=== PATIENT | female | born 1950 | race Hispanic/Latino ===

== ENCOUNTER 2017-11-04 07:39 | Day surgery (SDC) | payer MEDICARE ==
--- OUTSIDE RECORDS SUMMARY | 2017-11-04 07:51 | XMS REPORT ---
:1950 Author Organization eClinicalWorks Care Team Providers Name Role Phone Damir Thomas Provider Role Unavailable Allergies, Adverse Reactions, Alerts Substance Reaction Event Type N.K.D.A. Info Not Available Non Drug Allergy Problems Problem Type Condition Code Onset Dates Condition Status Problem Vitamin B 12 deficiency E53.8 Active Problem Malaise and fatigue R53.81 Active Problem Gastro-esophageal reflux disease K21.9 Active without esophagitis Problem Varicose veins of both lower I83.93 Active extremities Problem Abdominal bloating R14.0 Active Problem Peripheral edema R60.9 Active Problem Vitamin D deficiency E55.9 Active Problem Diabetes type 2, controlled E11.9 Active Problem Hypothyroidism E03.9 Active Problem Benign essential HTN I10 Active Assessment Need for pneumococcal vaccination Z23 Active Assessment Screening for osteoporosis Z13.820 Active Assessment Encounter for screening for other Z11.59 Active viral diseases Assessment Welcome to Medicare preventive Z00.00 Active visit Assessment Screening for malignant neoplasm of Z12.31 Active breast Assessment Screening for colon cancer Z12.11 Active Problem Hyperlipidemia, mixed E78.2 Active Medications Medication Code Code Instructions Start End Status Dosage System Date Date Simvastatin ND 70104522709 40 MG Orally Active 1 tablet Once a day in the evening Lisinopril ND 55714110367 30 MG Orally Active 1 tablet Once a day Synthroid ND 18507857081 50 MCG Orally Active 1 tablet Once a day on an empty stomach in the morning Omeprazole ND 16585713993 40 MG Orally Active 1 capsule Once a day Metformin HCl ND 10353196212 500 MG Orally September 08, Active 1 tablet Twice a day 2017 with a meal Vitamin B12 [facility] 85936823404 100 MCG Orally Active not defined Results No Known Results Immunizations Vaccine Administration Date Prevnar 13 -Pneumonia Vaccine Oct 08, 2017 Summary Purpose eClinicalWorks Submission
--- OUTSIDE RECORDS SUMMARY | 2017-11-04 07:51 | XMS REPORT ---
:1950 Author Organization eClinicalWorks Care Team Providers Name Role Phone Reed Anderson Provider Role Unavailable Allergies, Adverse Reactions, Alerts Substance Reaction Event Type N.K.D.A. Info Not Available Non Drug Allergy Problems Problem Type Condition Code Onset Dates Condition Status Problem Vitamin B 12 deficiency E53.8 Active Problem Malaise and fatigue R53.81 Active Problem Gastro-esophageal reflux disease K21.9 Active without esophagitis Assessment Encounter for screening colonoscopy Z12.11 Active Problem Hyperlipidemia, mixed E78.2 Active Problem Varicose veins of both lower I83.93 Active extremities Problem Abdominal bloating R14.0 Active Problem Peripheral edema R60.9 Active Problem Vitamin D deficiency E55.9 Active Problem Diabetes type 2, controlled E11.9 Active Problem Hypothyroidism E03.9 Active Problem Benign essential HTN I10 Active Medications Medication Code Code Instructions Start End Status Dosage System Date Date Lisinopril [facility] 44984602707 30 MG Orally Active 1 tablet Once a day Metformin HCl [facility] 28163342715 500 MG Orally September 08, Active 1 tablet Twice a day 2017 with a meal Simvastatin ND 93284552917 40 MG Orally Active 1 tablet Once a day in the evening Synthroid ND 53368582182 50 MCG Orally Active 1 tablet Once a day on an empty stomach in the morning Vitamin B12 [facility] 82805926614 100 MCG Orally Active not defined Omeprazole [facility] 67898924285 40 MG Orally Active 1 capsule Once a day Results No Known Results Summary Purpose eClinicalWorks Submission
--- OUTSIDE RECORDS SUMMARY | 2017-11-04 07:51 | XMS REPORT ---
:1950 Author Organization eClinicalWorks Care Team Providers Name Role Phone William Damir Provider Role Unavailable Allergies No Known Allergies Problems Problem Type Condition Code Onset Dates [...] Problem Benign essential HTN I10 Active Assessment Varicose veins of both lower I83.93 Active extremities Assessment Peripheral edema R60.9 Active Problem Hyperlipidemia, mixed E78.2 Active Medications Medication Code Code Instructions Start End Date Status Dosage System Date Simvastatin ND 09191285010 40 MG Orally Active 1 tablet in Once a day the evening Synthroid ND 86368833897 50 MCG Orally Active 1 tablet on Once a day an empty stomach in the morning Vitamin B12 [facility] 41064654373 100 MCG Orally Active not defined Omeprazole ND 45182106565 40 MG Orally Active 1 capsule Once a day Lisinopril ND 60381428534 30 MG Orally Active 1 tablet Once a day Results No Known Results Summary Purpose eClinicalWorks Submission
--- OUTSIDE RECORDS SUMMARY | 2017-11-04 07:51 | XMS REPORT ---
:1950 Author Organization eClinicalWorks Care Team Providers Name Role Phone William [facility] Provider Role Unavailable Allergies, Adverse Reactions, Alerts [...] Problem Benign essential HTN I10 Active Assessment Vitamin D deficiency E55.9 Active Assessment Gastro-esophageal reflux disease K21.9 Active without esophagitis Assessment Vitamin B 12 deficiency E53.8 Active Assessment Benign essential HTN I10 Active Assessment Diabetes type 2, controlled E11.9 Active Assessment Hypothyroidism E03.9 Active Assessment Hyperlipidemia, mixed E78.2 Active Problem Hyperlipidemia, mixed E78.2 Active Medications Medication Code Code Instructions Start End Status Dosage System Date Date Simvastatin ND 28021727184 40 MG Orally Active 1 tablet Once a day in the evening Synthroid [facility] 44417997273 50 MCG Orally Active 1 tablet Once a day on an empty stomach in the morning Metformin HCl ND 36327903942 500 MG Orally September 08, Active 1 tablet Twice a day 2017 with a meal Vitamin B12 [facility] 64160760288 100 MCG Orally Active not defined Omeprazole ND 42438041734 40 MG Orally Active 1 capsule Once a day Lisinopril [facility] 37132003128 30 MG Orally Active 1 tablet Once a day Results No Known Results Summary Purpose eClinicalWorks Submission
[2017-11-04] MEDS ORDERED: NA CHLORIDE 0.9% 1,000 ML ONE (08:05)
[2017-11-04] MEDS ORDERED: LIDOCAINE 2% INJ, MPF 2 ML 1 ML ONE (08:18)
[2017-11-04] MEDS ORDERED: PROPOFOL 200 MG/20 ML VIAL IV ONE (09:07)
--- NOTE | 2017-11-04 09:36 | ENDO RPT ---
[address], [address] COLONOSCOPY PROCEDURE REPORT EXAM DATE: 11/04/2017 PATIENT NAME: Capri Correia MR #: [id number] BIRTHDATE: 1950 ATTENDING: Reed Anderson DR STATUS: outpatient [employer] SUPERVISOR: April Salvador RN and Quentin Robbins [facility] INDICATIONS: The patient is a 67 yr old Female here for a colonoscopy due to colon cancer screening PROCEDURE PERFORMED: Screening Colonoscopy and Colonoscopy MEDICATIONS: Per Anesthesia. ESTIMATED BLOOD LOSS: None CONSENT: The patient understands the risks and benefits of the procedure and understands that these risks include, but are not limited to: sedation, allergic reaction, infection, perforation and/or bleeding. Alternative means of evaluation and treatment include, among others: physical exam, x-rays, and/or surgical intervention. The patient elects to proceed with this endoscopic procedure. DESCRIPTION OF PROCEDURE: During intra-op preparation period all mechanical medical equipment was checked for proper function. Hand hygiene and appropriate measures for infection prevention was taken. Procedure, possible complications, alternatives including, but not limited to possibility of bleeding, perforation, tear, infection, sepsis, need for surgery, need for blood transfusion, were explained to the patient. After the risks, benefits and alternatives of the procedure were thoroughly explained, Informed consent was verified, confirmed and timeout was successfully executed by the treatment team. The patient was placed in the left lateral position. A digital rectal exam was performed and revealed internal hemorrhoids. After appropriate level of anesthesia, the scope was passed. The EC-[id number] ([id number]) endoscope was introduced through the anus and advanced to the cecum, which was identified by both the appendix and ileocecal valve. The quality of the prep was fair. The instrument was then slowly withdrawn as the colon was fully examined. Scope withdrawal time was 8 minutes. COLON FINDINGS: Mild diverticulosis was noted throughout the entire examined colon. No bleeding was noted from the diverticulosis. Small internal hemorrhoids were found. Retroflexed views revealed no abnormalities. The scope was then completely withdrawn from the patient and the procedure terminated. ADVERSE EVENTS: There were no complications. IMPRESSIONS: 1. Moderate diverticulosis was noted throughout the entire examined colon 2. Small internal hemorrhoids RECOMMENDATIONS: 1. low fiber / diverticular diet 2. yearly hemoccult starting in 4 years RECALL: Return in 10 year(s) for Colonoscopy. Reed Anderson DR eSigned: Reed Anderson DR 11/04/2017 9:35 AM cc: CPT CODES: ICD9 CODES: PATIENT NAME: Capri Correia MR#: [id number]
== END 2017-11-04 10:10 | disposition home or self-care (01) ==
LOC: OR 07:39
PROVIDERS: ATTEND Surgery
PROC: 0DJD8ZZ Inspection of Lower Intestinal Tract, Via Natural or Artificial Opening Endoscopic (ICD-10-PCS; principal; 2017-11-04 09:15)
DX: Z12.11 Encounter for screening for malignant neoplasm of colon (principal); E11.9 Type 2 diabetes mellitus without complications; K21.9 Gastro-esophageal reflux disease without esophagitis; I10 Essential (primary) hypertension; E78.2 Mixed hyperlipidemia; E03.9 Hypothyroidism, unspecified; E55.9 Vitamin D deficiency, unspecified; R53.81 Other malaise; R53.83 Other fatigue; K64.8 Other hemorrhoids; K57.30 Diverticulosis of large intestine without perforation or abscess without bleeding
CPT/HCPCS: 45378; 82962; J3490; J7030

== ENCOUNTER 2018-05-30 14:32 | Emergency (ER) | payer MEDICARE ==
--- OUTSIDE RECORDS SUMMARY | 2018-05-30 14:35 | XMS REPORT ---
:1950 Author Organization eClinicalWorks Care Team Providers Name Role Phone Chris Murray Provider Role Unavailable Allergies No Known Allergies Problems Problem Type Condition Code Onset Dates Condition Status Problem Gastro-esophageal reflux disease K21.9 Active without esophagitis Problem Diabetes type 2, controlled E11.9 Active Problem Malaise and fatigue R53.81 Active Problem Hyperlipidemia, mixed E78.2 Active Problem Vitamin B 12 deficiency E53.8 Active Problem Varicose veins of both lower I83.93 Active extremities Problem Peripheral edema R60.9 Active Problem Tear of right rotator cuff, M75.101 Active unspecified tear extent Problem Benign essential HTN I10 Active Problem Vitamin D deficiency E55.9 Active Problem Abdominal bloating R14.0 Active Problem Hypothyroidism E03.9 Active Medications No Known Medications Results No Known Results Summary Purpose eClinicalWorks Submission
--- OUTSIDE RECORDS SUMMARY | 2018-05-30 14:35 | XMS REPORT ---
:1950 Author Organization eClinicalWorks Care Team Providers Name Role Phone William [facility] Provider Role Unavailable Allergies, Adverse Reactions, Alerts [...] Status Dosage System Date Date Simvastatin ND 86436047778 40 MG Orally Active 1 tablet Once a day in the evening Synthroid [facility] 37851914170 50 MCG Orally Active 1 tablet Once a day on an empty stomach in the morning Metformin HCl ND 20380647111 500 MG Orally September 08, Active 1 tablet Twice a day 2017 with a meal Vitamin B12 [facility] 95862442702 100 MCG Orally Active not defined Omeprazole ND 63218223363 40 MG Orally Active 1 capsule Once a day Lisinopril [facility] 41838747122 30 MG Orally Active 1 tablet Once a day Results No Known Results Summary Purpose eClinicalWorks Submission
--- OUTSIDE RECORDS SUMMARY | 2018-05-30 14:35 | XMS REPORT ---
[...] Status Dosage System Date Date Simvastatin ND 29293301009 40 MG Orally Active 1 tablet Once a day in the evening Lisinopril ND 23360693134 30 MG Orally Active 1 tablet Once a day Synthroid ND 39983883768 50 MCG Orally Active 1 tablet Once a day on an empty stomach in the morning Omeprazole ND 25408715155 40 MG Orally Active 1 capsule Once a day Metformin HCl ND 53102289390 500 MG Orally September 08, Active 1 tablet Twice a day 2017 with a meal Vitamin B12 [facility] 49133297183 100 MCG Orally Active not defined Results No Known Results Immunizations Vaccine Administration Date Prevnar 13 -Pneumonia Vaccine Oct 08, 2017 Summary Purpose eClinicalWorks Submission
--- OUTSIDE RECORDS SUMMARY | 2018-05-30 14:35 | XMS REPORT ---
[...] End Status Dosage System Date Date Lisinopril [facility] 71766333343 30 MG Orally Active 1 tablet Once a day Metformin HCl [facility] 99139872297 500 MG Orally September 08, Active 1 tablet Twice a day 2017 with a meal Simvastatin ND 78862392012 40 MG Orally Active 1 tablet Once a day in the evening Synthroid ND 38767591556 50 MCG Orally Active 1 tablet Once a day on an empty stomach in the morning Vitamin B12 [facility] 76285449946 100 MCG Orally Active not defined Omeprazole [facility] 14964604947 40 MG Orally Active 1 capsule Once a day Results No Known Results Summary Purpose eClinicalWorks Submission
--- OUTSIDE RECORDS SUMMARY | 2018-05-30 14:35 | XMS REPORT ---
[...] Date Status Dosage System Date Simvastatin ND 21406775566 40 MG Orally Active 1 tablet in Once a day the evening Synthroid ND 59411642738 50 MCG Orally Active 1 tablet on Once a day an empty stomach in the morning Vitamin B12 [facility] 09717388065 100 MCG Orally Active not defined Omeprazole ND 66868981935 40 MG Orally Active 1 capsule Once a day Lisinopril ND 11529567280 30 MG Orally Active 1 tablet Once a day Results No Known Results Summary Purpose eClinicalWorks Submission
--- OUTSIDE RECORDS SUMMARY | 2018-05-30 14:35 | XMS REPORT ---
:1950 Author Organization eClinicalWorks Care Team Providers Name Role Phone Chris Murray Provider Role Unavailable Allergies, Adverse Reactions, Alerts Substance Reaction Event Type N.K.D.A. Info Not Available Non Drug Allergy Problems Problem Type Condition Code Onset Dates Condition Status Problem Gastro-esophageal reflux disease K21.9 Active without esophagitis Problem Diabetes type 2, controlled E11.9 Active Problem Malaise and fatigue R53.81 Active Problem Varicose veins of both lower I83.93 Active extremities Problem Peripheral edema R60.9 Active Problem Tear of right rotator cuff, M75.101 Active unspecified tear extent Problem Benign essential HTN I10 Active Problem Vitamin D deficiency E55.9 Active Problem Abdominal bloating R14.0 Active Problem Hypothyroidism E03.9 Active Assessment Impingement syndrome of right M75.41 Active shoulder Assessment Pain, joint, shoulder, right M25.511 Active Assessment Tear of right rotator cuff, M75.101 Active unspecified tear extent Problem Hyperlipidemia, mixed E78.2 Active Assessment Biceps tendinitis of right upper M75.21 Active extremity Problem Vitamin B 12 deficiency E53.8 Active Medications Medication Code Code Instructions Start End Status Dosage System Date Date Simvastatin ND 16691722018 40 MG Orally Active 1 tablet Once a day in the evening Omeprazole ND 72539513399 40 MG Orally Active 1 capsule Once a day Metformin HCl [facility] 97083597305 500 MG Orally Active 1 tablet Twice a day with a meal Lisinopril [facility] 47125262238 30 MG Orally Active 1 tablet Once a day Tramadol HCl ND 77778316518 50 MG Orally Dec 10, Active 1 tablet every 6 hrs 2017 as needed Synthroid [facility] 40093620275 75 MCG Orally Active 1 tablet Once a day on an empty stomach in the morning Vitamin B12 ND 81842698727 100 MCG Orally Active not defined Results Name Result Date Reference Range Unit Abnormality Flag MRI : Shoulder, right Summary Purpose eClinicalWorks Submission
--- OUTSIDE RECORDS SUMMARY | 2018-05-30 14:35 | XMS REPORT ---
[...] of both lower I83.93 Active extremities Assessment Right shoulder pain, unspecified M25.511 Active chronicity Problem Peripheral edema R60.9 Active Assessment Microalbuminuria R80.9 Active Problem Tear of right rotator cuff, M75.101 Active unspecified tear extent Problem Benign essential HTN I10 Active Problem Vitamin D deficiency E55.9 Active Problem Abdominal bloating R14.0 Active Problem Hypothyroidism E03.9 Active Assessment Gastro-esophageal reflux disease K21.9 Active without esophagitis Assessment Hypothyroidism E03.9 Active Assessment Vitamin B 12 deficiency E53.8 Active Assessment Vitamin D deficiency E55.9 Active Assessment Diabetes type 2, controlled E11.9 Active Assessment Hyperlipidemia, mixed E78.2 Active Problem Hyperlipidemia, mixed E78.2 Active Assessment Benign essential HTN I10 Active Problem Vitamin B 12 deficiency E53.8 Active Medications Medication Code Code Instructions Start End Status Dosage System Date Date Synthroid [facility] 72094368529 88 MCG Orally Active 1 tablet Once a day on an empty stomach in the morning Omeprazole [facility] 27946659329 40 MG Orally Active 1 capsule Once a day Tramadol HCl [facility] 74164973890 50 MG Orally Dec 10, Active 1 tablet every 6 hrs 2017 as needed Metformin HCl [facility] 56235229095 500 MG Orally Active 1 tablet Twice a day with a meal Omeprazole [facility] 41213448391 40 MG Orally Active 1 capsule Once a day Simvastatin [facility] 69874434125 40 MG Orally Active 1 tablet Once a day in the evening Vitamin B12 [facility] 31342936809 100 MCG Orally Active not defined Lisinopril [facility] 31026638115 30 MG Orally Active 1 tablet Once a day Results No Known Results Summary Purpose eClinicalWorks Submission
--- OUTSIDE RECORDS SUMMARY | 2018-05-30 14:36 | XMS REPORT ---
:1950 Author Organization eClinicalWorks Care Team Providers Name Role Phone Damir Thomas Provider Role Unavailable Allergies, Adverse Reactions, Alerts Substance Reaction Event Type N.K.D.A. Info Not Available Non Drug Allergy Problems Problem Type Condition Code Onset Dates Condition Status Problem Malaise and fatigue R53.81 Active Problem Vitamin D deficiency E55.9 Active Problem Diabetes type 2, controlled E11.9 Active Problem Tear of right rotator cuff, M75.101 Active unspecified tear extent Problem Varicose veins of both lower I83.93 Active extremities Problem Allergic rhinitis, unspecified J30.9 Active seasonality, unspecified trigger Problem Hypothyroidism E03.9 Active Problem Benign essential HTN I10 Active Problem Peripheral edema R60.9 Active Problem Abdominal bloating R14.0 Active Assessment Allergic rhinitis, unspecified J30.9 Active seasonality, unspecified trigger Problem Hyperlipidemia, mixed E78.2 Active Assessment Acute non-recurrent frontal J01.10 Active sinusitis Problem Vitamin B 12 deficiency E53.8 Active Assessment Upper respiratory tract infection, J06.9 Active unspecified type Problem Gastro-esophageal reflux disease K21.9 Active without esophagitis Medications Medication Code Code Instructions Start End Status Dosage System Date Date Tramadol HCl ND 63179451217 50 MG Orally Feb 15, Active 1 tablet every 6 hrs 2017 as needed Simvastatin ND 02904567486 40 MG Orally Active 1 tablet Once a day in the evening Montelukast ND 34385290352 10 MG Orally Apr 28, Active 1 tablet Sodium Once a day 2018 Metformin HCl ND 73900752650 500 MG Orally Active 1 tablet Twice a day with a meal Omeprazole [facility] 96438246496 40 MG Orally Active 1 capsule Once a day Vitamin B12 [facility] 96616589071 100 MCG Orally Active not defined Synthroid ND 08128535342 88 MCG Orally Active 1 tablet Once a day on an empty stomach in the morning Lisinopril [facility] 28227552074 30 MG Orally Active 1 tablet Once a day Results No Known Results Summary Purpose eClinicalWorks Submission
[2018-05-30] MEDS ORDERED: PHENAZOPYRIDINE 100MG TAB PO ONE (15:21)
--- NOTE | 2018-05-30 15:21 | ER ---
Nurse's Notes [facility] Name: Capri Correia Age: 68 yrs Sex: Female : 1950 Arrival Date: 05/30/2018 Time: 14:37 Bed 30 Private MD: Damir Thomas Diagnosis: Urinary tract infection, site not specified Presentation: 05/30 14:39 Presenting complaint: Child states: per daughter in law: she has abd pain; L lower abd, hj i think she had UTI, coz when she pees it marshall a lot; denies fever and chills; denies N/V;. Transition of care: patient was not received from another setting of care. Onset of symptoms was May 30, 2018. Risk Assessment: Do you want to hurt yourself or someone else? Patient reports no desire to harm self or others. Initial Sepsis Screen: Does the patient meet any 2 criteria? Yes Does the patient have a suspected source of infection? Yes: Dysuria/Frequency/Urgency/UTI. Care prior to arrival: None. 14:39 Method Of Arrival: Ambulatory 14:39 Acuity: NITA 4 hj Triage Assessment: 14:43 General: Appears in no apparent distress. uncomfortable, Behavior is calm, cooperative, hj appropriate for age. Pain: Complains of pain in abdomen. GI: Reports lower abdominal pain. : Reports burning with urination. Historical: - Allergies: 14:43 No Known Allergies; hj - Home Meds: 14:43 pirimir [Active]; simvastatin 40 mg Oral tab 1 tab once daily [Active]; metformin 500 hj mg Oral tr24 1 tab twice a day [Active]; lisinopril 30 mg Oral tab 1 tab once daily [Active]; levothyroxine 88 mcg tab 1 tab once daily [Active]; - PMHx: 14:43 Hypothyroidism; Hyperlipidemia; Hypertension; hj - PSHx: 14:43 Tonsillectomy; Thyroidectomy; hj - Immunization history:: Adult Immunizations up to date. - Social history:: Smoking status: Patient/guardian denies using tobacco, Patient/guardian denies using alcohol. - Ebola Screening: : Patient negative for fever greater than or equal to 101.5 degrees Fahrenheit, and additional compatible Ebola Virus Disease symptoms Patient denies exposure to infectious person Patient denies travel to an Ebola-affected area in the 21 days before illness onset. Screenin:43 Abuse screen: Denies threats or abuse. Denies injuries from another. Nutritional hj screening: No deficits noted. Tuberculosis screening: No symptoms or risk factors identified. Fall Risk None identified. Assessment: 14:44 GI: Bowel sounds present X 4 quads. hj 14:59 General: Appears in no apparent distress. Behavior is calm, cooperative. Neuro: Level la1 of Consciousness is awake, alert, obeys commands, Oriented to person, place, time, situation. Cardiovascular: Patient's skin is warm and dry. Respiratory: Airway is patent Respiratory effort is even, unlabored. : Reports burning with urination. Vital Signs: 14:44 BP 146 / 80; Pulse 83; Resp 18; Temp 97.8(O); Pulse Ox 100% on R/A; Weight 73.48 kg; hj Height 5 ft. 2 in. (157.48 cm); Pain 8/10; 14:44 Body Mass Index 29.63 (73.48 kg, 157.48 cm) hj ED Course: 14:37 Patient arrived in ED. mr 14:38 Damir Thomas DO is Private Physician. mr 14:41 Triage completed. hj 14:41 Tamar Pelletier [facility]-C [facility]. kb 14:41 Jb Solomon MD is Attending Physician. kb 14:44 Arm band placed on right wrist. hj 14:44 Patient has correct armband on for positive identification. Bed in low position. Call hj light in reach. Side rails up X 1. Adult w/ patient. 14:50 Cipriano Sanz, RN is Primary Nurse. la1 15:38 No provider procedures requiring assistance completed. Patient did not have IV access la1 during this emergency room visit. Administered Medications: 15:13 Drug: Augmentin 875 mg Route: PO; la1 15:38 Follow up: Response: No adverse reaction la1 15:14 Drug: Pyridium 100 mg Route: PO; la1 15:38 Follow up: Response: No adverse reaction la1 Outcome: 15:21 Discharge ordered by . kb 15:39 Discharged to home ambulatory. la1 15:39 Condition: stable 15:39 Discharge instructions given to patient, Instructed on discharge instructions, follow up and referral plans. medication usage, Demonstrated understanding of instructions, follow-up care, medications, Prescriptions given X 2. 15:39 Patient left the ED. la1 Addendum: 06/02/2018 09:44 Addendum: Culture Results: Positive urine culture. Bacteria is resistant to, has s s intermediate sensitivity, or is not tested against prescribed antibiotics. Report given to TELMA for further evaluation and then to mold capper for follow up with patient. Phone call Attempt #1 Spoke with patient and daughter who report that patient is feeling much better, and would not like to have another antibiotic called in as recommended by ALISIA Celeste. Pt and family verbalize understanding importance of follow up with PCP ria to reevaluate for UTI especially if they do not want appropriate antibiotic called in. Signatures: Tamar Pelletier, [employer] OFFICER-Carmencita Morrissey Shelby, RN [facility]AI ss Cipriano Sanz RN RN la1 Sterling Farley, CHAI RN hj Corrections: (The following items were deleted from the chart) 05/30 14:46 14:44 Pulse 83bpm; Resp 18bpm; Pulse Ox 100% RA; Temp 97.8F Oral; 73.48 kg; Height 5 hj ft. 2 in.; BMI: 29.6; Pain 8/10; hj
--- NOTE | 2018-05-30 15:21 | EDPHYS ---
Physician Documentation [facility] Name: Capri Correia Age: 68 yrs Sex: Female : 1950 Arrival Date: 05/30/2018 Time: 14:37 Bed 30 Private MD: William [facility] ED Physician Jb Solomon HPI: 05/30 15:02 This 68 yrs old Female presents to ER via Ambulatory with complaints of kb Abdominal Pain. 15:02 The patient presents with urinary symptoms, dysuria. Onset: The symptoms/episode kb began/occurred 1 week(s) ago. Modifying factors: The symptoms are alleviated by nothing, the symptoms are aggravated by urinating. Associated signs and symptoms: Pertinent positives: dysuria, suprapubic pain, Pertinent negatives: fever. Severity of symptoms: At their worst the symptoms were moderate, in the emergency department the symptoms are unchanged. The patient has not experienced similar symptoms in the past. The patient has not recently seen a physician. Historical: - Allergies: 14:43 No Known Allergies; hj - Home Meds: 14:43 pirimir [Active]; simvastatin 40 mg Oral tab 1 tab once daily [Active]; metformin 500 hj mg Oral tr24 1 tab twice a day [Active]; lisinopril 30 mg Oral tab 1 tab once daily [Active]; levothyroxine 88 mcg tab 1 tab once daily [Active]; - PMHx: 14:43 Hypothyroidism; Hyperlipidemia; Hypertension; hj - PSHx: 14:43 Tonsillectomy; Thyroidectomy; hj - Immunization history:: Adult Immunizations up to date. - Social history:: Smoking status: Patient/guardian denies using tobacco, Patient/guardian denies using alcohol. - Ebola Screening: : Patient negative for fever greater than or equal to 101.5 degrees Fahrenheit, and additional compatible Ebola Virus Disease symptoms Patient denies exposure to infectious person Patient denies travel to an Ebola-affected area in the 21 days before illness onset. ROS: 15:01 Constitutional: Negative for fever, chills, and weight loss, Cardiovascular: Negative kb for chest pain, palpitations, and edema, Respiratory: Negative for shortness of breath, cough, wheezing, and pleuritic chest pain, Back: Negative for injury and pain, MS/Extremity: Negative for injury and deformity, Skin: Negative for injury, rash, and discoloration, Neuro: Negative for headache, weakness, numbness, tingling, and seizure. 15:01 Abdomen/GI: Positive for abdominal pain, of the suprapubic area, Negative for nausea, vomiting, and diarrhea. 15:01 : Positive for urinary symptoms, burning with urination. Exam: 15:01 Constitutional: This is a well developed, well nourished patient who is awake, alert, kb and in no acute distress. Head/Face: Normocephalic, atraumatic. Chest/axilla: Normal chest wall appearance and motion. Nontender with no deformity. No lesions are appreciated. Cardiovascular: Regular rate and rhythm with a normal S1 and S2. No gallops, murmurs, or rubs. Normal PMI, no JVD. No pulse deficits. Respiratory: Lungs have equal breath sounds bilaterally, clear to auscultation and percussion. No rales, rhonchi or wheezes noted. No increased work of breathing, no retractions or nasal flaring. Skin: Warm, dry with normal turgor. Normal color with no rashes, no lesions, and no evidence of cellulitis. MS/ Extremity: Pulses equal, no cyanosis. Neurovascular intact. Full, normal range of motion. Neuro: Awake and alert, GCS 15, oriented to person, place, time, and situation. Cranial nerves II-XII grossly intact. Motor strength 5/5 in all extremities. Sensory grossly intact. Cerebellar exam normal. Normal gait. 15:01 Abdomen/GI: Inspection: abdomen appears normal, Bowel sounds: normal, in all quadrants, Palpation: soft, in all quadrants, moderate abdominal tenderness, in the suprapubic area. Vital Signs: 14:44 BP 146 / 80; Pulse 83; Resp 18; Temp 97.8(O); Pulse Ox 100% on R/A; Weight 73.48 kg; hj Height 5 ft. 2 in. (157.48 cm); Pain 8/10; 14:44 Body Mass Index 29.63 (73.48 kg, 157.48 cm) MDM: 14:47 Patient medically screened. kb 15:00 Data reviewed: vital signs, nurses notes. Data interpreted: Pulse oximetry: on room air kb is 100 %. Interpretation: normal. Counseling: I had a detailed discussion with the patient and/or guardian regarding: the historical points, exam findings, and any diagnostic results supporting the discharge/admit diagnosis, lab results, the need for outpatient follow up, a family practitioner, to return to the emergency department if symptoms worsen or persist or if there are any questions or concerns that arise at home. 05/30 14:42 Order name: Urine Microscopic Only 05/30 15:00 Order name: Urine Culture 05/30 14:42 Order name: Urine Dipstick-Ancillary (obtain specimen); Complete Time: 15:00 05/30 15:09 Order name: Urine Dipstick--Ancillary (enter results) bd Administered Medications: 15:13 Drug: Augmentin 875 mg Route: PO; la1 15:38 Follow up: Response: No adverse reaction la1 15:14 Drug: Pyridium 100 mg Route: PO; la1 15:38 Follow up: Response: No adverse reaction la1 Disposition: 05/31 07:37 Co-signature as Attending Physician, Jb Solomon MD I agree with the assessment and zeb plan of care. Disposition: 05/30/18 15:21 Discharged to Home. Impression: Urinary tract infection, site not specified. - Condition is Stable. - Discharge Instructions: Urinary Tract Infection, Adult, [id number]. - Prescriptions for Augmentin 875- 125 mg Oral Tablet - take 1 tablet by ORAL route every 12 hours for 10 days; 20 tablet. Pyridium 200 mg Oral Tablet - take 1 tablet by ORAL route every 8 hours for 3 days; 9 tablet. - Medication Reconciliation Form, Thank You Letter, Antibiotic Education, Prescription Opioid Use form. - Follow up: Emergency Department; When: As needed; Reason: Worsening of condition. Follow up: Private Physician; When: 2 - 3 days; Reason: Recheck today's complaints, Continuance of care, Re-evaluation by your physician. Signatures: Dispatcher [employer] Tamar Santiago, ASHA-C ASHA-Jb Hernandez MD MD cha Attema, Lee, RN RN la1 Sterling Farley RN RN Corrections: (The following items were deleted from the chart) 05/30 15:39 15:21 05/30/2018 15:21 Discharged to Home. Impression: Urinary tract infection, site la1 not specified. Condition is Stable. Discharge Instructions: Urinary Tract Infection, Adult, [id number]. Prescriptions for Augmentin 875-125 mg Oral Tablet - take 1 tablet by ORAL route every 12 hours for 10 days; 20 tablet, Pyridium 200 mg Oral Tablet - take 1 tablet by ORAL route every 8 hours for 3 days; 9 tablet. and Forms are Medication Reconciliation Form, Thank You Letter, Antibiotic Education, Prescription Opioid Use. Follow up: Emergency Department; When: As needed; Reason: Worsening of condition. Follow up: Private Physician; When: 2 - 3 days; Reason: Recheck today's complaints, Continuance of care, Re-evaluation by your physician. kb
[2018-05-30] MEDS ORDERED: AMOX/K CLAV 875 MG TAB ONE (15:22)
[2018-05-30 16:04] LABS: Urine Amorphous Sediment 2+ /HPF (NONE SEEN); Urine Bacteria 20-50 /HPF (<20); Urine Culture Reflex Order REFLEXED; Urine RBC 20-50 /HPF (NONE SEEN)
[2018-05-30 16:04] LABS: Urine Blood TRACE (NEG); Urine Glucose TRACE (NEG); Urine Protein 1+ (NEG)
== END 2018-05-30 15:39 | disposition home or self-care (01) ==
LOC: ER 14:32
DX: N39.0 Urinary tract infection, site not specified (principal); E78.5 Hyperlipidemia, unspecified; E03.9 Hypothyroidism, unspecified; I10 Essential (primary) hypertension
CPT/HCPCS: 81003; 81015; 87077; 87086; 87088; 87186; 99283

== ENCOUNTER 2019-08-02 17:15 | Emergency (ER) | payer OTHER ==
--- OUTSIDE RECORDS SUMMARY | 2019-08-02 17:17 | XMS REPORT ---
:1950 Author Organization [employer] Care Team Providers Name Role Phone William [facility] Provider Role Unavailable Allergies, Adverse Reactions, Alerts Substance Reaction Event Type Cipro abdominal pain Drug Allergy Problems Problem Type Condition Code Onset Dates Condition Statu s Assessment Pain in unspecified hand M79.643 Act enzo Assessment Pain in unspecified finger(s) M79.646 Active Assessment Microalbuminuria R80.9 Active Assessment Right shoulder pain, unspecified M25.511 Active chronicity Assessment Vitamin B 12 deficiency E53.8 Acti ve Problem Benign essential HTN I10 Active Assessment Vitamin D deficiency E55.9 Active Problem Hypothyroidism E03.9 Active Assessment Gastro-esophageal reflux disease K21.9 Active without esophagitis Problem Abdominal bloating R14.0 Active Problem Varicose veins of both lower I83.93 Active extremities Problem Peripheral edema R60.9 Active Problem Type 2 diabetes mellitus with other E11.29 Active diabetic kidney complication Problem Insomnia, unspecified type G47.00 A ctive Assessment Hyperlipidemia, mixed E78.2 Active Assessment Hypothyroidism E03.9 Active Problem Primary osteoarthritis involving M15.0 Active multiple joints Assessment Insomnia, unspecified type G47.00 A ctive Problem Claustrophobia F40.240 Active Problem Tear of right rotator cuff, M75.101 Active unspecified tear extent Problem GERD without esophagitis K21.9 Act enzo Problem Allergic rhinitis, unspecified J30.9 Active seasonality, unspecified trigger Problem Hyperlipidemia, mixed E78.2 Active Assessment Type 2 diabetes mellitus with other E11.29 Active diabetic kidney complication Assessment Benign essential HTN I10 Active Problem Diabetes type 2, controlled E11.9 Active Problem Vitamin D deficiency E55.9 Active Problem Vitamin B 12 deficiency E53.8 Acti ve Problem Malaise and fatigue R53.81 Active Medications Medication Code Code Instructions Start End Status Dosage System Date Date Simvastatin ND 78184701288 40 MG Orally Active 1 t ablet Once a day in the evening Vitamin B12 ND 55288623690 100 MCG Orally Active n ot defined Trazodone HCl ND 34355298672 100 MG Orally Active 1 tablet Once a day at bedtime Tramadol HCl [facility] 55663203298 50 MG Orally Feb 15, Active 1 tablet every 6 hrs 2017 as needed Omeprazole [facility] 63120873417 40 MG Orally Active 1 ca psule Once a day Lisinopril [facility] 98626890867 30 MG Orally Active 1 ta blet Once a day Metformin HCl [facility] 81131126283 500 MG Orally Active 1 tablet Twice a day with a meal Lisinopril [facility] 64346125323 30 MG Active TAKE 1 TABLET BY MOUTH ONCE DAILY FOR 90 DAYS Montelukast [facility] 20605949235 10 MG Orally Apr 28, Active 1 t ablet Sodium Once a day 2018 Lorazepam [facility] 11515058731 0.5 MG Orally Active 1 ta blet Once a day PRN as needed Prior to MRI Synthroid [facility] 67172854804 75 MCG Orally Active 1 ta blet Once a day on an empty stomach in the morning Results No Known Results Summary Purpose eClinicalWorks Submission
--- OUTSIDE RECORDS SUMMARY | 2019-08-02 17:17 | XMS REPORT ---
:[address] [facility] t Address [address] [place] [address] Care Team Providers Name Role Phone Unavailable Unavailable Unavailable Problems Condition Condition Condition Status Onset Resolution Last Treating Co mments Source Name Details Category Date Date Treatment Clinician Date Vitamin B Vitamin B Problem Active [facility] - deficiency deficiency Me moria l [facility] Clinics Malaise Malaise Problem Active [facility] - fatigue fatigue Memoria l [facility]ics GERD GERD Problem Active [facility] without without [facility] - esophagiti esophagiti Me moria s s l [facility]ics Varicose Varicose Problem [facility] veins of veins of [facility] - both lower both lower Me moria extremitie extremitie l s s [facility] Abdominal Abdominal Problem Active [facility] bloating bloating [facility] Peripheral Peripheral Problem Active [facility] edema edema [facility] Vitamin D Vitamin D Problem Active [facility] deficiency deficiency Gabriela kes - Memoria l [facility] Diabetes Diabetes Problem Active [facility] type 2, type 2, [facility] - controlled controlled Me moria l [facility] Hypothyroi Hypothyroi Diagnosis Active [facility] dism dism [facility] Benign Benign Diagnosis Active [facility] essential essential Luke s - HTN HTN Memoria l [facility] Hyperlipid Hyperlipid Problem Active [facility] emia, emia, [facility] - mixed mixed Memoria l [facility] Tear of Tear of Problem Active [facility] right right [facility] - rotator rotator Memoria cuff, cuff, l unspecifie unspecifie Ou tpati d tear d tear ent extent extent Clinics Allergic Allergic Problem Active [facility] rhinitis, rhinitis, Luke s - unspecifie unspecifie Me moria d d l seasonalit seasonalit Ou tpati y, y, ent unspecifie unspecifie Cl inics d trigger d trigger Claustroph Claustroph Problem Active [facility] obia obia [facility] - Memoria l [facility] Clinics Insomnia, Insomnia, Diagnosis Active [facility] unspecifie unspecifie Gabriela kes - d type d type Memoria l [facility] ent Clinics Type 2 Type [address] [facility] diabetes diabetes [facility] - mellitus mellitus Memori a with other with other l diabetic diabetic Outpat i kidney kidney ent complicati complicati Cl inics on on Primary Primary Problem Active [facility] osteoarthr osteoarthr Gabriela kes - itis itis Memoria involving involving l multiple multiple Outpat i joints joints ent Clinics Pain in Pain in Diagnosis Active [facility] unspecifie unspecifie Gabriela kes - d hand d hand Memoria l [facility] Clinics Pain in Pain in Diagnosis Active [facility] unspecifie unspecifie Gabriela kes - d d Memoria finger(s) finger(s) l [facility] ent Clinics Microalbum Microalbum Diagnosis Active [facility] inuria inuria [facility] Right Right Diagnosis Active [facility] shoulder shoulder [facility] - pain, pain, Memoria unspecifie unspecifie l d d [facility] chronicity chronicity en t Clinics Allergies, Adverse Reactions, Alerts Allergy Allergy Status Severity Reaction(s) Onset Inactive Treating Comm ents Source Name Type Date Date Clinician Cipro Adverse Active abdominal [facility] Reaction pain [facility] ent [facility] Medications Ordered Filled Start Stop Current Ordering Indication Dosage Frequency Signature Comments Components Source Medication Medication Date Date Medication? Clinician (SIG) Name Name Trazodone Trazodone 2018-03 Yes Damir [address] [facility] HCl HCl 1-06 Thomas at bedtime [facility] - 00:00: Memoria 00 [facility] Montelukast [place] Yes Damir [address] [facility] Sodium Sodium 2-20 Thomas [facility] - 00:00: Memoria [address] [facility] Tramadol Tramadol 2017-03 Yes Damir [address] [facility] HCl HCl 2-10 Thomas as needed [facility] - 00:00: Memoria [address] [facility] Lisinopril Lisinopril Yes Damir [address] [facility] [address] [facility] ent Clinics Simvastatin Simvastatin Yes Damir [address] [facility] in the [facility] - evening [facility] Clinics Vitamin B12 Vitamin B12 Yes Damir not [facility] defined [facility] l Out[facility] ent Clinics Synthroid Synthroid Yes Damir [address] [facility] on an [facility] - empty Memoria stomach in l the Outpati morning ent Clinics Lorazepam Lorazepam Yes Damir [address] [facility] as needed [facility] Metformin Metformin Yes Damir [address] [facility] [address] HCl HCl Thomas with a [facility] - meal Memoria l [facility] Omeprazole Omeprazole Yes Damir [address] [facility] l Outpati ent Clinics Lisinopril Lisinopril Yes Damir TAKE [address] [facility] TABLET BY [facility]ukes - MOUTH ONCE Memoria DAILY FOR l 90 DAYS [facility] Immunizations Ordered Filled Immunization Date Status Comments [facility] e Immunization Name Name FluAD FluAD 2019-01-[address] [facility] - 00:[facility] [facility] [address] [facility] Prevnar 13 Prevnar 13 2017-10-[address] [facility] - -Pneumonia Vaccine -Pneumonia Vaccine 00:00:[address] [facility] [address] [facility] Procedures This patient has no known procedures. Encounters Start End Encounter Admission Attending Care Care Encounter Source Date/Time Date/Time Type Type Clinicians Facility Department ID 2019-07-12 2019-07-12 [facility] [id number] [facility] 09:30:00 09:30:00 [facility] Medicine Outpati ent Clinics 2019-04-14 2019-04-14 [facility] [id number] 08:33:00 08:33:00 [facility] Medicine Outpati ent Clinics 2019-04-12 2019-04-12 [facility] [id number] 09:15:00 09:15:00 [facility] Medicine Medicine Outpati ent Clinics 2019-04-05 2019-04-05 [facility] [id number] 08:18:00 08:18:00 t [facility] l Medicine Outpati ent Clinics 2019-03-15 2019-03-15 [facility] [id number] 10:45:00 10:45:00 [facility] Medicine Medicine Outpati ent Clinics 2019-02-02 2019-02-02 [facility] [id number] 09:00:00 09:00:[address] [facility] - [address] [facility] l Medicine Outpati ent Clinics 2019-01-12 2019-01-12 [facility] [id number] 10:15:00 10:15:[address] Luke s - [address] [facility] Medicine Outpati ent Clinics 2019-01-05 2019-01-05 [facility] [id number] 14:58:00 14:58:00 [place] [employer] [place] [facility] - [facility] Medicine Outpati ent Clinics 2018-11-09 2018-11-09 [facility] [id number] 09:47:00 09:47:00 [place] [employer] s - Drive [facility] Medicine Outpati ent Clinics 2018-10-28 2018-10-28 [facility] [id number] 08:34:00 08:34:00 [place] [employer] [place] [facility] - Drive [facility] Medicine Medicine Outpati ent Clinics 2018-10-15 2018-10-15 [facility] [id number] 09:00:00 09:00:00 [place] [employer] [place] [facility] - [facility] Medicine Outpati ent Clinics 2018-07-05 2018-07-05 [facility] [id number] [address] 08:30:00 08:30:00 [place] [employer] [place] - Drive [facility] Medicine Medicine Outpati ent Clinics 2018-06-07 2018-06-07 [facility] [id number] 10:15:00 10:15:00 [place] [employer] [place] - [facility] Medicine Outpati ent Clinics 2018-06-03 2018-06-03 [facility] [id number] 10:30:00 10:30:00 [place] [employer] [place] - [facility] Medicine Outpati ent Clinics 2018-04-28 2018-04-28 [facility] [id number] 13:30:00 13:30:00 [place] [employer] [place] - Drive [facility] Outpati ent Clinics 2018-04-06 2018-04-06 [facility] [id number] 08:15:00 08:15:[address] [facility] s - [address] [facility] Outpati ent Clinics 2018-02-17 2018-02-17 [facility] [id number] 10:24:00 10:24:00 t [facility] 2018-02-15 2018-02-15 [facility] [id number] 08:30:00 08:30:00 t [facility] and [facility] - and [facility] ent Clinics 2017-10-22 2017-10-22 [facility] [id number] 15:00:00 15:00:00 t Specialty/U Gabriela kes - Specialty rology [facility] a /Urology Clinic l [facility] 2017-10-08 2017-10-08 [facility] [id number] 09:00:00 09:00:00 [place] [employer] [place] - [address] [facility] 2017-09-08 2017-09-08 [facility] [id number] 09:00:00 09:00:00 [place] [facility] - Drive [facility] Outpati ent Clinics 2017-07-17 2017-07-17 [facility] [id number] 09:30:00 09:30:00 [place] [employer] [place] - Drive [facility] Results This patient has no known results.
[2019-08-02 17:57] LABS: Urine Bacteria NONE SEEN /HPF (<20); Urine RBC <5 /HPF (NONE SEEN)
[2019-08-02 17:58] LABS: Urine Culture Reflex Order NOT NEEDED
[2019-08-02 18:11] LABS: Absolute Lymphocytes (CBC) 3.7 K/uL (0.7-4.9); Basophils % 0.4 % (0-1.3); Hematocrit 38.3 % (36.0-45.0); Lymphocytes % 44.2 % (15.3-44.8); MPV 8.8 fL (7.6-11.3); RBC Red Blood Cell Count 4.34 M/uL (3.86-4.86)
[2019-08-02] MEDS ORDERED: MORPHINE 4 MG/ML SYR ONE (18:12)
[2019-08-02] MEDS ORDERED: ONDANSETRON 4 MG/2 ML VIAL ONE (18:12)
--- NOTE | 2019-08-02 18:19 | RAD REPORT ---
EXAM DESCRIPTION: CTAbdomen Pelvis W Contrast - 08/02/2019 6:12 pm CLINICAL HISTORY: Abdominal pain. ABD PAIN COMPARISON: No comparisons TECHNIQUE: Biphasic CT imaging of the abdomen and pelvis was performed with 100 ml non-ionic IV cont rast. All CT scans are performed using dose optimization technique as appropriate and may include automated exposure control or mA/KV adjustment according to patient size. FINDINGS: The lung bases are clear. The liver, spleen, pancreas, adrenal glands and kidneys are within normal limits. No bowel obstruction, free air, free fluid or abscess. The appendix is normal. No evidence of signi ficant lymphadenopathy. No suspicious bony findings. IMPRESSION: No acute intra-abdominal or pelvic finding.
[2019-08-02 18:34] LABS: ALT/SGPT 28 U/L (12-78); AST/SGOT 23 U/L (15-37); Albumin 3.5 g/dL (3.4-5.0); Alkaline Phosphatase 107 U/L (45-117); BUN Blood Urea Nitrogen 23 mg/dL (7-18); Bicarbonate 27 mmol/L (21-32); Bilirubin Direct < 0.1 mg/dL (0-0.2); Bilirubin Total 0.2 mg/dL (0.2-1.0); Glucose Level 113 mg/dL (74-106); Lipase 149 U/L (73-393); Potassium 3.9 mmol/L (3.5-5.1); Sodium Level 140 mmol/L (136-145)
[2019-08-02] MEDS ORDERED: NA CHLORIDE 0.9% 1,000 ML ONE (18:56)
[2019-08-02 20:46] LABS: Urine Blood NEGATIVE (NEG); Urine Glucose NEGATIVE (NEG); Urine Protein NEGATIVE (NEG)
[2019-08-02 22:11] VITALS: TEMP 98.5
[2019-08-02 22:13] VITALS: BP 144/81; O2SAT 100
--- NOTE | 2019-08-08 13:40 | ER ---
Nurse's Notes [facility] Name: Capri Correia Age: 69 yrs Sex: Female : 1950 Arrival Date: 08/02/2019 Time: 17:18 Bed 24 Private MD: Damir Thomas Diagnosis: Unspecified abdominal pain Presentation: 08/01 17:23 Chief complaint: Patient states: low abd pain X 5 days, getting worse, can't walk bc it iw hurts, denies n/v/d, denies urinary symptoms. Coronavirus screen: Proceed with normal triage. Patient denies a cough. Patient denies shortness of breath or difficulty breathing. Patient denies measured and/or subjective temperature greater than 100.4F prior to today's visit. Patient denies travel on a cruise ship or to a country the [facility] currently lists as an affected area. Patient denies contact with known and/or suspected case of COVID-19. Ebola Screen: Patient negative for fever greater than or equal to 101.5 degrees Fahrenheit, and additional compatible Ebola Virus Disease symptoms Patient denies exposure to infectious person. Patient denies travel to an Ebola-affected area in the 21 days before illness onset. No symptoms or risks identified at this time. Initial Sepsis Screen: Does the patient meet any 2 criteria? No. Patient's initial sepsis screen is negative. Does the patient have a suspected source of infection? No. Patient's initial sepsis screen is negative. Risk Assessment: Do you want to hurt yourself or someone else? Patient reports no desire to harm self or others. Onset of symptoms was July 28, 2019. 17:23 Method Of Arrival: Wheelchair iw 17:23 Acuity: NITA 3 iw Historical: - Allergies: 17:26 No Known Allergies; iw - Home Meds: 17:26 levothyroxine 88 mcg tab 1 tab once daily [Active]; lisinopril 30 mg Oral tab 1 tab iw once daily [Active]; metformin 500 mg Oral tr24 1 tab twice a day [Active]; pirimir [Active]; simvastatin 40 mg Oral tab 1 tab once daily [Active]; - PMHx: 17:26 Hyperlipidemia; Hypertension; Hypothyroidism; iw - PSHx: 17:26 Tonsillectomy; Thyroidectomy; iw Screenin:15 Abuse screen: Denies threats or abuse. Nutritional screening: No deficits noted. Tuberculosis screening: No symptoms or risk factors identified. Fall Risk None identified. Assessment: 17:50 General: Appears uncomfortable, Behavior is calm, cooperative, appropriate for age. ah Pain: Complains of pain in abdomen Pain does not radiate. Neuro: Level of Consciousness is awake, alert, obeys commands, Oriented to person, place, time, situation. Cardiovascular: Heart tones S1 S2 present Capillary refill < 3 seconds Patient's skin is warm and dry. Respiratory: Airway is patent Respiratory effort is even, unlabored, Respiratory pattern is regular, symmetrical. GI: Abdomen is non-distended, Bowel sounds present X 4 quads. Abd is non tender Patient currently denies diarrhea, nausea, vomiting. : No signs and/or symptoms were reported regarding the genitourinary system. : Denies burning with urination. EENT: No signs and/or symptoms were reported regarding the EENT system. Derm: No signs and/or symptoms reported regarding the dermatologic system. Musculoskeletal: No signs and/or symptoms reported regarding the musculoskeletal system. 18:30 Reassessment: Medication effective. No needs voiced at this time. ah 19:00 Reassessment: Patient and/or family updated on plan of care and expected duration. Pain ah level reassessed. Patient is alert, oriented x 3, equal unlabored respirations, skin warm/dry/pink. Patient states symptoms have improved. Vital Signs: 17:23 BP 148 / 85; Pulse 66; Resp 16; Temp 98.5; Pulse Ox 99% on R/A; Weight 74.84 kg; Height iw 5 ft. 0 in. (152.40 cm); 18:20 BP 143 / 86; Pulse 77; Resp 18; Pulse Ox 98% ; ah 19:00 BP 144 / 81; Pulse 59; Resp 16; Pulse Ox 100% ; ah 17:23 Body Mass Index 32.22 (74.84 kg, 152.40 cm) iw ED Course: 17:18 Patient arrived in ED. as 17:19 Damir Thomas DO is Private Physician. as 17:25 Triage completed. iw 17:29 Booker Zee NP is PHCP. pm1 17:29 Adalid Whitten MD is Attending Physician. pm1 17:38 Jessy Medrano, RN is Primary Nurse. ah 18:00 Initial lab(s) drawn, by me. 18:12 CT Abd/Pelvis - IV Contrast Only In Process Unspecified. EDMS 18:14 Inserted saline lock: 22 gauge in left forearm, using aseptic technique. 19:33 Arm band placed on right wrist. 19:33 Patient has correct armband on for positive identification. Placed in gown. Bed in low ah position. Call light in reach. Side rails up X2. Pulse ox on. NIBP on. 19:45 No provider procedures requiring assistance completed. 19:45 IV discontinued, intact, bleeding controlled, No redness/swelling at site. Pressure ah dressing applied. Administered Medications: 17:45 Drug: morphine 4 mg Route: IVP; Site: left forearm; 19:34 Follow up: Response: No adverse reaction 22:05 Follow up: Response: No adverse reaction 18:00 Drug: Zofran (Ondansetron) 4 mg Route: IVP; Site: left forearm; 19:34 Follow up: Response: No adverse reaction 22:05 Follow up: Response: No adverse reaction 18:50 Drug: NS 0.9% 1000 ml Route: IV; Rate: 1000 ml; Site: left forearm; 22:05 Follow up: Response: No adverse reaction; IV Status: Completed infusion Outcome: 19:28 Discharge ordered by . pm1 19:45 Discharged to home ambulatory. 19:45 Condition: good 19:45 Discharge instructions given to patient, Instructed on discharge instructions, follow up and referral plans. medication usage, Demonstrated understanding of instructions, follow-up care, medications. 22:04 Patient left the ED. sg Signatures: Dispatcher [employer] EDMS Heriberto Schofield RN Nida Clark Irene, RN RN iw Marinas, Patrick, TYRONE SPRINKLER FITTER HELPER pm1 Jessy Medrano RN RN Corrections: (The following items were deleted from the chart) 21:35 21:33 No provider procedures requiring assistance completed. [facility]
--- NOTE | 2019-08-08 13:40 | EDPHYS ---
Physician Documentation [facility] Name: Capri Correia Age: 69 yrs Sex: Female : 1950 Arrival Date: 08/02/2019 Time: 17:18 Bed 24 Private MD: Damir Thomas ED Physician Adalid Whitten HPI: 08/01 17:39 This 69 yrs old Female presents to ER via Wheelchair with complaints of pm1 Abdominal Pain. 17:39 The patient presents with abdominal pain in the lower abdomen. Onset: The pm1 symptoms/episode began/occurred 5 day(s) ago. The symptoms do not radiate. Associated signs and symptoms: Pertinent negatives: nausea, vomiting, and diarrhea, chest pain, constipation, dysuria, fever, shortness of breath. The symptoms are described as sharp. Modifying factors: The symptoms are alleviated by nothing, the symptoms are aggravated by walking. Severity of pain: in the emergency department the pain is actually worse. The patient has not experienced similar symptoms in the past. Historical: - Allergies: 17:26 No Known Allergies; iw - Home Meds: 17:26 levothyroxine 88 mcg tab 1 tab once daily [Active]; lisinopril 30 mg Oral tab 1 tab iw once daily [Active]; metformin 500 mg Oral tr24 1 tab twice a day [Active]; pirimir [Active]; simvastatin 40 mg Oral tab 1 tab once daily [Active]; - PMHx: 17:26 Hyperlipidemia; Hypertension; Hypothyroidism; iw - PSHx: 17:26 Tonsillectomy; Thyroidectomy; iw ROS: 17:39 Constitutional: Negative for fever, chills, and weight loss, Cardiovascular: Negative pm1 for chest pain, palpitations, and edema, Respiratory: Negative for shortness of breath, cough, wheezing, and pleuritic chest pain. 17:39 Back: Negative for injury and pain, : Negative for injury, bleeding, discharge, and swelling, MS/Extremity: Negative for injury and deformity, Skin: Negative for injury, rash, and discoloration, Neuro: Negative for headache, weakness, numbness, tingling, and seizure. 17:39 Abdomen/GI: Positive for abdominal pain, of the right lower quadrant and left lower quadrant, Negative for nausea, vomiting, and diarrhea. Exam: 17:39 Constitutional: This is a well developed, well nourished patient who is awake, alert, pm1 and in no acute distress. Head/Face: Normocephalic, atraumatic. Chest/axilla: Normal chest wall appearance and motion. Nontender with no deformity. No lesions are appreciated. Cardiovascular: Regular rate and rhythm with a normal S1 and S2. No gallops, murmurs, or rubs. Normal PMI, no JVD. No pulse deficits. Respiratory: Lungs have equal breath sounds bilaterally, clear to auscultation and percussion. No rales, rhonchi or wheezes noted. No increased work of breathing, no retractions or nasal flaring. 17:39 Back: No spinal tenderness. No costovertebral tenderness. Full range of motion. Skin: Warm, dry with normal turgor. Normal color with no rashes, no lesions, and no evidence of cellulitis. MS/ Extremity: Pulses equal, no cyanosis. Neurovascular intact. Full, normal range of motion. 17:39 Abdomen/GI: Inspection: abdomen appears normal, Bowel sounds: normal, Palpation: soft, in all quadrants, mild abdominal tenderness, in the right lower quadrant and left lower quadrant, mass, is not appreciated, rebound tenderness, is not appreciated. 17:39 Neuro: Exam negative for acute changes, Orientation: is normal, Mentation: is normal, Motor: is normal, moves all fours. Vital Signs: 17:23 BP 148 / 85; Pulse 66; Resp 16; Temp 98.5; Pulse Ox 99% on R/A; Weight 74.84 kg; Height iw 5 ft. 0 in. (152.40 cm); 18:20 BP 143 / 86; Pulse 77; Resp 18; Pulse Ox 98% ; ah 19:00 BP 144 / 81; Pulse 59; Resp 16; Pulse Ox 100% ; ah 17:23 Body Mass Index 32.22 (74.84 kg, 152.40 cm) iw MDM: 17:35 Patient medically screened. pm1 19:27 Data reviewed: vital signs. Data interpreted: Pulse oximetry: on room air is 99 %. pm1 Interpretation: normal. 19:27 Counseling: I had a detailed discussion with the patient and/or guardian regarding: the pm1 historical points, exam findings, and any diagnostic results supporting the discharge/admit diagnosis, lab results, radiology results, the need for outpatient follow up, to return to the emergency department if symptoms worsen or persist or if there are any questions or concerns that arise at home. 08/01 17:35 Order name: Basic Metabolic Panel; Complete Time: 18:40 pm1 08/01 17:35 Order name: CBC with Diff; Complete Time: 18:16 pm1 08/01 17:35 Order name: Hepatic Function; Complete Time: 18:40 pm1 08/01 17:35 Order name: Lipase; Complete Time: 18:40 pm1 08/01 17:35 Order name: Urine Microscopic Only; Complete Time: 18:01 pm1 08/01 17:55 Order name: Urine Dipstick--Ancillary (enter results); Complete Time: 01:08 eb 08/01 17:35 Order name: IV Saline Lock; Complete Time: 18:59 pm1 08/01 17:35 Order name: Labs collected and sent; Complete Time: 18:59 pm1 08/01 17:35 Order name: Urine Dipstick-Ancillary (obtain specimen); Complete Time: 18:03 pm1 08/01 17:35 Order name: CT Abd/Pelvis - IV Contrast Only; Complete Time: 18:24 pm1 08/01 18:21 Order name: CREATININE WHOLE BLOOD; Complete Time: 18:24 EDMS Administered Medications: 17:45 Drug: morphine 4 mg Route: IVP; Site: left forearm; 19:34 Follow up: Response: No adverse reaction 22:05 Follow up: Response: No adverse reaction 18:00 Drug: Zofran (Ondansetron) 4 mg Route: IVP; Site: left forearm; 19:34 Follow up: Response: No adverse reaction 22:05 Follow up: Response: No adverse reaction 18:50 Drug: NS 0.9% 1000 ml Route: IV; Rate: 1000 ml; Site: left forearm; 22:05 Follow up: Response: No adverse reaction; IV Status: Completed infusion Disposition: 08/02/19 19:28 Discharged to Home. Impression: Unspecified abdominal pain. - Condition is Stable. - Discharge Instructions: Abdominal Pain, Adult. - Prescriptions for Bentyl 20 mg Oral Tablet - take 1 tablet by ORAL route every 6 hours As needed; 20 tablet. - Work release form, Medication Reconciliation Form, Thank You Letter, Antibiotic Education, Prescription Opioid Use form. - Follow up: Emergency Department; When: As needed; Reason: Worsening of condition. Follow up: Private Physician; When: 2 - 3 days; Reason: Recheck today's complaints, Continuance of care, Re-evaluation by your physician. - Problem is new. - Symptoms have improved. Signatures: Dispatcher [employer] EDMS Heriberto Schofield RN RN Madeline Hall RN RN Booker Zee NP GLOBAL CREATIVE CHAIRMAN pm1 Jessy Medrano RN RN Corrections: (The following items were deleted from the chart) 22:04 19:28 08/02/2019 19:28 Discharged to Home. Impression: Unspecified abdominal pain. sg Condition is Stable. Forms are Medication Reconciliation Form, Thank You Letter, Antibiotic Education, Prescription Opioid Use. Follow up: Emergency Department; When: As needed; Reason: Worsening of condition. Follow up: Private Physician; When: 2 - 3 days; Reason: Recheck today's complaints, Continuance of care, Re-evaluation by your physician. Problem is new. Symptoms have improved. pm1
== END 2019-08-02 22:04 | disposition home or self-care (01) ==
LOC: ER 17:15
DX: R10.30 Lower abdominal pain, unspecified (principal); I10 Essential (primary) hypertension; E78.5 Hyperlipidemia, unspecified; E03.9 Hypothyroidism, unspecified
CPT/HCPCS: 96361; 85025; 80048; 36415; 82565; 80076; 83690; 74177; 96375; 96374; 99284; Q9967; J7030; J2405; 81003; 81015

== ENCOUNTER 2019-08-08 18:09 | Emergency (ER) | payer OTHER ==
--- OUTSIDE RECORDS SUMMARY | 2019-08-08 19:33 | XMS REPORT | Continuity of Care Document ---
:1950 Author Organization [facility] t Address [address] [place] [address] Care Team Providers Name Role Phone Unavailable Unavailable Unavailable Problems Condition Condition Condition Status Onset Resolution Last Treating Co mments Source Name Details Category Date Date Treatment Clinician Date Vitamin B Vitamin B Problem Active [facility] - deficiency deficiency Me moria l [facility] ent Clinics Malaise Malaise Problem Active [facility] - fatigue fatigue Memoria l [facility] GERD GERD Problem Active [facility] without without [facility] - esophagiti esophagiti Me moria s s l [facility]ics Varicose Varicose Problem [facility] veins of veins of [facility] - both lower both lower Me moria extremitie extremitie l s s [facility] Abdominal Abdominal Problem Active [facility] bloating bloating [facility] Peripheral Peripheral Problem Active [facility] edema edema [facility] Vitamin D Vitamin D Problem Active [facility] deficiency deficiency Gabriela kes - Memoria l [facility] Diabetes Diabetes Problem Active [facility] type 2, type 2, [facility] - controlled controlled Me moria l [facility]ics Hypothyroi Hypothyroi Diagnosis Active [facility] dism dism [facility] Benign Benign Diagnosis Active [facility] essential essential Luke s - HTN HTN Memoria l [facility] Hyperlipid Hyperlipid Problem Active [facility] emia, emia, [facility] - mixed mixed Memoria [facility] Tear of Tear of [...] St obia obia [facility] - Memoria l [facility]ics Insomnia, Insomnia, Diagnosis Active [facility] unspecifie unspecifie Gabriela kes - d type d type Memoria l [facility] Type 2 Type [address] [facility] diabetes diabetes [facility] - mellitus mellitus Memori a with other [...] - d hand d hand Memoria l [facility] Pain in Pain in Diagnosis Active [facility] unspecifie unspecifie Gabriela kes - d d Memoria finger(s) finger(s) l [facility]ics Microalbum Microalbum Diagnosis Active [facility] inuria inuria [facility] l [facility] Right Right Diagnosis Active [facility] shoulder shoulder [facility] - pain, pain, Memoria unspecifie unspecifie l d d [facility] chronicity chronicity en t Clinics Allergies, Adverse Reactions, Alerts Allergy Allergy Status Severity Reaction(s) Onset Inactive Treating Comm ents Source Name Type Date Date Clinician Cipro Adverse Active abdominal [facility] Reaction pain [facility] ent [facility] Medications Ordered Filled Start Stop Current Ordering Indication Dosage Frequency Signature Comments Components Source Medication Medication Date Date Medication? Clinician (SIG) Name Name Trazodone Trazodone 2018-03 Yes Damir [address] [facility] HCl HCl 1-06 Thomas at bedtime [facility] - 00:00: [facility] Montelukast Montelukast Yes Damir [address] [facility] Sodium Sodium 2-20 Thomas [facility] - 00:[facility]: Memoria [facility] Tramadol Tramadol 2017-03 Yes Damir [address] [facility] HCl HCl 2-10 Thomas as needed [facility] - 00:[facility]: [facility] Lisinopril Lisinopril Yes Damir [address] [facility] ent [facility] Simvastatin Simvastatin Yes Damir [address] [facility] in the [facility] - evening [facility] l Outpat[facility] ent Clinics Vitamin B12 Vitamin B12 Yes Damir not [facility] defined [facility] Synthroid Synthroid Yes Damir [address] [facility] on an [facility] - empty Memoria stomach in l the Outpati morning ent Clinics Lorazepam Lorazepam Yes Damir [address] [facility] as needed [facility] Metformin Metformin Yes Damir [address] [facility] HCl HCl Thomas with a [facility] - meal Memoria l Outpati ent Clinics Omeprazole Omeprazole Yes Damir [address] [facility] Lisinopril Lisinopril Yes Damir TAKE [address] [facility] TABLET BY Lukes - MOUTH ONCE Memoria DAILY FOR l 90 DAYS [facility] Immunizations Ordered Filled Immunization Date Status Comments [facility] e Immunization Name Name Dru Gonsales 2019-01-[address] [facility] - 00:00:00 [facility] Prevnar 13 Prevnar 13 2017-10-[address] [facility] - -Pneumonia Vaccine -Pneumonia Vaccine 00:00:00 [facility] Outpatient [facility] Procedures This patient has no known procedures. Encounters Start End Encounter Admission Attending Care Care Encounter Source Date/Time Date/Time Type Type Clinicians Facility Department ID 2019-07-12 2019-07-12 [facility] [id number] [facility] 09:30:00 09:30:00 [employer] [facility] l Medicine Outpati ent Clinics 2019-04-14 2019-04-14 [facility] [id number] 08:33:00 08:33:00 t [employer] [facility] l Medicine Outpati ent Clinics 2019-04-12 2019-04-12 [facility] [id number] 09:15:00 09:15:00 [employer] [facility] l Medicine Outpati ent Clinics 2019-04-05 2019-04-05 [facility] [id number] [address] 08:18:00 08:18:00 t [employer] [facility] l Medicine Outpati ent Clinics 2019-03-15 2019-03-15 [facility] [id number] 10:45:[facility] 10:45:[address] [facility] - [facility] Medicine Medicine Outpati ent Clinics 2019-02-02 2019-02-02 [facility] [id number] 09:00:00 09:00:[address] [facility] - Drive [facility] Medicine l Medicine Outpati ent Clinics 2019-01-12 2019-01-12 [facility] [id number] 10:15:00 10:15:[address] [facility] - Drive [facility] Medicine Medicine Outpati ent Clinics 2019-01-05 2019-01-05 [facility] [id number] 14:58:00 14:58:[address] [facility] - Drive [facility] Medicine Medicine Outpati ent Clinics 2018-11-09 2018-11-09 [facility] [id number] 09:47:00 09:47:00 [place] [address] [facility] - Drive [facility] Medicine Outpati ent Clinics 2018-10-28 2018-10-28 [facility] [id number] [address] 08[facility]34:00 08:34:00 [place] [address] [place] [facility] - [facility] Medicine l Medicine Outpati ent Clinics 2018-10-15 2018-10-15 [facility] [id number] 09:00:00 09:00:00 [place] [address] [place] [facility] - Drive [facility] Medicine Outpati ent Clinics 2018-07-05 2018-07-05 [facility] [id number] 08:30:00 08:30:[address] [facility] - Drive [facility] Medicine Medicine Outpati ent Clinics 2018-06-07 2018-06-07 [facility] [id number] 10:15:00 10:15:[address] [facility] - Drive [facility] Medicine l Medicine Outpati ent Clinics 2018-06-03 2018-06-03 [facility] [id number] 10:30:00 10:30:[address] [facility] - Drive [facility] Medicine Medicine Outpati ent Clinics 2018-04-28 2018-04-28 [facility] [id number] 13:30:00 13:30:[address] [facility] - Drive [facility] Outpati ent Clinics 2018-04-06 2018-04-06 [facility] [id number] 08:15:00 08:15:[address] [facility] - Drive [facility] 2018-02-17 2018-02-17 [facility] [id number] 10:24:00 10:24:00 t [facility] Clinics 2018-02-15 2018-02-15 [facility] [id number] 08:30:00 08:30:00 t [facility] ent Clinics 2017-10-22 2017-10-22 [facility] [id number] 15:00:00 15:00:00 t Specialty/U Gabriela kes - Specialty rology [facility] a /Urology Clinic l [facility] 2017-10-08 2017-10-08 [facility] [id number] 09:00:00 09:00:[address] [facility] - Drive [facility] 2017-09-08 2017-09-08 [facility] [id number] 09:00:00 09:00:00 [place] [address] [facility] - Drive [facility] Outpati ent Clinics 2017-07-17 2017-07-17 [facility] [id number] 09:30:00 09:30:[address] [facility] - Drive [facility] Results This patient has no known results.
--- OUTSIDE RECORDS SUMMARY | 2019-08-08 19:33 | XMS REPORT ---
:1950 Author Organization [employer] Care Team Providers Name Role Phone [facility] Provider Role Unavailable Allergies, Adverse Reactions, [...] Status Dosage System Date Date Simvastatin ND 99837788003 40 MG Orally Active 1 t ablet Once a day in the evening Vitamin B12 ND 60569394558 100 MCG Orally Active n ot defined Trazodone HCl ND 12148518405 100 MG Orally Active 1 tablet Once a day at bedtime Tramadol HCl [facility] 17343667439 50 MG Orally Feb 15, Active 1 tablet every 6 hrs 2017 as needed Omeprazole [facility] 77820037618 40 MG Orally Active 1 ca psule Once a day Lisinopril [facility] 31943936259 30 MG Orally Active 1 ta blet Once a day Metformin HCl [facility] 67694223682 500 MG Orally Active 1 tablet Twice a day with a meal Lisinopril [facility] 32448834434 30 MG Active TAKE 1 TABLET BY MOUTH ONCE DAILY FOR 90 DAYS Montelukast [facility] 29634938907 10 MG Orally Apr 28, Active 1 t ablet Sodium Once a day 2018 Lorazepam [facility] 35141339717 0.5 MG Orally Active 1 ta blet Once a day PRN as needed Prior to MRI Synthroid [facility] 83642913043 75 MCG Orally Active 1 ta blet Once a day on an empty stomach in the morning Results No Known Results Summary Purpose [employer] Submission
[2019-08-08] MEDS ORDERED: ONDANSETRON 4 MG/2 ML VIAL ONE (21:57)
[2019-08-08] MEDS ORDERED: NA CHLORIDE 0.9% 500 ML ONE (21:57)
[2019-08-08] MEDS ORDERED: KETOROLAC 30 MG/ML INJ ONE (21:57)
[2019-08-08 22:09] LABS: Absolute Lymphocytes (CBC) 3.8 K/uL (0.7-4.9); Basophils % 0.5 % (0-1.3); Hematocrit 37.5 % (36.0-45.0); Lymphocytes % 46.3 % (15.3-44.8); MPV 9.2 fL (7.6-11.3); RBC Red Blood Cell Count 4.24 M/uL (3.86-4.86)
[2019-08-08 22:16] LABS: Urine Blood NEGATIVE (NEG); Urine Glucose NEGATIVE (NEG); Urine Protein NEGATIVE (NEG); Urine Specific Gravity 1.025 (1.005-1.030)
[2019-08-08 22:26] LABS: Urine Bacteria <20 /HPF (<20); Urine Culture Reflex Order REFLEXED; Urine RBC <5 /HPF (NONE SEEN)
[2019-08-08 22:28] LABS: ALT/SGPT 27 U/L (12-78); AST/SGOT 20 U/L (15-37); Albumin 3.8 g/dL (3.4-5.0); Alkaline Phosphatase 108 U/L (45-117); BUN Blood Urea Nitrogen 18 mg/dL (7-18); Bicarbonate 27 mmol/L (21-32); Bilirubin Direct < 0.1 mg/dL (0-0.2); Bilirubin Total 0.2 mg/dL (0.2-1.0); Glucose Level 103 mg/dL (74-106); Lipase 170 U/L (73-393); Potassium 3.9 mmol/L (3.5-5.1); Protein, Total 7.4 g/dL (6.4-8.2); Sodium Level 142 mmol/L (136-145)
[2019-08-08 23:51] LABS: Blood Morphology Comment NOT SEEN (NOT SEEN); Platelet Estimate ADEQ
--- NOTE | 2019-08-09 00:14 | ER ---
Nurse's Notes [facility] Name: Capri Correia Age: 69 yrs Sex: Female : 1950 Arrival Date: 08/08/2019 Time: 18:13 Bed 30 Private MD: Damir Thomas Diagnosis: Diverticulosis of large intestine without perforation or abscess without bleeding Presentation: 08/07 18:19 Chief complaint: Patient states: Lower abd pain for 2 weeks. No fever. Slight nausea. ll1 Coronavirus screen: Proceed with normal triage. Patient denies a cough. Patient denies shortness of breath or difficulty breathing. Patient denies measured and/or subjective temperature greater than 100.4F prior to today's visit. Patient denies travel on a cruise ship or to a country the [facility] currently lists as an affected area. Patient denies contact with known and/or suspected case of COVID-19. Ebola Screen: Patient denies travel to an Ebola-affected area in the 21 days before illness onset. Initial Sepsis Screen: Does the patient meet any 2 criteria? No. Patient's initial sepsis screen is negative. Does the patient have a suspected source of infection? Yes: Acute abdominal pain. Risk Assessment: Do you want to hurt yourself or someone else? Patient reports no desire to harm self or others. Onset of symptoms was July 22, 2019. 18:19 Method Of Arrival: Ambulatory ll1 18:19 Acuity: NITA 3 ll1 Historical: - Allergies: 18:20 No Known Allergies; ll1 - PMHx: 18:20 Hyperlipidemia; Hypertension; Hypothyroidism; ll1 - PSHx: 18:20 Tonsillectomy; Thyroidectomy; ll1 - Immunization history:: Adult Immunizations up to date. - Social history:: Smoking status: Patient denies any tobacco usage or history of. Patient/guardian denies using alcohol, street drugs, tobacco products. Screenin:44 Abuse screen: Denies threats or abuse. Nutritional screening: No deficits noted. fu Tuberculosis screening: No symptoms or risk factors identified. Fall Risk None identified. Assessment: 22:39 General: Appears uncomfortable, well groomed, Behavior is calm, cooperative, fu appropriate for age, Denies fever, feeling ill, fatigue, chills. Pain: Complains of pain in hypogastric pain, back pain Pain currently is 10 out of 10 on a pain scale. Quality of pain is described as sharp, Pain began 10 days ago Is intermittent, Aggravated by walking. Neuro: Level of Consciousness is awake, alert, obeys commands, Oriented to person, place, time, situation, [employer] Milling Machine Operator are equal bilaterally Moves all extremities. Cardiovascular: Denies chest pain, lightheadedness, shortness of breath, syncope, vomiting, Heart tones S1 S2 Capillary refill < 3 seconds Pulses are all present. Respiratory: Breath sounds are clear bilaterally. Denies cough, shortness of breath labored breathing, pain with respiration, pain with cough, pain with movement. GI: Bowel sounds present X 4 quads. Abd is soft Patient currently denies diarrhea, nausea, vomiting. : Denies burning with urination. Derm: No signs and/or symptoms reported regarding the dermatologic system. Musculoskeletal: No signs and/or symptoms reported regarding the musculoskeletal system. 22:46 Reassessment: Patient appears in no apparent distress at this time. No changes from fu previously documented assessment. Patient and/or family updated on plan of care and expected duration. Pain level reassessed. Patient states feeling better. daughter at bedside. 08/08 00:00 Reassessment: Patient appears in no apparent distress at this time. No changes from fu previously documented assessment. Patient and/or family updated on plan of care and expected duration. Pain level reassessed. Patient states feeling better. Patient states symptoms have improved. Vital Signs: 08/07 18:19 Pulse 63; Resp 17; Temp 98.6; Pulse Ox 99% ; Pain 8/10; ll1 18:21 BP 163 / 80; ll1 20:03 BP 151 / 81; Pulse 65; Resp 17; Temp 98.5; Pulse Ox 100% ; Pain 8/10; ll1 21:05 BP 182 / 75; Pulse 61; Resp 18; Temp 96.9; Pulse Ox 100% on R/A; Pain 10/10; fu 22:00 BP 156 / 72; Pulse 56; Resp 18; Pulse Ox 98% on R/A; Pain 6/10; fu 23:00 BP 129 / 113; Pulse 53; Resp 18; Pulse Ox 98% on R/A; Pain 5/10; fu 23:30 BP 156 / 65; Pulse 56; Resp 18; Pulse Ox 99% on R/A; Pain 4/10; fu ED Course: 18:13 Patient arrived in ED. mr 18:14 Damir Thomas DO is Private Physician. mr 18:20 Triage completed. ll1 18:20 Arm band placed on Patient notified of wait time. ll1 21:03 Jb Guzman PA is PHCP. cp 21:03 Riley Garcia MD is Attending Physician. cp 21:09 Jose A Jay, RN is Primary Nurse. fu 21:10 patient is Congolese speaking, [employer] link utilized for assessment purposes. Director Of Teacher Education fu is Verenice Segura # [id number]. 21:15 Initial lab(s) drawn, by me, sent to lab. Inserted saline lock: 22 gauge in left fu forearm, using aseptic technique. 22:44 No provider procedures requiring assistance completed. fu 22:47 Patient has correct armband on for positive identification. Bed in low position. Call fu light in reach. Side rails up X 1. 23:37 CT Stone Protocol In Process Unspecified. EDMS 08/08 00:12 Damir Thomas DO is Referral Physician. cp 01:00 IV discontinued, bleeding controlled, Pressure dressing applied. fu Administered Medications: 08/07 21:50 Drug: NS 0.9% 500 ml Route: IV; Rate: bolus; Site: left forearm; fu 22:53 Follow up: IV Intake: 5002ml fu 21:55 Drug: TORadol - Ketorolac 15 mg Route: IVP; Site: left forearm; fu 22:54 Follow up: Response: Pain is decreased fu 21:59 Drug: Zofran (Ondansetron) 4 mg Route: IVP; Site: left forearm; fu 22:54 Follow up: Response: No adverse reaction fu /02 00:16 Drug: Cipro 500 mg Route: PO; fu 00:16 Drug: metroNIDAZOLE 500 mg Route: PO; fu 00:17 Drug: Bentyl 20 mg Route: PO; fu Intake: 08/07 22:53 IV: 5002ml; Total: 5002ml. fu Outcome: 08/08 00:13 Discharge ordered by . cp 01:00 Discharged to home ambulatory. fu 01:00 Condition: stable 01:00 Discharge instructions given to family, Instructed on discharge instructions, follow up and referral plans. Demonstrated understanding of instructions, medications, Prescriptions given X 4. 01:06 Patient left the ED. fu Signatures: Dispatcher [employer]st Carmencita Landrum mr Jb Guzman PA PA cp Umadhay, Felix, RN RN fu Lewis, Lynsay, RN RN ll1 Corrections: (The following items were deleted from the chart) 03:15 06 02:30 BP 156 / 65; Pulse 56bpm; Resp 18bpm; Pulse Ox 99% RA; Pain 4/10; fu faizan
--- NOTE | 2019-08-09 00:14 | EDPHYS ---
Physician Documentation [facility] Name: Capri Correia Age: 69 yrs Sex: Female : 1950 Arrival Date: 08/08/2019 Time: 18:13 Bed 30 Private MD: William [facility] ED Physician Riley Garcia HPI: 08/07 21:30 This 69 yrs old Female presents to ER via Ambulatory with complaints of cp Abdominal Pain. 21:30 The patient presents with abdominal pain in the lower abdomen. Onset: The cp symptoms/episode began/occurred 1 month(s) ago. The symptoms radiate to right back. Modifying factors: the symptoms are aggravated by walking. Historical: - Allergies: 18:20 No Known Allergies; ll1 - PMHx: 18:20 Hyperlipidemia; Hypertension; Hypothyroidism; ll1 - PSHx: 18:20 Tonsillectomy; Thyroidectomy; ll1 - Immunization history:: Adult Immunizations up to date. - Social history:: Smoking status: Patient denies any tobacco usage or history of. Patient/guardian denies using alcohol, street drugs, tobacco products. ROS: 21:35 Constitutional: Negative for body aches, chills, fever, poor PO intake. cp 21:35 Eyes: Negative for injury, pain, redness, and discharge. cp Exam: 21:45 Constitutional: The patient appears in no acute distress, alert, awake, non-toxic, well cp developed, well nourished. 21:45 Head/Face: Normocephalic, atraumatic. cp 21:45 Eyes: Periorbital structures: appear normal, Conjunctiva: normal, no exudate, no injection, Sclera: no appreciated abnormality, Lids and lashes: appear normal, bilaterally. 21:45 ENT: External ear(s): are unremarkable, Nose: is normal, Mouth: is normal, Posterior pharynx: Airway: no evidence of obstruction, patent. 21:45 Chest/axilla: Inspection: normal. 21:45 Cardiovascular: Rate: normal, Rhythm: regular. 21:45 Respiratory: the patient does not display signs of respiratory distress, Respirations: normal, no use of accessory muscles, no retractions, labored breathing, is not present, Breath sounds: are clear throughout, no decreased breath sounds. 21:45 Abdomen/GI: Inspection: abdomen appears normal, Bowel sounds: active, all quadrants, Palpation: soft, in all quadrants, mild abdominal tenderness, in the right lower quadrant and left lower quadrant, rebound tenderness, is not appreciated, voluntary guarding, is not appreciated, involuntary guarding, is not appreciated. 21:45 Back: pain, that is mild, of the right low back, ROM is normal. Vital Signs: 18:19 Pulse 63; Resp 17; Temp 98.6; Pulse Ox 99% ; Pain 8/10; ll1 18:21 BP 163 / 80; ll1 20:03 BP 151 / 81; Pulse 65; Resp 17; Temp 98.5; Pulse Ox 100% ; Pain 8/10; ll1 21:05 BP 182 / 75; Pulse 61; Resp 18; Temp 96.9; Pulse Ox 100% on R/A; Pain 10/10; fu 22:00 BP 156 / 72; Pulse 56; Resp 18; Pulse Ox 98% on R/A; Pain 6/10; fu 23:00 BP 129 / 113; Pulse 53; Resp 18; Pulse Ox 98% on R/A; Pain 5/10; fu 23:30 BP 156 / 65; Pulse 56; Resp 18; Pulse Ox 99% on R/A; Pain 4/10; fu MDM: 21:04 Patient medically screened. cp 22:00 Differential diagnosis: appendicitis, bowel obstruction, cholecystitis, Cholelithiasis, cp diverticulitis, gastritis, Pyelonephritis, Ureterolithiasis, urinary tract infection. 08/08 00:12 Data reviewed: vital signs, nurses notes, lab test result(s), radiologic studies, CT cp scan. 00:12 Counseling: I had a detailed discussion with the patient and/or guardian regarding: the cp historical points, exam findings, and any diagnostic results supporting the discharge/admit diagnosis, lab results, radiology results, the need for outpatient follow up, a family practitioner, to return to the emergency department if symptoms worsen or persist or if there are any questions or concerns that arise at home. Response to treatment: the patient's symptoms have markedly improved after treatment, and as a result, I will discharge patient. ED course: VSS. Pain improved with meds. Discussed results of CT today that showed diverticulosis w/o abscess and perforation. Will treat with oral cipro and metronidazole and discharge to home for continued monitoring. 08/07 21:04 Order name: Basic Metabolic Panel; Complete Time: 22:32 cp 08/07 22:32 Interpretation: Normal except: CL 108; GFR 59. cp 08/07 21:04 Order name: CBC with Diff; Complete Time: 00:00 cp 08/08 00:00 Interpretation: Normal except: LYM% 46.3. cp 08/07 21:04 Order name: Hepatic Function; Complete Time: 22:32 cp 08/07 21:04 Order name: Lipase; Complete Time: 22:32 cp 08/07 21:37 Order name: Urine Microscopic Only; Complete Time: 22:32 cp 08/07 22:08 Order name: Urine Dipstick--Ancillary (enter results); Complete Time: 22:32 mt 08/07 22:13 Order name: Manual Differential; Complete Time: 00:00 EDMS 08/07 22:29 Order name: Urine Culture EDVT 08/07 22:33 Order name: CT Stone Protocol 08/07 21:04 Order name: IV Saline Lock; Complete Time: 21:46 cp 08/07 21:04 Order name: Labs collected and sent; Complete Time: 21:46 cp 08/07 21:37 Order name: Urine Dipstick-Ancillary (obtain specimen); Complete Time: 22:00 cp Administered Medications: 08/07 21:50 Drug: NS 0.9% 500 ml Route: IV; Rate: bolus; Site: left forearm; fu 22:53 Follow up: IV Intake: 5002ml fu 21:55 Drug: TORadol - Ketorolac 15 mg Route: IVP; Site: left forearm; fu 22:54 Follow up: Response: Pain is decreased fu 21:59 Drug: Zofran (Ondansetron) 4 mg Route: IVP; Site: left forearm; fu 22:54 Follow up: Response: No adverse reaction fu 08/08 00:16 Drug: Cipro 500 mg Route: PO; fu 00:16 Drug: metroNIDAZOLE 500 mg Route: PO; fu 00:17 Drug: Bentyl 20 mg Route: PO; fu Disposition: 05:27 Co-signature as Attending Physician, Riley Garcia MD. pkl Disposition: 08/09/19 00:13 Discharged to Home. Impression: Diverticulosis of large intestine without perforation or abscess without bleeding. - Condition is Stable. - Discharge Instructions: High-Fiber Diet, Diverticulosis. - Prescriptions for Bentyl 20 mg Oral Tablet - take 2 tablets by ORAL route every 6 hours As needed; 30 tablet. Zofran 4 mg Oral Tablet - take 1 tablet by ORAL route every 12 hours As needed; 20 tablet. Cipro 500 mg Oral Tablet - take 1 tablet by ORAL route every 12 hours for 7 days; 14 tablet. Metronidazole 500 mg Oral Tablet - take 1 tablet by ORAL route every 8 hours for 7 days; 21 tablet. - Medication Reconciliation Form, Thank You Letter, Antibiotic Education, Prescription Opioid Use form. - Follow up: Damir Thomas DO; When: 2 - 3 days; Reason: Recheck today's complaints. - Problem is an ongoing problem. - Symptoms have improved. Signatures: Dispatcher [employer] EDRiley Colby MD MD pkl Page, Corey, PA PA cp Umadhay, Felix, RN Chuck Meehan RN RN ll1 Corrections: (The following items were deleted from the chart) 01:06 00:13 08/09/2019 00:13 Discharged to Home. Impression: Diverticulosis of large fu intestine without perforation or abscess without bleeding. Condition is Stable. Forms are Medication Reconciliation Form, Thank You Letter, Antibiotic Education, Prescription Opioid Use. Follow up: Damir Thomas; When: 2 - 3 days; Reason: Recheck today's complaints. Problem is an ongoing problem. Symptoms have improved. cp
[2019-08-09] MEDS ORDERED: metroNIDAZOLE 500 MG TABLET ONE (00:19)
[2019-08-09] MEDS ORDERED: DICYCLOMINE HCL 10 MG CAP ONE (00:19)
[2019-08-09] MEDS ORDERED: CIPROFLOXACIN HCL 500 MG TAB ONE (00:19)
[2019-08-09 01:18] VITALS: O2SAT 100
[2019-08-09 01:55] VITALS: BP 182/75; TEMP 96.9
--- NOTE | 2019-08-09 18:02 | RAD REPORT ---
EXAM DESCRIPTION: CT Abdomen and Pelvis Without Intravenous Contrast CLINICAL HISTORY: The patient is 69 years old and is Female; lower abdomen pain, right lower back pa in TECHNIQUE: Axial computed tomography images of the abdomen and pelvis without intravenous contrast. Sagittal and coronal reformatted images were created and reviewed. This CT exam was performed usi ng one or more of the following dose reduction techniques: automated exposure control, adjustment o f the mA and/or kV according to patient size, and/or use of iterative reconstruction technique. COMPARISON: CT of the abdomen and pelvis August 02, 2019 FINDINGS: LUNG BASES: Unremarkable. No mass. No consolidation. ABDOMEN: LIVER: Homogeneous without focal mass. GALLBLADDER AND BILE DUCTS: Gallbladder is contracted. PANCREAS: Unremarkable. No ductal dilation. SPLEEN: Unremarkable. ADRENALS: Unremarkable. No mass. KIDNEYS AND URETERS: No obstructing stones. No hydronephrosis. No perinephric fluid. STOMACH AND BOWEL: The stomach is minimally distended with food contents. The small bowel is norm al in caliber. A moderate amount stool is present throughout colon. No evidence of bowel obstruction. No significant bowel wall thickening. Colonic diverticulosis is noted, without associated inflammato ry changes to suggest diverticulitis. PELVIS: APPENDIX: The appendix is normal in caliber without surrounding inflammation. BLADDER: Unremarkable. No stones. REPRODUCTIVE: Unremarkable as visualized. ABDOMEN and PELVIS: INTRAPERITONEAL SPACE: Unremarkable. No free air. No significant fluid collection. BONES/JOINTS: Minimal multilevel degenerative change of the spine is present. SOFT TISSUES: The soft tissues are normal. VASCULATURE: Unremarkable. No abdominal aortic aneurysm. LYMPH NODES: Unremarkable. No enlarged lymph nodes. IMPRESSION: Colonic diverticulosis without evidence of diverticulitis. Electronically signed by: Cami Diaz MD 08/08/2019 11:41 PM CDT Due to temporary technical issues with the PACS/Fluency reporting system, reports are being signed by the in house radiologist without review as a courtesy to ensure prompt reporting. The interpreting r adiologist is fully responsible for the content of the report.
== END 2019-08-09 01:06 | disposition home or self-care (01) ==
LOC: ER 18:09
DX: K57.30 Diverticulosis of large intestine without perforation or abscess without bleeding (principal); I10 Essential (primary) hypertension
CPT/HCPCS: 87088; 85025; 87086; 80048; 36415; 80076; 83690; 76377; 74176; J7040; J2405; 81003; 81015

== ENCOUNTER 2020-04-08 11:30 | Emergency (ER) | payer OTHER ==
--- OUTSIDE RECORDS SUMMARY | 2020-04-08 11:31 | XMS REPORT | Continuity of Care Document ---
:1950 Author Organization [facility] t Address [address] [place] [address] Care Team Providers Name Role Phone Unavailable Unavailable Unavailable Problems This patient has no known problems. Allergies, Adverse Reactions, Alerts Allergy Allergy Status Severity Reaction(s) Onset Inactive Treating Comm ents Source Name Type Date Date Clinician Cipro Adverse Active abdominal [facility] Medications Ordered Filled Start Stop Current Ordering Indication Dosage Frequency Signature Comments Components Source Medication Medication Date Date Medication? Clinician (SIG) Name Name Trazodone Trazodone 2018-03 Yes Damir [address] [facility] HCl HCl 1-06 Thomas at bedtime [facility] 00 [facility] Montelukast [place] 0 Yes Damir [address] [facility] Sodium Sodium 2-20 Thomas [facility] 00 [facility] Tramadol Tramadol 2017-03 Yes Damir [address] [facility] HCl HCl 2-10 Thomas as needed [facility] Lisinopril Lisinopril Yes Damir [address] [facility] Simvastatin Simvastatin Yes Damir [address] [facility] in the [facility] evening [facility] ent Clinics Vitamin B12 Vitamin B12 Yes Damir not [facility] defined [facility] Lorazepam Lorazepam Yes Damir [address] [facility] as needed [facility] ent Clinics Metformin Metformin Yes Damir [address] [facility] HCl HCl Thomas with a [facility] meal [facility] Omeprazole Omeprazole Yes Damir [address] [facility] Synthroid Synthroid Yes Damir [address] [facility] on an [facility] empty [facility] stomach in l the Outpati morning ent Clinics Immunizations Ordered Filled Immunization Date Status Comments Sour e Immunization Name Name Dru Gonsales 2019-01-[address] [facility] Prevnar 13 Prevnar 13 2017-10-[address] [facility] - -Pneumonia Vaccine -Pneumonia Vaccine 00:00:00 [facility] Outpatient [facility] Procedures This patient has no known procedures. Encounters Start End Encounter Admission Attending Care Care Encounter Source Date/Time Date/Time Type Type Clinicians Facility Department ID 2020-02-13 2020-02-13 [id number] 2020-01-11 2020-01-11 [facility] [id number] [facility] 2020-01-11 2020-01-11 [facility] [id number] [facility] 2020-01-05 2020-01-05 [facility] [id number] [facility] 2019-12-27 2019-12-27 [facility] [id number] [facility] 2019-12-22 2019-12-22 Out[facility] [id number] [facility] 2019-10-14 2019-10-14 Outpatient Harpal Rowant [id number] [facility] 14:50:00 14:50:00 t Zhao Zhao Recurve Mamou [facility] Medicine l Medicine Outpati ent Clinics 2019-10-13 2019-10-13 Outpatient B[facility] Rowant [id number] [facility] 10:45:00 10:45:00 t [employer] [facility] Out[facility] ent Clinics 2019-09-22 2019-09-22 [facility] [id number] [facility] 10:13:00 10:13:00 [place] [employer] - [facility] l Medicine Outpati ent Clinics 2019-08-12 2019-08-12 [facility] [id number] [facility] 09:30:00 09:30:00 [place] [employer] - [facility] Medicine Outpati ent Clinics 2019-08-08 2019-08-08 [facility] [id number] 10:00:00 10:00:00 [place] [employer] - [facility] l Medicine Outpati ent Clinics 2019-07-12 2019-07-12 [facility] [id number] [facility] 09:30:00 09:30:00 t Family Pet s - Drive [facility] Medicine Outpati ent Clinics 2019-04-14 2019-04-14 [facility] [id number] [address] 08:33:00 08:33:00 [place] [employer] - [employer] [facility] Medicine l Medicine Outpati ent Clinics 2019-04-12 2019-04-12 [facility] [id number] [facility] 09:15:00 09:15:00 t Family Pet s - Drive [facility] l Medicine Outpati ent Clinics 2019-04-05 2019-04-05 [facility] [id number] [address] 08:18:00 08:18:00 [place] [employer] [place] [address] [facility] Medicine Outpati ent Clinics 2019-03-15 2019-03-15 [facility] [id number] [address] 10:45:00 10:45:00 [place] [employer] [place] [address] [facility] Medicine Outpati ent Clinics 2019-02-02 2019-02-02 [facility] [id number] 09:00:00 09:00:00 [place] [employer] [place] [address] [facility] Medicine Outpati ent Clinics 2019-01-12 2019-01-12 [facility] [id number] 10[facility]15:00 10:15:00 [place] [address] Luke s - Drive [facility] Medicine l Medicine Outpati ent Clinics 2019-01-05 2019-01-05 [facility] [id number] 14:58:00 14:58:00 [place] [address] Luke s - Drive [facility] Medicine l Medicine Outpati ent Clinics 2018-11-09 2018-11-09 [facility] [id number] [address] 09:47:00 09:47:00 [place] [address] Luke s - Drive [facility] Medicine l Medicine Outpati ent Clinics 2018-10-28 2018-10-28 [facility] [id number] 08:34:00 08:34:00 [place] [employer] - Drive [facility] l Medicine Outpati ent Clinics 2018-10-15 2018-10-15 [facility] [id number] 09:00:00 09:00:00 [place] [employer] [place] - Drive [facility] Medicine Medicine Outpati ent Clinics 2018-07-05 2018-07-05 [facility] [id number] [facility] 08:30:00 08:30:00 [place] [employer] - Drive [facility] Medicine Medicine Outpati ent Clinics 2018-06-07 2018-06-07 [facility] [id number] 10:15:00 10:15:00 [place] [employer] [place] - Drive [facility] Medicine l Medicine Outpati ent Clinics 2018-06-03 2018-06-03 [facility] [id number] 10:30:00 10:30:00 [place] [employer] Luke s - Drive [facility] Medicine l Medicine Outpati ent Clinics 2018-04-28 2018-04-28 [facility] [id number] 13:30:00 13:30:00 [place] [employer] - Drive [facility] l Medicine Outpati ent Clinics 2018-04-06 2018-04-06 [facility] [id number] 08:15:00 08:15:00 [place] [employer] - Drive [facility] Medicine Medicine Outpati ent Clinics 2018-02-17 2018-02-17 [facility] [id number] 10:24:00 10:24:00 t [facility] ent Clinics 2018-02-15 2018-02-15 [facility] [id number] 08:30:00 08:30:00 t [facility] 2017-10-22 2017-10-22 [facility] [id number] 15:00:00 15:00:00 t Specialty/U Gabriela kes - Specialty rology [facility] a /Urology Clinic l [facility] ent Clinics 2017-10-08 2017-10-08 Out[facility] [id number] [address] 09:00:00 09:00:00 t [facility] ent Clinics 2017-09-08 2017-09-08 Outpatient [facility] [id number] 09:00:00 09:00:00 t [facility] ent Clinics 2017-07-17 2017-07-17 [facility] [id number] 09:30:00 09:30:00 t [facility] ent Clinics Results This patient has no known results.
--- OUTSIDE RECORDS SUMMARY | 2020-04-08 11:32 | XMS REPORT ---
:1950 Author Organization [facility] Address [address] [place], [address] [place] [address] Care Team Providers Name Role Phone Thomas Unavailable [phone] PROBLEMS Type Condition ICD9-CM [id number] Onset Condition SNOMED Code Notes Code Code Dates Status Problem Hyperlipidemia, E78.2 Active 947591690 mixed Problem Malaise and R53.81 Active 379127899 fatigue Problem Vitamin B 12 E53.8 Active 40933262 deficiency Problem Vitamin D E55.9 Active 71202026 deficiency Problem Diabetes type 2, E11.9 Active 473943195 controlled Problem Hypothyroidism E03.9 Active 52209422 Problem Benign essential I10 Active 94568762 HTN Problem Peripheral edema R60.9 Active 520002840 Problem Tear of right M75.101 Active 852615198 rotator cuff, unspecified tear extent Problem Claustrophobia F40.240 Active 46734930 Problem Primary M15.0 Active 044563391 osteoarthritis involving multiple joints Problem Varicose veins I83.93 Active [id number] of both lower extremities Problem Colon, K57.30 Active 317505700 diverticulosis Problem Abdominal R14.0 Active 984874709 bloating Problem Allergic J30.9 Active 84634971 rhinitis, unspecified seasonality, unspecified trigger Problem GERD without K21.9 Active 796544670 esophagitis Problem Insomnia, G47.00 Active 939741689 unspecified type Problem Type 2 diabetes E11.29 Active 66428331 mellitus with other diabetic kidney complication ALLERGIES Allergen (clinical Drug/Non Drug Reaction Allergy Type Onset Date S tatus drug ingredient) Allergy documented on EMR ciprofloxacin Cipro([facility] abdominal pain Drug Allergy Activ e Code:[address]-70 ) ENCOUNTERS from 1950 to 2020-02-13 Encounter Location Date Provider Diagnosis María Browne [address] [place] Feb, Damir William Type [address] Family [address] [place], [place] [address] diabetic kidne y complication E1 1.29 ; Colon, divertic ulosis K57.30 ; Benign essential HTN I 10 ; Hyperlipidemia, mixed E78.2 ; Hypothy roidism E03.9 ; Insomni a, unspecified typ e G47.00 ; Gastro-esopha geal reflux disease without esophagitis K21 .9 ; Vitamin D defic iency E55.9 ; Vitamin B 12 deficiency E53. 8 ; Right shoulder pain, unspecified chr onicity M25.511 ; Microalbuminuri a R80.9 ; Pain in unspe cified finger(s) M79.6 46 and Pain in unspeci fied hand M79.643 IMMUNIZATIONS Vaccine Route Administration Date Status FluAD IM Intramuscular Dec 27, 2019 Administered FluAD IM Intramuscular Jan 12, 2019 Administered FluAD IM Intramuscular Jan 04, 2018 Administered xRocephin 1 gm IM Intramuscular June 03, 2018 Administered Prevnar 13 -Pneumonia Vaccine IM Intramuscular Oct 08, 2017 A dministered Vitamin B12 (Cyanocobalamin) IM Intramuscular Jan 11, 2020 Ad ministered Kenalog (Triamcinolone) IM Intramuscular Apr 28, 2018 Adminis tered SOCIAL HISTORY Tobacco Use: Social History Observation Description Date Details (start date - stop date) Never Smoker Sex Assigned At : Social History Observation Description Sex Assigned At Unknown Alcohol Screen Question Answer Notes Did you have a drink containing alcohol in the past year? No Points 0 Interpretation Negative Tobacco Use/Smoking Question Answer Notes Are you a never smoker REASON FOR REFERRAL No Information VITAL SIGNS Height 60 in Feb, Weight 168.6 lbs Feb, Temperature 97.1 degrees Fahrenheit Feb, BMI 32.92 kg/m2 Feb, Oximetry 100 % Feb, Respiratory Rate 18 /min Feb, Blood pressure systolic 136 mm Hg Feb, Blood pressure diastolic 70 mm Hg Feb, MEDICATIONS Medication SIG (Take, Route, Notes Start Date End Date Status Frequency, Duration) Metformin HCl 500 MG 1 tablet with a meal Active Orally Twice a day for 90 days Omeprazole 40 MG 1 capsule Orally Once a Active day Tramadol HCl 50 MG 1 tablet as needed Orally Feb, Active every 6 hrs for 30 Days Synthroid 50 MCG 1 tablet on an empty Active stomach in the morning Orally Once a day for 90 days Lisinopril 30 MG 1 tablet Orally Once a Active day for 90 days Vitamin B12 100 MCG Orally Activ e Trazodone HCl 100 MG 1 tablet at bedtime Active Orally Once a day for 30 day(s) Montelukast Sodium 10 MG 1 tablet Orally Once a 20 Apr, Active day for 30 day(s) Lorazepam 0.5 MG 1 tablet as needed Orally Active Once a day PRN Prior to MRI Simvastatin 40 MG 1 tablet in the evening Active Orally Once a day for 90 days PROCEDURES No Information RESULTS No Results REASON FOR VISIT Follow up MEDICAL (GENERAL) HISTORY Type Description Date Medical History Diabetes type 2, controlled Medical History Gastro-esophageal reflux disease without esophagitis Medical History Abdominal bloating Medical History Benign essential HTN Medical History Hyperlipidemia, mixed Medical History Hypothyroidism Medical History Malaise and fatigue Medical History Vitamin D deficiency Medical History Vitamin B 12 deficiency Surgical History Thyroid Goals Section No Information Health Concerns No Information MEDICAL EQUIPMENT No Information MENTAL STATUS No Information FUNCTIONAL STATUS No Information ASSESSMENTS Encounter Date Diagnosis Assessment Notes Treatment Notes Treatm ent Clinical Notes Feb, Type 2 diabetes Continue Metformin mellitus with other BID. Side effect diabetic kidney panel dsicussed. complication (ICD-10 - Diabetes Education E11.29) Diabetes is a disorder that disrupts the way your body uses glucose (sugar). It is a chronic medication condition that requires regular monitoring and treatment throughout your life. Treatment includes: lifestyle modification, self-care measures, and medication. Fortunately, these treatments can keep the blood sugar levels close to normal and minimize the risk of developing complications. The primary blood test to measure the progress of diabetes is the Hemoglobin A1c. Normal levels is less than 7.0 but less than 6.5 is considered excellent control. Fasting blood sugars should be in the range of 80-120 while random blood sugars should range below 200 especially after meals. Carbohydrate (sugar) intake for diabetics should be below 45 grams per meal and 15 grams per snack. Diabetic preventive care is vital to prevent complications, so it is important to have yearly diabetic eye and foot exams with specialists. If your diabetes is not controlled, then contact your doctor to further address.Medication may need to be adjusted and/or added. Feb, Colon, diverticulosis Discussed (ICD-10 - K57.30) differential diagnosis with patient. Education given. Discussed supportive measures. Anticipatory guidance given. Evaluated by [facility]. Feb, Benign essential HTN COntrolled at (ICD-10 - I10) home. HTN Education This is a condition that puts at risk for heart attack, stroke, and kidney disease. Lifestyle modification, low fat/low salt diet, exercise, low alcohol intake and medication is utilized to help control your BP. Untreated HTN increases the strain on the heart and arteries, eventually causing organ damage.Normal BP is less than 140/90. High BP is greater than 140/90. If your BP is not controlled, call your doctor. Medication may need to be adjusted and/or added. Compliance with medication is vital. If you have chest pain, shortness of breath, severe nausea/vomiting, fatigue, and other symptoms, you will need to contact your doctor or go to the ER immediately to address. Feb, Hyperlipidemia, mixed Increased to 40 (ICD-10 - E78.2) mg. Education given. Side effect panel discussed. Feb, Hypothyroidism (ICD-10 Decreased 50 mcg. - E03.9) Side effect discussed. Education given. COmpliant with medications. Feb, Insomnia, unspecified Discussed good type (ICD-10 - G47.00) sleep hygiene. Education given. Will trial Trazodone and titrate as tolerated. Side effect discussed. Feb, Gastro-esophageal Education given. reflux disease without Aware of shelter esophagitis (ICD-10 - impact. K21.9) Feb, Vitamin D deficiency On supplements. (ICD-10 - E55.9) Feb, Vitamin B 12 IM given in deficiency (ICD-10 - office. Cont PO. E53.8) Will see if changes with IM. Side effect discussed. Feb, Right shoulder pain, Discussed DDX. unspecified chronicity Managed by (ICD-10 - M25.511) . Feb, Microalbuminuria (ICD-10 - R80.9) Feb, Pain in unspecified Discussed DDX. finger(s) (ICD-10 - Education given. M79.646) Reviewed x-ray and labs. Referral to rheumatology for further evaluation and management. Feb, Pain in unspecified . Referral to hand (ICD-10 - rheumatology M79.643) Feb, Other -- Medication reviewed and updated. -- Dietary and Lifestyle modifications addressed regarding diet, exercise and weight management. -- Treatment options, risks and benefits, side effects reviewed in detail. -- Advised on signs/symptoms to monitor and when to call clinic and/or visit the nearest ER. Patient verbalized understanding and agreeable with plan. PLAN OF TREATMENT Medication Medication Name Sig Start Date Stop Date Trazodone HCl 100 MG 1 tablet at bedtime Orally Once a day for 30 day(s) Metformin HCl 500 MG 1 tablet with a meal Orally Twice a day for 90 days Synthroid 50 MCG 1 tablet on an empty stomach in the morning Orally Once a day for 90 days Lisinopril 30 MG 1 tablet Orally Once a day for 90 days Vitamin B12 100 MCG Orally Simvastatin 40 MG 1 tablet in the evening Orally Once a day for 90 days Omeprazole 40 MG 1 capsule Orally Once a day Treatment Notes Assessment Notes Clinical Notes Type 2 diabetes mellitus with other Continue Metformin BID. Side diabetic kidney complication effect panel dsicussed. Diabete s Education Diabetes is a disorder that disrupts the way your body uses glucose (sugar). It is a chronic medication condition that requires regular monitoring and treatment throughout your life. Treatment includes: lifestyle modification, self-care measures, and medication. Fortunately, these treatments can keep the blood sugar levels close to normal and minimize the risk of developing complications. The primary blood test to measure the progress of diabetes is the Hemoglobin A1c. Normal levels is less than 7.0 but less than 6.5 is considered excellent control. Fasting blood sugars should be in the range of 80-120 while random blood sugars should range below 200 especially after meals. Carbohydrate (sugar) intake for diabetics should be below 45 grams per meal and 15 grams per snack. Diabetic preventive care is vital to prevent complications, so it is important to have yearly diabetic eye and foot exams with specialists. If your diabetes is not controlled, then contact your doctor to further address.Medication may need to be adjusted and/or added. Colon, diverticulosis Discussed differential diagnosis with patient. Education given. Discussed supportive measures. Anticipatory guidance given. Evaluated by [facility]. Benign essential HTN COntrolled at home. HTN Education This is a condition that puts at risk for heart attack, stroke, and kidney disease. Lifestyle modification, low fat/low salt diet, exercise, low alcohol intake and medication is utilized to help control your BP. Untreated HTN increases the strain on the heart and arteries, eventually causing organ damage.Normal BP is less than 140/90. High BP is greater than 140/90. If your BP is not controlled, call your doctor. Medication may need to be adjusted and/or added. Compliance with medication is vital. If you have chest pain, shortness of breath, severe nausea/vomiting, fatigue, and other symptoms, you will need to contact your doctor or go to the ER immediately to address. Hyperlipidemia, mixed Increased to 40 mg. Education given. Side effect panel discussed. Hypothyroidism Decreased 50 mcg. Side effect discussed. Education given. COmpliant with medications. Insomnia, unspecified type Discussed good sleep hygiene. Education given. Will trial Trazodone and titrate as tolerated. Side effect discussed. Gastro-esophageal reflux disease Education given. Aware of l ongterm without esophagitis impact. Vitamin D deficiency On supplements. Vitamin B 12 deficiency IM given in office. Cont PO. Will see if changes with IM. Side effect discussed. Right shoulder pain, unspecified Discussed DDX. Managed by Jose Romero. chronicity Pain in unspecified hand . Referral to rheumatology Pain in unspecified finger(s) Discussed DDX. Education given . Reviewed x-ray and labs. Referral to rheumatology for further evaluation and management. Treatment Notes Test Name Order Date Lipid Panel With LDL/HDL Ratio 2020-02-13 UA/M w/rflx Culture, Comp 2020-02-13 Thyroid Panel With TSH 2020-02-13 Microalbumin/Creat Ratio, Random Ur 2020-02-13 Hemoglobin A1c 2020-02-13 Vitamin B12 2020-02-13 Comp. Metabolic Panel (14) (CMP) 2020-02-13 CBC With Differential/Platelet 2020-02-13 Vitamin D, 25-Hydroxy 2020-02-13 Next Appt Details 3 month + Labs 1 week before Reason: Provider Name:Damir William, 2020-05-07 0 9:15:00 AM, [address], [address], [place], [address], Provider Name:Damir Thomas, 2020-05-14 0 9:40:00 AM, [address], [place], [address], Insurance Providers Payer Name Payer Payer Insured Patient Coverage Coverage End Address Phone Name Relationship to Start Date Yeison e Insured [employer] [phone] CorreiaFarrah eusebio 2019 MEDICARE [id number] [address] [place] [address]
[2020-04-08] MEDS ORDERED: NA CHLORIDE 0.9% 1,000 ML ONE (12:33)
--- NOTE | 2020-04-08 12:38 | RAD REPORT ---
EXAM DESCRIPTION: Franchesca Single View04/08/2020 12:27 pm CLINICAL HISTORY: Congestion COMPARISON: none FINDINGS: The lungs appear clear of acute infiltrate. The heart is normal size IMPRESSION: No acute abnormalities displayed. If patient's symptoms persist PA and lateral chest se jori would be recommended
[2020-04-08 13:01] LABS: Absolute Lymphocytes (CBC) 1.5 K/uL (0.7-4.9); Basophils % 0.2 % (0-1.3); Hematocrit 38.7 % (36.0-45.0); Lymphocytes % 28.6 % (15.3-44.8); RBC Red Blood Cell Count 4.32 M/uL (3.86-4.86)
[2020-04-08 13:05] LABS: Urine Blood NEGATIVE (NEG); Urine Glucose NEGATIVE (NEG); Urine Protein NEGATIVE (NEG); Urine Specific Gravity 1.015 (1.005-1.030); Urine pH 6.5 (5.0-7.0)
[2020-04-08 13:07] LABS: Urine Bacteria NONE SEEN /HPF (<20); Urine RBC NONE SEEN /HPF (NONE SEEN)
[2020-04-08 13:23] LABS: Protime INR 0.98
[2020-04-08] MEDS ORDERED: AZITHROMYCIN 250 MG TAB ONE (13:51)
[2020-04-08] MEDS ORDERED: METHYLPREDNISOLONE 125 MG INJ ONE (13:51)
[2020-04-08] MEDS ORDERED: ALBUTEROL INHALER 60 PUFF/8 GM IH ONE (14:00)
--- NOTE | 2020-04-08 14:01 | EDPHYS ---
Physician Documentation [facility] Name: Capri Correia Age: 69 yrs Sex: Female : 1950 Arrival Date: 04/08/2020 Time: 11:39 Bed 6 Private MD: ED Physician Bryan Bolanos HPI: 04/08 12:46 This 69 yrs old Female presents to ER via Ambulatory with complaints of ma2 Fainting, Sore Throat, Cough. 12:46 The patient has experienced near-syncope. Onset: The symptoms/episode began/occurred ma2 gradually, 3 day(s) ago. Associated signs and symptoms: Pertinent negatives: blurred vision, combativeness, confusion, diaphoresis. Current symptoms: Currently, the patient is not experiencing any symptoms, the patient feels back to baseline. The patient has not experienced similar symptoms in the past. has covid x 3 days . Historical: - Allergies: 11:58 No Known Allergies; ss - PMHx: 11:58 Hyperlipidemia; Hypertension; Hypothyroidism; ss - PSHx: 11:58 Tonsillectomy; Thyroidectomy; ss - Immunization history:: Adult Immunizations up to date. - Social history:: Smoking status: Patient denies any tobacco usage or history of. Patient/guardian denies using alcohol, street drugs, The patient lives with family. - Family history:: not pertinent. ROS: 12:46 Constitutional: Negative for fever, chills, and weight loss. ma2 12:46 All other systems are negative. Exam: 12:46 Abdomen/GI: Exam negative for ma2 12:46 Constitutional: This is a well developed, well nourished patient who is awake, alert, and in no acute distress. Head/Face: Normocephalic, atraumatic. Eyes: Pupils equal round and reactive to light, extra-ocular motions intact. Lids and lashes normal. Conjunctiva and sclera are non-icteric and not injected. Cornea within normal limits. Periorbital areas with no swelling, redness, or edema. ENT: Nares patent. No nasal discharge, no septal abnormalities noted. Tympanic membranes are normal and external auditory canals are clear. Oropharynx with no redness, swelling, or masses, exudates, or evidence of obstruction, uvula midline. Mucous membranes moist. Chest/axilla: Normal chest wall appearance and motion. Nontender with no deformity. No lesions are appreciated. Cardiovascular: Regular rate and rhythm with a normal S1 and S2. No gallops, murmurs, or rubs. Normal PMI, no JVD. No pulse deficits. Respiratory: Lungs have equal breath sounds bilaterally, clear to auscultation and percussion. No rales, rhonchi or wheezes noted. No increased work of breathing, no retractions or nasal flaring. Abdomen/GI: Soft, non-tender, with normal bowel sounds. No distension or tympany. No guarding or rebound. No evidence of tenderness throughout. Skin: Warm, dry with normal turgor. Normal color with no rashes, no lesions, and no evidence of cellulitis. MS/ Extremity: Pulses equal, no cyanosis. Neurovascular intact. Full, normal range of motion. Neuro: Awake and alert, GCS 15, oriented to person, place, time, and situation. Cranial nerves II-XII grossly intact. Motor strength 5/5 in all extremities. Sensory grossly intact. Cerebellar exam normal. Normal gait. Vital Signs: 12:01 BP 123 / 71; Pulse 84; Resp 16; Temp 97.8(TE); Pulse Ox 98% on R/A; Weight 74.84 kg; ss Height 5 ft. 0 in. (152.40 cm); Pain 8/10; 13:00 BP 120 / 92; Pulse 80; Resp 17; Pulse Ox 99% on R/A; hb 14:15 BP 124 / 84; Pulse 78; Resp 17; Pulse Ox 97% on R/A; hb 12:01 Body Mass Index 32.22 (74.84 kg, 152.40 cm) ss MDM: 12:06 Patient medically screened. ma2 13:59 Differential Diagnosis: drug effect, emotional response, idiopathic syncope, vasovagal ma2 episode. Data reviewed: vital signs, nurses notes. Counseling: I had a detailed discussion with the patient and/or guardian regarding: the historical points, exam findings, and any diagnostic results supporting the discharge/admit diagnosis, the presence of at least one elevated blood pressure reading (>120/80) during this emergency department visit, the need for outpatient follow up. Response to treatment: the patient's symptoms have markedly improved after treatment. 04/08 12:10 Order name: Blood Culture Adult (2) ma2 04/08 12:10 Order name: BMP [facility] 04/08 12:10 Order name: C-Reactive Protein [facility] 04/08 12:10 Order name: CBC with Diff [facility] 04/08 12:10 Order name: Lactate; Complete Time: 13:23 [facility] 04/08 12:10 Order name: LFT's [facility] 04/08 12:10 Order name: Lipase [facility] 04/08 12:10 Order name: Procalcitonin; Complete Time: 13:59 [facility] 04/08 12:10 Order name: PT-INR; Complete Time: 13:59 [facility] 04/08 12:10 Order name: Ptt, Activated; Complete Time: 13:59 [facility] 04/08 12:10 Order name: Strep; Complete Time: 13:59 [facility] 04/08 12:10 Order name: Troponin (emerg Dept Use Only) [facility] 04/08 12:10 Order name: Urine Microscopic Only; Complete Time: 13:23 [facility] 04/08 12:10 Order name: CXR XRAY; Complete Time: 13:23 [facility] 04/08 12:10 Order name: EKG; Complete Time: 12:11 [facility] 04/08 12:10 Order name: CORONAVIRUS [facility] 04/08 12:10 Order name: Blood Culture [facility] 04/08 12:10 Order name: Basic Metabolic Panel [facility] 04/08 12:11 Order name: C-Reactive Protein [facility] 04/08 12:11 Order name: CBC with Automated Diff; Complete Time: 13:23 [facility] 04/08 12:58 Order name: Urine Dipstick--Ancillary (enter results) 04/08 12:59 Order name: Urine Dipstick-Ancillary; Complete Time: 13:23 [facility] 04/08 13:57 Order name: Throat Culture [facility] 04/08 14:43 Order name: COVID-19/FLU A+B [facility] 04/08 12:10 Order name: Cardiac monitoring; Complete Time: 12:54 [facility] 04/08 12:10 Order name: Droplet/Contact Precautions; Complete Time: 12:54 [facility] 04/08 12:10 Order name: EKG - Nurse/Tech; Complete Time: 12:54 [facility] 04/08 12:10 Order name: IV Start; Complete Time: 12:53 [facility] 04/08 12:10 Order name: Labs collected and sent; Complete Time: 12:53 [facility] 04/08 12:10 Order name: O2 Per Protocol; Complete Time: 12:54 [facility] 04/08 12:10 Order name: O2 Sat Monitoring; Complete Time: 12:54 [facility] 04/08 12:10 Order name: Urine Dipstick-Ancillary (obtain specimen); Complete Time: 12:54 ma2 Administered Medications: 12:48 Drug: NS 0.9% 1000 ml Route: IV; Rate: 1 bolus; Site: left antecubital; hb 13:41 Follow up: Response: No adverse reaction; IV Status: Completed infusion; IV Intake: hb 1000ml 13:40 Drug: MethylPrednisoLONE 125 mg Route: IVP; Site: left antecubital; hb 14:15 Follow up: Response: No adverse reaction hb 13:40 Drug: AZITHromycin 500 mg Route: PO; hb 14:30 Follow up: Response: No adverse reaction hb 14:11 Drug: Albuterol HFA Inhaler 2 puffs Route: Inhalation; hb 14:52 Follow up: Response: No adverse reaction hb Disposition: 04/08/20 14:00 Discharged to Home. Impression: Coronavirus infection, unspecified, Dehydration. - Condition is Stable. - Discharge Instructions: Dehydration, Adult, COVID-19. - Prescriptions for Diclofenac Sodium 75 mg Oral Tablet Sustained Release - take 1 tablet by ORAL route 2 times per day; 30 tablet. Zithromax Z- Syed 250 mg Oral Tablet - take 1 tablet by ORAL route as directed for 5 days Day 1 - take two (2) tablets one time. Day 2, 3, 4 , 5 take one (1) tablet once daily.; 6 tablet. Medrol (Syed) 4 mg Oral Tablets, Dose Pack - take 1 tablet by ORAL route as directed - follow package instructions; 1 packet. Albuterol Sulfate 90 mcg/actuation - inhale 1-2 puff by INHALATION route every 4-6 hours; 1 Inhaler. - Medication Reconciliation Form, Thank You Letter, Antibiotic Education, Prescription Opioid Use form. - Follow up: Private Physician; When: Tomorrow; Reason: If symptoms return. Signatures: Dispatcher [facility] Lyudmila Ferguson RN RN Sylvia Hicks RN RN Bryan Bolanos MD MD ma2 Corrections: (The following items were deleted from the chart) 13:45 12:11 Influenza Screen (A \T\ B)+[id number].LAB.BRZ ordered. EDMA EDMS 14:54 14:00 04/08/2020 14:00 Discharged to Home. Impression: Coronavirus infection, hb unspecified; Dehydration. Condition is Stable. Prescriptions for Diclofenac Sodium 75 mg Oral Tablet Sustained Release - take 1 tablet by ORAL route 2 times per day; 30 tablet, Zithromax Z-Syed 250 mg Oral Tablet - take 1 tablet by ORAL route as directed for 5 days Day 1 - take two (2) tablets one time. Day 2, 3, 4 , 5 take one (1) tablet once daily.; 6 tablet, Medrol (Syed) 4 mg Oral Tablets, Dose Pack - take 1 tablet by ORAL route as directed - follow package instructions; 1 packet, Albuterol Sulfate 90 mcg/actuation - inhale 1-2 puff by INHALATION route every 4-6 hours; 1 Inhaler. and Forms are Medication Reconciliation Form, Thank You Letter, Antibiotic Education, Prescription Opioid Use. Follow up: Private Physician; When: Tomorrow; Reason: If symptoms return. ma2
--- NOTE | 2020-04-08 14:01 | ER ---
Nurse's Notes [facility] Name: Capri Correia Age: 69 yrs Sex: Female : 1950 Arrival Date: 04/08/2020 Time: 11:39 Bed 6 Private MD: Diagnosis: Coronavirus infection, unspecified;Dehydration Presentation: 04/08 11:58 Chief complaint: Patient states: cough and sore throat x 3-4 days. Fever for the past ss two nights. Syncopal episode today. Coronavirus screen: Client denies travel out of the [place] in the last 14 days. Client presents with at least one sign or symptom that may indicate coronavirus-19. Standard/surgical mask placed on the client. Ebola Screen: Patient denies exposure to infectious person. Patient denies travel to an Ebola-affected area in the 21 days before illness onset. Initial Sepsis Screen: Does the patient meet any 2 criteria? No. Patient's initial sepsis screen is negative. Does the patient have a suspected source of infection? No. Patient's initial sepsis screen is negative. Risk Assessment: Do you want to hurt yourself or someone else? Patient reports no desire to harm self or others. Onset of symptoms was April 05, 2020. 11:58 Method Of Arrival: Ambulatory ss 11:58 Acuity: NITA 3 ss Historical: - Allergies: 11:58 No Known Allergies; ss - PMHx: 11:58 Hyperlipidemia; Hypertension; Hypothyroidism; ss - PSHx: 11:58 Tonsillectomy; Thyroidectomy; ss - Immunization history:: Adult Immunizations up to date. - Social history:: Smoking status: Patient denies any tobacco usage or history of. Patient/guardian denies using alcohol, street drugs, The patient lives with family. - Family history:: not pertinent. Screenin:00 Abuse screen: Denies threats or abuse. Denies injuries from another. Nutritional hb screening: No deficits noted. Tuberculosis screening: No symptoms or risk factors identified. Fall Risk None identified. Assessment: 12:15 General: Appears in no apparent distress. Behavior is calm, cooperative. Pain: Pain hb currently is 8 out of 10 on a pain scale. Neuro: Level of Consciousness is awake, alert, obeys commands, Oriented to person, place, time, situation. Cardiovascular: Capillary refill < 3 seconds Patient's skin is warm and dry. Rhythm is regular. Respiratory: Reports shortness of breath on exertion cough that is non-productive, Respiratory effort is even, unlabored, Respiratory pattern is regular, symmetrical. GI: No signs and/or symptoms were reported involving the gastrointestinal system. : No signs and/or symptoms were reported regarding the genitourinary system. EENT: Reports sore throat. Derm: Skin is pink, warm \T\ dry. Musculoskeletal: Reports body aches. 13:00 Reassessment: Patient appears in no apparent distress at this time. Patient and/or hb family updated on plan of care and expected duration. Pain level reassessed. Patient is alert, oriented x 3, equal unlabored respirations, skin warm/dry/pink. 14:00 Reassessment: Patient appears in no apparent distress at this time. Patient and/or hb family updated on plan of care and expected duration. Pain level reassessed. Patient is alert, oriented x 3, equal unlabored respirations, skin warm/dry/pink. Vital Signs: 12:01 BP 123 / 71; Pulse 84; Resp 16; Temp 97.8(TE); Pulse Ox 98% on R/A; Weight 74.84 kg; ss Height 5 ft. 0 in. (152.40 cm); Pain 8/10; 13:00 BP 120 / 92; Pulse 80; Resp 17; Pulse Ox 99% on R/A; hb 14:15 BP 124 / 84; Pulse 78; Resp 17; Pulse Ox 97% on R/A; hb 12:01 Body Mass Index 32.22 (74.84 kg, 152.40 cm) ED Course: 11:39 Patient arrived in ED. mr 11:58 Arm band placed on right wrist. ss 12:01 Triage completed. ss 12:06 Bryan Bolanos MD is Attending Physician. ma2 12:11 Sylvia Hicks, RN is Primary Nurse. hb 12:27 CXR XRAY In Process Unspecified. EDMS 12:40 EKG done, by ED staff, reviewed by Bryan Bolanos MD. 3 12:45 Initial lab(s) drawn, by tn, sent to lab. First set of blood cultures drawn by me. 3 Inserted saline lock: 20 gauge in left antecubital area, using aseptic technique. Blood collected. 12:48 Second set of blood cultures drawn by tnWood 3 13:00 Patient has correct armband on for positive identification. Placed in gown. Bed in low hb position. 13:40 COVID swab sent to lab. jp3 14:54 No provider procedures requiring assistance completed. IV discontinued, intact, hb bleeding controlled, No redness/swelling at site. Administered Medications: 12:48 Drug: NS 0.9% 1000 ml Route: IV; Rate: 1 bolus; Site: left antecubital; hb 13:41 Follow up: Response: No adverse reaction; IV Status: Completed infusion; IV Intake: hb 1000ml 13:40 Drug: MethylPrednisoLONE 125 mg Route: IVP; Site: left antecubital; hb 14:15 Follow up: Response: No adverse reaction hb 13:40 Drug: AZITHromycin 500 mg Route: PO; hb 14:30 Follow up: Response: No adverse reaction hb 14:11 Drug: Albuterol HFA Inhaler 2 puffs Route: Inhalation; hb 14:52 Follow up: Response: No adverse reaction hb Intake: 13:41 IV: 1000ml; Total: 1000ml. hb Outcome: 14:00 Discharge ordered by MD. [email or web address] 14:54 Discharged to home ambulatory. hb 14:54 Condition: stable 14:54 Discharge instructions given to patient, Instructed on discharge instructions, follow up and referral plans. medication usage, COVID PRECAUTIONS Demonstrated understanding of instructions, follow-up care, medications, COVID PRECAUTIONS Prescriptions given X 4. 14:54 Patient left the ED. hb Signatures: Dispatcher [employer] [facility] Carmencita Branham Lyudmila Cordero RN RN ss Baxter, Heather, RN RN Isamar Prado [facility] Bryan Bolanos MD MD hi2 Karel Villafana 3
[2020-04-08 14:09] LABS: ALT/SGPT 35 U/L (12-78); AST/SGOT 29 U/L (15-37); Albumin 3.6 g/dL (3.4-5.0); Alkaline Phosphatase 99 U/L (45-117); BUN Blood Urea Nitrogen 14 mg/dL (7-18); Bicarbonate 24 mmol/L (21-32); Bilirubin Direct < 0.1 mg/dL (0-0.2); Bilirubin Total 0.2 mg/dL (0.2-1.0); C-Reactive Protein 3.33 mg/L (<3.00); Glucose Level 104 mg/dL (74-106); Lipase 162 U/L (73-393); Potassium 4.6 mmol/L (3.5-5.1); Protein, Total 7.2 g/dL (6.4-8.2); Sodium Level 134 mmol/L (136-145); Troponin (Emerg Dept Use Only) < 0.02 ng/mL (0.0-0.045)
[2020-04-08 14:43] LABS: SARS-COV-2 RT PCR POSITIVE (NEGATIVE)
[2020-04-08 15:01] VITALS: TEMP 97.8
[2020-04-08 15:03] VITALS: BP 124/84; O2SAT 97
--- NOTE | 2020-04-09 08:19 | EKG ---
Test Date: 2020-04-08 Test Time: 12:40:35 Mechanism Assembler: SHILPA MEASUREMENT RESULTS: Intervals: Rate: 78 AR: 124 QRSD: 78 QT: 356 QTc: 405 [place]: P: 11 AR: 124 QRS: 65 T: -3 INTERPRETIVE STATEMENTS: Normal sinus rhythm Nonspecific T wave abnormality Abnormal ECG Compared to ECG 10/22/2017 15:54:39 T-wave abnormality now present Sinus bradycardia no longer present Myocardial infarct finding no longer present Electronically Signed On 04-09-20 08:17:42 LABORATORY HELPER by Johnny Villasenor
== END 2020-04-08 14:54 | disposition home or self-care (01) ==
LOC: ER 11:30
DX: U07.1 COVID-19 (principal); E86.0 Dehydration
CPT/HCPCS: 96361; 93005; 87040 ×2; 87070; 85025; 80048; 36415; 85610; 80076; 87081; 83605; 85730; 84484; 83690; 84145; 0240U; 86140; 71045; 96374; 99284; J7030; J2930; 81003; 81015

== ENCOUNTER 2020-04-16 11:39 | Emergency (ER) | payer OTHER ==
--- NOTE | 2020-04-16 15:44 | RAD REPORT ---
EXAM DESCRIPTION: RAD - Chest Pa And Lat (2 Views) - 04/16/2020 3:18 pm CLINICAL HISTORY: DYSPNEA COMPARISON: Single-view chest April 08 TECHNIQUE: Frontal and lateral views of the chest were obtained. FINDINGS: The lungs are fibrotic. Interstitial pattern is not clearly different from comparison. H eart size is normal and central vasculature is within normal limits. No pleural effusion or pneumoth orax seen. No acute bony finding noted. No aortic abnormality. IMPRESSION: No acute cardiopulmonary process. Chronic interstitial pattern matches comparison.
--- NOTE | 2020-04-16 16:15 | ER ---
Nurse's Notes [facility] Name: Capri Correia Age: 69 yrs Sex: Female : 1950 Arrival Date: 04/16/2020 Time: 11:42 Bed 23 Private MD: Damir Thomas Diagnosis: Coronavirus infection, unspecified Presentation: 04/16 11:58 Chief complaint: Patient states: COVID + 8 days ago, seen here and sent home with sv prescriptions. c/o upper back pain, dyspnea x 8 days. Coronavirus screen: Client denies travel out of the [place] in the last 14 days. Client presents with at least one sign or symptom that may indicate coronavirus-19. Standard/surgical mask placed on the client. Provider contacted for isolation considerations. Client reports previous positive COVID test result. Ebola Screen: No symptoms or risks identified at this time. Initial Sepsis Screen: Does the patient meet any 2 criteria? HR > 90 bpm. No. Patient's initial sepsis screen is negative. Does the patient have a suspected source of infection? Yes: Other: COVID. Risk Assessment: Do you want to hurt yourself or someone else? Patient reports no desire to harm self or others. Onset of symptoms was April 09, 2020. 11:58 Method Of Arrival: Ambulatory sv 11:58 Acuity: NITA 3 sv Triage Assessment: 12:00 General: Appears in no apparent distress. comfortable, Behavior is calm, cooperative, sv appropriate for age. Pain: Complains of pain in back. Neuro: Level of Consciousness is awake, alert, obeys commands, Oriented to person, place, time, situation, Gait is steady. Respiratory: Respiratory effort is even, unlabored. Historical: - Allergies: 11:59 No Known Allergies; sv - PMHx: 11:59 Hyperlipidemia; Hypertension; Hypothyroidism; sv - PSHx: 11:59 Tonsillectomy; Thyroidectomy; sv - Immunization history:: Adult Immunizations up to date. - Social history:: Smoking status: Patient denies any tobacco usage or history of. Screenin:20 Abuse screen: Denies threats or abuse. Denies injuries from another. Nutritional ss screening: No deficits noted. Tuberculosis screening: Never had TB. Fall Risk None identified. Assessment: 14:57 Reassessment: Received VO from Dr Whitten for CXR. sv 15:15 Reassessment: in XRAY at this time. ss 15:20 General: Appears in no apparent distress. comfortable, Behavior is calm, cooperative. ss Pain: Complains of pain in back Pain currently is 0 out of 10 on a pain scale. Neuro: Level of Consciousness is awake, alert, obeys commands, Oriented to person, place, time, Appropriate for age. Cardiovascular: Capillary refill < 3 seconds is brisk in bilateral fingers. Respiratory: Reports shortness of breath on exertion cough that is Airway is patent Respiratory effort is even, unlabored, Respiratory pattern is regular, symmetrical. GI: No signs and/or symptoms were reported involving the gastrointestinal system. Patient currently denies diarrhea, nausea, vomiting. : No signs and/or symptoms were reported regarding the genitourinary system. EENT: Oral mucosa is moist. Throat is clear. Derm: Skin is intact, is healthy with good turgor, Skin is Skin is pink, warm \T\ dry. normal. Musculoskeletal: Circulation, motion, and sensation intact. Range of motion: intact in all extremities, Swelling absent. Vital Signs: 11:58 BP 145 / 88; Pulse 91; Resp 18; Temp 98.2(O); Pulse Ox 100% on R/A; Weight 74.39 kg; sv Height 5 ft. 0 in. (152.40 cm); Pain 0/10; 11:58 Body Mass Index 32.03 (74.39 kg, 152.40 cm) sv ED Course: 11:42 Patient arrived in ED. mr 11:43 Damir Thomas DO is Private Physician. mr 11:59 Triage completed. sv 11:59 Arm band placed on. sv 15:11 Johnathon Soto PA is PHCP. jmm 15:11 Adalid Whitten MD is Attending Physician. jmm 15:14 Lyudmila Ha, CHAI is Primary Nurse. ss 15:15 X-ray completed. Patient tolerated procedure well. Patient moved to radiology sw ambulatory. 15:18 Chest Pa And Lat (2 Views) XRAY In Process Unspecified. EDMS 15:20 Patient has correct armband on for positive identification. Bed in low position. Call ss light in reach. 15:20 No provider procedures requiring assistance completed. ss 17:03 Patient did not have IV access during this emergency room visit. ss Administered Medications: No medications were administered Outcome: 16:14 Discharge ordered by MD. cornejo 17:03 Discharged to home 17:03 Condition: good 17:03 Discharge instructions given to patient, family, Instructed on discharge instructions, follow up and referral plans. Demonstrated understanding of instructions, follow-up care, Prescriptions given X 2. 17:04 Patient left the ED. Signatures: Dispatcher [employer] Nhi Munroe RN RN Johnathon Soto PA PA jmm Rivera, Mary mr Smirch, Shelby, RN RN Hanh Alatorre
--- NOTE | 2020-04-16 16:15 | EDPHYS ---
Physician Documentation [facility] Name: Capri Correia Age: 69 yrs Sex: Female : 1950 Arrival Date: 04/16/2020 Time: 11:42 Bed 23 Private MD: Damir Thomas ED Physician Adalid Whitten HPI: 04/16 14:58 This 69 yrs old Female presents to ER via Ambulatory with complaints of jmm COVID+, Back Pain, Breathing Difficulty. 14:58 The patient or guardian reports cough, described as moderate. Onset: The jmm symptoms/episode began/occurred gradually, 8 day(s) ago. Modifying factors: The symptoms are alleviated by nothing. the symptoms are aggravated by activity. Associated signs and symptoms: Pertinent negatives: fever. This is a 69 year old female with a history of HLP, HTN, Hypothyroidism that presents to the ED with complaints of ongoing sob. Diagnosed with COVID 8 days ago. Denies diarrhea. . Historical: - Allergies: 11:59 No Known Allergies; sv - PMHx: 11:59 Hyperlipidemia; Hypertension; Hypothyroidism; sv - PSHx: 11:59 Tonsillectomy; Thyroidectomy; sv - Immunization history:: Adult Immunizations up to date. - Social history:: Smoking status: Patient denies any tobacco usage or history of. ROS: 14:58 Constitutional: Positive for body aches, chills, fatigue. jmm 14:58 Respiratory: Positive for cough, shortness of breath. 14:58 All other systems are negative. Exam: 14:58 Constitutional: This is a well developed, well nourished patient who is awake, alert, jmm and in no acute distress. Head/Face: atraumatic. Eyes: EOMI, no conjunctival erythema appreciated ENT: Moist Mucus Membranes Neck: Trachea midline, Supple Chest/axilla: Normal chest wall appearance and motion. Cardiovascular: Regular rate and rhythm. No edema appreciated Respiratory: Normal respirations, no respiratory distress appreciated Abdomen/GI: Non distended, soft Back: Normal ROM Skin: General appearance color normal 14:58 Musculoskeletal/extremity: ROM: intact in all extremities. 14:58 Skin: Appearance: Color: normal in color. 14:58 Neuro: Orientation: is normal, Mentation: is normal, Memory: is normal. 14:58 Psych: Behavior/mood is pleasant, cooperative. Vital Signs: 11:58 BP 145 / 88; Pulse 91; Resp 18; Temp 98.2(O); Pulse Ox 100% on R/A; Weight 74.39 kg; sv Height 5 ft. 0 in. (152.40 cm); Pain 0/10; 11:58 Body Mass Index 32.03 (74.39 kg, 152.40 cm) sv MDM: 15:22 Patient medically screened. [facility] 16:13 Data reviewed: vital signs, nurses notes. [facility] 16:13 Counseling: I had a detailed discussion with the patient and/or guardian regarding: the [facility] historical points, exam findings, and any diagnostic results supporting the discharge/admit diagnosis, radiology results, the need for outpatient follow up, to return to the emergency department if symptoms worsen or persist or if there are any questions or concerns that arise at home. ED course: Patient is alert and non toxic in appearance in the ED. No signs of resp distress. NML VS. Advised to follow up with pcp for reevalution. Patient is otherwise given strict return precautions. patient understood and agrees with the plan of care. . 04/16 14:57 Order name: Chest Pa And Lat (2 Views) XRAY; Complete Time: 15:44 sv Administered Medications: No medications were administered Disposition: 17:19 Co-signature as Attending Physician, Adalid Whitten MD. Chart complete. rn Disposition: 04/16/20 16:14 Discharged to Home. Impression: Coronavirus infection, unspecified. - Condition is Stable. - Discharge Instructions: COVID-19. - Prescriptions for ivermectin 3 mg Oral tablet - take 6 tablet by ORAL route as directed One dose on day one and one dose on day 3; 12 tablet. Albuterol Sulfate 90 mcg/actuation - inhale 1-2 puff by INHALATION route every 4-6 hours; 1 Inhaler. - Medication Reconciliation Form, Thank You Letter, Antibiotic Education, Prescription Opioid Use form. - Follow up: Private Physician; When: 2 - 3 days; Reason: Recheck today's complaints, Continuance of care, Re-evaluation by your physician. Signatures: [facility] N[facility] Munroe RN RN sv Mickail, Joel, PA PA jmm Nieto, Roman, MD MD rn Smirch, Shelby, RN RN ss Corrections: (The following items were deleted from the chart) 17:04 16:14 04/16/2020 16:14 Discharged to Home. Impression: Coronavirus infection, ss unspecified. Condition is Stable. Forms are Medication Reconciliation Form, Thank You Letter, Antibiotic Education, Prescription Opioid Use. Follow up: Private Physician; When: 2 - 3 days; Reason: Recheck today's complaints, Continuance of care, Re-evaluation by your physician. chantal
[2020-04-16 17:25] VITALS: BP 145/88; TEMP 98.2; O2SAT 100
--- OUTSIDE RECORDS SUMMARY | 2020-04-17 21:58 | XMS REPORT | Continuity of Care Document ---
:1950 Author Organization [facility] t Address [address] [place] [address] Care Team Providers Name Role Phone Unavailable Unavailable Unavailable Problems This patient has no known problems. Allergies, Adverse Reactions, Alerts Allergy Allergy Status Severity Reaction(s) Onset Inactive Treating Comm ents Source Name Type Date Date Clinician Cipro Adverse Active abdominal [facility] Medications Ordered Filled Start Stop Current Ordering Indication Dosage Frequency Signature Comments Components Source Medication Medication Date Date Medication? Clinician (SIG) Name Name Trazodone Trazodone 2018-03 Yes Damir [address] [facility] HCl HCl 1-06 Thomas at bedtime [facility] 00 [facility] Montelukast Montelukast Yes Damir [address] [facility] Sodium Sodium 2-20 [facility] 00 [facility] Tramadol Tramadol 2017-03 Yes Damir [address] [facility] HCl HCl 2-10 Thomas as needed [facility] Lisinopril Lisinopril Yes Damir [address] [facility] Simvastatin Simvastatin Yes Damir [address] [facility] in the [facility] - evening [facility]ics Vitamin B12 Vitamin B12 Yes Damir not [facility] defined [facility] Lorazepam Lorazepam Yes Damir [address] [facility] as needed [facility] ent Clinics Metformin Metformin Yes Damir 1 [...] 2019-01-[address] [facility] [facility] Outpatient [facility] Prevnar 13 Prevnar 13 2017-10-[address] [facility] - -Pneumonia Vaccine -Pneumonia Vaccine 00:00:[address] [facility] Outpatient [facility] Procedures This patient has no known procedures. Encounters Start End Encounter Admission Attending Care Care Encounter Source Date/Time Date/Time Type Type Clinicians Facility Department ID 2020-02-13 2020-02-13 [facility] [id number] 2020-01-11 2020-01-11 [facility] [id number] [facility] 2020-01-11 2020-01-11 [facility] [id number] [facility] 2020-01-05 2020-01-05 [facility] [id number] [facility] 2019-12-27 2019-12-27 [facility] [id number] [facility] 2019-12-22 2019-12-22 [facility] [id number] [facility] 2019-10-14 2019-10-14 Outpatient Harpal Rowant [id number] [facility] 14:50:00 14:50:00 t Zhao Zhao [employer] [facility] Medicine l Medicine Outpati ent Clinics 2019-10-13 2019-10-13 Outpatient [facility] Rowant [id number] [facility] 10:45:00 10:45:00 t [employer] [facility] l Medicine Outpati ent Clinics 2019-09-22 2019-09-22 [facility] [id number] 10[facility]13:00 10:13:00 t Eustace Veniti s - Drive [facility] l Medicine Outpati ent Clinics 2019-08-12 2019-08-12 [facility] [id number] [facility] 09:30:00 09:30:00 t Eustace Veniti s - Drive [facility] Medicine Outpati ent Clinics 2019-08-08 2019-08-08 [facility] [id number] [facility] 10:00:00 10:00:00 t Eustace Veniti s - Drive [facility] l Medicine Outpati ent Clinics 2019-07-12 2019-07-12 [facility] [id number] [facility] 09[facility]30:00 09:30:00 t Site9 s - Drive [facility] Medicine Outpati ent Clinics 2019-04-14 2019-04-14 [facility] [id number] 08:33:00 08:33:00 t Eustace Veniti s - [employer] [facility] Medicine l Medicine Outpati ent Clinics 2019-04-12 2019-04-12 [facility] [id number] [address] 09:15:00 09:15:00 t Site9 s - Drive [facility] l Medicine Outpati ent Clinics 2019-04-05 2019-04-05 [facility] [id number] [facility] 08:18:00 08:18:00 t Eustace Veniti s - Drive [facility] Medicine Outpati ent Clinics 2019-03-15 2019-03-15 [facility] [id number] [facility] 10[facility]45:00 10:45:00 t Eustace Veniti s - Drive [facility] Medicine Outpati ent Clinics 2019-02-02 2019-02-02 [facility] [id number] 09:00:00 09:00:00 t Eustace Veniti s - Drive [facility] Medicine Outpati ent Clinics 2019-01-12 2019-01-12 [facility] [id number] 10:15:00 10:15:[address] Luke s - Drive [facility] Medicine l Medicine Outpati ent Clinics 2019-01-05 2019-01-05 [facility] [id number] [facility] 14:58:00 14:58:[address] Luke s - Drive [facility] Medicine l Medicine Outpati ent Clinics 2018-11-09 2018-11-09 [facility] [id number] 09:47:00 09:47:[address] Luke s - Drive [facility] Medicine l Medicine Outpati ent Clinics 2018-10-28 2018-10-28 [facility] [id number] 08:34:00 08:34:00 t Eustace Eustace [employer] s - Drive [facility] l Medicine Outpati ent Clinics 2018-10-15 2018-10-15 [facility] [id number] [address] 09:00:00 09:00:00 t Eustace Eustace [employer] s - Drive [facility] Medicine Medicine Outpati ent Clinics 2018-07-05 2018-07-05 [facility] [id number] [facility] 08:30:00 08:30:00 t Eustace Eustace [employer] s - Drive [facility] Medicine Medicine Outpati ent Clinics 2018-06-07 2018-06-07 [facility] [id number] [facility] 10:15:00 10:15:00 t Eustace Eustace [employer] s - Drive [facility] Medicine l Medicine Outpati ent Clinics 2018-06-03 2018-06-03 [facility] [id number] 10:30:00 10:30:00 t Eustace Eustace [employer] Luke s - Drive [facility] Medicine l Medicine Outpati ent Clinics 2018-04-28 2018-04-28 [facility] [id number] 13:30:00 13:30:00 t Eustace Eustace [employer] s - Drive [facility] l Medicine Outpati ent Clinics 2018-04-06 2018-04-06 [facility] [id number] 08:15:00 08:15:00 t Eustace Eustace [employer] s - Drive [facility] Medicine Medicine Outpati ent Clinics 2018-02-17 2018-02-17 [facility] [id number] [facility] 10:24:00 10:24:00 t [facility] ent Clinics 2018-02-15 2018-02-15 [facility] [id number] 08:30:00 08:30:00 t [facility] 2017-10-22 2017-10-22 [facility] [id number] 15:00:00 15:00:00 t Specialty/U Gabriela kes - Specialty rology [facility] a /Urology Clinic l [facility] ent Clinics 2017-10-08 2017-10-08 [facility] [id number] 09:00:00 09:00:00 t Tomveyi Bidamon [facility] ent Clinics 2017-09-08 2017-09-08 [facility] [id number] 09:00:00 09:00:00 t Tomveyi Bidamon [facility] ent Clinics 2017-07-17 2017-07-17 [facility] [id number] 09:30:00 09:30:00 t Tomveyi Bidamon [facility] ent Clinics Results This patient has no known results.
== END 2020-04-16 17:04 | disposition home or self-care (01) ==
LOC: ER 11:39
DX: U07.1 COVID-19 (principal); E78.5 Hyperlipidemia, unspecified; I10 Essential (primary) hypertension; E03.9 Hypothyroidism, unspecified
CPT/HCPCS: 71046; 99283

== ENCOUNTER 2021-08-23 09:27 | Day surgery (SDC) | payer MEDICARE, OTHER ==
[~2021-08-23 09:27] MED LIST: CEFOXITIN 2 GM in NA CHLORIDE 0.9% 100 ML IVPB SCH
[2021-08-23] MEDS ORDERED: CEFOXITIN SODIUM 1 GM/VIAL ONE (09:44)
[2021-08-23] MEDS ORDERED: NA CHLORIDE 0.9% 1,000 ML ONE (09:44)
[2021-08-23] MEDS ORDERED: BUPIVACAINE 0.25% PF 10 ML VIAL ONE (11:23)
--- NOTE | 2021-08-23 13:00 | P.OP ---
Preoperative diagnosis: Cholecystitis with Cholelithiasis Postoperative diagnosis: Cholecystitis with Cholelithiasis Primary procedure: Laparoscopic Cholecystectomy with ICG Cholangiography Anesthesia: GETA + Local Estimated blood loss: <10cc Specimen: Gallbladder Findings: Distended Gallbladder, anterior / posterior br of cystic artery Complications: None Transferred to: Recovery Room Condition: Good
[2021-08-23] MEDS: HYDROMORPHONE HCL 1 MG/ML INJ ONE ×5 (13:29→13:48)
[2021-08-23] MEDS ORDERED: HYDROCODONE/APAP 5/325 MG TAB PO ONE (13:49)
[2021-08-23] MEDS ORDERED: HYDROCODONE/APAP 5/325 MG TAB ONE (14:16)
[2021-08-23 15:05] VITALS: BP 110/58; TEMP 97.2; O2SAT 96
--- NOTE | 2021-08-23 23:00 | OP ---
Date of Procedure: 08/23/2021 Surgeon: Reed Anderson MD, Preoperative Diagnosis: Cholecystitis with cholelithiasis. Postoperative Diagnosis: Cholecystitis with cholelithiasis. Procedure Performed: Laparoscopic cholecystectomy with ICG (indocyanine green) cholangiography. Anesthesia: General endotracheal plus local with 0.25% Marcaine. Estimated Blood Loss: 10 cc. Specimen: Gallbladder. Findings: Distended gallbladder, anterior and posterior branch of the cystic artery noted. Complications: None. Disposition: Transferred to recovery room in good condition. Procedure In Detail: After informed consent was obtained, the patient was brought to the operating r oom, prepped and draped in usual sterile fashion. After adequate anesthesia was achieved, a supraumb ilical area was anesthetized with 0.25% Marcaine and sharply incised. A 5 mm trocar was placed under direct visualization without evidence of complication. Insufflation was obtained to 15 mmHg. At th is time, I noted no vital structure injury to the abdomen. Two additional trocars were placed, one i n the epigastrium and one in the right upper quadrant. Both similarly anesthetized and sharply incis ed. A 5 mm trocar was placed under direct visualization without evidence of complication. The umbil ical trocar was then upsized to a 12 mm under direct visualization without evidence of complication. The patient was positioned head up, right-side up position. Ratcheted grasper was used to grasp the patient's gallbladder and placed towards the patient's right shoulder. Dissection continued down to show the distended gallbladder with somewhat tortuosity to the spiral valves of the gallbladder near the Nikko's pouch of the gallbladder. Dissection continued down circumferentially to expose mult iple structures, entering the gallbladder. These were identified with both cystic duct as well as th e anterior and posterior branches of the cystic artery. After appropriately encircling these structu res, double titanium clips were placed both proximally and singly on the distal side of both cystic d uct and cystic artery. The anterior and posterior branches of the cystic artery and the cystic duct had double titanium clips both proximal side and singly on the distal side. These structures were th en ligated with Endo Lisette without evidence of complication. The gallbladder was removed from the h epatic fossa without evidence of complication using electrocautery and placed into Endo Catch bag, an d removed through the umbilical trocar, and sent off for pathologic examination. The abdomen was the n copiously irrigated with minimal bile spillage throughout and the area was copiously irrigated unti l complete clear. The clips were found to be in good anatomic position without any leakage. The pat ient was placed back in a neutral position. The remaining effluent was suctioned out. The umbilical trocar site was then closed using a Christiano-Jer suture passer with 0 Vicryl in a running fashion with good approximation of the tissue. The abdomen was completely desufflated under direct visualiz ation without evidence of complication. Remaining trocars were removed. All skin incisions were scleroscope tester iously irrigated and closed with 4-0 Monocryl in a running fashion. Dermabond was placed over top. The patient tolerated the procedure without evidence of complication and transferred to PACU in good condition. All counts were correct at the end of the case. BATSHEVA/ABEL Voice ID: [id number] Report ID: [id number]
== END 2021-08-23 15:00 | disposition home or self-care (01) ==
LOC: OR 09:27
PROVIDERS: ATTEND Surgery
PROC: BF13YZZ Fluoroscopy of Gallbladder and Bile Ducts using Other Contrast (ICD-10-PCS; 2021-08-23)
PROC: 0FT44ZZ Resection of Gallbladder, Percutaneous Endoscopic Approach (ICD-10-PCS; principal; 2021-08-23 12:00)
DX: K80.12 Calculus of gallbladder with acute and chronic cholecystitis without obstruction (principal); Z20.822 Contact with and (suspected) exposure to COVID-19
CPT/HCPCS: 82947 ×2; 88304; 47563; U0003; J1170 ×2; J7030; J0694

== ENCOUNTER 2021-08-24 22:48 | Emergency (ER) | payer MEDICARE ==
--- OUTSIDE RECORDS SUMMARY | 2021-08-24 22:52 | XMS REPORT | Continuity of Care Document ---
:1950 Author Organization [facility] t Address [address] [place] [address] Care Team Providers Name Role Phone NOHEMI Primary Care Physician Unavailable Shant Thomas Attending Clinician Unavailable JAYNE, S Attending Clinician Unavailable Jayne PAC, S Attending Clinician RIDDLE Attending Clinician Unavailable [place] ACNP Attending Clinician Christos HERNANDEZ Attending Clinician Unavailable Shant Thomas Admitting Clinician Unavailable JAYNE S Admitting Clinician Unavailable Payers Payer Name Policy Type Policy Number Effective Date Expiration Date S leopoldo [facility] [id number] MEDICARE ADVANTAGE 00:00:00 PLAN [facility] [id number] 2021 (MEDICARE 00:00:00 REPLACEMENT HMO) Problems Condition Condition Condition Status Onset Resolution Last Treating Co mments Source Name Details Category Date Date Treatment Clinician Date No known No known Disease Unive rs active active ity of problems problems [facility] Allergies, Adverse Reactions, Alerts Allergy Allergy Status Severity Reaction(s) Onset Inactive Treating Comm ents Source Name Type Date Date Clinician Cipro Adverse Active abdominal Common Reaction pain [facility] NO KNOWN Drug Active Univers ALLERGIE Class ity of S [facility] Social History Social Habit Start Date Stop Date Quantity Comments Source Exposure to 2021-08-02 2021-08-12 Not sure [facility] SARS-CoV-2 (event) 00:00:00 13:38:00 Medica l Branch Sex Assigned At [birth year] [facility] 00:00:00 00:00:00 Medical Branch Smoking Status Start Date Stop Date Source Unknown if ever smoked [facility] Medications Ordered Filled Start Stop Current Ordering Indication Dosage Frequency Signature Comments Components Source Medication Medication Date Date Medication? Clinician (SIG) Name Name ondansetron No 4mg 4 mg, Univ ers (ZOFRAN-ODT 08-12 Oral, ity of ) 21:15: 20:44 ONCE, 1 [place] disintegrat 00 :00 dose, On Medi tracey ing tablet 08/12/21 Bra nch 4 mg at 1615, Routine dicyclomine No 20mg 20 mg, Uni vers (BENTYL) 08-12 Oral, ity of tablet 20 21:15: 20:44 [place]CE[place] mg [place] :00 dose, On [facility] 08/12/21 Branch at 1615, Routine ondansetron Yes [id number] 4mg Take 1 Univers 4 mg 08-12 tablet by ity of disintegrat 00:00: mouth [place] ing tablet 00 every 8 Medica l (eight) Branch hours as needed for Nausea and Vomiting (N/V). dicyclomine Yes [id number] 20mg Take 1 Univers 20 mg - tablet by ity of tablet 00:00: mouth 4 [place] 00 (four) Medical times Branch daily as needed for Abdominal pain. ketorolac No 15mg 15 mg, Unive rs (TORADOL) 07-29 Intramuscu ity of injection 21:30: 20:32 lar, ONCE, [place] 15 mg 00 :00 1 dose, On [facility] Branch 07/29/21 at 1630, Routine naproxen 2021- Yes [id number] 375mg Take 1 Univers (EC-NAPROXE 07-29 [id number] tablet by ity of N) 375 mg 00:00: 04:59 [place] 2 [place] EC tablet 00 :00 (two) Medical times Branch daily as needed for Pain (scale 4-6) for up to 8 days. Trazodone Trazodone 2018- Yes Damir 1 tablet Common HCl HCl 1-06 Thomas at bedtime Spirit 00:00: - [facility] 00 [facility] Montelukast Montelukast 2019-0 Yes Damir 1 tablet Common Sodium Sodium 2-20 Thomas [facility] 00:00: - [facility] 00 [facility] Tramadol Tramadol 2017- Yes Damir 1 tablet Common HCl HCl 2-10 Thomas as needed Spirit 00:00: - [facility]I 00 [facility] Lisinopril Lisinopril Yes Damir 1 tablet Common Thomas [facility] Simvastatin Simvastatin Yes Damir 1 tablet Common Thomas in the [facility] evening [facility] Vitamin B12 Vitamin B12 Yes Damir not Common Thomas defined [facility] Lorazepam Lorazepam Yes Damir 1 tablet Common Thomas as needed [facility] Metformin Metformin Yes Damir 1 tablet Common HCl HCl Thomas with a [facility] meal [facility] Omeprazole Omeprazole Yes Damir 1 capsule Common Thomas [facility] Synthroid Synthroid Yes Damir 1 tablet Common Thomas on an [facility] empty - [facility] stomach in [facility] Immunizations Ordered Immunization Filled Immunization Date Status Commen ts Source Name Name FluAD FluAD 2019-01-12 Completed Common [facility] 00:00:00 [facility] Prevnar 13 Prevnar 13 2017-10-08 Completed [facility] -Pneumonia Vaccine -Pneumonia Vaccine 00:00:00 [facility] Vital Signs Vital Name Observation Time Observation Value Comments Source Systolic blood 2021-08-12 22:18:04 158 mm[Hg] Univer [facility]ity [facility] Diastolic blood 2021-08-12 22:18:04 82 mm[Hg] Unive [facility] Heart rate 2021-08-12 22:18:04 68 /min [facility] Respiratory rate 2021-08-12 22:18:04 18 /min [facility] Oxygen saturation in 2021-08-12 22:18:04 99 /min [facility] Arterial blood by [facility] Pulse oximetry Branch Body temperature 2021-08-12 18:38:00 37.06 [facility] Body height 2021-08-12 18:38:00 152.4 cm Universi ty of [facility] Body weight 2021-08-12 18:38:00 73.483 kg Universi ty [facility] BMI 2021-08-12 18:38:00 31.64 kg/m2 Universi [facility] Systolic blood 2021-07-29 19:51:00 138 mm[Hg] Univer sity [facility] Diastolic blood 2021-07-29 19:51:00 61 mm[Hg] [facility] Heart rate 2021-07-29 19:51:00 64 /min [facility] Body temperature 2021-07-29 19:51:00 37.39 Jacklyn [facility] Respiratory rate 2021-07-29 19:51:00 18 /min [facility] [place] [facility] Body height 2021-07-29 19:51:00 152.4 cm Universi [facility] Body weight 2021-07-29 19:51:00 73.483 kg Universi [facility] BMI 2021-07-29 19:51:00 31.64 kg/m2 [facility] Oxygen saturation in 2021-07-29 19:51:00 100 /min [facility] Arterial blood by [facility] Pulse oximetry Branch Procedures Procedure Date / Time Performed Performing Clinician Sourc e US GALL BLADDER 2021-08-12 20:37:13 Jade Thomas [facility] LIPASE 2021-08-12 19:34:00 Jade Thomas [facility] COMP. METABOLIC PANEL 2021-08-12 19:34:00 Jade Thomas [facility] ([id number]) [facility] CBC WITH DIFF 2021-08-12 19:34:00 Jade Thomas [facility] URINALYSIS 2021-08-12 19:31:00 Jade Thomas [facility] CONSENT/REFUSAL FOR 2021-08-12 18:12:47 Doctor Unassigned, No Un [facility] DIAGNOSIS AND Name Medical Branch TREATMENT CONSENT/REFUSAL FOR 2021-07-29 19:56:45 [facility] Name Medical Branch TREATMENT NOTICE OF PRIVACY 2021-07-29 19:46:13 Doctor Unassigned, No Univ ersity [facility] PRACTICES Name Medical Branch Encounters Start End Encounter Admission Attending Care Care Encounter Source Date/Time Date/Time Type Type Clinicians Facility Department ID 2021-07-16 Outpatient Thomas, STLMLC ST[facility] Common 08:41:00 Damir [facility] 2021-06-28 Outpatient Thomas, STLMLC [facility] Common 16:16:00 Damir [facility] 2021-04-24 Outpatient Thomas, STLMLC ST[facility] Common 14:25:00 Damir [facility] 2021-04-03 Outpatient Thomas, STLMLC ST[facility] Common 14:34:11 [facility] 2021-04-03 Outpatient Thomas, STLMLC STLMLC Common 14:33:49 [facility] 2021-04-03 Outpatient Thomas, STLMLC STLMLC Common 14:15:48 Damir [facility] 2021-04-03 Outpatient Thomas, STLMLC STLMLC Common 14:15:27 Damir [facility] 2021-04-03 Outpatient Thomas, STLMLC STLMLC Common 13:46:26 Damir [id number] [facility] 2021-04-03 Outpatient Thomas, STLMLC STLMLC Common 13:11:50 Damir [id number] [facility] 2021-04-03 Outpatient Thomas, STLMLC STLC Common 13:11:25 Damir [id number] [facility] 2021-04-03 Outpatient Thomas, STLMLC STLMLC Common 12:41:52 Damir 64691 [facility] 2021-04-03 Outpatient Thomas, STLMLC STLMLC [id number] Common 12:41:06 Damir [id number] [facility] 2021-04-03 Outpatient Thomas, STLMLC STLMLC [id number] Common 12:36:13 Damir 23536 [facility] 2021-04-03 Outpatient Thomas, STLMLC STLMLC [id number] Common 12:33:53 Damir [id number] [facility] 2021-04-03 Outpatient Thomas, STLMLC STLMLC Common 12:07:26 Damir [id number] [facility] 2021-04-03 Outpatient Thomas, STLMLC STLMLC [id number] Common 11:36:44 Damir [id number] [facility] 2021-04-03 Outpatient Thomas, STLMLC STLMLC Common 11:24:37 Damir 77335 [facility] 2021-08-13 2021-08-13 ambulatory STLMLC STLMLC [id number] Common 00:00:00 00:00:00 [facility] 2021-08-13 2021-08-13 ambulatory STLMLC STLMLC [id number] Common 00:00:00 00:00:00 [facility] 2021-08-12 2021-08-12 Emergency X JAYNE [facility] ERT [id number] Univers 13:40:00 17:23:00 JADE garcia [facility] 2021-08-12 2021-08-12 Emergency [facility] [id number] Univers 13:40:00 17:23:00 Jade Glynn [place] [id number] i bennie [facility] [id number] [facility] [phone] [address] 2021-08-01 2021-08-01 ambulatory STLMLC STLMLC [id number] Common 00:00:00 00:00:00 [facility] 2021-07-29 2021-07-29 Emergency X ERIK [facility] ERT [id number] Univers 14:53:00 15:46:00 ISABELLAJAK it y of [facility] 2021-07-29 2021-07-29 Emergency [facility] [id number] Univers 14:53:00 15:46:00 Yordy RO [id number] ity amira [facility] [id number] [facility] [id number] [place] [address] Branch 2021-07-16 2021-07-16 ambulatory STLMLC STLMLC [id number] Common 00:00:00 00:00:00 [facility] 2021-06-28 2021-06-28 ambulatory STLMLC STLMLC [id number] Common 00:00:00 00:00:00 [facility] 2021-05-21 2021-05-21 ambulatory STLMLC STLMLC [id number] Common 00:00:00 00:00:00 [facility] 2021-05-21 2021-05-21 ambulatory STLMLC STLMLC [id number] Common 00:00:00 00:00:00 [facility] 2021-05-20 2021-05-20 ambulatory STLMLC STLMLC [id number] Common 00:00:00 00:00:00 [facility] 2021-05-17 2021-05-17 Outpatient DMG DMG [id number] [facility] 09:00:00 09:00:00 [id number] [facility] 2021-03-28 2021-03-28 ambulatory STLMLC STLMLC [id number] Common 00:00:00 00:00:00 [facility] 2021-03-25 2021-03-25 ambulatory STLMLC STLMLC [id number] Common 00:00:00 00:00:00 [facility] 2021-03-24 2021-03-24 ambulatory STLMLC STLMLC [id number] Common 00:00:00 00:00:00 [facility] 2021-01-25 2021-01-25 ambulatory STLMLC STLMLC [id number] Common 00:00:00 00:00:00 [facility] 2021-01-21 2021-01-21 ambulatory STLMLC STLMLC [id number] Common 00:00:00 00:00:00 [facility] 2020-12-18 2020-12-18 Outpatient STLMLC STLMLC [id number] Common 00:00:00 00:00:00 [facility] 2020-12-18 2020-12-18 Outpatient STLMLC STLMLC [id number] Common 00:00:00 00:00:00 [facility] 2020-12-12 2020-12-12 Outpatient STLMLC STLMLC [id number] Common 00:00:00 00:00:00 [facility] 2020-11-21 2020-11-21 Outpatient STLMLC STLMLC [id number] Common 00:00:00 00:00:00 [facility] 2020-11-21 2020-11-21 Outpatient STLMLC STLMLC [id number] Common 00:00:00 00:00:00 [facility] 2020-08-14 2020-08-14 Outpatient STLMLC STLMLC [id number] Common 00:00:00 00:00:00 [facility] 2020-05-23 2020-05-23 Outpatient STLMLC STLMLC [id number] Common 00:00:00 00:00:00 [facility] 2020-05-22 2020-05-22 Outpatient STLMLC STLMLC [id number] Common 00:00:00 00:00:00 [facility] 2020-05-17 2020-05-17 Outpatient R MARY, [facility] [id number] Univers 13:40:00 13:40:00 MARY [facility] 2020-05-17 2020-05-17 Outpatient R [facility] [id number] Univers 13:15:00 13:15:00 [id number] [facility] 2020-05-14 2020-05-14 Outpatient STLMLC STLMLC [id number] Common 00:00:00 00:00:00 [facility] 2020-05-09 2020-05-09 Outpatient STLMLC STLMLC [id number] Common 00:00:00 00:00:00 [facility] 2020-05-07 2020-05-07 Outpatient STLMLC STLMLC [id number] Common 00:00:00 00:00:00 [facility] 2020-05-04 2020-05-04 Outpatient STLMLC STLMLC [id number] Common 00:00:00 00:00:00 [facility] 2020-02-13 2020-02-13 Outpatient STLMLC STLMLC [id number] Common 00:00:00 00:00:00 [facility] 2020-01-11 2020-01-11 Outpatient STLMLC STLMLC [id number] Common 00:00:00 00:00:00 [facility] 2020-01-11 2020-01-11 Outpatient STLMLC STLMLC [id number] Common 00:00:00 00:00:00 [facility] 2020-01-05 2020-01-05 Outpatient STLMLC STLMLC [id number] Common 00:00:00 00:00:00 [facility] 2019-12-27 2019-12-27 Outpatient STLMLC STLMLC [id number] Common 00:00:00 00:00:00 [facility] 2019-12-22 2019-12-22 Outpatient STLMLC STLMLC [id number] Common 00:00:00 00:00:00 [facility] 2019-10-14 2019-10-14 [facility] [id number] Common 14:50:00 14:50:00 t [facility] it [address] [facility] 2019-10-13 2019-10-13 [facility] [id number] Common 10:45:00 10:45:00 [place] [address] Sp[address] [facility] 2019-09-22 2019-09-22 [facility] [id number] Common 10:13:00 10:13:00 [place] [address] [facility] 2019-08-12 2019-08-12 [facility] [id number] Common 09:30:00 09:30:00 [place] [address] [facility] 2019-08-08 2019-08-08 [facility] [id number] Common 10:00:00 10:00:00 [place] [address] [facility] 2019-07-12 2019-07-12 [facility] [id number] Common 09:30:00 09:30:00 [place] [address] [facility] 2019-04-14 2019-04-14 [facility] [id number] Common 08:33:00 08:33:00 [place] [address] [facility] 2019-04-12 2019-04-12 [facility] [id number] Common 09:15:00 09:15:00 [place] [address] [facility] 2019-04-05 2019-04-05 [facility] [id number] Common 08:18:00 08:18:00 [place] [address] [facility] 2019-03-15 2019-03-15 [facility] [id number] Common 10:45:00 10:45:00 [place] [address] [facility] 2019-02-02 2019-02-02 [facility] [id number] Common 09:00:00 09:00:00 [place] [address] [facility] 2019-01-12 2019-01-12 [facility] [id number] Common 10:15:00 10:15:00 [place] [address] [facility] 2019-01-05 2019-01-05 [facility] [id number] Common 14:58:00 14:58:00 [place] [address] [facility] 2018-11-09 2018-11-09 [facility] [id number] Common 09:47:00 09:47:00 [place] [address] [facility] 2018-10-28 2018-10-28 [facility] [id number] Common 08:34:00 08:34:00 [place] [address] [facility] 2018-10-15 2018-10-15 [facility] [id number] Common 09:00:00 09:00:00 [place] [address] [facility] 2018-07-05 2018-07-05 [facility] [id number] Common 08:30:00 08:30:00 [place] [address] [facility] 2018-06-07 2018-06-07 [facility] [id number] Common 10:15:00 10:15:00 [place] [address] [facility] 2018-06-03 2018-06-03 [facility] [id number] Common 10:30:00 10:30:00 [place] [address] [facility] 2018-04-28 2018-04-28 [facility] [id number] Common 13:30:00 13:30:00 [place] [address] [facility] 2018-04-06 2018-04-06 [facility] [id number] Common 08:15:00 08:15:00 [place] [address] [place] [facility] 2018-02-17 2018-02-17 [facility] [id number] Common 10:24:00 10:24:00 [facility] 2018-02-15 2018-02-15 [facility] [id number] Common 08:30:00 08:30:00 [facility] 2017-10-22 2017-10-22 Outpatient Harpal Daniel [id number] Common 15:00:00 15:00:00 t Specialty/U Sp vidya Specialty rology - [facility] /U[facility] Clinic [facility] 2017-10-08 2017-10-08 Outpatient Harpal Daniel [id number] Common 09:00:00 09:00:00 [place] [address] [facility] 2017-09-08 2017-09-08 Outpatient Harpal Daniel [id number] Common 09:00:00 09:00:00 [place] [address] [facility] 2017-07-17 2017-07-17 Outpatient Harpal Daniel [id number] Common 09:30:00 09:30:00 [place] [address] [facility] Results Test Description Test Time Test Comments Results Result Comments Source COMP. METABOLIC PANEL (35990) 2021-08-12 20:09:39 Test Item Value Reference Range Interpretation Comme nts NA (test code = 2366553571) 136 mmol/L 135-145 K (test code = 5728110044) 4.4 mmol/L 3.5-5.0 CL (test code = 4374535235) 101 mmol/L 98-108 CO2 TOTAL (test code = 25 mmol/L 23-31 0345125643) AGAP (test code = 6598321052) 2-16 BUN (test code = 0234841843) 19 mg/dL 7-23 GLUCOSE (test code = 8837493745) 98 mg/dL 70-110 CREATININE (test code = 0.76 mg/dL 0.50-1.04 9881767338) TOTAL BILI (test code = 0.3 mg/dL 0.1-1.5 3757001269) CALCIUM (test code = 3265006758) 9.2 mg/dL 8.6-10.6 T PROTEIN (test code = 6.5 g/dL 6.3-8.2 6707414002) ALBUMIN (test code = 5072353199) 4.1 g/dL 3.5-5.0 ALK PHOS (test code = 2652112290) 87 U/L 34-122 ALTv (test code = 1742-6) 16 U/L 5-35 AST(SGOT) (test code = 27 U/L 13-40 9336843064) eGFR (test code = 7545620216) mL/min/1.73m2 KARLEE (test code = KARLEE) Association of Glomerular Filtration Rate (GFR) and Staging of Kidney Disease* + +--------- + ----+| GFR (mL/min/1.73 m2) ?| With Kidney Damage ?| ?Without Kidney Damage+ +--- + +| ?>90 ?| ?Stage one ?| ? Normal ?+ +-------- + -----+| ?60-89 ?| ?Stage two ?| ? Decreased GFR ? + +--------- + ----+| ?30-59 ?| ?Stage three ?| ? Stage three ? + +--------- + ----+| ?15-29 ?| ?Stage four ? | ? Stage four ?+ +-------- + -----+| ?<15 (or dialysis) ? ?| ?Stage five ? | ? Stage five ?+ +-------- + -----+ *Each stage assumes the associated GFR level has been in effect for at least three months. ?Stages 1 to 5, with or without kidney disease, indicate chronic kidney disease. Notes: Determination of stages one and two (with eGFR >59mL/min/1.73 m2) requires estimation of kidney damage for at least three months as defined by structural or functional abnormalities of the kidney, manifested by either:Pathological abnormalities or Markers of kidney damage (including abnormalities in the composition of the blood or urine or abnormalities in imaging tests). [facility]09[facility]39 Test Item Value Reference Range Interpretation Comments LIPASE (test code = 4450985028) 152 U/L 0-220 Lab Interpretation (test code = Normal 98730-3) [facility] [id number] 19:46:11 Test Item Value Reference Range Interpretation Comments WBC (test code = See_Comment [Automated message] 6690-2) The system [employer] generated this result transmitted ref erence range: 4.30 - 1 1.10 10*3/?L. The re ference range was not u sed to interpret this result as normal/abnor mal. RBC (test code = See_Comment [Automated message] 789-8) The system [employer] generated this result transmitted ref erence range: 3.93 - 5 .25 10*6/?L. The re ference range was not u sed to interpret this result as normal/abnor mal. HGB (test code = 12.0 g/dL 11.6-15.0 718-7) HCT (test code = 37.1 % 35.7-45.2 4544-3) MCV (test code = 91.2 fL 80.6-95.5 787-2) MCH (test code = 29.5 pg 25.9-32.8 785-6) MCHC (test code = 32.3 g/dL 31.6-35.1 786-4) RDW-SD (test code 43.2 fL 39.0-49.9 = 86205-9) RDW-CV (test code 13.1 % 12.0-15.5 = 788-0) PLT (test code = See_Comment [Automated message] 777-3) The system [employer] generated this result transmitted ref erence range: 166 - 35 8 10*3/?L. The re ference range was not u sed to interpret this result as normal/abnor mal. MPV (test code = 10.2 fL 9.5-12.9 05418-9) NRBC/100 WBC (test See_Comment [Automat ed message] code = 3229667991) The syste [employer] which generated this result transmitted ref erence range: 0.0 - 10 .0 /100 WBCs. The refer ence range was not u sed to interpret this result as normal/abnor mal. NRBC x10^3 (test <0.01 See_Comment [Automated message] code = 0902308615) The syste m which generated this result transmitted ref erence range: 10*3/?L. The reference range was not used to interpr et this result as normal/abnormal . GRAN MAT (NEUT) % 48.6 % (test code = 770-8) IMM GRAN % (test 0.30 % code = 4762053370) LYMPH % (test code 39.7 % = 736-9) MONO % (test code 9.2 % = 5905-5) EOS % (test code = 1.9 % 713-8) BASO % (test code 0.3 % = 706-2) GRAN MAT 3.62 10*3/uL 1.88-7.09 x10^3(ANC) (test code = 5582201625) IMM GRAN x10^3 <0.03 0.00-0.06 (test code = 0524888169) LYMPH x10^3 (test 2.95 10*3/uL 1.32-3.29 code = 731-0) MONO x10^3 (test 0.68 10*3/uL 0.33-0.92 code = 742-7) EOS x10^3 (test 0.14 10*3/uL 0.03-0.39 code = 711-2) BASO x10^3 (test <0.03 0.01-0.07 code = 704-7) [facility]"
[2021-08-24] MEDS ORDERED: ONDANSETRON 4 MG/2 ML VIAL ONE (23:53)
[2021-08-24] MEDS ORDERED: NA CHLORIDE 0.9% 1,000 ML ONE (23:54)
[2021-08-25 00:56] LABS: Albumin 3.6 g/dL (3.4-5.0); Bilirubin Total 0.7 mg/dL (0.2-1.0); Potassium 4.1 mmol/L (3.5-5.1); Protein, Total 7.4 g/dL (6.4-8.2)
[2021-08-25 01:51] LABS: Urine Blood Trace-intact (Negative); Urine Glucose Negative (Negative); Urine Protein Negative (Negative); Urine Specific Gravity 1.015 (1.005-1.030)
[2021-08-25 02:01] LABS: Absolute Lymphocytes (CBC) 2.9 K/uL (0.7-4.9); Hematocrit 35.4 % (36.0-45.0); Lymphocytes % 22.2 % (15.3-44.8); MPV 9.2 fL (7.6-11.3); RBC Red Blood Cell Count 3.98 M/uL (3.86-4.86)
--- NOTE | 2021-08-25 05:27 | ER ---
Nurse's Notes [facility] Name: Capri Correia Age: 71 yrs Sex: Female : 1950 Arrival Date: 08/24/2021 Time: 22:51 Bed 16 Private MD: Diagnosis: Pleurisy;Atelectasis Presentation: 08/25 00:35 Chief complaint: Patient states: SOB since 9 pm. Coronavirus screen: Vaccine status: ke1 Patient reports receiving the 2nd dose of the covid vaccine. Ebola Screen: No symptoms or risks identified at this time. Initial Sepsis Screen: Does the patient meet any 2 criteria? No. Patient's initial sepsis screen is negative. Does the patient have a suspected source of infection? No. Patient's initial sepsis screen is negative. Risk Assessment: Do you want to hurt yourself or someone else? Patient reports no desire to harm self or others. Onset of symptoms was August 24, 2021 at 21:00. 00:35 Method Of Arrival: Ambulatory ke1 00:35 Acuity: NITA 3 ke1 Triage Assessment: 00:37 General: Appears in no apparent distress. Behavior is appropriate for age. Pain: ke1 Complains of pain in right shoulder and back. Respiratory: Reports shortness of breath on exertion Onset: The symptoms/episode began/occurred yesterday, the patient has moderate shortness of breath. Historical: - Allergies: 00:36 No Known Allergies; ke1 - PMHx: 00:36 Hyperlipidemia; Hypertension; Hypothyroidism; ke1 - Immunization history:: Adult Immunizations Client reports receiving the 2nd dose of the Covid vaccine. - Social history:: Smoking status: Patient denies any tobacco usage or history of. Screenin:38 Abuse screen: Denies threats or abuse. Nutritional screening: No deficits noted. ke1 Tuberculosis screening: No symptoms or risk factors identified. Fall Risk No fall in past 12 months (0 pts). No secondary diagnosis (0 pts). IV access (20 points). Ambulatory Aid- None/Bed Rest/Nurse Assist (0 pts). Gait- Weak (10 pts.). Mental Status- Oriented to own ability (0 pts). Total Dean Fall Scale indicates Low Risk Score (25-44 pts). 03:50 VAN Screening:. ke1 Assessment: 00:38 Pain: Complains of pain in right shoulder and back. Respiratory: Airway is patent ke1 Trachea midline Respiratory effort is even, unlabored, Breath sounds are clear bilaterally. 01:15 Reassessment: labs called to re draw labs. ke1 02:55 Cardiovascular: Rhythm is. ke1 03:42 Reassessment: Patient states feeling better. Patient states symptoms have improved. ke1 Vital Signs: 00:35 BP 165 / 82; Pulse 89; Resp 19; Temp 100.1(O); Pulse Ox 95% on R/A; Weight 73.48 kg; ke1 Height 5 ft. (152.40 cm); Pain 7/10; 02:54 BP 154 / 77; Pulse 81; Resp 16; Pulse Ox 91% on R/A; ke1 03:42 BP 143 / 76; Pulse 73; Resp 18; Pulse Ox 91% on R/A; ke1 00:35 Body Mass Index 31.64 (73.48 kg, 152.40 cm) ke1 ED Course: 08/24 22:51 Patient arrived in ED. [facility] 23:00 Johnathon Soto PA is PHCP. [facility] 23:00 Adalid Whitten MD is Attending Physician. [facility] 23:21 Karen Lew, CHAI is Primary Nurse. ke1 08/25 00:36 Triage completed. ke1 00:39 Patient has correct armband on for positive identification. Call light in reach. Side ke1 rails up X 1. Side rails up X2. 00:39 Inserted saline lock: 22 gauge in left forearm, using aseptic technique. ke1 02:12 Chest For Pe Angio In Process Unspecified. EDMS 02:12 CT Abd/Pelvis - IV Contrast Only In Process Unspecified. EDMS 05:26 Reed Anderson MD is Referral Physician. rn 05:28 No provider procedures requiring assistance completed. ke1 05:42 IV discontinued. ke1 Administered Medications: 00:39 Drug: Zofran (Ondansetron) 4 mg Route: IVP; Site: left forearm; ke1 01:00 Follow up: Response: Marked relief of symptoms ke1 00:40 Drug: NS 0.9% 1000 ml Route: IV; Rate: 1 bolus; Site: left forearm; ke1 05:43 Follow up: IV Status: Completed infusion ke1 Outcome: 05:26 Discharge ordered by . rn 05:41 Discharged to home via wheelchair. ke1 05:41 Condition: good 05:41 Discharge instructions given to patient. 05:43 Patient left the ED. ke1 Signatures: Dispatcher [employer] EDJohnathon Rose PA PA jmm Nieto, Roman, MD MD rn Alexander, Jessica ja2 Ebrottie, Kouassi, RN RN ke1 Corrections: (The following items were deleted from the chart) 01:16 00:35 BP 165 / 82; Resp 19bpm; Pulse Ox 95% RA; Temp 100.1F Oral; 73.48 kg; Height 5 ke1 ft.; BMI: 31.6; Pain 7/10; ke1
--- NOTE | 2021-08-25 05:27 | EDPHYS ---
Physician Documentation [facility] Name: Capri Correia Age: 71 yrs Sex: Female : 1950 Arrival Date: 08/24/2021 Time: 22:51 Bed 16 Private MD: ED Physician Adalid Whitten HPI: 08/24 23:09 This 71 yrs old Female presents to ER via Ambulatory with complaints of jmm Breathing Difficulty, Arm Pain. 23:09 The patient has shortness of breath at rest. Onset: The symptoms/episode began/occurred jmm gradually, today. This is a 71-year-old female with a history of hyperlipidemia, hypertension, hypothyroidism that presents to the emergency department with complaints of shortness of breath right thoracic back pain and some abdominal pain as well. Patient is 1 day status post laparoscopic cholecystectomy performed by Dr. Reed Anderson. Denies fever. . Historical: - Allergies: 08/25 00:36 No Known Allergies; ke1 - PMHx: 00:36 Hyperlipidemia; Hypertension; Hypothyroidism; ke1 - Immunization history:: Adult Immunizations Client reports receiving the 2nd dose of the Covid vaccine. - Social history:: Smoking status: Patient denies any tobacco usage or history of. ROS: 08/24 23:09 Constitutional: Positive for body aches. jmm Respiratory: Positive for shortness of breath. Abdomen/GI: Positive for abdominal pain. All other systems are negative. Exam: 23:09 Constitutional: This is a well developed, well nourished patient who is awake, alert, jmm and in no acute distress. Head/Face: atraumatic. Eyes: EOMI, no conjunctival erythema appreciated ENT: Moist Mucus Membranes Neck: Trachea midline, Supple Chest/axilla: Normal chest wall appearance and motion. 23:09 Respiratory: Normal respirations, no respiratory distress appreciated Back: Normal ROM Skin: General appearance color normal MS/ Extremity: Moves all extremities, no obvious deformities appreciated, no edema noted to the lower extremities Neuro: Awake and alert Psych: Behavior is normal, Mood is normal, Patient is cooperative and pleasant 23:09 Cardiovascular: Rate: normal, Rhythm: regular. 23:09 Respiratory: the patient does not display signs of respiratory distress, Respirations: normal, Breath sounds: are clear throughout. 23:09 Abdomen/GI: Inspection: abdomen appears normal, Bowel sounds: normal, Palpation: soft, mild abdominal tenderness, in all quadrants. Vital Signs: 08/25 00:35 BP 165 / 82; Pulse 89; Resp 19; Temp 100.1(O); Pulse Ox 95% on R/A; Weight 73.48 kg; ke1 Height 5 ft. (152.40 cm); Pain 7/10; 02:54 BP 154 / 77; Pulse 81; Resp 16; Pulse Ox 91% on R/A; ke1 03:42 BP 143 / 76; Pulse 73; Resp 18; Pulse Ox 91% on R/A; ke1 00:35 Body Mass Index 31.64 (73.48 kg, 152.40 cm) ke1 MDM: 08/24 23:09 Patient medically screened. [facility] 08/25 04:51 Differential diagnosis: pneumonia, Pneumothorax pulmonary edema, Pulmonary Embolism rn pleurisy, atelectasis. Data reviewed: vital signs, nurses notes, lab test result(s), radiologic studies, CT scan. Counseling: I had a detailed discussion with the patient and/or guardian regarding: the historical points, exam findings, and any diagnostic results supporting the discharge/admit diagnosis, lab results, the need for outpatient follow up, to return to the emergency department if symptoms worsen or persist or if there are any questions or concerns that arise at home. ED course: Pt signed out to me by ALISIA Huerta at shift change pending ct chest and abdomen for recent surgery and pain. CT PE neg, still pending ct abdomen. Plan was to dc home if no acute findings. . 08/24 23:16 Order name: CBC with Diff; Complete Time: 02:30 [facility] 08/24 23:16 Order name: CMP; Complete Time: 00:58 [facility] 08/24 23:16 Order name: Lipase; Complete Time: 00:58 [facility] 08/24 23:18 Order name: CT Chest For PE Angio [facility] 08/25 00:48 Order name: SARS-COV-2 RT PCR (Document "Date of Onset" if Symptomatic); Complete Time: [facility] 08/25 01:51 Order name: Urine Dipstick-Ancillary; Complete Time: 02:30 [facility] 08/24 23:16 Order name: IV Saline Lock; Complete Time: 00:40 [facility] 08/24 23:16 Order name: Labs collected and sent; Complete Time: 00:40 [facility] 08/24 23:19 Order name: CT Abd/Pelvis - IV Contrast Only [facility] 08/24 23:22 Order name: Chest For Pe Angio [facility] 08/25 00:41 Order name: Labs - recollect needed: CBC; Complete Time: 02:36 lp1 08/25 05:27 Order name: INCENTIVE SPIROMETRY rn 08/25 00:48 Order name: Urine Dipstick-Ancillary (obtain specimen); Complete Time: 02:36 [facility] Administered Medications: 00:39 Drug: Zofran (Ondansetron) 4 mg Route: IVP; Site: left forearm; ke1 01:00 Follow up: Response: Marked relief of symptoms ke1 00:40 Drug: NS 0.9% 1000 ml Route: IV; Rate: 1 bolus; Site: left forearm; ke1 05:43 Follow up: IV Status: Completed infusion ke1 Disposition: 06:06 Co-signature as Attending Physician, Adalid Whitten MD. rn Disposition Summary: 08/25/21 05:26 Discharge Ordered Location: Home rn Problem: new rn Symptoms: have improved rn Condition: Stable rn Diagnosis - Pleurisy rn - Atelectasis rn Followup: rn - With: Reed Anderson MD - When: 2 - 3 days - Reason: Recheck today's complaints, Re-evaluation by your physician Discharge Instructions: - Discharge Summary Sheet rn - Atelectasis, Adult rn - Pleurisy rn Forms: - Medication Reconciliation Form rn - Thank You Letter rn - Antibiotic stitch burnisher - Prescription Opioid Use rn Signatures: Dispatcher [employer] [facility] Johnathon Soto PA PA jmm Nieto, Roman, MD MD rn Pena, Laura RN RN lp1 Karen Lew RN RN ke1
[2021-08-25 05:51] VITALS: TEMP 100.1
[2021-08-25 05:53] VITALS: O2SAT 91
[2021-08-25 05:55] VITALS: BP 143/76
--- NOTE | 2021-08-26 12:57 | RAD REPORT ---
EXAM DESCRIPTION: CT - Abdomen Pelvis W Contrast - 08/25/2021 6:50 am CLINICAL HISTORY: 71 years Female abdominal pain, post surgical, 1 day status post laparoscopic cholecystectomy. TECHNIQUE: CT of the abdomen and pelvis using intravenous contrast. All CT scans at this facility us e dose modulation, iterative reconstruction, and/or weight based dosing when appropriate to reduce ra diation dose to as low as reasonably achievable. COMPARISON: 08/08/2019 FINDINGS: Lower chest: Incompletely imaged consolidation in the bilateral lung bases with small righ t pleural effusion. Abdomen/Pelvis: Liver: No focal lesion. Gallbladder: Status post cholecystectomy. Pancreas: Unremarkable. Spleen: Within normal limits. Kidney: No stone or hydronephrosis. No focal lesion. Adrenal glands: Within normal limits. Vascular structures: Unremarkable. Bowel: Minimal diverticulosis without inflammatory changes. No bowel distention. Appendix: Normal. Peritoneum: Small foci of pneumoperitoneum. Lymph Nodes: No lymphadenopathy. Reproductive: Unremarkable. Urinary bladder: Distended.. Osseous structures: Multilevel degenerative changes. Soft tissues: Mild subcutaneous stranding in the upper abdomen on the right and in the periumbilical region related to recent laparoscopic cholecystectomy. IMPRESSION: 1. Small amount of pneumoperitoneum likely related to recent laparoscopic cholecystectom y. 2. Incompletely imaged bibasilar atelectasis with small right pleural effusion. Electronically signed by: Jordy Pierce MD 08/25/2021 5:12 AM CDT Due to temporary technical issues with the PACS/Fluency reporting system, reports are being signed by the in house radiologist without review as a courtesy to ensure prompt reporting. The interpreting r adiologist is fully responsible for the content of the report.
--- NOTE | 2021-08-26 13:13 | RAD REPORT ---
EXAM DESCRIPTION: CT - Chest For Pe Angio - 08/25/2021 6:52 am CLINICAL HISTORY: The patient is 71 years old and is Female; Post surgical back pain, sob TECHNIQUE: Axial computed tomographic angiography images of the chest with intravenous contrast. S agittal and coronal reformatted images were created and reviewed. This CT exam was performed using one or more of the following dose reduction techniques: automated exposure control, adjustment of t he mA and/or kV according to patient size, and/or use of iterative reconstruction technique. MIP reconstructed images were created and reviewed. COMPARISON: No relevant prior studies available. FINDINGS: PULMONARY ARTERIES: There are no obvious filling defects identified within the pulmonary arteries to suggest pulmonary embolism. AORTA: No acute findings. No thoracic aortic aneurysm. LUNGS: Areas of scattered atelectasis throughout the lungs are present, most prominent within th e lung bases. No mass. PLEURAL SPACE: Unremarkable. No significant effusion. No pneumothorax. HEART: Unremarkable. No cardiomegaly. No significant pericardial effusion. No evidence of RV dysfunction. BONES/JOINTS: Multilevel degenerative change of the spine is present. No acute fracture. No dislocation. SOFT TISSUES: Unremarkable. LYMPH NODES: Unremarkable. No enlarged lymph nodes. INTRAPERITONEAL SPACE: The trace amount of intraperitoneal free air is seen, not unexpected give n the patient's history of recent abdominal surgery. IMPRESSION: 1. No evidence of pulmonary embolism. 2. Areas of scattered atelectasis throughout the lungs, most prominent in the lung bases. Electronically signed by: Cami Diaz MD 08/25/2021 3:31 AM CDT Due to temporary technical issues with the PACS/Fluency reporting system, reports are being signed by the in house radiologist without review as a courtesy to ensure prompt reporting. The interpreting r adiologist is fully responsible for the content of the report.
== END 2021-08-25 05:43 | disposition home or self-care (01) ==
LOC: ER 22:48
DX: R09.1 Pleurisy (principal); J98.11 Atelectasis; Z90.49 Acquired absence of other specified parts of digestive tract; I10 Essential (primary) hypertension; Z20.822 Contact with and (suspected) exposure to COVID-19
CPT/HCPCS: 85025; 36415; 81003; 83690; 80053; 71275; 74177; U0003; Q9967; J7030; J2405; 96361; 96374; 99283

== ENCOUNTER 2021-09-10 11:13 | Emergency (ER) | payer MEDICARE ==
[2021-09-10] MEDS ORDERED: KETOROLAC 30 MG/ML INJ ONE (12:21)
--- NOTE | 2021-09-10 12:43 | RAD REPORT ---
EXAM DESCRIPTION: RAD - Hip Right 2 View - 09/10/2021 11:47 am CLINICAL HISTORY: PAIN COMPARISON: Hip Right 2 View dated 07/22/2012 FINDINGS: Mild arthritic changes involve the right hip. No acute fracture, dislocation or AVN.
--- NOTE | 2021-09-10 13:08 | RAD REPORT ---
EXAM DESCRIPTION: RAD - Knee Right 3 View - 09/10/2021 11:47 am CLINICAL HISTORY: PAIN COMPARISON: Knee Right 3 View dated 11/07/2019; Knee Right 2 View dated 01/14/2016; Abdomen Pelvis W Contrast dated 08/25/2021 FINDINGS: Tricompartmental osteoarthritis is present, mild to moderate. No fracture or joint effusio n.
--- NOTE | 2021-09-10 13:19 | ER ---
Nurse's Notes [facility] Name: Capri Correia Age: 71 yrs Sex: Female : 1950 Arrival Date: 09/10/2021 Time: 11:17 Bed 16 Private MD: Damir Thomas Diagnosis: Pain in right leg Presentation: 09/10 11:18 Chief complaint: Patient states: "I slipped and fell 1 month ago - possibly pulled ld1 muscles in my right leg/knee.". Coronavirus screen: At this time, the client does not indicate any symptoms associated with coronavirus-19. Ebola Screen: No symptoms or risks identified at this time. Initial Sepsis Screen: Does the patient meet any 2 criteria? No. Patient's initial sepsis screen is negative. Does the patient have a suspected source of infection? No. Patient's initial sepsis screen is negative. Risk Assessment: Do you want to hurt yourself or someone else? Patient reports no desire to harm self or others. Onset of symptoms was September 10, 2021. 11:18 Method Of Arrival: Ambulatory ld1 11:18 Acuity: NITA 4 ld1 Triage Assessment: 11:21 General: Appears in no apparent distress. comfortable, Behavior is calm, cooperative, ld1 appropriate for age. Pain: Complains of pain in right leg Pain does not radiate. Pain currently is 8 out of 10 on a pain scale. EENT: No signs and/or symptoms were reported regarding the EENT system. Neuro: Level of Consciousness is awake, alert, obeys commands, Oriented to person, place, time, situation, Appropriate for age. Cardiovascular: Capillary refill < 3 seconds Patient's skin is warm and dry. Respiratory: Airway is patent Respiratory effort is even, unlabored. Musculoskeletal: Reports pain in right leg. Historical: - Allergies: 11:21 No Known Allergies; ld1 - PMHx: 11:21 Hyperlipidemia; Hypertension; Hypothyroidism; Diabetes mellitus; ld1 - PSHx: 11:21 Cholecystectomy; ld1 - Immunization history:: Adult Immunizations up to date, Client reports receiving the 2nd dose of the Covid vaccine. - Social history:: Smoking status: Patient denies any tobacco usage or history of. Patient/guardian denies using alcohol. Screenin:30 Abuse screen: Denies threats or abuse. Denies injuries from another. Nutritional jh6 screening: No deficits noted. Tuberculosis screening: No symptoms or risk factors identified. 11:30 Fall Risk None identified. jh6 Assessment: 11:30 General: Appears in no apparent distress. Behavior is calm, cooperative. jh6 11:30 Pain: Complains of pain in right leg Pain currently is 6 out of 10 on a pain scale. jh6 Quality of pain is described as sharp, shooting, Pain began week and half ago. 13:36 Reassessment: Patient and/or family updated on plan of care and expected duration. Pain jh6 level reassessed. Patient is alert, oriented x 3, equal unlabored respirations, skin warm/dry/pink. sara wrap used to help support rt knee, stated that it felt better. Patient states feeling better. Vital Signs: 11:18 BP 136 / 82; Pulse 68; Resp 18; Temp 97.0(TE); Pulse Ox 100% on R/A; Weight 74.84 kg; ld1 Height 5 ft. 3 in. (160.02 cm); Pain 8/10; 13:35 BP 126 / 76; Pulse 65; Resp 17; Pulse Ox 100% ; Pain 0/10; jh6 11:18 Body Mass Index 29.23 (74.84 kg, 160.02 cm) ld1 ED Course: 11:17 Patient arrived in ED. mr 11:17 Damir Thomsa DO is Private Physician. mr 11:17 Tmaar Pelletier FNP-C [facility]. kb 11:17 Naga Paris DO is Attending Physician. kb 11:21 Triage completed. ld1 11:21 Arm band placed on right wrist. ld1 11:35 Bed in low position. Call light in reach. Side rails up X 1. jh6 11:35 No provider procedures requiring assistance completed. jh6 11:35 X-ray(s) taken. jh6 11:48 Hip Right 2 View XRAY In Process Unspecified. EDMS 11:49 Knee Right 3 View XRAY In Process Unspecified. EDMS 12:01 Ksenia Bender, CHAI is Primary Nurse. jh6 13:36 Patient did not have IV access during this emergency room visit. jh6 Administered Medications: 12:17 Drug: Ketorolac 30 mg Route: IM; Site: right deltoid; jh6 13:34 Follow up: Response: Pain is decreased 6 Outcome: 13:18 Discharge ordered by MD. zapata 13:36 Discharged to home ambulatory. 6 13:36 Condition: improved 13:36 Discharge instructions given to patient, family, friend, Instructed on discharge instructions, follow up and referral plans. Demonstrated understanding of instructions, follow-up care, medications, Prescriptions given X 2. 13:38 Patient left the ED. 6 Signatures: Dispatcher [employer] EDMS Tamar Pelletier, WALESKA BARRY-Carmencita Morrissey Lauren, RN RN ld1 Ksenia Bender RN RN jh6
--- NOTE | 2021-09-10 13:19 | EDPHYS ---
Physician Documentation [facility] Name: Capri Correia Age: 71 yrs Sex: Female : 1950 Arrival Date: 09/10/2021 Time: 11:17 Bed 16 Private MD: William [facility] ED Physician Ngaa Paris Historical: - Allergies: 09/10 11:21 No Known Allergies; ld1 - PMHx: 11:21 Hyperlipidemia; Hypertension; Hypothyroidism; Diabetes mellitus; ld1 - PSHx: 11:21 Cholecystectomy; ld1 - Immunization history:: Adult Immunizations up to date, Client reports receiving the 2nd dose of the Covid vaccine. - Social history:: Smoking status: Patient denies any tobacco usage or history of. Patient/guardian denies using alcohol. Vital Signs: 11:18 BP 136 / 82; Pulse 68; Resp 18; Temp 97.0(TE); Pulse Ox 100% on R/A; Weight 74.84 kg; ld1 Height 5 ft. 3 in. (160.02 cm); Pain 8/10; 13:35 BP 126 / 76; Pulse 65; Resp 17; Pulse Ox 100% ; Pain 0/10; jh6 11:18 Body Mass Index 29.23 (74.84 kg, 160.02 cm) ld1 MDM: 11:17 Patient medically screened. kb 13:14 Data reviewed: vital signs, nurses notes. Data interpreted: Pulse oximetry: on room air kb is 100 %. Interpretation: normal. Counseling: I had a detailed discussion with the patient and/or guardian regarding: the historical points, exam findings, and any diagnostic results supporting the discharge/admit diagnosis, radiology results, the need for outpatient follow up, a family practitioner, a orthopedic surgeon, to return to the emergency department if symptoms worsen or persist or if there are any questions or concerns that arise at home. 09/10 11:21 Order name: Hip Right 2 View XRAY; Complete Time: 12:45 kb 09/10 11:21 Order name: Knee Right 3 View XRAY; Complete Time: 13:14 kb Administered Medications: 12:17 Drug: Ketorolac 30 mg Route: IM; Site: right deltoid; jh6 13:34 Follow up: Response: Pain is decreased jh6 Disposition Summary: 09/10/21 13:18 Discharge Ordered Location: Home kb Condition: Stable kb Diagnosis - Pain in right leg kb Followup: kb - With: Emergency Department - When: As needed - Reason: Worsening of condition Followup: kb - With: Private Physician - When: 2 - 3 days - Reason: Recheck today's complaints, Continuance of care, Re-evaluation by your physician Discharge Instructions: - Discharge Summary Sheet kb - Musculoskeletal Pain kb Forms: - Medication Reconciliation Form kb - Thank You Letter kb - Antibiotic Education kb - Prescription Opioid Use kb Prescriptions: - Ibuprofen 600 mg Oral Tablet - take 1 tablet by ORAL route every 6 hours As needed take with food; 30 tablet; kb Refills: 0, Product Selection Permitted - orphenadrine citrate 100 mg Oral Tablet Sustained Release - take 1 tablet by ORAL route 2 times per day As needed; 20 tablet; Refills: 0, kb Product Selection Permitted Signatures: Dispatcher [employer] EDTamar Holloway, Preeti Stauffer RN RN ld1 Ksenia Bender RN RN jh6
[2021-09-10 13:46] VITALS: TEMP 97; O2SAT 100
[2021-09-10 13:48] VITALS: BP 126/76
== END 2021-09-10 13:38 | disposition home or self-care (01) ==
LOC: ER 11:13
DX: M79.604 Pain in right leg (principal); I10 Essential (primary) hypertension

== ENCOUNTER 2021-11-09 12:55 | Emergency (ER) | payer MEDICARE ==
--- OUTSIDE RECORDS SUMMARY | 2021-11-09 12:59 | XMS REPORT | Continuity of Care Document ---
:[address] [facility] t Address [address] [place] [address] Care Team Providers Name Role Phone HERNESTO THOMAS Primary Care Physician Unavailable Damir Thomas Attending Clinician Unavailable JADE GODOY Attending Clinician Unavailable Jade Santos Attending Clinician JIM VALENCIA Attending Clinician Unavailable Jim Nuñez Attending Clinician MARY HERNANDEZ Attending Clinician Unavailable Damir Thomas Admitting Clinician Unavailable JADE GODOY Admitting Clinician Unavailable Payers Payer Name Policy Type Policy Number Effective Date Expiration Date S leopoldo [employer] [facility] [id number] 2021 (MEDICARE 00:00:00 REPLACEMENT HMO) [employer]ED [facility] [id number] MEDICARE ADVANTAGE 00:00:00 PLAN Problems Condition Condition Condition Status Onset Resolution Last Treating Co mments Source Name Details Category Date Date Treatment Clinician Date No known No known Disease Unive rs active active ity of problems problems [facility] Allergies, Adverse Reactions, Alerts Allergy Allergy Status Severity Reaction(s) Onset Inactive Treating Comm ents Source Name Type Date Date Clinician Cipro Adverse Active abdominal Common Reaction pain [facility] NO KNOWN Drug Active Univers ALLERGIE Class ity of S [facility] Social History Social Habit Start Date Stop Date Quantity Comments Source Exposure to 2021-08-02 2021-08-12 Not sure [facility] SARS-CoV-2 (event) 00:00:00 13:38:00 Medica l Branch Sex Assigned At [birth year] [facility] 00:00:00 00:00:00 Medical Branch Smoking Status Start Date Stop Date Source Unknown if ever smoked [facility] Medications Ordered Filled Start Stop Current Ordering Indication Dosage Frequency Signature Comments Components Source Medication Medication Date Date Medication? Clinician (SIG) Name Name ondansetron No 4mg 4 mg, Univ ers (ZOFRAN-ODT 08-12 Oral, ity of ) 21:15: 20:44 ONCE, 1 [place] disintegrat 00 :00 dose, On Medi tracey ing tablet 08/12/21 Bra nch 4 mg at 1615, Routine dicyclomine 2021- No 20mg 20 mg, Uni vers (BENTYL) 08-12 Oral, ity of tablet 20 21:15: 20:44 [place]CE[place] mg 00 :00 dose, On Medical 08/12/21 Branch at 1615, Routine ondansetron Yes [id number] 4mg Take 1 Univers 4 mg -06 tablet by ity of disintegrat 00:00: mouth [place] ing tablet 00 every 8 Medica l (eight) Branch hours as needed for Nausea and Vomiting (N/V). dicyclomine Yes [id number] 20mg Take 1 Univers 20 mg -06 tablet by ity of tablet 00:00: mouth 4 [place] 00 (four) Medical times Branch daily as needed for Abdominal pain. ketorolac 2021- No 15mg 15 mg, Unive rs (TORADOL) 07-29 Intramuscu ity of injection 21:30: 20:32 lar, ONCE[place] 15 mg 00 :00 1 dose, On Medical Mon Branch 07/29/21 at 1630, Routine naproxen 2021- No [id number] 375mg Take 1 Univers (EC-NAPROXE 07-29 103811 tablet by ity of N) 375 mg 00:00: 04:59 [place] EC tablet 00 :00 (two) Medical times Branch daily as needed for Pain (scale 4-6) for up to 8 days. Trazodone Trazodone 2018-03 Yes Damir 1 tablet Common HCl HCl 1-06 Thomas at bedtime Spirit 00:00: - [facility] 00 [facility] Montelukast Montelukast 0 Yes Damir 1 tablet Common Sodium Sodium 2-20 Thomas [facility] 00:00: - [facility] Tramadol Tramadol 2017-03 Yes Damir 1 tablet Common HCl HCl 2-10 Thomas as needed Spirit 00:00: [facility] 00 [facility] Lisinopril Lisinopril Yes Damir 1 tablet Common Thomas [facility] Simvastatin Simvastatin Yes Damir 1 tablet Common Thomas in the [facility] evening [facility] Vitamin B12 Vitamin B12 Yes Damir not Common Thomas defined [facility] Lorazepam Lorazepam Yes Damir 1 tablet Common Thomas as needed [facility] Metformin Metformin Yes Damir 1 tablet Common HCl HCl Thomas with a [facility] meal [facility] Omeprazole Omeprazole Yes Damir 1 capsule Common Thomas [facility] Synthroid Synthroid Yes Damir 1 tablet Common Thomas on an [facility] empty [facility] stomach in [facility] Immunizations Ordered Immunization Filled Immunization Date Status Commen ts Source Name Name FluAD FluAD 2019-01-12 Completed Common [facility] 00:[facility]00 [facility] Prevnar 13 Prevnar 13 2017-10-[address] [facility] -Pneumonia Vaccine -Pneumonia Vaccine 00:00:00 [facility] Vital Signs Vital Name Observation Time Observation Value Comments Source Systolic blood 2021-08-12 22:18:04 158 mm[Hg] Univer sity of pressure [facility] Diastolic blood 2021-08-12 22:18:04 82 mm[Hg[facility] Heart rate 2021-08-12 22:18:04 68 /min [facility] Respiratory rate 2021-08-12 22:18:04 18 /min [facility] Oxygen saturation in 2021-08-12 22:18:04 99 /min University of Arterial blood by [facility] Pulse oximetry Branch Body temperature 2021-08-12 18:38:00 37.06 [facility] Body height 2021-08-12 18:38:00 152.4 cm [facility] [place] [facility] [place] Body weight 2021-08-12 18:38:00 73.483 kg Universi ty of [facility] BMI 2021-08-12 18:38:00 31.64 kg/m2 Universi ty [facility] Systolic blood 2021-07-29 19:51:00 138 mm[Hg[facility] Diastolic blood 2021-07-29 19:51:00 61 mm[Hg] [facility] Heart rate 2021-07-29 19:51:00 64 /min Universi ty of [facility] Body temperature 2021-07-29 19:51:00 37.39 [facility] Respiratory rate 2021-07-29 19:51:00 18 /min [facility] [place] Body height 2021-07-29 19:51:00 152.4 cm [facility] [place] [facility] [place] Body weight 2021-07-29 19:51:00 73.483 kg [facility] [place] [facility] [place] BMI 2021-07-29 19:51:00 31.64 kg/m2 Universi ty [facility] Oxygen saturation in 2021-07-29 19:51:00 100 /min University of Arterial blood by [facility] Pulse oximetry Branch Procedures Procedure Date / Time Performed Performing Clinician Sourc e US GALL BLADDER 2021-08-12 20:37:13 Jade Godoy [facility] LIPASE 2021-08-12 19:34:00 Jade Godoy [facility] COMP. METABOLIC PANEL 2021-08-12 19:34:00 Jade Godoy [facility] ([id number]) [facility] CBC WITH DIFF 2021-08-12 19:34:00 Jade Godoy [facility] URINALYSIS 2021-08-12 19:31:00 Jade Godoy [facility] CONSENT/REFUSAL FOR 2021-08-12 18:12:47 Doctor Unassigned, No [facility] [place] DIAGNOSIS AND Name Medical Branch TREATMENT CONSENT/REFUSAL FOR 2021-07-29 19:56:45 Doctor Unassigned, No [facility] [place] DIAGNOSIS AND Name Medical Branch TREATMENT NOTICE OF PRIVACY 2021-07-29 19:46:13 Doctor Unassigned, No [facility] [place] PRACTICES Name Medical Branch Encounters Start End Encounter Admission Attending Care Care Encounter Source Date/Time Date/Time Type Type Clinicians Facility Department ID 2021-11-05 Outpatient Thomas, STLMLC ST[facility] Common 11:30:00 Damir [facility] 2021-11-04 Outpatient Thomas, STLMLC STLC [id number] Common 13:45:00 Damir [facility] 2021-08-30 Outpatient Thomas, STLMLC STLC Common 10:11:01 Damir [facility] 2021-07-16 Outpatient Thomas, STLMLC ST[facility] Common 08:41:00 Damir [facility] 2021-06-28 Outpatient Thomas, STLMLC STLC [id number] Common 16:16:00 Damir [facility] 2021-04-24 Outpatient Thomas, STLMLC STLC Common 14:25:00 Damir [facility] 2021-04-03 Outpatient Thomas, STLMLC STLC Common 14:34:11 Damir [facility] 2021-04-03 Outpatient Thomas, STLMLC STLC Common 14:33:49 Damir [facility] 2021-04-03 Outpatient Thomas, STLMLC STLC Common 14:15:48 Damir [facility] 2021-04-03 Outpatient Thomas, STLMLC STLC [id number] Common 14:15:27 Damir [facility] 2021-04-03 Outpatient Thomas, STLMLC STLMLC [id number] Common 13:46:26 Damir [id number] [facility] 2021-04-03 Outpatient Thomas, STLMLC STLMLC [id number] Common 13:11:50 Damir [id number] [facility] 2021-04-03 Outpatient Thomas, STLMLC STLMLC [id number] Common 13:11:25 Damir [id number] [facility] 2021-04-03 Outpatient Thomas, STLMLC STLMLC [id number] Common 12:41:52 Damir [id number] [facility] 2021-04-03 Outpatient Thomas, STLMLC STLMLC [id number] Common 12:41:06 Damir [id number] [facility] 2021-04-03 Outpatient Thomas, STLMLC STLMLC [id number] Common 12:36:13 Damir [id number] [facility] 2021-04-03 Outpatient Thomas, STLMLC STLMLC Common 12:33:53 Damir [id number] [facility] 2021-04-03 Outpatient Thomas, STLMLC STLMLC [id number] Common 12:07:26 Damir [id number] [facility] 2021-04-03 Outpatient Thomas, STLMLC STLMLC [id number] Common 11:36:44 Damir [id number] [facility] 2021-04-03 Outpatient Thomas, STLMLC STLMLC [id number] Common 11:24:37 Damir [id number] [facility] 2021-10-15 2021-10-15 ambulatory STLMLC STLMLC [id number] Common 00:00:00 00:00:00 [facility] 2021-09-30 2021-09-30 ambulatory STLMLC STLMLC [id number] Common 00:00:00 00:00:00 [facility] 2021-09-23 2021-09-23 ambulatory STLMLC STLMLC [id number] Common 00:00:00 00:00:00 [facility] 2021-09-20 2021-09-20 Outpatient DMG DMG [id number] [facility] 03:13:00 03:13:00 [id number] [facility] 2021-09-10 2021-09-10 ambulatory STLMLC STLMLC [id number] Common 00:00:00 00:00:00 [facility] 2021-08-30 2021-08-30 ambulatory STLMLC STLMLC [id number] Common 00:00:00 00:00:00 [facility] 2021-08-28 2021-08-28 ambulatory STLMLC STLMLC [id number] Common 00:00:00 00:00:00 [facility] 2021-08-13 2021-08-13 ambulatory STLMLC STLMLC [id number] Common 00:00:00 00:00:00 [facility] 2021-08-13 2021-08-13 ambulatory STLMLC STLMLC [id number] Common 00:00:00 00:00:00 [facility] 2021-08-12 2021-08-12 Emergency X JAYNE, [facility] ERT [id number] Univers 13:40:00 17:23:00 JADE garcia [facility] 2021-08-12 2021-08-12 Emergency Godoy, [facility] [id number] Univers 13:40:00 17:23:00 Jade Glynn [place] [id number] [facility] [id number] [facility] [id number] [place] [id number] Branch 2021-08-01 2021-08-01 ambulatory STLMLC STLMLC [id number] Common 00:00:00 00:00:00 [facility] 2021-07-29 2021-07-29 Emergency X RIDJOSE, [facility] ERT [id number] Univers 14:53:00 15:46:00 JIM villeda [facility] 2021-07-29 2021-07-29 Emergency [place], [facility] [id number] Univers 14:53:00 15:46:00 Jim RO [id number] [facility] amira DURIBN [id number] [facility] [id number] [facility] 084 Branch 2021-07-16 2021-07-16 ambulatory STLMLC STLMLC [id number] Common 00:00:00 00:00:00 [facility] 2021-06-28 2021-06-28 ambulatory STLMLC STLMLC [id number] Common 00:00:00 00:00:00 [facility] 2021-05-21 2021-05-21 ambulatory STLMLC STLMLC [id number] Common 00:00:00 00:00:00 [facility] 2021-05-21 2021-05-21 ambulatory STLMLC STLMLC [id number] Common 00:00:00 00:00:00 [facility] 2021-05-20 2021-05-20 ambulatory STLMLC STLMLC [id number] Common 00:00:00 00:00:00 [facility] 2021-05-17 2021-05-17 Outpatient DMG DMG [id number] [facility] 09:00:00 09:00:00 [id number] [facility] 2021-03-28 2021-03-28 ambulatory STLMLC STLMLC [id number] Common 00:00:00 00:00:00 [facility] 2021-03-25 2021-03-25 ambulatory STLMLC STLMLC [id number] Common 00:00:00 00:00:00 [facility] 2021-03-24 2021-03-24 ambulatory STLMLC STLMLC [id number] Common 00:00:00 00:00:00 [facility] 2021-01-25 2021-01-25 ambulatory STLMLC STLMLC [id number] Common 00:00:00 00:00:00 [facility] 2021-01-21 2021-01-21 ambulatory STLMLC STLMLC [id number] Common 00:00:00 00:00:00 [facility] 2020-12-18 2020-12-18 Outpatient STLMLC STLMLC [id number] Common 00:00:00 00:00:00 [facility] 2020-12-18 2020-12-18 Outpatient STLMLC STLMLC [id number] Common 00:00:00 00:00:00 [facility] 2020-12-12 2020-12-12 Outpatient STLMLC STLMLC [id number] Common 00:00:00 00:00:00 [facility] 2020-11-21 2020-11-21 Outpatient STLMLC STLMLC [id number] Common 00:00:00 00:00:00 [facility] 2020-11-21 2020-11-21 Outpatient STLMLC STLMLC [id number] Common 00:00:00 00:00:00 [facility] 2020-08-14 2020-08-14 Outpatient STLMLC STLMLC [id number] Common 00:00:00 00:00:00 [facility] 2020-05-23 2020-05-23 Outpatient STLMLC STLMLC [id number] Common 00:00:00 00:00:00 [facility] 2020-05-22 2020-05-22 Outpatient STLMLC STLMLC [id number] Common 00:00:00 00:00:00 [facility] 2020-05-17 2020-05-17 Outpatient R [facility] [id number] Univers 13:40:00 13:40:00 AMRY [facility] 2020-05-17 2020-05-17 Outpatient R [facility] [id number] Univers 13:15:00 13:15:00 [id number] [facility] 2020-05-14 2020-05-14 Outpatient STLMLC STLMLC [id number] Common 00:00:00 00:00:00 [facility] 2020-05-09 2020-05-09 Outpatient STLMLC STLMLC [id number] Common 00:00:00 00:00:00 [facility] 2020-05-072020-05-07 Outpatient STLMLC STLMLC [id number] Common 00:00:00 00:00:00 [facility] 2020-05-04 2020-05-04 Outpatient STLMLC STLMLC [id number] Common 00:00:00 00:00:00 [facility] 2020-02-13 2020-02-13 Outpatient STLMLC STLMLC [id number] Common 00:00:00 00:00:00 [facility] 2020-01-11 2020-01-11 Outpatient STLMLC STLMLC [id number] Common 00:00:00 00:00:00 [facility] 2020-01-11 2020-01-11 Outpatient STLMLC STLMLC [id number] Common 00:00:00 00:00:00 [facility] 2020-01-05 2020-01-05 Outpatient STLMLC STLMLC [id number] Common 00:00:00 00:00:00 [facility] 2019-12-27 2019-12-27 Outpatient STLMLC STLMLC [id number] Common 00:00:00 00:00:00 [facility] 2019-12-22 2019-12-22 Outpatient STLMLC STLMLC [id number] Common 00:00:00 00:00:00 [facility] 2019-10-14 2019-10-14 [id number] Common 14:50:00 14:50:[address] [facility] [address] [facility] 2019-10-13 2019-10-13 [facility] [id number] Common 10:45:00 10:45:[address] [facility] 2019-09-22 2019-09-22 [facility] [id number] Common 10:13:00 10:13:[address] [facility] 2019-08-12 2019-08-12 [facility] [id number] Common 09:30:00 09:30:[address] [facility] 2019-08-08 2019-08-08 [facility] [id number] Common 10:00:00 10:00:[address] [facility] 2019-07-12 2019-07-12 [facility] [id number] Common 09:30:00 09:30:[address] [facility] 2019-04-14 2019-04-14 [facility] [id number] Common 08:33:00 08:33:[address] [facility] 2019-04-12 2019-04-12 [facility] [id number] Common 09:15:00 09:15:[address] [facility] 2019-04-05 2019-04-05 [facility] [id number] Common 08:18:00 08:18:[address] [facility] 2019-03-15 2019-03-15 [facility] [id number] Common 10:45:00 10:45:[address] [facility] 2019-02-02 2019-02-02 [facility] [id number] Common 09:00:00 09:00:[address] [facility] 2019-01-12 2019-01-12 [facility] [id number] Common 10:15:00 10:15:[address] [facility] 2019-01-05 2019-01-05 [facility] [id number] Common 14:58:00 14:58:[address] [facility] 2018-11-09 2018-11-09 [facility] [id number] Common 09:47:00 09:47:[address] [facility] 2018-10-28 2018-10-28 [facility] [id number] Common 08:34:00 08:34:[address] [facility] 2018-10-15 2018-10-15 [facility] [id number] Common 09:00:00 09:00:[address] [facility] 2018-07-05 2018-07-05 [facility] [id number] Common 08:30:00 08:30:[address] [facility] 2018-06-07 2018-06-07 [facility] [id number] Common 10:15:00 10:15:[address] [facility] 2018-06-03 2018-06-03 [facility] [id number] Common 10:30:00 10:30:[address] [facility] 2018-04-28 2018-04-28 [facility] [id number] Common 13:30:00 13:30:[address] [facility] 2018-04-06 2018-04-06 [facility] [id number] Common 08:15:00 08:15:[address] [facility] 2018-02-17 2018-02-17 [facility] [id number] Common 10:24:00 10:24:00 t [facility] 2018-02-15 2018-02-15 [facility] [id number] Common 08:30:00 08:30:00 t [facility] 2017-10-22 2017-10-22 [facility] [id number] Common 15:00:00 15:00:00 t Specialty/U Sp vidya Specialty rology - [facility] 2017-10-08 2017-10-08 [facility] [id number] Common 09:00:00 09:00:[address] [facility] 2017-09-08 2017-09-08 Outpatient Harpal Daniel [id number] Common 09:00:00 09:00:[address] [facility] 2017-07-17 2017-07-17 Outpatient Harpal Daniel 13 [id number] Common 09:30:00 09:30:[address] [facility] Results Test Description Test Time Test Comments Results Result Comments Source COMP. METABOLIC PANEL (41286) 2021-08-12 20:09:39 Test Item Value Reference Range Interpretation Comme nts NA (test code = 6035068948) 136 mmol/L 135-145 K (test code = 3378186076) 4.4 mmol/L 3.5-5.0 CL (test code = 2360118994) 101 mmol/L 98-108 CO2 TOTAL (test code = 25 mmol/L 23-31 5176894723) AGAP (test code = 5982409623) 2-16 BUN (test code = 4480831955) 19 mg/dL 7-23 GLUCOSE (test code = 6781491128) 98 mg/dL 70-110 CREATININE (test code = 0.76 mg/dL 0.50-1.04 1374665043) TOTAL BILI (test code = 0.3 mg/dL 0.1-1.2 6555517754) CALCIUM (test code = 6255043815) 9.2 mg/dL 8.6-10.6 T PROTEIN (test code = 6.5 g/dL 6.3-8.2 6496742814) ALBUMIN (test code = 0787080946) 4.1 g/dL 3.5-5.0 ALK PHOS (test code = 6086693725) 87 U/L 34-122 ALTv (test code = 1742-6) 16 U/L 5-35 AST(SGOT) (test code = 27 U/L 13-40 2106788649) eGFR (test code = 0356084083) mL/min/1.73m2 KARLEE (test code = KARLEE) Association [...] or urine or abnormalities in imaging tests). [facility] Test Item Value Reference Range Interpretation Comments LIPASE (test code = 2247532099) 152 U/L 0-220 Lab Interpretation (test code = Normal 28807-5) [facility] [id number] 19:46:11 Test Item Value Reference Range Interpretation Comments WBC (test code = See_Comment [Automated message] 6690-2) The system [employer] generated this result transmitted ref erence range: 4.30 - 1 1.10 10*3/?L. The re ference range was not u sed to interpret this result as normal/abnor mal. RBC (test code = See_Comment [Automated message] 789-8) The system [employer] generated this result transmitted ref erence range: [...] RDW-SD (test code 43.2 fL 39.0-49.9 = 14028-3) RDW-CV (test code 13.1 % 12.0-15.5 = 788-0) PLT (test code = See_Comment [Automated message] 777-3) The system [employer] generated this result transmitted ref erence range: 166 - 35 8 10*3/?L. The re ference range was not u sed to interpret this result as normal/abnor mal. MPV (test code = 10.2 fL 9.5-12.9 48890-6) NRBC/100 WBC (test See_Comment [Automat ed message] code = 4661684086) The syste m which generated this result transmitted ref erence range: 0.0 - 10 .0 /100 WBCs. The refer ence range was not u sed to interpret this result as normal/abnor mal. NRBC x10^3 (test <0.01 See_Comment [Automated message] code = 8954477066) The syste m which generated this result transmitted ref erence range: 10*3/?L. The reference range was not used to interpr et this result as normal/abnormal . GRAN MAT (NEUT) % 48.6 % (test code = 770-8) IMM GRAN % (test 0.30 % code = 4224152066) LYMPH % (test code 39.7 % = 736-9) MONO % (test code 9.2 % = 5905-5) EOS % (test code = 1.9 % 713-8) BASO % (test code 0.3 % = 706-2) GRAN MAT 3.62 10*3/uL 1.88-7.09 x10^3(ANC) (test code = 0519906685) IMM GRAN x10^3 <0.03 0.00-0.06 (test code = 9169666628) LYMPH x10^3 (test 2.95 10*3/uL 1.32-3.29 code = 731-0) MONO x10^3 (test 0.68 10*3/uL 0.33-0.92 code = 742-7) EOS x10^3 (test 0.14 10*3/uL 0.03-0.39 code = 711-2) BASO x10^3 (test <0.03 0.01-0.07 code = 704-7) [facility]"
[2021-11-09] MEDS ORDERED: NA CHLORIDE 0.9% 1,000 ML ONE (13:53)
[2021-11-09] MEDS ORDERED: KETOROLAC 30 MG/ML INJ ONE (13:53)
[2021-11-09 14:32] LABS: Urine Blood Negative (Negative); Urine Glucose Negative (Negative); Urine Protein Negative (Negative)
[2021-11-09 14:41] LABS: Absolute Lymphocytes (CBC) 2.6 K/uL (0.7-4.9); Hematocrit 37.7 % (36.0-45.0); Lymphocytes % 17.8 % (15.3-44.8); MCV 87.2 fL (80-100); MPV 8.7 fL (7.6-11.3); RBC Red Blood Cell Count 4.33 M/uL (3.86-4.86)
[2021-11-09 14:45] LABS: Albumin 3.8 g/dL (3.4-5.0); Bilirubin Total 0.3 mg/dL (0.2-1.0); Potassium 4.5 mmol/L (3.5-5.1); Protein, Total 7.5 g/dL (6.4-8.2)
[2021-11-09 14:55] LABS: Urine RBC <5 /HPF (None Seen)
--- NOTE | 2021-11-09 15:12 | RAD REPORT ---
EXAM DESCRIPTION: CTAbdomen Pelvis W Contrast - 11/09/2021 3:01 pm CLINICAL HISTORY: LLQ pain COMPARISON: Abdomen Pelvis W Contrast dated 08/25/2021; Abdomen Pelvis W Contrast dated 08/02/2019 TECHNIQUE: CT of the abdomen and pelvis was performed. All CT scans are performed using dose optimization technique as appropriate and may include automated exposure control or mA/KV adjustment according to patient size. FINDINGS: Lower chest: No acute abnormality. Liver: No acute abnormality or suspicious lesions. Biliary: No biliary ductal dilatation. Cholecystectomy. Stomach: No significant focal abnormality. Duodenum: No significant focal abnormality. Pancreas: No significant abnormality. Spleen: No significant abnormality. Adrenal: No suspicious lesions. Kidney/ureter: No hydronephrosis. No renal calculi. Retroperitoneum: No retroperitoneal adenopathy. Vascular: No aneurysm. Bowel: Proximal sigmoid diverticulitis. No perforation or abscess.. Normal appendix. Peritoneum: No ascites or free air. Bladder: Grossly unremarkable. Reproductive: No adnexal masses. Bones: No acute fracture. Other: n/a IMPRESSION: Acute nonperforated proximal sigmoid diverticulitis. No abscess or bowel obstruction.
[2021-11-09] MEDS ORDERED: CIPROFLOXACIN HCL 500 MG TAB ONE (15:29)
[2021-11-09] MEDS ORDERED: metroNIDAZOLE 500 MG TABLET ONE (15:29)
--- NOTE | 2021-11-09 15:32 | EDPHYS ---
Physician Documentation [facility] Name: Capri Correia Age: 71 yrs Sex: Female : 1950 Arrival Date: 11/09/2021 Time: 12:58 Bed 13 Private MD: ED Physician Victor Hugo Hayes HPI: 11/09 15:41 This 71 yrs old Female presents to ER via Ambulatory with complaints of kb Abdominal Pain. 15:41 The patient presents with abdominal pain in the left lower quadrant. Onset: The kb symptoms/episode began/occurred 3 day(s) ago, and became worse today. The symptoms do not radiate. Associated signs and symptoms: none. The symptoms are described as constant. Modifying factors: The symptoms are alleviated by nothing, the symptoms are aggravated by pressure. Severity of pain: At its worst the pain was moderate in the emergency department the pain is unchanged. The patient has not experienced similar symptoms in the past. The patient has not recently seen a physician. Left lower quadrant pain and bloating that started 3 days ago, worse today. Denies fever, diarrhea, nausea, vomiting.. Historical: - Allergies: 13:32 No Known Allergies; iw - Home Meds: 13:32 levothyroxine 50 mcg tab 1 tab once daily [Active]; Zocor 40 mg Oral tab 1 tab once iw daily [Active]; metformin 500 mg Oral tab 1 tab 2 times per day [Active]; lisinopril 30 mg Oral tab 1 tab once daily [Active]; - PMHx: 13:32 diabetes mellitus; Hyperlipidemia; Hypertension; Hypothyroidism; iw - PSHx: 13:32 Cholecystectomy; Thyroidectomy; iw - Immunization history:: Adult Immunizations up to date, Client reports receiving the 2nd dose of the Covid vaccine, Client reports receiving the 1st dose of the Covid vaccine. - Social history:: Smoking status: Patient denies any tobacco usage or history of. ROS: 15:39 Constitutional: Negative for fever, chills, and weight loss. kb 15:39 Abdomen/GI: Positive for abdominal pain, abdominal distension. 15:39 All other systems are negative. Exam: 15:39 Constitutional: This is a well developed, well nourished patient who is awake, alert, kb and in no acute distress. Head/Face: Normocephalic, atraumatic. ENT: Moist Mucous membranes Cardiovascular: Regular rate and rhythm with a normal S1 and S2. No gallops, murmurs, or rubs. No pulse deficits. Respiratory: Respirations even and unlabored. No increased work of breathing. Talking in full sentences Skin: Warm, dry with normal turgor. Normal color. MS/ Extremity: Pulses equal, no cyanosis. Neurovascular intact. Full, normal range of motion. Neuro: Awake and alert, GCS 15, oriented to person, place, time, and situation. Moves all extremities. Normal gait. Psych: Awake, alert, with orientation to person, place and time. Behavior, mood, and affect are within normal limits. 15:39 Abdomen/GI: Inspection: abdomen appears normal, Bowel sounds: normal, Palpation: soft, in all quadrants, moderate abdominal tenderness, in the left lower quadrant. Vital Signs: 13:29 BP 157 / 89; Pulse 77; Resp 16; Temp 99.1(O); Pulse Ox 100% on R/A; Weight 72.57 kg iw (R); Height 5 ft. 2 in. (157.48 cm); Pain 7/10; 15:00 BP 128 / 54; Pulse 69; Resp 16; Pulse Ox 100% on R/A; em6 13:29 Body Mass Index 29.26 (72.57 kg, 157.48 cm) iw MDM: 13:31 Patient medically screened. kb 15:25 Data reviewed: vital signs, nurses notes. Data interpreted: Pulse oximetry: on room air kb is 100 %. Interpretation: normal. Counseling: I had a detailed discussion with the patient and/or guardian regarding: the historical points, exam findings, and any diagnostic results supporting the discharge/admit diagnosis, lab results, radiology results, the need for outpatient follow up, a family practitioner, to return to the emergency department if symptoms worsen or persist or if there are any questions or concerns that arise at home. ED course: Discussed diagnosis with pt. Pain is better after medication. Educated on admission vs outpatient treatment. Pt will try outpatient oral antibiotics first. Educated to return immediately for worsening symptoms, including fever, n/v, inability to tolerate medications, increased abd pain. Verbal understanding received. . 11/09 13:32 Order name: CBC with Diff; Complete Time: 14:52 kb 11/09 13:32 Order name: CMP; Complete Time: 14:51 kb 11/09 13:32 Order name: Lipase; Complete Time: 14:51 kb 11/09 13:32 Order name: Urine Microscopic Only; Complete Time: 15:00 kb 11/09 13:32 Order name: CT Abd/Pelvis - IV Contrast Only; Complete Time: 15:14 kb 11/09 14:33 Order name: Urine Dipstick-Ancillary; Complete Time: 14:51 EDMS 11/09 13:32 Order name: IV Saline Lock; Complete Time: 14:15 kb 11/09 13:32 Order name: Labs collected and sent; Complete Time: 14:15 kb 11/09 13:32 Order name: Urine Dipstick-Ancillary (obtain specimen); Complete Time: 14:34 kb Administered Medications: 14:00 Drug: NS 0.9% 1000 ml Route: IV; Rate: 1 bolus; Site: left antecubital; em6 15:31 Follow up: Response: No adverse reaction; IV Intake: 1000ml em6 15:55 Follow up: IV Status: Order to discontinue infusion em6 14:00 Drug: Ketorolac 30 mg Route: IVP; Site: left antecubital; em6 15:00 Follow up: Response: No adverse reaction em6 15:23 Drug: Cipro (ciprofloxacin) 500 mg Route: PO; em6 15:54 Follow up: Response: No adverse reaction em6 15:23 Drug: Flagyl (metroNIDAZOLE) 500 mg Route: PO; em6 15:54 Follow up: Response: No adverse reaction em6 Disposition: 16:32 Co-signature as Attending Physician, Victor Hugo Hayes MD I agree with the assessment and kdr plan of care. Disposition Summary: 11/09/21 15:31 Discharge Ordered Location: Home kb Condition: Stable kb Diagnosis - Diverticulitis of intestine, part unspecified, without perforation or abscess kb without bleeding Followup: kb - With: Emergency Department - When: As needed - Reason: Worsening of condition Followup: kb - With: Private Physician - When: 2 - 3 days - Reason: Recheck today's complaints, Continuance of care, Re-evaluation by your physician Discharge Instructions: - Discharge Summary Sheet kb - Diverticulitis, [id number] kb Forms: - Medication Reconciliation Form kb - Thank You Letter kb - Antibiotic Education kb - Prescription Opioid Use kb Prescriptions: - Flagyl 500 mg Oral Tablet - take 1 tablet by ORAL route every 8 hours for 10 days; 30 tablet; Refills: 0, kb Product Selection Permitted - Zofran 4 mg Oral Tablet - take 1 tablet by ORAL route every 8 hours As needed; 12 tablet; Refills: 0, kb Product Selection Permitted - Cipro 500 mg Oral Tablet - take 1 tablet by ORAL route every 12 hours for 10 days; 20 tablet; Refills: 0, kb Product Selection Permitted - Diclofenac Sodium 75 mg Oral tablet,delayed release (DR/EC) - take 1 tablet by ORAL route 2 times per day As needed; 30 tablet; Refills: 0, kb Product Selection Permitted Signatures: Dispatcher [employer] EDTamar Holloway, TIP SCOURER-C TIP SCOURER-Victor Hugo Chavez MD MD kdr Williams, Irene, RN RN iw Shannan Fink RN RN em6 Corrections: (The following items were deleted from the chart) 15:41 15:39 Abdomen/GI: Positive for abdominal pain, kb kb
--- NOTE | 2021-11-09 15:32 | ER ---
Nurse's Notes [facility] Name: Capri Correia Age: 71 yrs Sex: Female : 1950 Arrival Date: 11/09/2021 Time: 12:58 Bed 13 Private MD: Diagnosis: Diverticulitis of intestine, part unspecified, without perforation or abscess without bleeding Presentation: 11/09 13:29 Chief complaint: Patient's son or daughter states: She has had lower abdominal pain and iw bloating for a few days now. Coronavirus screen: At this time, the client does not indicate any symptoms associated with coronavirus-19. Ebola Screen: No symptoms or risks identified at this time. Initial Sepsis Screen: Does the patient meet any 2 criteria? No. Patient's initial sepsis screen is negative. Does the patient have a suspected source of infection? No. Patient's initial sepsis screen is negative. Risk Assessment: Do you want to hurt yourself or someone else? Patient reports no desire to harm self or others. Onset of symptoms is unknown. 13:29 Method Of Arrival: Ambulatory iw 13:29 Acuity: NITA 3 iw Triage Assessment: 13:32 General: Appears in no apparent distress. uncomfortable, Behavior is calm, cooperative, iw appropriate for age. Pain: Complains of pain in left lower quadrant. EENT: No deficits noted. No signs and/or symptoms were reported regarding the EENT system. Neuro: No deficits noted. Cardiovascular: No deficits noted. Respiratory: No deficits noted. GI: Abdomen is round non-distended, Bowel sounds present X 4 quads. Abd is soft X 4 quads Abdomen is tender to palpation in left lower quadrant Patient currently denies nausea, vomiting. : No deficits noted. No signs and/or symptoms were reported regarding the genitourinary system. Derm: No deficits noted. No signs and/or symptoms reported regarding the dermatologic system. Musculoskeletal: No deficits noted. No signs and/or symptoms reported regarding the musculoskeletal system. Historical: - Allergies: :32 No Known Allergies; iw - Home Meds: :32 levothyroxine 50 mcg tab 1 tab once daily [Active]; Zocor 40 mg Oral tab 1 tab once iw daily [Active]; metformin 500 mg Oral tab 1 tab 2 times per day [Active]; lisinopril 30 mg Oral tab 1 tab once daily [Active]; - PMHx: 13:32 diabetes mellitus; Hyperlipidemia; Hypertension; Hypothyroidism; iw - PSHx: 13:32 Cholecystectomy; Thyroidectomy; iw - Immunization history:: Adult Immunizations up to date, Client reports receiving the 2nd dose of the Covid vaccine, Client reports receiving the 1st dose of the Covid vaccine. - Social history:: Smoking status: Patient denies any tobacco usage or history of. Screenin:50 Abuse screen: Denies threats or abuse. Nutritional screening: No deficits noted. em6 Tuberculosis screening: No symptoms or risk factors identified. Fall Risk IV access (20 points). Total Dean Fall Scale indicates No Risk (0-24 pts). Assessment: 13:50 General: Appears comfortable, Behavior is calm, cooperative. Pain: Complains of pain in em6 right lower quadrant and left lower quadrant Pain radiates to right lower quadrant Pain currently is 8 out of 10 on a pain scale. Quality of pain is described as sharp, shooting. Neuro: Mccray Agitation-Sedation Scale (RASS): 0 - Alert and Calm Level of Consciousness is awake, alert, obeys commands, Oriented to person, place, time, situation. Cardiovascular: Heart tones present Capillary refill < 3 seconds Patient's skin is warm and dry. Respiratory: Airway is patent Respiratory effort is even, unlabored, Respiratory pattern is regular, symmetrical, Breath sounds are clear bilaterally. GI: Abdomen is non-distended, Bowel sounds present X 4 quads. Abd is soft and non tender X 4 quads. Reports lower abdominal pain, Patient currently denies nausea. : No signs and/or symptoms were reported regarding the genitourinary system. EENT: No signs and/or symptoms were reported regarding the EENT system. Derm: No signs and/or symptoms reported regarding the dermatologic system. Musculoskeletal: Circulation, motion, and sensation intact. Range of motion: intact in all extremities. 15:00 Reassessment: Patient appears in no apparent distress at this time. Patient is alert, em6 oriented x 3, equal unlabored respirations, skin warm/dry/pink. Patient states symptoms have improved. Vital Signs: 13:29 BP 157 / 89; Pulse 77; Resp 16; Temp 99.1(O); Pulse Ox 100% on R/A; Weight 72.57 kg iw (R); Height 5 ft. 2 in. (157.48 cm); Pain 7/10; 15:00 BP 128 / 54; Pulse 69; Resp 16; Pulse Ox 100% on R/A; em6 13:29 Body Mass Index 29.26 (72.57 kg, 157.48 cm) iw ED Course: 12:58 Patient arrived in ED. as 13:13 Tamar Pelletier [facility]-C [facility]. kb 13:13 Victor Hugo Hayes MD is Attending Physician. kb 13:32 Triage completed. iw 13:32 Arm band placed on right wrist. iw 13:50 Patient has correct armband on for positive identification. Bed in low position. Call em6 light in reach. Side rails up X 1. Pulse ox on. NIBP on. Warm blanket given. 14:10 Missed attempt(s): 22 gauge in right forearm. Bleeding controlled, band aid applied, jd3 catheter tip intact. 14:14 Armen Tran RN is Primary Nurse. jd3 14:14 Inserted saline lock: 22 gauge in left antecubital area, using aseptic technique. Blood jd3 collected. 15:02 CT Abd/Pelvis - IV Contrast Only In Process Unspecified. EDMS 15:53 No provider procedures requiring assistance completed. IV discontinued, intact, em6 bleeding controlled, No redness/swelling at site. Pressure dressing applied. Administered Medications: 14:00 Drug: NS 0.9% 1000 ml Route: IV; Rate: 1 bolus; Site: left antecubital; em6 15:31 Follow up: Response: No adverse reaction; IV Intake: 1000ml em6 15:55 Follow up: IV Status: Order to discontinue infusion em6 14:00 Drug: Ketorolac 30 mg Route: IVP; Site: left antecubital; em6 15:00 Follow up: Response: No adverse reaction em6 15:23 Drug: Cipro (ciprofloxacin) 500 mg Route: PO; em6 15:54 Follow up: Response: No adverse reaction em6 15:23 Drug: Flagyl (metroNIDAZOLE) 500 mg Route: PO; em6 15:54 Follow up: Response: No adverse reaction em6 Medication: 15:30 VIS not applicable for this client. em6 Intake: 15:31 IV: 1000ml; Total: 1000ml. em6 Outcome: 15:31 Discharge ordered by . kb 15:54 Discharged to home ambulatory, with family. em6 15:54 Condition: stable 15:54 Discharge instructions given to patient, family, Instructed on discharge instructions, follow up and referral plans. no drinking with medication, Demonstrated understanding of instructions, follow-up care, medications, Prescriptions given X 4. 15:55 Patient left the ED. em6 Signatures: Dispatcher [employer] EDTN Tamar Pelletier, WALESKA BARRY-Nida Brown Irene, Armen Campa RN, RN RN Shannan Padilla RN RN em6
[2021-11-09 17:35] VITALS: TEMP 99.1; O2SAT 100
[2021-11-09 17:40] VITALS: BP 128/54
== END 2021-11-09 15:55 | disposition home or self-care (01) ==
LOC: ER 12:55
DX: K57.32 Diverticulitis of large intestine without perforation or abscess without bleeding (principal); E11.9 Type 2 diabetes mellitus without complications; I10 Essential (primary) hypertension; E03.9 Hypothyroidism, unspecified; E78.5 Hyperlipidemia, unspecified
CPT/HCPCS: 96361; 85025; 36415; 83690; 80053; 74177; 96374; 99284; Q9967; J7030; 81003; 81015

== ENCOUNTER 2022-09-06 13:23 | Emergency (ER) | payer MEDICARE ==
--- OUTSIDE RECORDS SUMMARY | 2022-09-06 13:31 | XMS REPORT | Continuity of Care Document ---
:1950 Author Organization [facility] t Address [address] [place] [address] [address] [place] [address] Care Team Providers Name Role Phone HERNESTO THOMAS Primary Care Physician Unavailable Damir Thomas Attending Clinician Unavailable Ogbechie_L Attending Clinician Unavailable JADE GODOY Attending Clinician Unavailable Jade Santos Attending Clinician JIM VALENCIA Attending Clinician Unavailable Jim Nuñez Attending Clinician MARY HERNANDEZ Attending Clinician Unavailable Damir Thomas Admitting Clinician Unavailable Ogbechie_L Admitting Clinician Unavailable JADE GODOY Admitting Clinician Unavailable Payers Payer Name Policy Type Policy Number Effective Date Expiration Date Renard mina [employer] [id number] (MEDICARE 00:00:00 REPLACEMENT HMO) DEVOTED [facility] [id number] MEDICARE 00:00:00 ADVANTAGE PLAN MEDICARE MARIEITAS JERO [id number] [facility] AETNA MEDICARE C1 [id number] 2020 Common 00:00:00 Spirit - [facility] MEDICARE NOVITAS JERO [id number] Common [facility] MEDICARE NOVITAS MB [id number] Common [facility] MEDICARE NOVITAS MB [id number] Common Spirit [facility] MEDICARE NOVITAS MB [id number] Common [facility] Problems Condition Condition Condition Status Onset Resolution Last Treating Co mments Source Name Details Category Date Date Treatment Clinician Date Insomnia, Problem Com mon unspecifie Spirit d type - [facility] Mixed Hyperlipid Problem Commo n hyperlipid emia, Spirit emia mixed [facility] Malaise Malaise Problem Common and and Spirit fatigue fatigue - [facility] Vitamin Vitamin B Problem Commo n B12 12 Spirit deficiency deficiency [facility] [id number] Primary Problem Comm on osteoarthr Spirit itis of [facility]I right knee [facility] [id number] Primary Problem Comm on osteoarthr [facility] itis of [facility] left knee [facility] [id number] Arthritis Problem Co mmon [id number] of knee, [facility] left [facility] Gallstone Gallstone Problem Com mon [facility] Leukocytos Elevated Problem Com mon is WBC count [facility] Atelectasi Atelectasi Problem C sabrina s s [facility] [id number] Other Problem Common obesity Spirit due to - CHI excess [facility] [id number] Body mass Problem Com mon index [facility] [BMI] [facility] 30.0-30.9[facility] [id number] Diverticul Problem Co mmon itis of Spirit sigmoid [facility] colon [facility] Abdominal Abdominal Problem Com mon bloating bloating [facility] Vitamin D Vitamin D Problem Com mon deficiency deficiency Sp vidya - [facility] Type II Diabetes Problem Common diabetes type 2, Spirit mellitus controlled - CH I well [facility] Atopic Atopic Problem Common dermatitis dermatitis Sp vidya in adult [facility] No known No known Disease Unive rs active active ity of problems problems [facility] Branch Hypothyroi Hypothyroi Problem C sabrina dism dism [facility] Essential Benign Problem Common hypertensi essential Spi rit on HTN - [facility] [id number] Colon, Problem Common diverticul Spirit osis - [facility] [id number] Primary Problem Commo n osteoarthr Spirit itis - [facility] involving [facility] joints [facility] [place] [id number] Varicose Problem Com mon [id number] veins of Spirit both lower - CHI extremitie [facility] [id number] Peripheral Problem Co mmon edema Spirit - [facility] [id number] Claustroph Problem Com mon obia Spirit - [facility] [id number] Tear of Problem Commo n right Spirit rotator - [facility], [facility] Gastro-eso GERD Problem Commo n phageal without Spirit reflux esophagiti - CHI disease s [facility] esophagiti Medica s Center [id number] Allergic Problem Commo n rhinitis, Spirit unspecifie - [facility] Center d trigger [id number] Type 2 Problem Common diabetes Spirit mellitus - [facility]I with other [facility] kidney Medical complicati Center on Allergies, Adverse Reactions, Alerts Allergy Allergy Status Severity Reaction(s) Onset Inactive Treating Comm ents Source Name Type Date Date Clinician ciproflo ciproflo Active abdominal Com mon xacin xacin pain [facility] NO KNOWN Drug Active [facility] Social History Social Habit Start Date Stop Date Quantity Comments Source History of Tobacco Common Spirit - [facility] Use [facility] Sex Assigned At Common Sp vidya - [facility] Exposure to 2021-08-02 2021-08-12 Not sure [facility] SARS-CoV-2 (event) 00:00:00 13:38:00 [facility] Smoking Status Start Date Stop Date Source Unknown if ever smoked [facility] Never Smoker Common [facility] - [facility] Medications Ordered Filled Start Stop Current Ordering Indication Dosage Frequency Signature Comments Components Source Medication Medication Date Date Medication? Clinician (SIG) Name Name Albuterol Albuterol No 2{puff_ 6xD Albuterol Sulfate HFA Sulfate HFA 6-24 as_need Sulfate 108 (90 108 (90 00:00: ed} HFA 108 Base) Base) 00 (90 Base) MCG/ACT MCG/ACT MCG/ACT Albuterol Albuterol No 2{puff_ 6xD Albuterol Sulfate HFA Sulfate HFA 6-24 as_need Sulfate 108 (90 108 (90 00:00: ed} HFA 108 Base) Base) 00 (90 Base) MCG/ACT MCG/ACT MCG/ACT Albuterol Albuterol No 2{puff_ 6xD Albuterol Sulfate HFA Sulfate HFA 6-24 as_need Sulfate 108 (90 108 (90 00:00: ed} HFA 108 Base) Base) 00 (90 Base) MCG/ACT MCG/ACT MCG/ACT Albuterol Albuterol No 2{puff_ 6xD Albuterol Sulfate HFA Sulfate HFA 6-24 as_need Sulfate 108 (90 108 (90 00:00: ed} HFA 108 Base) Base) 00 (90 Base) MCG/ACT MCG/ACT MCG/ACT Albuterol Albuterol 0 No 2{puff_ 6xD Albuterol Sulfate HFA Sulfate HFA 6-24 as_need Sulfate 108 (90 108 (90 00:00: ed} HFA 108 Base) Base) 00 (90 Base) MCG/ACT MCG/ACT MCG/ACT Albuterol Albuterol 0 No 2{puff_ 6xD Albuterol Sulfate HFA Sulfate HFA 6-24 as_need Sulfate 108 (90 108 (90 00:00: ed} HFA 108 Base) Base) 00 (90 Base) MCG/ACT MCG/ACT MCG/ACT ondansetron 2021- No 4mg 4 mg, Univ ers (ZOFRAN-ODT 08-12 Oral, ity of ) 21:15: 20:44 ONCE, 1 [place] disintegrat 00 :00 dose, On Medi tracey ing tablet Thu08/12/21 Bra nch 4 mg at 1615, Routine dicyclomine 2021- No 20mg 20 mg, Uni vers (BENTYL) 08-12 Oral, ity of tablet 20 21:15: 20:44 ONCE, 1 [place] mg 00 :00 dose, On Medical 08/12/21 Branch at 1615, Routine ondansetron Yes [id number] 4mg Take 1 Univers 4 mg 6-06 tablet by ity of disintegrat 00:00: mouth [place] ing tablet 00 every 8 Medica l (eight) Branch hours as needed for Nausea and Vomiting (N/V). dicyclomine 0 Yes [id number] 20mg Take 1 Univers 20 mg 6-06 tablet by ity of tablet 00:00: mouth 4 [place] 00 (four) Medical times Branch daily as needed for Abdominal pain. ketorolac 2021- No 15mg 15 mg, Unive rs (TORADOL) 07-29 Intramuscu ity of injection 21:30: 20:32 lar, ONCE, [place] 15 mg 00 :00 1 dose, On Medical Mon Branch 07/29/21 at 1630, Routine naproxen 2021- No [id number] 375mg Take 1 Univers (EC-NAPROXE 07-29 [id number] tablet by ity of N) 375 mg 00:00: 04:59 mouth 2 [place] EC tablet 00 :00 (two) Medical times Branch daily as needed for Pain (scale 4-6) for up to 8 days. Bupivicaine Bupivicaine 0 No 2.5mg Common [place] 5-10 Spirit 00:00: - [facility] Kenalog Kenalog 0 No 40mg Common (Triamcinol (Triamcinol 5-10 S pirit one) one) 00:00: - [facility] Bupivicaine Bupivicaine 2021-0 No 2.5mg Common [place] 5-10 Spirit 00:00: - [facility] Kenalog Kenalog 2021-0 No 40mg Common (Triamcinol (Triamcinol 5-10 S pirit one) one) 00:00: - CHI 00 [facility] Bupivicaine Bupivicaine 2021-0 No 2.5mg Common [place] 5-10 Spirit 00:00: - [facility] Kenalog Kenalog 2021-0 No 40mg Common (Triamcinol (Triamcinol 5-10 S pirit one) one) 00:00: - [facility] Bupivicaine Bupivicaine 2022-0 No 2.5mg Common [place] 5-10 Spirit 00:00: - CHI 00 [facility] Kenalog Kenalog 2-0 No 40mg Common (Triamcinol (Triamcinol 5-10 S pirit one) one) 00:00: - CHI 00 [facility] Bupivicaine Bupivicaine 2-0 No 2.5mg Common [place] 5-10 Spirit 00:00: - CHI 00 [facility] Kenalog Kenalog 2-0 No 40mg Common (Triamcinol (Triamcinol 5-10 S pirit one) one) 00:00: - CHI 00 [facility] Bupivicaine Bupivicaine 2-0 No 2.5mg Common [place] 5-10 Spirit 00:00: - CHI 00 [facility] Kenalog Kenalog 2-0 No 40mg Common (Triamcinol (Triamcinol 5-10 S pirit one) one) 00:00: - CHI 00 [facility] Bupivicaine Bupivicaine 2-0 No 2.5mg Common [place] 5-10 Spirit 00:00: - CHI 00 [facility] Kenalog Kenalog 2-0 No 40mg Common (Triamcinol (Triamcinol 5-10 S pirit one) one) 00:00: - CHI 00 [facility] Bupivicaine Bupivicaine 2-0 No 2.5mg Common [place] 5-10 Spirit 00:00: - CHI 00 [facility] Kenalog Kenalog 2-0 No 40mg Common (Triamcinol (Triamcinol 5-10 S pirit one) one) 00:00: - CHI 00 [facility] Bupivicaine Bupivicaine 2-0 No 2.5mg Common [place] 5-10 Spirit 00:00: - CHI 00 [facility] Kenalog Kenalog 2-0 No 40mg Common (Triamcinol (Triamcinol 5-10 S pirit one) one) 00:00: - CHI 00 [facility] Bupivicaine Bupivicaine 2-0 No 2.5mg Common [place] 5-10 Spirit 00:00: - CHI 00 [facility] Kenalog Kenalog 2021-0 No 40mg Common (Triamcinol (Triamcinol 5-10 S pirit one) one) 00:00: - CHI 00 [facility] Bupivicaine Bupivicaine 2-0 No 2.5mg Common [place] 5-10 Spirit 00:00: - CHI 00 [facility] Kenalog Kenalog 2021-0 No 40mg Common (Triamcinol (Triamcinol 5-10 S pirit one) one) 00:00: - CHI 00 [facility] Bupivicaine Bupivicaine 2021-0 No 2.5mg Common [place] 5-10 Spirit 00:00: - CHI 00 [facility] Kenalog Kenalog 2021-0 No 40mg Common (Triamcinol (Triamcinol 5-10 S pirit one) one) 00:00: - CHI 00 [facility] Bupivicaine Bupivicaine 2021-0 No 2.5mg Common [place] 5-10 Spirit 00:00: - CHI 00 [facility] Kenalog Kenalog 2021-0 No 40mg Common (Triamcinol (Triamcinol 5-10 S pirit one) one) 00:00: - CHI 00 [facility] Bupivicaine Bupivicaine 2021-0 No 2.5mg Common [place] 5-10 Spirit 00:00: - CHI 00 [facility] Kenalog Kenalog 2021-0 No 40mg Common (Triamcinol (Triamcinol 5-10 S pirit one) one) 00:00: - CHI 00 [facility] Bupivicaine Bupivicaine 2021-0 No 2.5mg Common [place] 5-10 Spirit 00:00: - CHI 00 [facility] Kenalog Kenalog 2021-0 No 40mg Common (Triamcinol (Triamcinol 5-10 S pirit one) one) 00:00: - CHI 00 [facility] Bupivicaine Bupivicaine 2-0 No 2.5mg Common [place] 5-10 Spirit 00:00: - CHI 00 [facility] Kenalog Kenalog 2021-0 No 40mg Common (Triamcinol (Triamcinol 5-10 S pirit one) one) 00:00: - CHI 00 [facility] Bupivicaine Bupivicaine 2-0 No 2.5mg Common [place] 5-10 Spirit 00:00: - CHI 00 [facility] Kenalog Kenalog 2021-0 No 40mg Common (Triamcinol (Triamcinol 5-10 S pirit one) one) 00:00: - CHI 00 [facility] Bupivicaine Bupivicaine 2021-0 No 2.5mg Common [place] 5-10 Spirit 00:00: - CHI 00 [facility] Kenalog Kenalog 2021-0 No 40mg Common (Triamcinol (Triamcinol 5-10 S pirit one) one) 00:00: - CHI 00 [facility] Bupivicaine Bupivicaine 2021-0 No 2.5mg Common [place] 5-10 Spirit 00:00: - [facility]I 00 [facility] Kenalog Kenalog 2021-0 No 40mg Common (Triamcinol (Triamcinol 5-10 S pirit one) one) 00:00: - CHI 00 [facility] Bupivicaine Bupivicaine 2021-0 No 2.5mg Common [place] 5-10 Spirit 00:00: - CHI 00 [facility] Kenalog Kenalog 2021-0 No 40mg Common (Triamcinol (Triamcinol 5-10 S pirit one) one) 00:00: - CHI 00 [facility] Bupivicaine Bupivicaine 2021-0 No 2.5mg [place] 5-10 Spirit 00:00: - CHI 00 [facility] Kenalog Kenalog 2021-0 No 40mg Common (Triamcinol (Triamcinol 5-10 S pirit one) one) 00:00: - CHI 00 [facility] Macrobid Macrobid 2021-0 2021- No BID Macrobid 100 MG 100 MG 3-15 03-20 100 MG 00:00: 00:00 00 :00 Macrobid Macrobid 2021-0 2021- No BID Macrobid 100 MG 100 MG 3-15 03-20 100 MG 00:00: 00:00 00 :00 Pyridium Pyridium 2-0 2022- No 1{table TID Pyridium 100 MG 100 MG 3-15 -17 t_after 100 MG 00:00: 00:00 _meals} 00 :00 Pyridium Pyridium 2-0 2022- No 1{table TID Pyridium 100 MG 100 MG 3-15 -17 t_after 100 MG 00:00: 00:00 _meals} 00 :00 Macrobid Macrobid 2021-0 2022- No BID Macrobid 100 MG 100 MG 1-20 -25 100 MG 00:00: 00:00 00 :00 Macrobid Macrobid 2-0 2022- No BID Macrobid 100 MG 100 MG 1-20 - 100 MG 00:00: 00:00 00 :00 Azithromyci Azithromyci 2020-1 2021- No QD Azithromyc n 250 MG n 250 MG 0-12 10-17 in 250 MG 00:00: 00:00 00 :00 Azithromyci Azithromyci 2020-1 2021- No QD Azithromyc n 250 MG n 250 MG 0-12 10-17 in 250 MG 00:00: 00:00 00 :00 Vitamin B12 Vitamin B12 2020-1 No 1000ug Common (Cyanocobal (Cyanocobal 1-04 S pirit neal) neal) 00:00: - CHI 00 [facility] Vitamin B12 Vitamin B12 2020-1 No 1000ug Common (Cyanocobal (Cyanocobal 1-04 S pirit neal) neal) 00:00: - CHI 00 [facility] Vitamin B12 Vitamin B12 2020-1 No 1000ug Common (Cyanocobal (Cyanocobal 1-04 S pirit neal) neal) 00:00: - CHI 00 [facility] Vitamin B12 Vitamin B12 2020-1 No 1000ug Common (Cyanocobal (Cyanocobal 1-04 S pirit neal) neal) 00:00: - CHI 00 [facility] Vitamin B12 Vitamin B12 2020-1 No 1000ug Common (Cyanocobal (Cyanocobal 1-04 S pirit nael) neal) 00:00: - CHI 00 [facility] Vitamin B12 Vitamin B12 2020-1 No 1000ug Common (Cyanocobal (Cyanocobal 1-04 S pirit neal) neal) 00:00: - CHI 00 [facility] Vitamin B12 Vitamin B12 2020-1 No 1000ug Common (Cyanocobal (Cyanocobal 1-04 S pirit neal) neal) 00:00: - CHI 00 [facility] Vitamin B12 Vitamin B12 2020-1 No 1000ug Common (Cyanocobal (Cyanocobal 1-04 S pirit neal) neal) 00:00: - CHI 00 [facility] Vitamin B12 Vitamin B12 2020-1 No 1000ug Common (Cyanocobal (Cyanocobal 1-04 S pirit neal) neal) 00:00: - CHI 00 [facility] Vitamin B12 Vitamin B12 2020-1 No 1000ug Common (Cyanocobal (Cyanocobal 1-04 S pirit enal) neal) 00:00: - CHI 00 [facility] Vitamin B12 Vitamin B12 2020-1 No 1000ug Common (Cyanocobal (Cyanocobal 1-04 S pirit neal) neal) 00:00: - CHI 00 [facility] Vitamin B12 Vitamin B12 2020-1 No 1000ug Common (Cyanocobal (Cyanocobal 1-04 S pirit neal) neal) 00:00: - CHI 00 [facility] Vitamin B12 Vitamin B12 2020-1 No 1000ug Common (Cyanocobal (Cyanocobal 1-04 S pirit neal) neal) 00:00: - CHI 00 [facility] Vitamin B12 Vitamin B12 2020-1 No 1000ug Common (Cyanocobal (Cyanocobal 1-04 S pirit neal) neal) 00:00: - CHI 00 [facility] Vitamin B12 Vitamin B12 2020-1 No 1000ug Common (Cyanocobal (Cyanocobal 1-04 S pirit neal) neal) 00:00: - CHI 00 [facility] Vitamin B12 Vitamin B12 2020-1 No 1000ug Common (Cyanocobal (Cyanocobal 1-04 S pirit neal) neal) 00:00: - CHI 00 [facility] Vitamin B12 Vitamin B12 2020-1 No 1000ug Common (Cyanocobal (Cyanocobal 1-04 S pirit neal) neal) 00:00: - CHI 00 [facility] Vitamin B12 Vitamin B12 2020-1 No 1000ug Common (Cyanocobal (Cyanocobal 1-04 S pirit neal) neal) 00:00: - [facility]I 00 [facility] Vitamin B12 Vitamin B12 2020-1 No 1000ug Common (Cyanocobal (Cyanocobal 1-04 S pirit neal) neal) 00:00: - [facility]I 00 [facility] Vitamin B12 Vitamin B12 2020-1 No 1000ug Common (Cyanocobal (Cyanocobal 1-04 S pirit neal) neal) 00:00: - [facility]I 00 [facility] Vitamin B12 Vitamin B12 2020-1 No 1000ug Common (Cyanocobal (Cyanocobal 1-04 S pirit neal) neal) 00:00: - [facility]I 00 [facility] Vitamin B12 Vitamin B12 2020-1 No 1000ug Common (Cyanocobal (Cyanocobal 1-04 S pirit neal) neal) 00:00: - [facility]I 00 [facility] Vitamin B12 Vitamin B12 2020-1 No 1000ug Common (Cyanocobal (Cyanocobal 1-04 S pirit neal) neal) 00:00: - [facility] 00 [facility] Vitamin B12 Vitamin B12 2020-1 No 1000ug Common (Cyanocobal (Cyanocobal 1-04 S pirit neal) neal) 00:00: - [facility]I 00 [facility] Vitamin B12 Vitamin B12 2020-1 No 1000ug Common (Cyanocobal (Cyanocobal 1-04 S pirit neal) neal) 00:00: - CHI 00 [facility] Trazodone Trazodone 2019-1 Yes Damir 1 tablet Common HCl HCl 1-06 Thomas at bedtime Spirit 00:00: - [facility]I 00 [facility] xRocephin 1 xRocephin 1 2019-0 No 1g Common gm gm 3-28 Spirit 00:00: - [facility]I 00 [facility] xRocephin 1 xRocephin 1 2019-0 No 1g Common gm gm 3-28 Spirit 00:00: - [facility]I 00 [facility] xRocephin 1 xRocephin 1 2019-0 No 1g Common gm gm 3-28 Spirit 00:00: - [facility] 00 [facility] xRocephin 1 xRocephin 1 2019-0 No 1g Common gm gm 3-28 Spirit 00:00: - [facility] 00 [facility] xRocephin 1 xRocephin 1 2019-0 No 1g Common gm gm - Spirit 00:00: - [facility] xRocephin 1 xRocephin 1 2019-0 No 1g Common gm gm 06-03 Spirit 00:00: - [facility] xRocephin 1 xRocephin 1 2019-0 No 1g Common gm gm 06-03 Spirit 00:00: - [facility] xRocephin 1 xRocephin 1 2019-0 No 1g Common gm gm 06-03 Spirit 00:00: - [facility] xRocephin 1 xRocephin 1 2019-0 No 1g Common gm gm 06-03 Spirit 00:00: - [facility] xRocephin 1 xRocephin 1 2019-0 No 1g Common gm gm 06-03 Spirit 00:00: - [facility] xRocephin 1 xRocephin 1 2019-0 No 1g Common gm gm 06-03 Spirit 00:00: - [facility] xRocephin 1 xRocephin 1 2019-0 No 1g Common gm gm 06-03 Spirit 00:00: - [facility] xRocephin 1 xRocephin 1 2019-0 No 1g Common gm gm 06-03 Spirit 00:00: - [facility] xRocephin 1 xRocephin 1 2019-0 No 1g Common gm gm 06-03 Spirit 00:00: - [facility] xRocephin 1 xRocephin 1 2019-0 No 1g Common gm gm 06-03 Spirit 00:00: - [facility] xRocephin 1 xRocephin 1 2019-0 No 1g Common gm gm 06-03 Spirit 00:00: - [facility] xRocephin 1 xRocephin 1 2019-0 No 1g Common gm gm 06-03 Spirit 00:00: - [facility] xRocephin 1 xRocephin 1 2019-0 No 1g Common gm gm 06-03 Spirit 00:00: - [facility] xRocephin 1 xRocephin 1 2019-0 No 1g Common gm gm 3-28 Spirit 00:00: - [facility] 00 [facility] xRocephin 1 xRocephin 1 2019-0 No 1g Common gm gm 3-28 Spirit 00:00: - [facility] 00 [facility] xRocephin 1 xRocephin 1 2019-0 No 1g Common gm gm 3-28 Spirit 00:00: - [facility] 00 [facility] xRocephin 1 xRocephin 1 2019-0 No 1g Common gm gm 3-28 Spirit 00:00: - [facility] 00 [facility] xRocephin 1 xRocephin 1 2019-0 No 1g Common gm gm 3-28 Spirit 00:00: - [facility] 00 [facility] xRocephin 1 xRocephin 1 2019-0 No 1g Common gm gm 3-28 Spirit 00:00: - [facility] xRocephin 1 xRocephin 1 2019-0 No 1g Common gm gm 3-28 Spirit 00:00: - CH[facility] 00 [facility] 2018-0 Yes Damir 1 tablet Common Sodium Sodium 2-20 Thomas Spirit 00:00: - [facility] 00 [facility] Cuate Kenwilliams 2019-0 No 40mg Common (Triamcinol (Triamcinol 2-20 S pirit one) one) 00:00: - CHI 00 [facility] Kenwilliams Kenalog 2019-0 No 40mg Common (Triamcinol (Triamcinol 2-20 S pirit one) one) 00:00: - CHI 00 [facility] Kenwilliams Kenalog 2019-0 No 40mg Common (Triamcinol (Triamcinol 2-20 S pirit one) one) 00:00: - CHI 00 [facility] Kenwilliams Kenalog 2019-0 No 40mg Common (Triamcinol (Triamcinol 2-20 S pirit one) one) 00:00: - [facility] Cuate Kenalog 2019-0 No 40mg Common (Triamcinol (Triamcinol 2-20 S pirit one) one) 00:00: - [facility] Montelukast Montelukast 2019-0 No 1{table QD Montelukas Sodium 10 Sodium 10 2-20 t} t Sodium MG MG 00:00: 10 MG 00 Montelukast Montelukast 2019-0 No 1{table QD Montelukas Sodium 10 Sodium 10 2-20 t} t Sodium MG MG 00:00: 10 MG 00 Montelukast Montelukast 2019-0 No 1{table QD Montelukas Sodium 10 Sodium 10 2-20 t} t Sodium MG MG 00:00: 10 MG 00 Montelukast Montelukast 2019-0 No 1{table QD Montelukas Sodium 10 Sodium 10 2-20 t} t Sodium MG MG 00:00: 10 MG 00 Montelukast Montelukast 2019-0 No 1{table QD Montelukas Sodium 10 Sodium 10 2-20 t} t Sodium MG MG 00:00: 10 MG 00 Montelukast Montelukast 2019-0 No 1{table QD Montelukas Sodium 10 Sodium 10 2-20 t} t Sodium MG MG 00:00: 10 MG 00 Montelukast Montelukast 2019-0 No 1{table QD Montelukas Sodium 10 Sodium 10 2-20 t} t Sodium MG MG 00:00: 10 MG 00 Montelukast Montelukast 2019-0 No 1{table QD Montelukas Sodium 10 Sodium 10 2-20 t} t Sodium MG MG 00:00: 10 MG 00 Kenalog Kenalog 2019-0 No 40mg Common (Triamcinol (Triamcinol 2-20 S pirit one) one) 00:00: - [facility] 00 [facility] Montelukast Montelukast 2019-0 No 1{table QD Montelukas Sodium 10 Sodium 10 2-20 t} t Sodium MG MG 00:00: 10 MG 00 Kenalog Kenalog 2019-0 No 40mg Common (Triamcinol (Triamcinol 2-20 S pirit one) one) 00:00: - [facility] 00 [facility] Montelukast Montelukast 2019-0 No 1{table QD Montelukas Sodium 10 Sodium 10 2-20 t} t Sodium MG MG 00:00: 10 MG 00 Kenalog Kenalog 2019-0 No 40mg Common (Triamcinol (Triamcinol 2-20 S pirit one) one) 00:00: - [facility] 00 [facility] Montekast Montekast 2019-0 No 1{table QD Montelukas Sodium 10 Sodium 10 2-20 t} t Sodium MG MG 00:00: 10 MG 00 Kenalog Kenalog 2019-0 No 40mg Common (Triamcinol (Triamcinol 2-20 S pirit one) one) 00:00: - [facility] 00 [facility] Montekast Montekast 2019-0 No 1{table QD Montelukas Sodium 10 Sodium 10 2-20 t} t Sodium MG MG 00:00: 10 MG 00 Kenalog Kenalog 2019-0 No 40mg Common (Triamcinol (Triamcinol 2-20 S pirit one) one) 00:00: - [facility] 00 [facility] Montekast Montekast 2019-0 No 1{table QD Montelukas Sodium 10 Sodium 10 2-20 t} t Sodium MG MG 00:00: 10 MG 00 Kenalog Kenalog 2019-0 No 40mg Common (Triamcinol (Triamcinol 2-20 S pirit one) one) 00:00: - [facility] 00 [facility] Monteka Montekast 2019-0 No 1{table QD Montelukas Sodium 10 Sodium 10 2-20 t} t Sodium MG MG 00:00: 10 MG 00 Kenalog Kenalog 2019-0 No 40mg Common (Triamcinol (Triamcinol 2-20 S pirit one) one) 00:00: - [facility] Montekast Montekast 2019-0 No 1{table QD Montelukas Sodium 10 Sodium 10 2-20 t} t Sodium MG MG 00:00: 10 MG 00 Kenalog Kenalog 2019-0 No 40mg Common (Triamcinol (Triamcinol 2-20 S pirit one) one) 00:00: - [facility] Monte[place]ast Montelukast 2019-0 No 1{table QD Montelukas Sodium 10 Sodium 10 2-20 t} t Sodium MG MG 00:00: 10 MG 00 Kenalog Kenalog 2019-0 No 40mg Common (Triamcinol (Triamcinol 2-20 S pirit one) one) 00:00: - [facility] Montekast Montekast 2019-0 No 1{table QD Montelukas Sodium 10 Sodium 10 2-20 t} t Sodium MG MG 00:00: 10 MG 00 Kenalog Kenalog 2019-0 No 40mg Common (Triamcinol (Triamcinol 2-20 S pirit one) one) 00:00: - [facility] Montekast Montekast 2019-0 No 1{table QD Montelukas Sodium 10 Sodium 10 2-20 t} t Sodium MG MG 00:00: 10 MG 00 Kenalog Kenalog 2019-0 No 40mg Common (Triamcinol (Triamcinol 2-20 S pirit one) one) 00:00: - [facility] Montekast Montekast 2019-0 No 1{table QD Montelukas Sodium 10 Sodium 10 2-20 t} t Sodium MG MG 00:00: 10 MG 00 Kenalog Kenalog 2019-0 No 40mg Common (Triamcinol (Triamcinol 2-20 S pirit one) one) 00:00: - [facility] Monteka Montekast 2019-0 No 1{table QD Montelukas Sodium 10 Sodium 10 2-20 t} t Sodium MG MG 00:00: 10 MG 00 Kenalog Kenalog 2019-0 No 40mg Common (Triamcinol (Triamcinol 2-20 S pirit one) one) 00:00: - [facility] Montekast Montekast 2019-0 No 1{table QD Montelukas Sodium 10 Sodium 10 2-20 t} t Sodium MG MG 00:00: 10 MG 00 Kenalog Kenalog 2019-0 No 40mg Common (Triamcinol (Triamcinol 2-20 S pirit one) one) 00:00: - [facility] Monte[place]ast Montelukast 2019-0 No 1{table QD Montelukas Sodium 10 Sodium 10 2-20 t} t Sodium MG MG 00:00: 10 MG 00 Kenalog Kenalog 2019-0 No 40mg Common (Triamcinol (Triamcinol 2-20 S pirit one) one) 00:00: - [facility] Cuate Kenalog 2019-0 No 40mg Common (Triamcinol (Triamcinol 2-20 S pirit one) one) 00:00: - [facility] Cuate Kenalog 2019-0 No 40mg Common (Triamcinol (Triamcinol 2-20 S pirit one) one) 00:00: - [facility] Cuate Kenalog 2019-0 No 40mg Common (Triamcinol (Triamcinol 2-20 S pirit one) one) 00:00: - [facility] Cuate Kenwilliams 2019-0 No 40mg Common (Triamcinol (Triamcinol 2-20 S pirit one) one) 00:00: - [facility] Cuate Cuello 2019-0 No 40mg Common (Triamcinol (Triamcinol 2-20 S pirit one) one) 00:00: - [facility] Tramadol Tramadol 2017-1 Yes Damir 1 tablet Common HCl HCl 2-10 [facility] as needed [facility] 00:00: - [facility] traMADol traMADol 2017- No 1{table QID traMADol HCl 50 MG HCl 50 MG 2-10 t_as_ne HCl 50 MG 00:00: eded} 00 traMADol traMADol 2017- No 1{table QID traMADol HCl 50 MG HCl 50 MG 2-10 t_as_ne HCl 50 MG 00:00: eded} 00 traMADol traMADol 2017- No 1{table QID traMADol HCl 50 MG HCl 50 MG 2-10 t_as_ne HCl 50 MG 00:00: eded} 00 traMADol traMADol 2017-1 No 1{table QID traMADol HCl 50 MG HCl 50 MG 2-10 t_as_ne HCl 50 MG 00:00: eded} 00 traMADol traMADol 2017-1 No 1{table QID traMADol HCl 50 MG HCl 50 MG 2-10 t_as_ne HCl 50 MG 00:00: eded} 00 traMADol traMADol 2017- No 1{table QID traMADol HCl 50 MG HCl 50 MG 2-10 t_as_ne HCl 50 MG 00:00: eded} 00 traMADol traMADol 2017- No 1{table QID traMADol HCl 50 MG HCl 50 MG 2-10 t_as_ne HCl 50 MG 00:00: eded} traMADol traMADol 2017- No 1{table QID traMADol HCl 50 MG HCl 50 MG 2-10 t_as_ne HCl 50 MG 00:00: eded} traMADol traMADol 2017- No 1{table QID traMADol HCl 50 MG HCl 50 MG 2-10 t_as_ne HCl 50 MG 00:00: eded} traMADol traMADol 2017- No 1{table QID traMADol HCl 50 MG HCl 50 MG 2-10 t_as_ne HCl 50 MG 00:00: eded} traMADol traMADol 2017- No 1{table QID traMADol HCl 50 MG HCl 50 MG 2-10 t_as_ne HCl 50 MG 00:00: eded} traMADol traMADol 2017- No 1{table QID traMADol HCl 50 MG HCl 50 MG 2-10 t_as_ne HCl 50 MG 00:00: eded} traMADol traMADol 2017- No 1{table QID traMADol HCl 50 MG HCl 50 MG 2-10 t_as_ne HCl 50 MG 00:00: eded} traMADol traMADol 2017- No 1{table QID traMADol HCl 50 MG HCl 50 MG 2-10 t_as_ne HCl 50 MG 00:00: eded} traMADol traMADol 2017- No 1{table QID traMADol HCl 50 MG HCl 50 MG 2-10 t_as_ne HCl 50 MG 00:00: eded} traMADol traMADol 2017- No 1{table QID traMADol HCl 50 MG HCl 50 MG 2-10 t_as_ne HCl 50 MG 00:00: eded} traMADol traMADol 2017- No 1{table QID traMADol HCl 50 MG HCl 50 MG 2-10 t_as_ne HCl 50 MG 00:00: eded} traMADol traMADol 2017- No 1{table QID traMADol HCl 50 MG HCl 50 MG 2-10 t_as_ne HCl 50 MG 00:00: eded} traMADol traMADol 2017- No 1{table QID traMADol HCl 50 MG HCl 50 MG 2-10 t_as_ne HCl 50 MG 00:00: eded} 00 Lisinopril Lisinopril Yes Damir 1 tablet Common [facility] Simvastatin Simvastatin Yes Damir 1 tablet Common [facility] Vitamin B12 Vitamin B12 Yes Damir not Common [facility] defined [facility] Lorazepam Lorazepam Yes Damir 1 tablet Common [facility] as needed [facility] Metformin Metformin Yes Damir 1 tablet Common HCl HCl [facility] with a [facility] meal [facility] Omeprazole Omeprazole Yes Damir 1 capsule Common [facility] Synthroid Synthroid Yes Damir 1 tablet Common [facility] on an Spirit empty - [facility] stomach in [facility] Omeprazole Omeprazole No 1{capsu QD Omeprazole 40 MG 40 MG le} 40 MG Meloxicam Meloxicam No Meloxicam 7.5 MG 7.5 MG 7.5 MG Triamcinolo Triamcinolo No 1{appli BID Triamcinol ne ne cation} one Acetonide Acetonide Acetonide 0.1 % 0.1 % 0.1 % Levothyroxi Levothyroxi No Levothyrox ne Sodium ne Sodium ine Sodium 50 MCG 50 MCG 50 MCG diazePAM 5 diazePAM 5 No 1{table diazePAM 5 MG MG t} MG traZODone traZODone No 1{table QD traZODone HCl 150 MG HCl 150 MG t_at_be HCl 150 MG dtime} Vitamin B12 Vitamin B12 No Vitamin 100 MCG 100 MCG B12 100 MCG Simvastatin Simvastatin No Simvastati 40 MG 40 MG n 40 MG Lisinopril Lisinopril No 1{table QD Lisinopril 30 MG 30 MG t} 30 MG metFORMIN metFORMIN No 1{table BID metFORMIN HCl 500 MG HCl 500 MG t_with_ HCl 500 MG a_meal} metFORMIN metFORMIN No 1{table BID metFORMIN HCl 500 MG HCl 500 MG t_with_ HCl 500 MG a_meal} Vitamin B12 Vitamin B12 No Vitamin 100 MCG 100 MCG B12 100 MCG Omeprazole Omeprazole No 1{capsu QD Omeprazole 40 MG 40 MG le} 40 MG Simvastatin Simvastatin No 1{table QD Simvastati 40 MG 40 MG t_in_th n 40 MG e_eveni ng} Meloxicam Meloxicam No Meloxicam 7.5 MG 7.5 MG 7.5 MG traZODone traZODone No 1{table QD traZODone HCl 150 MG HCl 150 MG t_at_be HCl 150 MG dtime} Lisinopril Lisinopril No 1{table QD Lisinopril 30 MG 30 MG t} 30 MG Triamcinolo Triamcinolo No 1{appli BID Triamcinol ne ne cation} one Acetonide Acetonide Acetonide 0.1 % 0.1 % 0.1 % diazePAM 5 diazePAM 5 No 1{table diazePAM 5 MG MG t} MG Simvastatin Simvastatin No Simvastati 40 MG 40 MG n 40 MG Levothyroxi Levothyroxi No Levothyrox ne Sodium ne Sodium ine Sodium 50 MCG 50 MCG 50 MCG Synthroid Synthroid No QD Synthroid 50 MCG 50 MCG 50 MCG Triamcinolo Triamcinolo No 1{appli BID Triamcinol ne ne cation} one Acetonide Acetonide Acetonide 0.1 % 0.1 % 0.1 % Simvastatin Simvastatin No 1{table QD Simvastati 40 MG 40 MG t_in_th n 40 MG e_eveni ng} metFORMIN metFORMIN No 1{table BID metFORMIN HCl 500 MG HCl 500 MG t_with_ HCl 500 MG a_meal} Omeprazole Omeprazole No 1{capsu QD Omeprazole 40 MG 40 MG le} 40 MG Synthroid Synthroid No QD Synthroid 50 MCG 50 MCG 50 MCG Meloxicam Meloxicam No Meloxicam 7.5 MG 7.5 MG 7.5 MG Vitamin B12 Vitamin B12 No Vitamin 100 MCG 100 MCG B12 100 MCG Levothyroxi Levothyroxi No Levothyrox ne Sodium ne Sodium ine Sodium 50 MCG 50 MCG 50 MCG diazePAM 5 diazePAM 5 No 1{table diazePAM 5 MG MG t} MG Simvastatin Simvastatin No Simvastati 40 MG 40 MG n 40 MG traZODone traZODone No 1{table QD traZODone HCl 150 MG HCl 150 MG t_at_be HCl 150 MG dtime} Lisinopril Lisinopril No 1{table QD Lisinopril 30 MG 30 MG t} 30 MG Simvastatin Simvastatin No Simvastati 40 MG 40 MG n 40 MG Omeprazole Omeprazole No 1{capsu QD Omeprazole 40 MG 40 MG le} 40 MG diazePAM 5 diazePAM 5 No 1{table diazePAM 5 MG MG t} MG metFORMIN metFORMIN No 1{table BID metFORMIN HCl 500 MG HCl 500 MG t_with_ HCl 500 MG a_meal} Meloxicam Meloxicam No Meloxicam 7.5 MG 7.5 MG 7.5 MG traZODone traZODone No 1{table QD traZODone HCl 150 MG HCl 150 MG t_at_be HCl 150 MG dtime} Simvastatin Simvastatin No 1{table QD Simvastati 40 MG 40 MG t_in_th n 40 MG e_eveni ng} Levothyroxi Levothyroxi No Levothyrox ne Sodium ne Sodium ine Sodium 50 MCG 50 MCG 50 MCG Lisinopril Lisinopril No 1{table QD Lisinopril 30 MG 30 MG t} 30 MG Triamcinolo Triamcinolo No 1{appli BID Triamcinol ne ne cation} one Acetonide Acetonide Acetonide 0.1 % 0.1 % 0.1 % Vitamin B12 Vitamin B12 No Vitamin 100 MCG 100 MCG B12 100 MCG Omeprazole Omeprazole No 1{capsu QD Omeprazole 40 MG 40 MG le} 40 MG Triamcinolo Triamcinolo No 1{appli BID Triamcinol ne ne cation} one Acetonide Acetonide Acetonide 0.1 % 0.1 % 0.1 % traZODone traZODone No 1{table QD traZODone HCl 150 MG HCl 150 MG t_at_be HCl 150 MG dtime} metFORMIN metFORMIN No 1{table BID metFORMIN HCl 500 MG HCl 500 MG t_with_ HCl 500 MG a_meal} Lisinopril Lisinopril No 1{table QD Lisinopril 30 MG 30 MG t} 30 MG Vitamin B12 Vitamin B12 No Vitamin 100 MCG 100 MCG B12 100 MCG Simvastatin Simvastatin No Simvastati 40 MG 40 MG n 40 MG Levothyroxi Levothyroxi No Levothyrox ne Sodium ne Sodium ine Sodium 50 MCG 50 MCG 50 MCG Meloxicam Meloxicam No Meloxicam 7.5 MG 7.5 MG 7.5 MG metFORMIN metFORMIN No metFORMIN HCl 500 MG HCl 500 MG HCl 500 MG Triamcinolo Triamcinolo No 1{appli BID Triamcinol ne ne cation} one Acetonide Acetonide Acetonide 0.1 % 0.1 % 0.1 % Lisinopril Lisinopril No 1{table QD Lisinopril 30 MG 30 MG t} 30 MG Synthroid Synthroid No QD Synthroid 50 MCG 50 MCG 50 MCG Synthroid Synthroid No QD Synthroid 50 MCG 50 MCG 50 MCG metFORMIN metFORMIN No 1{table BID metFORMIN HCl 500 MG HCl 500 MG t_with_ HCl 500 MG a_meal} LORazepam LORazepam No 1{table LORazepam 0.5 MG 0.5 MG t_as_ne 0.5 MG eded} Vitamin B12 Vitamin B12 No Vitamin 100 MCG 100 MCG B12 100 MCG Euthyrox 75 Euthyrox 75 No Euthyrox MCG MCG 75 MCG Omeprazole Omeprazole No 1{capsu QD Omeprazole 40 MG 40 MG le} 40 MG Meloxicam Meloxicam No Meloxicam 7.5 MG 7.5 MG 7.5 MG traZODone traZODone No 1{table QD traZODone HCl 100 MG HCl 100 MG t_at_be HCl 100 MG dtime} Simvastatin Simvastatin No 1{table QD Simvastati 40 MG 40 MG t_in_th n 40 MG e_eveni ng} Euthyrox 75 Euthyrox 75 No Euthyrox MCG MCG 75 MCG Lisinopril Lisinopril No 1{table QD Lisinopril 30 MG 30 MG t} 30 MG Simvastatin Simvastatin No 1{table QD Simvastati 40 MG 40 MG t_in_th n 40 MG e_eveni ng} metFORMIN metFORMIN No metFORMIN HCl 500 MG HCl 500 MG HCl 500 MG traZODone traZODone No 1{table QD traZODone HCl 100 MG HCl 100 MG t_at_be HCl 100 MG dtime} Synthroid Synthroid No QD Synthroid 50 MCG 50 MCG 50 MCG Synthroid Synthroid No QD Synthroid 50 MCG 50 MCG 50 MCG Omeprazole Omeprazole No 1{capsu QD Omeprazole 40 MG 40 MG le} 40 MG LORazepam LORazepam No 1{table LORazepam 0.5 MG 0.5 MG t_as_ne 0.5 MG eded} Meloxicam Meloxicam No Meloxicam 7.5 MG 7.5 MG 7.5 MG metFORMIN metFORMIN No 1{table BID metFORMIN HCl 500 MG HCl 500 MG t_with_ HCl 500 MG a_meal} Vitamin B12 Vitamin B12 No Vitamin 100 MCG 100 MCG B12 100 MCG Triamcinolo Triamcinolo No 1{appli BID Triamcinol ne ne cation} one Acetonide Acetonide Acetonide 0.1 % 0.1 % 0.1 % Euthyrox 75 Euthyrox 75 No Euthyrox MCG MCG 75 MCG Lisinopril Lisinopril No 1{table QD Lisinopril 30 MG 30 MG t} 30 MG Simvastatin Simvastatin No 1{table QD Simvastati 40 MG 40 MG t_in_th n 40 MG e_eveni ng} metFORMIN metFORMIN No metFORMIN HCl 500 MG HCl 500 MG HCl 500 MG traZODone traZODone No 1{table QD traZODone HCl 100 MG HCl 100 MG t_at_be HCl 100 MG dtime} Synthroid Synthroid No QD Synthroid 50 MCG 50 MCG 50 MCG Synthroid Synthroid No QD Synthroid 50 MCG 50 MCG 50 MCG Omeprazole Omeprazole No 1{capsu QD Omeprazole 40 MG 40 MG le} 40 MG LORazepam LORazepam No 1{table LORazepam 0.5 MG 0.5 MG t_as_ne 0.5 MG eded} Meloxicam Meloxicam No Meloxicam 7.5 MG 7.5 MG 7.5 MG metFORMIN metFORMIN No 1{table BID metFORMIN HCl 500 MG HCl 500 MG t_with_ HCl 500 MG a_meal} Vitamin B12 Vitamin B12 No Vitamin 100 MCG 100 MCG B12 100 MCG Triamcinolo Triamcinolo No 1{appli BID Triamcinol ne ne cation} one Acetonide Acetonide Acetonide 0.1 % 0.1 % 0.1 % Euthyrox 75 Euthyrox 75 No Euthyrox MCG MCG 75 MCG LORazepam LORazepam No 1{table LORazepam 0.5 MG 0.5 MG t_as_ne 0.5 MG eded} metFORMIN metFORMIN No metFORMIN HCl 500 MG HCl 500 MG HCl 500 MG Lisinopril Lisinopril No Lisinopril 30 MG 30 MG 30 MG traZODone traZODone No 1{table QD traZODone HCl 100 MG HCl 100 MG t_at_be HCl 100 MG dtime} Synthroid Synthroid No QD Synthroid 50 MCG 50 MCG 50 MCG Synthroid Synthroid No QD Synthroid 50 MCG 50 MCG 50 MCG Simvastatin Simvastatin No 1{table QD Simvastati 40 MG 40 MG t_in_th n 40 MG e_eveni ng} Omeprazole Omeprazole No 1{capsu QD Omeprazole 40 MG 40 MG le} 40 MG Vitamin B12 Vitamin B12 No Vitamin 100 MCG 100 MCG B12 100 MCG Meloxicam Meloxicam No Meloxicam 7.5 MG 7.5 MG 7.5 MG metFORMIN metFORMIN No 1{table BID metFORMIN HCl 500 MG HCl 500 MG t_with_ HCl 500 MG a_meal} Triamcinolo Triamcinolo No 1{appli BID Triamcinol ne ne cation} one Acetonide Acetonide Acetonide 0.1 % 0.1 % 0.1 % Synthroid Synthroid No QD Synthroid 50 MCG 50 MCG 50 MCG metFORMIN metFORMIN No metFORMIN HCl 500 MG HCl 500 MG HCl 500 MG Meloxicam Meloxicam No Meloxicam 7.5 MG 7.5 MG 7.5 MG Triamcinolo Triamcinolo No 1{appli BID Triamcinol ne ne cation} one Acetonide Acetonide Acetonide 0.1 % 0.1 % 0.1 % Lisinopril Lisinopril No Lisinopril 30 MG 30 MG 30 MG Synthroid Synthroid No QD Synthroid 50 MCG 50 MCG 50 MCG traZODone traZODone No 1{table QD traZODone HCl 100 MG HCl 100 MG t_at_be HCl 100 MG dtime} LORazepam LORazepam No 1{table LORazepam 0.5 MG 0.5 MG t_as_ne 0.5 MG eded} Simvastatin Simvastatin No 1{table QD Simvastati 40 MG 40 MG t_in_th n 40 MG e_eveni ng} Omeprazole Omeprazole No 1{capsu QD Omeprazole 40 MG 40 MG le} 40 MG Euthyrox 75 Euthyrox 75 No Euthyrox MCG MCG 75 MCG metFORMIN metFORMIN No 1{table BID metFORMIN HCl 500 MG HCl 500 MG t_with_ HCl 500 MG a_meal} Vitamin B12 Vitamin B12 No Vitamin 100 MCG 100 MCG B12 100 MCG Simvastatin Simvastatin No 1{table QD Simvastati 40 MG 40 MG t_in_th n 40 MG e_eveni ng} metFORMIN metFORMIN No 1{table BID metFORMIN HCl 500 MG HCl 500 MG t_with_ HCl 500 MG a_meal} traZODone traZODone No 1{table QD traZODone HCl 100 MG HCl 100 MG t_at_be HCl 100 MG dtime} Synthroid Synthroid No QD Synthroid 50 MCG 50 MCG 50 MCG Vitamin B12 Vitamin B12 No Vitamin 100 MCG 100 MCG B12 100 MCG Lisinopril Lisinopril No 1{table QD Lisinopril 30 MG 30 MG t} 30 MG Omeprazole Omeprazole No 1{capsu QD Omeprazole 40 MG 40 MG le} 40 MG Vitamin B12 Vitamin B12 No Vitamin 100 MCG 100 MCG B12 100 MCG Omeprazole Omeprazole No 1{capsu QD Omeprazole 40 MG 40 MG le} 40 MG Triamcinolo Triamcinolo No 1{appli BID Triamcinol ne ne cation} one Acetonide Acetonide Acetonide 0.1 % 0.1 % 0.1 % LORazepam LORazepam No 1{table LORazepam 0.5 MG 0.5 MG t_as_ne 0.5 MG eded} Euthyrox 75 Euthyrox 75 No Euthyrox MCG MCG 75 MCG Synthroid Synthroid No QD Synthroid 50 MCG 50 MCG 50 MCG Simvastatin Simvastatin No 1{table QD Simvastati 40 MG 40 MG t_in_th n 40 MG e_eveni ng} Synthroid Synthroid No QD Synthroid 50 MCG 50 MCG 50 MCG traZODone traZODone No 1{table QD traZODone HCl 100 MG HCl 100 MG t_at_be HCl 100 MG dtime} Lisinopril Lisinopril No Lisinopril 30 MG 30 MG 30 MG Lisinopril Lisinopril No 1{table QD Lisinopril 30 MG 30 MG t} 30 MG Meloxicam Meloxicam No Meloxicam 7.5 MG 7.5 MG 7.5 MG metFORMIN metFORMIN No metFORMIN HCl 500 MG HCl 500 MG HCl 500 MG metFORMIN metFORMIN No 1{table BID metFORMIN HCl 500 MG HCl 500 MG t_with_ HCl 500 MG a_meal} Vitamin B12 Vitamin B12 No Vitamin 100 MCG 100 MCG B12 100 MCG Omeprazole Omeprazole No 1{capsu QD Omeprazole 40 MG 40 MG le} 40 MG Triamcinolo Triamcinolo No 1{appli BID Triamcinol ne ne cation} one Acetonide Acetonide Acetonide 0.1 % 0.1 % 0.1 % LORazepam LORazepam No 1{table LORazepam 0.5 MG 0.5 MG t_as_ne 0.5 MG eded} Euthyrox 75 Euthyrox 75 No Euthyrox MCG MCG 75 MCG Synthroid Synthroid No QD Synthroid 50 MCG 50 MCG 50 MCG Simvastatin Simvastatin No 1{table QD Simvastati 40 MG 40 MG t_in_th n 40 MG e_eveni ng} Synthroid Synthroid No QD Synthroid 50 MCG 50 MCG 50 MCG traZODone traZODone No 1{table QD traZODone HCl 100 MG HCl 100 MG t_at_be HCl 100 MG dtime} Lisinopril Lisinopril No Lisinopril 30 MG 30 MG 30 MG Lisinopril Lisinopril No 1{table QD Lisinopril 30 MG 30 MG t} 30 MG Meloxicam Meloxicam No Meloxicam 7.5 MG 7.5 MG 7.5 MG metFORMIN metFORMIN No metFORMIN HCl 500 MG HCl 500 MG HCl 500 MG metFORMIN metFORMIN No 1{table BID metFORMIN HCl 500 MG HCl 500 MG t_with_ HCl 500 MG a_meal} Omeprazole Omeprazole No 1{capsu QD Omeprazole 40 MG 40 MG le} 40 MG Vitamin B12 Vitamin B12 No Vitamin 100 MCG 100 MCG B12 100 MCG Triamcinolo Triamcinolo No 1{appli BID Triamcinol ne ne cation} one Acetonide Acetonide Acetonide 0.1 % 0.1 % 0.1 % LORazepam LORazepam No 1{table LORazepam 0.5 MG 0.5 MG t_as_ne 0.5 MG eded} Euthyrox 75 Euthyrox 75 No Euthyrox MCG MCG 75 MCG Synthroid Synthroid No QD Synthroid 50 MCG 50 MCG 50 MCG Simvastatin Simvastatin No 1{table QD Simvastati 40 MG 40 MG t_in_th n 40 MG e_eveni ng} Synthroid Synthroid No QD Synthroid 50 MCG 50 MCG 50 MCG traZODone traZODone No 1{table QD traZODone HCl 100 MG HCl 100 MG t_at_be HCl 100 MG dtime} Lisinopril Lisinopril No Lisinopril 30 MG 30 MG 30 MG Lisinopril Lisinopril No 1{table QD Lisinopril 30 MG 30 MG t} 30 MG Meloxicam Meloxicam No Meloxicam 7.5 MG 7.5 MG 7.5 MG metFORMIN metFORMIN No metFORMIN HCl 500 MG HCl 500 MG HCl 500 MG metFORMIN metFORMIN No 1{table BID metFORMIN HCl 500 MG HCl 500 MG t_with_ HCl 500 MG a_meal} Synthroid Synthroid No QD Synthroid 50 MCG 50 MCG 50 MCG Lisinopril Lisinopril No Lisinopril 30 MG 30 MG 30 MG Omeprazole Omeprazole No 1{capsu QD Omeprazole 40 MG 40 MG le} 40 MG metFORMIN metFORMIN No metFORMIN HCl 500 MG HCl 500 MG HCl 500 MG Simvastatin Simvastatin No 1{table QD Simvastati 40 MG 40 MG t_in_th n 40 MG e_eveni ng} Meloxicam Meloxicam No Meloxicam 7.5 MG 7.5 MG 7.5 MG Triamcinolo Triamcinolo No 1{appli BID Triamcinol ne ne cation} one Acetonide Acetonide Acetonide 0.1 % 0.1 % 0.1 % LORazepam LORazepam No 1{table LORazepam 0.5 MG 0.5 MG t_as_ne 0.5 MG eded} Synthroid Synthroid No QD Synthroid 50 MCG 50 MCG 50 MCG traZODone traZODone No 1{table QD traZODone HCl 100 MG HCl 100 MG t_at_be HCl 100 MG dtime} metFORMIN metFORMIN No 1{table BID metFORMIN HCl 500 MG HCl 500 MG t_with_ HCl 500 MG a_meal} Euthyrox 75 Euthyrox 75 No Euthyrox MCG MCG 75 MCG Vitamin B12 Vitamin B12 No Vitamin 100 MCG 100 MCG B12 100 MCG Lisinopril Lisinopril No 1{table QD Lisinopril 30 MG 30 MG t} 30 MG Synthroid Synthroid No QD Synthroid 50 MCG 50 MCG 50 MCG Lisinopril Lisinopril No Lisinopril 30 MG 30 MG 30 MG Omeprazole Omeprazole No 1{capsu QD Omeprazole 40 MG 40 MG le} 40 MG metFORMIN metFORMIN No metFORMIN HCl 500 MG HCl 500 MG HCl 500 MG Simvastatin Simvastatin No 1{table QD Simvastati 40 MG 40 MG t_in_th n 40 MG e_eveni ng} Meloxicam Meloxicam No Meloxicam 7.5 MG 7.5 MG 7.5 MG Triamcinolo Triamcinolo No 1{appli BID Triamcinol ne ne cation} one Acetonide Acetonide Acetonide 0.1 % 0.1 % 0.1 % LORazepam LORazepam No 1{table LORazepam 0.5 MG 0.5 MG t_as_ne 0.5 MG eded} Synthroid Synthroid No QD Synthroid 50 MCG 50 MCG 50 MCG traZODone traZODone No 1{table QD traZODone HCl 100 MG HCl 100 MG t_at_be HCl 100 MG dtime} metFORMIN metFORMIN No 1{table BID metFORMIN HCl 500 MG HCl 500 MG t_with_ HCl 500 MG a_meal} Euthyrox 75 Euthyrox 75 No Euthyrox MCG MCG 75 MCG Vitamin B12 Vitamin B12 No Vitamin 100 MCG 100 MCG B12 100 MCG Lisinopril Lisinopril No 1{table QD Lisinopril 30 MG 30 MG t} 30 MG metFORMIN metFORMIN No metFORMIN HCl 500 MG HCl 500 MG HCl 500 MG Synthroid Synthroid No QD Synthroid 50 MCG 50 MCG 50 MCG LORazepam LORazepam No 1{table LORazepam 0.5 MG 0.5 MG t_as_ne 0.5 MG eded} Synthroid Synthroid No QD Synthroid 50 MCG 50 MCG 50 MCG Simvastatin Simvastatin No 1{table QD Simvastati 40 MG 40 MG t_in_th n 40 MG e_eveni ng} Meloxicam Meloxicam No Meloxicam 7.5 MG 7.5 MG 7.5 MG metFORMIN metFORMIN No 1{table BID metFORMIN HCl 500 MG HCl 500 MG t_with_ HCl 500 MG a_meal} Triamcinolo Triamcinolo No 1{appli BID Triamcinol ne ne cation} one Acetonide Acetonide Acetonide 0.1 % 0.1 % 0.1 % Vitamin B12 Vitamin B12 No Vitamin 100 MCG 100 MCG B12 100 MCG traZODone traZODone No 1{table QD traZODone HCl 100 MG HCl 100 MG t_at_be HCl 100 MG dtime} Omeprazole Omeprazole No 1{capsu QD Omeprazole 40 MG 40 MG le} 40 MG Lisinopril Lisinopril No 1{table QD Lisinopril 30 MG 30 MG t} 30 MG Euthyrox 75 Euthyrox 75 No Euthyrox MCG MCG 75 MCG Lisinopril Lisinopril No Lisinopril 30 MG 30 MG 30 MG LORazepam LORazepam No 1{table LORazepam 0.5 MG 0.5 MG t_as_ne 0.5 MG eded} Meloxicam Meloxicam No Meloxicam 7.5 MG 7.5 MG 7.5 MG Vitamin B12 Vitamin B12 No Vitamin 100 MCG 100 MCG B12 100 MCG Lisinopril Lisinopril No 1{table QD Lisinopril 30 MG 30 MG t} 30 MG Triamcinolo Triamcinolo No 1{appli BID Triamcinol ne ne cation} one Acetonide Acetonide Acetonide 0.1 % 0.1 % 0.1 % Synthroid Synthroid No QD Synthroid 50 MCG 50 MCG 50 MCG Meloxicam Meloxicam No 1{table QD Meloxicam 7.5 MG 7.5 MG t} 7.5 MG Euthyrox 75 Euthyrox 75 No Euthyrox MCG MCG 75 MCG traZODone traZODone No 1{table QD traZODone HCl 100 MG HCl 100 MG t_at_be HCl 100 MG dtime} Lisinopril Lisinopril No Lisinopril 30 MG 30 MG 30 MG Levothyroxi Levothyroxi No QD Levothyrox ne Sodium ne Sodium ine Sodium 50 MCG 50 MCG 50 MCG metFORMIN metFORMIN No 1{table BID metFORMIN HCl 500 MG HCl 500 MG t_with_ HCl 500 MG a_meal} metFORMIN metFORMIN No metFORMIN HCl 500 MG HCl 500 MG HCl 500 MG Synthroid Synthroid No QD Synthroid 50 MCG 50 MCG 50 MCG Simvastatin Simvastatin No 1{table QD Simvastati 40 MG 40 MG t_in_th n 40 MG e_eveni ng} Omeprazole Omeprazole No 1{capsu QD Omeprazole 40 MG 40 MG le} 40 MG LORazepam LORazepam No 1{table LORazepam 0.5 MG 0.5 MG t_as_ne 0.5 MG eded} Meloxicam Meloxicam No Meloxicam 7.5 MG 7.5 MG 7.5 MG Vitamin B12 Vitamin B12 No Vitamin 100 MCG 100 MCG B12 100 MCG Lisinopril Lisinopril No 1{table QD Lisinopril 30 MG 30 MG t} 30 MG Triamcinolo Triamcinolo No 1{appli BID Triamcinol ne ne cation} one Acetonide Acetonide Acetonide 0.1 % 0.1 % 0.1 % Synthroid Synthroid No QD Synthroid 50 MCG 50 MCG 50 MCG Meloxicam Meloxicam No 1{table QD Meloxicam 7.5 MG 7.5 MG t} 7.5 MG Euthyrox 75 Euthyrox 75 No Euthyrox MCG MCG 75 MCG traZODone traZODone No 1{table QD traZODone HCl 100 MG HCl 100 MG t_at_be HCl 100 MG dtime} Lisinopril Lisinopril No Lisinopril 30 MG 30 MG 30 MG Levothyroxi Levothyroxi No QD Levothyrox ne Sodium ne Sodium ine Sodium 50 MCG 50 MCG 50 MCG metFORMIN metFORMIN No 1{table BID metFORMIN HCl 500 MG HCl 500 MG t_with_ HCl 500 MG a_meal} metFORMIN metFORMIN No metFORMIN HCl 500 MG HCl 500 MG HCl 500 MG Synthroid Synthroid No QD Synthroid 50 MCG 50 MCG 50 MCG Simvastatin Simvastatin No 1{table QD Simvastati 40 MG 40 MG t_in_th n 40 MG e_eveni ng} Omeprazole Omeprazole No 1{capsu QD Omeprazole 40 MG 40 MG le} 40 MG Lisinopril Lisinopril No 1{table QD Lisinopril 30 MG 30 MG t} 30 MG LORazepam LORazepam No 1{table LORazepam 0.5 MG 0.5 MG t_as_ne 0.5 MG eded} traZODone traZODone No 1{table QD traZODone HCl 100 MG HCl 100 MG t_at_be HCl 100 MG dtime} Omeprazole Omeprazole No 1{capsu QD Omeprazole 40 MG 40 MG le} 40 MG Meloxicam Meloxicam No 1{table QD Meloxicam 7.5 MG 7.5 MG t} 7.5 MG Triamcinolo Triamcinolo No 1{appli BID Triamcinol ne ne cation} one Acetonide Acetonide Acetonide 0.1 % 0.1 % 0.1 % Euthyrox 75 Euthyrox 75 No Euthyrox MCG MCG 75 MCG metFORMIN metFORMIN No 1{table BID metFORMIN HCl 500 MG HCl 500 MG t_with_ HCl 500 MG a_meal} Synthroid Synthroid No QD Synthroid 50 MCG 50 MCG 50 MCG metFORMIN metFORMIN No metFORMIN HCl 500 MG HCl 500 MG HCl 500 MG Meloxicam Meloxicam No Meloxicam 7.5 MG 7.5 MG 7.5 MG Lisinopril Lisinopril No Lisinopril 30 MG 30 MG 30 MG Simvastatin Simvastatin No 1{table QD Simvastati 40 MG 40 MG t_in_th n 40 MG e_eveni ng} Vitamin B12 Vitamin B12 No Vitamin 100 MCG 100 MCG B12 100 MCG Levothyroxi Levothyroxi No Levothyrox ne Sodium ne Sodium ine Sodium 50 MCG 50 MCG 50 MCG Lisinopril Lisinopril No 1{table QD Lisinopril 30 MG 30 MG t} 30 MG LORazepam LORazepam No 1{table LORazepam 0.5 MG 0.5 MG t_as_ne 0.5 MG eded} traZODone traZODone No 1{table QD traZODone HCl 100 MG HCl 100 MG t_at_be HCl 100 MG dtime} Omeprazole Omeprazole No 1{capsu QD Omeprazole 40 MG 40 MG le} 40 MG Meloxicam Meloxicam No 1{table QD Meloxicam 7.5 MG 7.5 MG t} 7.5 MG Triamcinolo Triamcinolo No 1{appli BID Triamcinol ne ne cation} one Acetonide Acetonide Acetonide 0.1 % 0.1 % 0.1 % Euthyrox 75 Euthyrox 75 No Euthyrox MCG MCG 75 MCG metFORMIN metFORMIN No 1{table BID metFORMIN HCl 500 MG HCl 500 MG t_with_ HCl 500 MG a_meal} Synthroid Synthroid No QD Synthroid 50 MCG 50 MCG 50 MCG metFORMIN metFORMIN No metFORMIN HCl 500 MG HCl 500 MG HCl 500 MG Meloxicam Meloxicam No Meloxicam 7.5 MG 7.5 MG 7.5 MG Lisinopril Lisinopril No Lisinopril 30 MG 30 MG 30 MG Simvastatin Simvastatin No 1{table QD Simvastati 40 MG 40 MG t_in_th n 40 MG e_eveni ng} Vitamin B12 Vitamin B12 No Vitamin 100 MCG 100 MCG B12 100 MCG Levothyroxi Levothyroxi No Levothyrox ne Sodium ne Sodium ine Sodium 50 MCG 50 MCG 50 MCG Lisinopril Lisinopril No 1{table QD Lisinopril 30 MG 30 MG t} 30 MG LORazepam LORazepam No 1{table LORazepam 0.5 MG 0.5 MG t_as_ne 0.5 MG eded} traZODone traZODone No 1{table QD traZODone HCl 100 MG HCl 100 MG t_at_be HCl 100 MG dtime} Omeprazole Omeprazole No 1{capsu QD Omeprazole 40 MG 40 MG le} 40 MG Meloxicam Meloxicam No 1{table QD Meloxicam 7.5 MG 7.5 MG t} 7.5 MG Triamcinolo Triamcinolo No 1{appli BID Triamcinol ne ne cation} one Acetonide Acetonide Acetonide 0.1 % 0.1 % 0.1 % Euthyrox 75 Euthyrox 75 No Euthyrox MCG MCG 75 MCG metFORMIN metFORMIN No 1{table BID metFORMIN HCl 500 MG HCl 500 MG t_with_ HCl 500 MG a_meal} Synthroid Synthroid No QD Synthroid 50 MCG 50 MCG 50 MCG metFORMIN metFORMIN No metFORMIN HCl 500 MG HCl 500 MG HCl 500 MG Meloxicam Meloxicam No Meloxicam 7.5 MG 7.5 MG 7.5 MG Lisinopril Lisinopril No Lisinopril 30 MG 30 MG 30 MG Simvastatin Simvastatin No 1{table QD Simvastati 40 MG 40 MG t_in_th n 40 MG e_eveni ng} Vitamin B12 Vitamin B12 No Vitamin 100 MCG 100 MCG B12 100 MCG Levothyroxi Levothyroxi No Levothyrox ne Sodium ne Sodium ine Sodium 50 MCG 50 MCG 50 MCG Meloxicam Meloxicam No Meloxicam 7.5 MG 7.5 MG 7.5 MG Lisinopril Lisinopril No Lisinopril 30 MG 30 MG 30 MG Omeprazole Omeprazole No 1{capsu QD Omeprazole 40 MG 40 MG le} 40 MG Triamcinolo Triamcinolo No 1{appli BID Triamcinol ne ne cation} one Acetonide Acetonide Acetonide 0.1 % 0.1 % 0.1 % Simvastatin Simvastatin No 1{table QD Simvastati 40 MG 40 MG t_in_th n 40 MG e_eveni ng} Levothyroxi Levothyroxi No Levothyrox ne Sodium ne Sodium ine Sodium 50 MCG 50 MCG 50 MCG metFORMIN metFORMIN No 1{table BID metFORMIN HCl 500 MG HCl 500 MG t_with_ HCl 500 MG a_meal} traZODone traZODone No 1{table QD traZODone HCl 100 MG HCl 100 MG t_at_be HCl 100 MG dtime} Vitamin B12 Vitamin B12 No Vitamin 100 MCG 100 MCG B12 100 MCG Euthyrox 75 Euthyrox 75 No Euthyrox MCG MCG 75 MCG metFORMIN metFORMIN No metFORMIN HCl 500 MG HCl 500 MG HCl 500 MG Synthroid Synthroid No QD Synthroid 50 MCG 50 MCG 50 MCG LORazepam LORazepam No 1{table LORazepam 0.5 MG 0.5 MG t_as_ne 0.5 MG eded} Lisinopril Lisinopril No 1{table QD Lisinopril 30 MG 30 MG t} 30 MG Meloxicam Meloxicam No 1{table QD Meloxicam 7.5 MG 7.5 MG t} 7.5 MG Meloxicam Meloxicam No Meloxicam 7.5 MG 7.5 MG 7.5 MG Lisinopril Lisinopril No Lisinopril 30 MG 30 MG 30 MG Omeprazole Omeprazole No 1{capsu QD Omeprazole 40 MG 40 MG le} 40 MG Triamcinolo Triamcinolo No 1{appli BID Triamcinol ne ne cation} one Acetonide Acetonide Acetonide 0.1 % 0.1 % 0.1 % Simvastatin Simvastatin No 1{table QD Simvastati 40 MG 40 MG t_in_th n 40 MG e_eveni ng} Levothyroxi Levothyroxi No Levothyrox ne Sodium ne Sodium ine Sodium 50 MCG 50 MCG 50 MCG metFORMIN metFORMIN No 1{table BID metFORMIN HCl 500 MG HCl 500 MG t_with_ HCl 500 MG a_meal} traZODone traZODone No 1{table QD traZODone HCl 100 MG HCl 100 MG t_at_be HCl 100 MG dtime} Vitamin B12 Vitamin B12 No Vitamin 100 MCG 100 MCG B12 100 MCG Euthyrox 75 Euthyrox 75 No Euthyrox MCG MCG 75 MCG metFORMIN metFORMIN No metFORMIN HCl 500 MG HCl 500 MG HCl 500 MG Synthroid Synthroid No QD Synthroid 50 MCG 50 MCG 50 MCG LORazepam LORazepam No 1{table LORazepam 0.5 MG 0.5 MG t_as_ne 0.5 MG eded} Lisinopril Lisinopril No 1{table QD Lisinopril 30 MG 30 MG t} 30 MG Meloxicam Meloxicam No 1{table QD Meloxicam 7.5 MG 7.5 MG t} 7.5 MG Meloxicam Meloxicam No Meloxicam 7.5 MG 7.5 MG 7.5 MG Lisinopril Lisinopril No Lisinopril 30 MG 30 MG 30 MG Omeprazole Omeprazole No 1{capsu QD Omeprazole 40 MG 40 MG le} 40 MG Triamcinolo Triamcinolo No 1{appli BID Triamcinol ne ne cation} one Acetonide Acetonide Acetonide 0.1 % 0.1 % 0.1 % Simvastatin Simvastatin No 1{table QD Simvastati 40 MG 40 MG t_in_th n 40 MG e_eveni ng} Levothyroxi Levothyroxi No Levothyrox ne Sodium ne Sodium ine Sodium 50 MCG 50 MCG 50 MCG metFORMIN metFORMIN No 1{table BID metFORMIN HCl 500 MG HCl 500 MG t_with_ HCl 500 MG a_meal} traZODone traZODone No 1{table QD traZODone HCl 100 MG HCl 100 MG t_at_be HCl 100 MG dtime} Vitamin B12 Vitamin B12 No Vitamin 100 MCG 100 MCG B12 100 MCG Euthyrox 75 Euthyrox 75 No Euthyrox MCG MCG 75 MCG metFORMIN metFORMIN No metFORMIN HCl 500 MG HCl 500 MG HCl 500 MG Synthroid Synthroid No QD Synthroid 50 MCG 50 MCG 50 MCG LORazepam LORazepam No 1{table LORazepam 0.5 MG 0.5 MG t_as_ne 0.5 MG eded} Lisinopril Lisinopril No 1{table QD Lisinopril 30 MG 30 MG t} 30 MG Meloxicam Meloxicam No 1{table QD Meloxicam 7.5 MG 7.5 MG t} 7.5 MG Levothyroxi Levothyroxi No Levothyrox ne Sodium ne Sodium ine Sodium 50 MCG 50 MCG 50 MCG Synthroid Synthroid No QD Synthroid 50 MCG 50 MCG 50 MCG Lisinopril Lisinopril No 1{table QD Lisinopril 30 MG 30 MG t} 30 MG traZODone traZODone No 1{table QD traZODone HCl 150 MG HCl 150 MG t_at_be HCl 150 MG dtime} Omeprazole Omeprazole No 1{capsu QD Omeprazole 40 MG 40 MG le} 40 MG Triamcinolo Triamcinolo No 1{appli BID Triamcinol ne ne cation} one Acetonide Acetonide Acetonide 0.1 % 0.1 % 0.1 % Simvastatin Simvastatin No 1{table QD Simvastati 40 MG 40 MG t_in_th n 40 MG e_eveni ng} Meloxicam Meloxicam No Meloxicam 7.5 MG 7.5 MG 7.5 MG metFORMIN metFORMIN No 1{table BID metFORMIN HCl 500 MG HCl 500 MG t_with_ HCl 500 MG a_meal} Vitamin B12 Vitamin B12 No Vitamin 100 MCG 100 MCG B12 100 MCG Levothyroxi Levothyroxi No Levothyrox ne Sodium ne Sodium ine Sodium 50 MCG 50 MCG 50 MCG Vitamin B12 Vitamin B12 No Vitamin 100 MCG 100 MCG B12 100 MCG Omeprazole Omeprazole No 1{capsu QD Omeprazole 40 MG 40 MG le} 40 MG traZODone traZODone No 1{table QD traZODone HCl 150 MG HCl 150 MG t_at_be HCl 150 MG dtime} Triamcinolo Triamcinolo No 1{appli BID Triamcinol ne ne cation} one Acetonide Acetonide Acetonide 0.1 % 0.1 % 0.1 % metFORMIN metFORMIN No 1{table BID metFORMIN HCl 500 MG HCl 500 MG t_with_ HCl 500 MG a_meal} Simvastatin Simvastatin No 1{table QD Simvastati 40 MG 40 MG t_in_th n 40 MG e_eveni ng} Meloxicam Meloxicam No Meloxicam 7.5 MG 7.5 MG 7.5 MG Synthroid Synthroid No QD Synthroid 50 MCG 50 MCG 50 MCG Lisinopril Lisinopril No 1{table QD Lisinopril 30 MG 30 MG t} 30 MG Levothyroxi Levothyroxi No Levothyrox ne Sodium ne Sodium ine Sodium 50 MCG 50 MCG 50 MCG Vitamin B12 Vitamin B12 No Vitamin 100 MCG 100 MCG B12 100 MCG Omeprazole Omeprazole No 1{capsu QD Omeprazole 40 MG 40 MG le} 40 MG traZODone traZODone No 1{table QD traZODone HCl 150 MG HCl 150 MG t_at_be HCl 150 MG dtime} Triamcinolo Triamcinolo No 1{appli BID Triamcinol ne ne cation} one Acetonide Acetonide Acetonide 0.1 % 0.1 % 0.1 % metFORMIN metFORMIN No 1{table BID metFORMIN HCl 500 MG HCl 500 MG t_with_ HCl 500 MG a_meal} Simvastatin Simvastatin No 1{table QD Simvastati 40 MG 40 MG t_in_th n 40 MG e_eveni ng} Meloxicam Meloxicam No Meloxicam 7.5 MG 7.5 MG 7.5 MG Synthroid Synthroid No QD Synthroid 50 MCG 50 MCG 50 MCG Lisinopril Lisinopril No 1{table QD Lisinopril 30 MG 30 MG t} 30 MG Vitamin B12 Vitamin B12 No Vitamin 100 MCG 100 MCG B12 100 MCG Triamcinolo Triamcinolo No 1{appli BID Triamcinol ne ne cation} one Acetonide Acetonide Acetonide 0.1 % 0.1 % 0.1 % traZODone traZODone No 1{table QD traZODone HCl 150 MG HCl 150 MG t_at_be HCl 150 MG dtime} metFORMIN metFORMIN No 1{table BID metFORMIN HCl 500 MG HCl 500 MG t_with_ HCl 500 MG a_meal} Lisinopril Lisinopril No 1{table QD Lisinopril 30 MG 30 MG t} 30 MG Simvastatin Simvastatin No 1{table QD Simvastati 40 MG 40 MG t_in_th n 40 MG e_eveni ng} Omeprazole Omeprazole No 1{capsu QD Omeprazole 40 MG 40 MG le} 40 MG Levothyroxi Levothyroxi No Levothyrox ne Sodium ne Sodium ine Sodium 50 MCG 50 MCG 50 MCG Meloxicam Meloxicam No Meloxicam 7.5 MG 7.5 MG 7.5 MG Vitamin B12 Vitamin B12 No Vitamin 100 MCG 100 MCG B12 100 MCG Triamcinolo Triamcinolo No 1{appli BID Triamcinol ne ne cation} one Acetonide Acetonide Acetonide 0.1 % 0.1 % 0.1 % traZODone traZODone No 1{table QD traZODone HCl 150 MG HCl 150 MG t_at_be HCl 150 MG dtime} metFORMIN metFORMIN No 1{table BID metFORMIN HCl 500 MG HCl 500 MG t_with_ HCl 500 MG a_meal} Lisinopril Lisinopril No 1{table QD Lisinopril 30 MG 30 MG t} 30 MG Simvastatin Simvastatin No 1{table QD Simvastati 40 MG 40 MG t_in_th n 40 MG e_eveni ng} Omeprazole Omeprazole No 1{capsu QD Omeprazole 40 MG 40 MG le} 40 MG Levothyroxi Levothyroxi No Levothyrox ne Sodium ne Sodium ine Sodium 50 MCG 50 MCG 50 MCG Meloxicam Meloxicam No Meloxicam 7.5 MG 7.5 MG 7.5 MG Omeprazole Omeprazole No 1{capsu QD Omeprazole 40 MG 40 MG le} 40 MG Triamcinolo Triamcinolo No 1{appli BID Triamcinol ne ne cation} one Acetonide Acetonide Acetonide 0.1 % 0.1 % 0.1 % traZODone traZODone No 1{table QD traZODone HCl 150 MG HCl 150 MG t_at_be HCl 150 MG dtime} metFORMIN metFORMIN No 1{table BID metFORMIN HCl 500 MG HCl 500 MG t_with_ HCl 500 MG a_meal} Lisinopril Lisinopril No 1{table QD Lisinopril 30 MG 30 MG t} 30 MG Vitamin B12 Vitamin B12 No Vitamin 100 MCG 100 MCG B12 100 MCG Simvastatin Simvastatin No Simvastati 40 MG 40 MG n 40 MG Levothyroxi Levothyroxi No Levothyrox ne Sodium ne Sodium ine Sodium 50 MCG 50 MCG 50 MCG Meloxicam Meloxicam No Meloxicam 7.5 MG 7.5 MG 7.5 MG Omeprazole Omeprazole No 1{capsu QD Omeprazole 40 MG 40 MG le} 40 MG Triamcinolo Triamcinolo No 1{appli BID Triamcinol ne ne cation} one Acetonide Acetonide Acetonide 0.1 % 0.1 % 0.1 % metFORMIN metFORMIN No 1{table BID metFORMIN HCl 500 MG HCl 500 MG t_with_ HCl 500 MG a_meal} Levothyroxi Levothyroxi No Levothyrox ne Sodium ne Sodium ine Sodium 50 MCG 50 MCG 50 MCG Meloxicam Meloxicam No Meloxicam 7.5 MG 7.5 MG 7.5 MG Vitamin B12 Vitamin B12 No Vitamin 100 MCG 100 MCG B12 100 MCG Simvastatin Simvastatin No Simvastati 40 MG 40 MG n 40 MG Lisinopril Lisinopril No 1{table QD Lisinopril 30 MG 30 MG t} 30 MG traZODone traZODone No 1{table QD traZODone HCl 150 MG HCl 150 MG t_at_be HCl 150 MG dtime} Omeprazole Omeprazole No 1{capsu QD Omeprazole 40 MG 40 MG le} 40 MG Triamcinolo Triamcinolo No 1{appli BID Triamcinol ne ne cation} one Acetonide Acetonide Acetonide 0.1 % 0.1 % 0.1 % metFORMIN metFORMIN No 1{table BID metFORMIN HCl 500 MG HCl 500 MG t_with_ HCl 500 MG a_meal} Levothyroxi Levothyroxi No Levothyrox ne Sodium ne Sodium ine Sodium 50 MCG 50 MCG 50 MCG Meloxicam Meloxicam No Meloxicam 7.5 MG 7.5 MG 7.5 MG Vitamin B12 Vitamin B12 No Vitamin 100 MCG 100 MCG B12 100 MCG Simvastatin Simvastatin No Simvastati 40 MG 40 MG n 40 MG Lisinopril Lisinopril No 1{table QD Lisinopril 30 MG 30 MG t} 30 MG traZODone traZODone No 1{table QD traZODone HCl 150 MG HCl 150 MG t_at_be HCl 150 MG dtime} Immunizations Ordered Immunization Filled Immunization Date Status Commen ts Source Name Name FLUZONE HIGH DOSE FLUZONE HIGH DOSE 2022-01-02 Completed [facility] OVER 65 OVER 65 09:40:00 [facility] FLUZONE HIGH DOSE FLUZONE HIGH DOSE 2022-01-02 Completed [facility] OVER 65 OVER 65 09:40:00 [facility] FLUZONE HIGH DOSE FLUZONE HIGH DOSE 2022-01-02 Completed [facility] OVER 65 OVER 65 09:40:00 [facility] Pneumovax (PPSV23) Pneumovax (PPSV23) 2021-03-28 Completed [facility] 15:43:00 [facility] Pneumovax (PPSV23) Pneumovax (PPSV23) 2021-03-28 Completed [facility] 15:43:00 [facility] Pneumovax (PPSV23) Pneumovax (PPSV23) 2021-03-28 Completed [facility] 15:43:00 [facility] Pneumovax (PPSV23) Pneumovax (PPSV23) 2021-03-28 Completed [facility] 15:43:00 [facility] Pneumovax (PPSV23) Pneumovax (PPSV23) 2021-03-28 Completed [facility] 15:43:00 [facility] Pneumovax (PPSV23) Pneumovax (PPSV23) 2021-03-28 Completed [facility] 15:43:00 [facility] Pneumovax (PPSV23) Pneumovax (PPSV23) 2021-03-28 Completed [facility] 15:43:00 [facility] Pneumovax (PPSV23) Pneumovax (PPSV23) 2021-03-28 Completed [facility] 15:43:00 [facility] Pneumovax (PPSV23) Pneumovax (PPSV23) 2021-03-28 Completed [facility] 15:43:00 [facility] Pneumovax (PPSV23) Pneumovax (PPSV23) 2021-03-28 Completed [facility] 15:43:00 [facility] Pneumovax (PPSV23) Pneumovax (PPSV23) 2021-03-28 Completed [facility] 15:43:00 [facility] Pneumovax (PPSV23) Pneumovax (PPSV23) 2021-03-28 Completed [facility] 15:43:00 [facility] Pneumovax (PPSV23) Pneumovax (PPSV23) 2021-03-28 Completed [facility] 15:43:00 [facility] Pneumovax (PPSV23) Pneumovax (PPSV23) 2021-03-28 Completed [facility] 15:43:00 [facility] Pneumovax (PPSV23) Pneumovax (PPSV23) 2021-03-28 Completed [facility] 15:43:00 [facility] Pneumovax (PPSV23) Pneumovax (PPSV23) 2021-03-28 Completed [facility] 15:43:00 [facility] Pneumovax (PPSV23) Pneumovax (PPSV23) 2021-03-28 Completed [facility] 15:43:00 [facility] Pneumovax (PPSV23) Pneumovax (PPSV23) 2021-03-28 Completed [facility] 15:43:00 [facility] Pneumovax (PPSV23) Pneumovax (PPSV23) 2021-03-28 Completed [facility] 15:43:00 - [facility] Pneumovax (PPSV23) Pneumovax (PPSV23) 2021-03-28 Completed [facility] 15:43:00 [facility] Pneumovax (PPSV23) Pneumovax (PPSV23) 2021-03-28 Completed [facility] 15:43:00 [facility] Pneumovax (PPSV23) Pneumovax (PPSV23) 2021-03-28 Completed [facility] 15:43:00 [facility] Pneumovax (PPSV23) Pneumovax (PPSV23) 2021-03-28 Completed [facility] 15:43:00 [facility] Pneumovax (PPSV23) Pneumovax (PPSV23) 2021-03-28 Completed [facility] 15:43:00 [facility] Pneumovax (PPSV23) Pneumovax (PPSV23) 2021-03-28 Completed [facility] 15:43:00 [facility] Pneumovax (PPSV23) Pneumovax (PPSV23) 2021-03-28 Completed [facility] 15:43:00 [facility] Pneumovax (PPSV23) Pneumovax (PPSV23) 2021-03-28 Completed [facility] 15:43:00 [facility] COVID19 [facility] COVID19 2021-01-25 Com[facility] Vacc[facility] (Low Dose Vaccine (Low Dose 11:38:00 - [facility] Booster) Booster) [facility] COVID19 [facility] COVID-19 2021-01-25 Completed [facility] Vaccine (Low Dose Vaccine (Low Dose 11:38:[address] - [facility] Booster) Booster) [facility] COVID19 [facility] COVID-19 2021-01-25 Completed [facility] Vaccine (Low Dose Vaccine (Low Dose 11:38:[address] - [facility] Booster) Booster) [facility] COVID19 [facility] COVID-19 2021-01-25 Completed [facility] (Low Dose Vaccine (Low Dose 11:38:00 - [facility] Booster[facility] COVID19 [facility] COVID19 2021-01-25 Completed [facility] Vaccine (Low Dose Vaccine (Low Dose 11:38:00 - [facility] Booster) Booster) [facility] COVID19 [facility] COVID19 2021-01-25 Completed [facility] Vaccine (Low Dose Vaccine (Low Dose 11:38:00 - [facility] Booster) Booster) [facility] [address] COVID19 2021-01-25 Completed [facility] Vaccine (Low Dose Vaccine (Low Dose 11:38:00 - [facility] Booster) Booster) [facility] [address] COVID19 2021-01-25 Completed [facility] Vaccine (Low Dose Vaccine (Low Dose 11:38:00 - [facility] Booster) Booster) [facility] [address] COVID19 2021-01-25 Completed [facility] Vaccine (Low Dose Vaccine (Low Dose 11:38:00 - [facility] Booster) Booster) [facility] [address] COVID19 2021-01-25 Completed [facility] Vaccine (Low Dose Vaccine (Low Dose 11:38:00 - [facility] Booster) Booster) [facility] [address] COVID19 2021-01-25 Completed [facility] Vaccine (Low Dose Vaccine (Low Dose 11:38:00 - [facility] Booster) Booster) [facility] [address] COVID19 2021-01-25 Completed [facility] Vaccine (Low Dose Vaccine (Low Dose 11:38:00 - [facility] Booster) Booster) [facility] [address] COVID19 2021-01-25 Completed [facility] Vaccine (Low Dose Vaccine (Low Dose 11:38:00 - [facility] Booster) Booster) [facility] [address] COVID19 2021-01-25 Completed [facility] Vaccine (Low Dose Vaccine (Low Dose 11:38:00 - [facility] Booster) Booster) [facility] [address] COVID19 2021-01-25 Completed [facility] Vaccine (Low Dose Vaccine (Low Dose 11:38:00 - [facility] Booster) Booster) [facility] COVID19 [facility] COVID19 2021-01-25 Completed [facility] Vaccine (Low Dose Vaccine (Low Dose 11:38:00 - [facility] Booster) Booster) [facility] [address] COVID19 2021-01-25 Completed [facility] Vaccine (Low Dose Vaccine (Low Dose 11:38:00 - [facility] Booster) Booster) [facility] [facility]ine (Low Dose Vaccine (Low Dose 11:38:00 - [facility] Booster) Booster) [facility] [facility]25 Com[facility] Vaccine (Low Dose Vaccine (Low Dose 11:38:00 - [facility] Booster) Booster) [facility] [facility]25 Com[facility] Vaccine (Low Dose Vaccine (Low Dose 11:38:00 - [facility] Booster) Booster) [facility] [facility]25 Com[facility] Vaccine (Low Dose Vaccine (Low Dose 11:38:00 - [facility] Booster) Booster) [facility] [address] COVID19 2021-01-25 Completed [facility] Vaccine (Low Dose Vaccine (Low Dose 11:38:00 - [facility] Booster) Booster) [facility] [address] COVID19 2021-01-25 Completed [facility] Vaccine (Low Dose Vaccine (Low Dose 11:38:00 - [facility] Booster) Booster) [facility] [address] COVID19 2021-01-25 Completed [facility] Vaccine (Low Dose Vaccine (Low Dose 11:38:00 - [facility] Booster) Booster) [facility] [address] COVID19 2021-01-25 Completed [facility] Vaccine (Low Dose Vaccine (Low Dose 11:38:00 - [facility] Booster) Booster) [facility] [facility]-25 Com[facility]ine (Low Dose Vaccine (Low Dose 11:38:00 - [facility] Booster) Booster) [facility] COVID19 [facility] COVID19 2021-01-25 Completed [facility]ine (Low Dose Vaccine (Low Dose 11:38:00 - [facility] Booster) Booster) [facility] COVID19 [facility] COVID19 2021-01-25 Completed [facility] Vaccine (Low Dose Vaccine (Low Dose 11:38:00 - [facility] Booster) Booster) [facility] COVID19 [facility] COVID19 2021-01-25 Completed [facility] Vaccine (Low Dose Vaccine (Low Dose 11:38:00 - [facility] Booster) Booster) [facility] Flu FluAD 2020-12-12 Completed [facility] 09:54:00 [facility] FluAD FluAD 2020-12-12 Completed [facility] 09:54:00 [facility] FluAD FluAD 2020-12-12 Completed [facility] 09:54:00 [facility] FluAD FluAD 2020-12-12 Completed [facility] 09:54:00 [facility] FluAD FluAD 2020-12-12 Completed [facility] 09:54:00 [facility] FluAD FluAD 2020-12-12 Completed [facility] 09:54:00 [facility] FluAD FluAD 2020-12-12 Completed [facility] 09:54:00 [facility] FluAD FluAD 2020-12-12 Completed [facility] 09:54:00 [facility] FluAD FluAD 2020-12-12 Completed [facility] 09:54:00 [facility] FluAD FluAD 2020-12-12 Completed [facility] 09:54:00 [facility] FluAD FluAD 2020-12-12 Completed [facility] 09:54:00 [facility] FluAD FluAD 2020-12-12 Completed [facility] 09:54:00 [facility] FluAD FluAD 2020-12-12 Completed [facility] 09:54:00 [facility] FluAD FluAD 2020-12-12 Completed [facility] 09:54:00 - [facility] FluAD FluAD 2020-12-12 Completed [facility] 09:54:00 - [facility] FluAD FluAD 2020-12-12 Completed [facility] 09:54:00 - [facility] FluAD FluAD 2020-12-12 Completed [facility] 09:54:00 - [facility] FluAD FluAD 2020-12-12 Completed [facility] 09:54:00 - [facility] FluAD FluAD 2020-12-12 Completed [facility] 09:54:00 - [facility] FluAD FluAD 2020-12-12 Completed [facility] 09:54:00 - [facility] FluAD FluAD 2020-12-12 Completed [facility] 09:54:00 - [facility] FluAD FluAD 2020-12-12 Completed [facility] 09:54:00 - [facility] FluAD FluAD 2020-12-12 Completed [facility] 09:54:00 - [facility] FluAD FluAD 2020-12-12 Completed [facility] 09:54:00 - [facility] FluAD FluAD 2020-12-12 Completed [facility] 09:54:00 - [facility] FluAD FluAD 2020-12-12 Completed [facility] 09:54:00 - [facility] FluAD FluAD 2020-12-12 Completed [facility] 09:54:00 - [facility] FluAD FluAD 2020-12-12 Completed [facility] 09:54:00 - [facility] FluAD FluAD 2020-12-12 Completed [facility] 09:54:00 - [facility] FluAD FluAD 2020-12-12 Completed [facility] 09:54:00 - [facility] FluAD FluAD 2020-12-12 Completed [facility] 09:54:00 - [facility] FluAD FluAD 2020-12-12 Completed [facility] 09:54:00 - [facility] FluAD FluAD 2020-12-12 Completed [facility] 09:54:00 - [facility] COVID-19 Vaccine COVID-19 Vaccine 2020-05-23 Completed [facility] ([facility]) (Justine) 10:03:00 - [facility] COVID-19 Vaccine COVID-19 Vaccine 2020-05-23 Completed [facility] ([facility]) (Justine) 10:03:00 - [facility] COVID-19 Vaccine COVID-19 Vaccine 2020-05-23 [facility] ([facility] (Justine) 10:03: - [facility] COVID-19 Vaccine COVID-19 Vaccine 2020-05-23 Completed [facility] (Justine) (Justine) 10:03: - [facility] COVID-19 Vaccine COVID-19 Vaccine 2020-05-23 Completed [facility] (Justine) (Justine) 10:03: - [facility] COVID-19 Vaccine COVID-19 Vaccine 2020-05-23 Completed [facility] (Justine) (Justine) 10:03:00 - [facility] COVID-19 Vaccine COVID-19 Vaccine 2020-05-23 Completed [facility] (Justine) (Justine) 10:03: - [facility] COVID-19 Vaccine COVID-19 Vaccine 2020-05-23 Completed [facility] (Justine) (Justine) 10:03: - [facility] COVID-19 Vaccine COVID-19 Vaccine 2020-05-23 Completed [facility] (Justine) (Justine) 10:03:00 - [facility] COVID-19 Vaccine COVID-19 Vaccine 2020-05-23 Completed [facility] (Justine) (Justine) 10:03: - [facility] COVID-19 Vaccine COVID-19 Vaccine 2020-05-23 Completed [facility] (Justine) (Justine) 10:03: - [facility] COVID-19 Vaccine COVID-19 Vaccine 2020-05-23 Completed [facility] (Justine) (Justine) 10:03: - [facility] COVID-19 Vaccine COVID-19 Vaccine 2020-05-23 Completed [facility] (Justine) (Justine) 10:03:00 - [facility] COVID-19 Vaccine COVID-19 Vaccine 2020-05-23 Completed [facility] (Justine) (Justine) 10:03:00 - [facility] COVID-19 Vaccine COVID-19 Vaccine 2020-05-23 Completed [facility] (Justine) (Justine) 10:03:00 - [facility] COVID-19 Vaccine COVID-19 Vaccine 2020-05-23 Completed [facility] (Justine) (Justine) 10:03:00 - [facility] COVID-19 Vaccine COVID-19 Vaccine 2020-05-23 Completed [facility] (Justine) (Justine) 10:03:00 - [facility] COVID-19 Vaccine COVID-19 Vaccine 2020-05-23 Completed [facility] (Justine) (Justine) 10:03:00 - [facility] COVID-19 Vaccine COVID-19 Vaccine 2020-05-23 Completed [facility] (Justine) (Justine) 10:03:00 - [facility] COVID-19 Vaccine COVID-19 Vaccine 2020-05-23 Completed [facility] (Justine) (Justine) 10:03:00 - [facility] COVID-19 Vaccine COVID-19 Vaccine 2020-05-23 Completed [facility] (Justine) (Justine) 10:03:00 - [facility] COVID-19 Vaccine COVID-19 Vaccine 2020-05-23 Completed [facility] (Justine) (Justine) 10:03:00 - [facility] COVID-19 Vaccine COVID-19 Vaccine 2020-05-23 Completed [facility] (Justine) (Justine) 10:03:00 - [facility] COVID-19 Vaccine COVID-19 Vaccine 2020-05-23 Completed [facility] (Justine) (Justine) 10:03: - [facility] COVID-19 Vaccine COVID-19 Vaccine 2020-05-23 Completed [facility] (Justine) (Justine) 10:03: - [facility] COVID-19 Vaccine COVID-19 Vaccine 2020-05-23 Completed [facility] (Justine) (Justine) 10:03:00 - [facility] COVID-19 Vaccine COVID-19 Vaccine 2020-05-23 Completed [facility] (Justine) (Justine) 10:03:00 - [facility] COVID-19 Vaccine COVID-19 Vaccine 2020-05-23 Completed [facility] (Justine) (Justine) 10:03:00 - [facility] COVID-19 Vaccine COVID-19 Vaccine 2020-05-23 Completed [facility] (Justine) (Justine) 10:03:00 - [facility] COVID-19 Vaccine COVID-19 Vaccine 2020-05-23 Completed [facility] (Justine) (Justine) 10:03:00 - [facility] COVID-19 Vaccine COVID-19 Vaccine 2020-05-23 Completed [facility] (Justine) (Justine) 10:03: - [facility] COVID-19 Vaccine COVID-19 Vaccine 2020-05-23 Completed [facility] (Justine) (Justine) 10:03:00 - [facility] COVID-19 Vaccine COVID-19 Vaccine 2020-05-23 Completed [facility] (Justine) (Justine) 10:03:00 [facility] Vitamin B12 Vitamin B12 2020-01-11 [facility] (Cyanocobalamin[facility] (Cyanocobalamin) 10:20:00 [facility] Vitamin B12 Vitamin B12 2020-01-11 [facility] (Cyanocobalamin) (Cyanocobalamin) 10:20:00 [facility] Vitamin B12 Vitamin B12 2020-01-11 [facility] (Cyanocobalamin) (Cyanocobalamin) 10:20:00 [facility] FluAD FluAD 2019-12-27 Com[facility] 08:44:00 [facility] FluAD FluAD 2019-12-27 Com[facility] 08:44:00 [facility] FluAD FluAD 2019-12-27 [facility] 08:44:00 [facility] FluAD FluAD 2019-12-27 Com[facility] 08:44:00 [facility] FluAD FluAD 2019-12-27 Com[facility] 08:44:00 - [facility] FluAD FluAD 2019-12-27 Com[facility] 08:44:00 - [facility] FluAD FluAD 2019-12-27 Com[facility] 08:44:00 - [facility] FluAD FluAD 2019-12-27 Completed [facility] 08:44:00 - [facility] FluAD FluAD 2019-12-27 Completed [facility] 08:44:00 - [facility] FluAD FluAD 2019-12-27 Completed [facility] 08:44:00 - [facility] FluAD FluAD 2019-12-27 Completed [facility] 08:44:00 - [facility] FluAD FluAD 2019-12-27 Completed [facility] 08:44:00 - [facility] FluAD FluAD 2019-12-27 Completed [facility] 08:44:00 - [facility] FluAD FluAD 2019-12-27 Completed [facility] 08:44:00 - [facility] FluAD FluAD 2019-12-27 Completed [facility] 08:44:00 - [facility] FluAD FluAD 2019-12-27 Completed [facility] 08:44:00 - [facility] FluAD FluAD 2019-12-27 Com[facility] 08:44:00 - [facility] FluAD FluAD 2019-12-27 Com[facility] 08:44:00 - [facility] FluAD FluAD 2019-12-27 Com[facility] 08:44:00 - [facility] FluAD FluAD 2019-12-27 Completed [facility] 08:44:00 - [facility] FluAD FluAD 2019-12-27 Com[facility] 08:44:00 - [facility] FluAD FluAD 2019-12-27 Completed [facility] 08:44:00 - [facility] FluAD FluAD 2019-12-27 Com[facility] 08:44:00 - [facility] FluAD FluAD 2019-12-27 Completed [facility] 08:44:00 - [facility] FluAD FluAD 2019-12-27 Com[facility] 08:44:00 - [facility] FluAD FluAD 2019-12-27 Completed [facility] 08:44:00 - [facility] FluAD FluAD 2019-12-27 Completed [facility] 08:44:00 - [facility] FluAD FluAD 2019-12-27 Com[facility] 08:44:00 - [facility] FluAD FluAD 2019-12-27 Com[facility] 08:44:00 - [facility] FluAD FluAD 2019-12-27 Com[facility] 08:44:00 - [facility] FluAD FluAD 2019-12-27 Completed [facility] 08:44:00 - [facility] FluAD FluAD 2019-12-27 Completed [facility] 08:44:00 - [facility] FluAD FluAD 2019-12-27 Completed [facility] 08:44:00 - [facility] FluAD FluAD 2019-01-12 Completed [facility] 10:56:00 - [facility] FluAD FluAD 2019-01-12 Completed [facility] 10:56:00 - [facility] FluAD FluAD 2019-01-12 Completed [facility] 10:56:00 - [facility] FluAD FluAD 2019-01-12 Completed [facility] 10:56:00 - [facility] FluAD FluAD 2019-01-12 Completed [facility] 10:56:00 - [facility] FluAD FluAD 2019-01-12 Completed [facility] 10:56:00 - [facility] FluAD FluAD 2019-01-12 Completed [facility] 10:56:00 - [facility] FluAD FluAD 2019-01-12 Completed [facility] 10:56:00 - [facility] FluAD FluAD 2019-01-12 Completed [facility] 10:56:00 - [facility] FluAD FluAD 2019-01-12 Completed [facility] 10:56:00 - [facility] FluAD FluAD 2019-01-12 Completed [facility] 10:56:00 - [facility] FluAD FluAD 2019-01-12 Completed [facility] 10:56:00 - [facility] FluAD FluAD 2019-01-12 Completed [facility] 10:56:00 - [facility] FluAD FluAD 2019-01-12 Completed [facility] 10:56:00 - [facility] FluAD FluAD 2019-01-12 Completed [facility] 10:56:00 - [facility] FluAD FluAD 2019-01-12 Completed [facility] 10:56:00 - [facility] FluAD FluAD 2019-01-12 Completed [facility] 10:56:00 - [facility] FluAD FluAD 2019-01-12 Completed [facility] 10:56:00 - [facility] FluAD FluAD 2019-01-12 Completed [facility] 10:56:00 - [facility] FluAD FluAD 2019-01-12 Completed [facility] 10:56:00 - [facility] FluAD FluAD 2019-01-12 Completed [facility] 10:56:00 - [facility] FluAD FluAD 2019-01-12 Completed [facility] 10:56:00 - [facility] FluAD FluAD 2019-01-12 Completed [facility] 10:56:00 - [facility] FluAD FluAD 2019-01-12 Completed [facility] 10:56:00 - [facility] FluAD FluAD 2019-01-12 Completed [facility] 10:56:00 - [facility] FluAD FluAD 2019-01-12 Completed [facility] 10:56:00 - [facility] FluAD FluAD 2019-01-12 Completed [facility] 10:56:00 - [facility] FluAD FluAD 2019-01-12 Completed [facility] 10:56:00 - [facility] FluAD FluAD 2019-01-12 Completed [facility] 10:56:00 - [facility] FluAD FluAD 2019-01-12 Completed [facility] 10:56:00 - [facility] FluAD FluAD 2019-01-12 Completed [facility] 10:56:00 - [facility] FluAD FluAD 2019-01-12 Completed [facility] 10:56:00 - [facility] FluAD FluAD 2019-01-12 Completed [facility] 10:56:00 - [facility] FluAD FluAD 2019-01-12 Completed [facility] 00:00:00 - [facility] xRocephin 1 gm xRocephin 1 gm 2018-06-03 Completed [facility] 10:48:00 - [facility] xRocephin 1 gm xRocephin 1 gm 2018-06-03 Completed [facility] 10:48:00 - [facility] xRocephin 1 gm xRocephin 1 gm 2018-06-03 Completed [facility] 10:48:00 - [facility] Cuate Cuello 2018-04-28 Completed [facility] (Triamcinolone) (Triamcinolone) 13:58:00 - [facility] Cuate Cuello 2018-04-28 Com[facility] (Triamcinolone) (Triamcinolone) 13:58:00 - [facility] (Triamcinolone) (Triamcinolone) 13:58:00 - [facility] FluAD FluAD 2018-01-04 Completed [facility] 09:11:00 - [facility] FluAD FluAD 2018-01-04 Completed [facility] 09:11:00 - [facility] FluAD FluAD 2018-01-04 Completed [facility] 09:11:00 - [facility] FluAD FluAD 2018-01-04 Completed [facility] 09:11:00 - [facility] FluAD FluAD 2018-01-04 Completed [facility] 09:11:00 - [facility] FluAD FluAD 2018-01-04 Completed [facility] 09:11:00 - [facility] FluAD FluAD 2018-01-04 Completed [facility] 09:11:00 - [facility] FluAD FluAD 2018-01-04 Completed [facility] 09:11:00 - [facility] FluAD FluAD 2018-01-04 Completed [facility] 09:11:00 - [facility] FluAD FluAD 2018-01-04 Completed [facility] 09:11:00 - [facility] FluAD FluAD 2018-01-04 Completed [facility] 09:11:00 - [facility] FluAD FluAD 2018-01-04 Completed [facility] 09:11:00 - [facility] FluAD FluAD 2018-01-04 Completed [facility] 09:11:00 - [facility] FluAD FluAD 2018-01-04 Completed [facility] 09:11:00 - [facility] FluAD FluAD 2018-01-04 Completed [facility] 09:11:00 - [facility] FluAD FluAD 2018-01-04 Completed [facility] 09:11:00 - [facility] FluAD FluAD 2018-01-04 Completed [facility] 09:11:00 - [facility] FluAD FluAD 2018-01-04 Completed [facility] 09:11:00 - [facility] FluAD FluAD 2018-01-04 Completed [facility] 09:11:00 - [facility] FluAD FluAD 2018-01-04 Completed [facility] 09:11:00 - [facility] FluAD FluAD 2018-01-04 Completed [facility] 09:11:00 - [facility] FluAD FluAD 2018-01-04 Completed [facility] 09:11:00 - [facility] FluAD FluAD 2018-01-04 Completed [facility] 09:11:00 - [facility] FluAD FluAD 2018-01-04 Completed [facility] 09:11:00 - [facility] FluAD FluAD 2018-01-04 Completed [facility] 09:11:00 - [facility] FluAD FluAD 2018-01-04 Completed [facility] 09:11:00 - [facility] FluAD FluAD 2018-01-04 Completed [facility] 09:11:00 - [facility] FluAD FluAD 2018-01-04 Completed [facility] 09:11:00 - [facility] FluAD FluAD 2018-01-04 Completed [facility] 09:11:00 - [facility] FluAD FluAD 2018-01-04 Completed [facility] 09:11:00 - [facility] FluAD FluAD 2018-01-04 Completed [facility] 09:11:00 - [facility] FluAD FluAD 2018-01-04 Completed [facility] 09:11:00 - [facility] FluAD FluAD 2018-01-04 Completed [facility] 09:11:00 - [facility] Prevnar 13 Prevnar 13 2017-10-08 Completed [facility] -Pneumonia Vaccine -Pneumonia Vaccine 08:44:00 - [facility] Prevnar 13 Prevnar 13 2017-10-08 Completed [facility] -Pneumonia Vaccine -Pneumonia Vaccine 08:44:00 - [facility] Prevnar 13 Prevnar 13 2017-10-08 Completed [facility] -Pneumonia Vaccine -Pneumonia Vaccine 08:44:00 - [facility] Prevnar 13 Prevnar 13 2017-10-08 Completed [facility] -Pneumonia Vaccine -Pneumonia Vaccine 08:44:00 - [facility] Prevnar 13 Prevnar 13 2017-10-08 Completed [facility] -Pneumonia Vaccine -Pneumonia Vaccine 08:44:00 - [facility] Prevnar 13 Prevnar 13 2017-10-08 Completed [facility] -Pneumonia Vaccine -Pneumonia Vaccine 08:44:00 - [facility] Prevnar 13 Prevnar 13 2017-10-08 Completed [facility] -Pneumonia Vaccine -Pneumonia Vaccine 08:44:00 - [facility] Prevnar 13 Prevnar 13 2017-10-08 Completed [facility] -Pneumonia Vaccine -Pneumonia Vaccine 08:44:00 - [facility] Prevnar 13 Prevnar 13 2017-10-08 Completed [facility] -Pneumonia Vaccine -Pneumonia Vaccine 08:44:00 - [facility] Prevnar 13 Prevnar 13 2017-10-08 Completed [facility] -Pneumonia Vaccine -Pneumonia Vaccine 08:44:00 - [facility] Prevnar 13 Prevnar 13 2017-10-08 Completed [facility] -Pneumonia Vaccine -Pneumonia Vaccine 08:44:00 - [facility] Prevnar 13 Prevnar 13 2017-10-08 Completed [facility] -Pneumonia Vaccine -Pneumonia Vaccine 08:44:00 - [facility] Prevnar 13 Prevnar 13 2017-10-08 Completed [facility] -Pneumonia Vaccine -Pneumonia Vaccine 08:44:00 - [facility] Prevnar 13 Prevnar 13 2017-10-08 Completed [facility] -Pneumonia Vaccine -Pneumonia Vaccine 08:44:00 - [facility] Prevnar 13 Prevnar 13 2017-10-08 Completed [facility] -Pneumonia Vaccine -Pneumonia Vaccine 08:44:00 - [facility] Prevnar 13 Prevnar 13 2017-10-08 Completed [facility] -Pneumonia Vaccine -Pneumonia Vaccine 08:44:00 - [facility] Prevnar 13 Prevnar 13 2017-10-08 Completed [facility] -Pneumonia Vaccine -Pneumonia Vaccine 08:44:00 - [facility] Prevnar 13 Prevnar 13 2017-10-08 Completed [facility] -Pneumonia Vaccine -Pneumonia Vaccine 08:44:00 - [facility] Prevnar 13 Prevnar 13 2017-10-08 Completed [facility] -Pneumonia Vaccine -Pneumonia Vaccine 08:44:00 - [facility] Prevnar 13 Prevnar 13 2017-10-08 Completed [facility] -Pneumonia Vaccine -Pneumonia Vaccine 08:44:00 - [facility] Prevnar 13 Prevnar 13 2017-10-08 Completed [facility] -Pneumonia Vaccine -Pneumonia Vaccine 08:44:00 - [facility] Prevnar 13 Prevnar 13 2017-10-08 Completed [facility] -Pneumonia Vaccine -Pneumonia Vaccine 08:44:00 - [facility] Prevnar 13 Prevnar 13 2017-10-08 Completed [facility] -Pneumonia Vaccine -Pneumonia Vaccine 08:44:00 - [facility] Prevnar 13 Prevnar 13 2017-10-08 Completed [facility] -Pneumonia Vaccine -Pneumonia Vaccine 08:44:00 - [facility] Prevnar 13 Prevnar 13 2017-10-08 Completed [facility] -Pneumonia Vaccine -Pneumonia Vaccine 08:44:00 - [facility] Prevnar 13 Prevnar 13 2017-10-08 Completed [facility] -Pneumonia Vaccine -Pneumonia Vaccine 08:44:00 - [facility] Prevnar 13 Prevnar 13 2017-10-08 Completed [facility] -Pneumonia Vaccine -Pneumonia Vaccine 08:44:00 - [facility] Prevnar 13 Prevnar 13 2017-10-08 Completed [facility] -Pneumonia Vaccine -Pneumonia Vaccine 08:44:00 - [facility] Prevnar 13 Prevnar 13 2017-10-08 Completed [facility] -Pneumonia Vaccine -Pneumonia Vaccine 08:44:00 - [facility] Prevnar 13 Prevnar 13 2017-10-08 Completed [facility] -Pneumonia Vaccine -Pneumonia Vaccine 08:44:00 - [facility] Prevnar 13 Prevnar 13 2017-10-08 Completed [facility] -Pneumonia Vaccine -Pneumonia Vaccine 08:44:00 - [facility] Prevnar 13 Prevnar 13 2017-10-08 Completed [facility] -Pneumonia Vaccine -Pneumonia Vaccine 08:44:00 - [facility] Prevnar 13 Prevnar 13 2017-10-08 Completed [facility] -Pneumonia Vaccine -Pneumonia Vaccine 08:44:00 - [facility] Prevnar 13 Prevnar 13 2017-10-08 Completed [facility] -Pneumonia Vaccine -Pneumonia Vaccine 00:00:00 - [facility] Vital Signs Vital Name Observation Time Observation Value Comments Source height 2022-01-02 09:20:00 60 [in_i] [facility] weight 2022-01-02 09:20:00 150.2 [lb_av] [facility] temperature 2022-01-02 09:20:00 97.4 [degF] [facility] bmi 2022-01-02 09:20:00 29.33 kg/m2 [facility] oximetry 2022-01-02 09:20:00 97 % [facility] respiratory rate 2022-01-02 09:20:00 17 /min Comm on [facility] blood pressure 2022-01-02 09:20:00 136 mm[Hg] [facility] systolic [facility] blood pressure 2022-01-02 09:20:00 73 mm[Hg] [facility] diastolic [facility] height 2021-11-20 14:00:00 60 [in_i] [facility] weight 2021-11-20 14:00:00 157.8 [lb_av] [facility] temperature 2021-11-20 14:00:00 97.3 [degF] [facility] bmi 2021-11-20 14:00:00 30.81 kg/m2 [facility] oximetry 2021-11-20 14:00:00 99 % [facility] respiratory rate 2021-11-20 14:00:00 16 /min Comm on [facility] blood pressure 2021-11-20 14:00:00 132 mm[Hg] [facility] - systolic [facility] blood pressure 2021-11-20 14:00:00 71 mm[Hg] [facility] - diastolic [facility] height 2021-11-19 09:15:00 60 [in_i] [facility] weight 2021-11-19 09:15:00 155 [lb_av] [facility] temperature 2021-11-19 09:15:00 97.2 [degF] [facility] - [facility] bmi 2021-11-19 09:15:00 30.27 kg/m2 [facility] - [facility] blood pressure 2021-11-19 09:15:00 114 mm[Hg] [facility] - systolic [facility] blood pressure 2021-11-19 09:15:00 72 mm[Hg] [facility] - diastolic [facility] height 2021-09-30 08:50:00 60 [in_i] [facility] weight 2021-09-30 08:50:00 155 [lb_av] [facility] temperature 2021-09-30 08:50:00 97.6 [degF] [facility] - [facility] bmi 2021-09-30 08:50:00 30.27 kg/m2 [facility] - [facility] oximetry 2021-09-30 08:50:00 99 % [facility] respiratory rate 2021-09-30 08:50:00 16 /min [facility] - [facility] blood pressure 2021-09-30 08:50:00 135 mm[Hg] [facility] - systolic [facility] blood pressure 2021-09-30 08:50:00 72 mm[Hg] [facility] - diastolic [facility] height 2021-08-30 10:00:00 60 [in_i] [facility] weight 2021-08-30 10:00:00 164 [lb_av] [facility] bmi 2021-08-30 10:00:00 32.03 kg/m2 [facility] Systolic blood 2021-08-12 22:18:04 158 mm[Hg] [facility] pressure [facility] Diastolic blood 2021-08-12 22:18:04 82 mm[Hg] [facility]ive [facility] of pressure [facility] Heart rate 2021-08-12 22:18:04 68 /min [facility] Respiratory rate 2021-08-12 22:18:04 18 /min [facility] Oxygen saturation in 2021-08-12 22:18:04 99 /min [facility] Arterial blood by [employer] [facility] oxim[facility] Body temperature 2021-08-12 18:38:00 37.06 Jacklyn [facility] Body height 2021-08-12 18:38:00 152.4 cm [facility] Body weight 2021-08-12 18:38:00 73.483 kg [facility] BMI 2021-08-12 18:38:00 31.64 kg/m2 [facility] Systolic blood 2021-07-29 19:51:00 138 mm[Hg] [facility] of pressure [facility] Diastolic blood 2021-07-29 19:51:00 61 mm[Hg] [facility]ive [facility]ity of pressure [facility] Heart rate 2021-07-29 19:51:00 64 /min [facility] Body temperature 2021-07-29 19:51:00 37.39 Jacklyn [facility] Respiratory rate 2021-07-29 19:51:00 18 /min [facility] Body height 2021-07-29 19:51:00 152.4 cm [facility] Body weight 2021-07-29 19:51:00 73.483 kg [facility] BMI 2021-07-29 19:51:00 31.64 kg/m2 [facility] Oxygen saturation in 2021-07-29 19:51:00 100 /min [facility] Arterial blood by [employer] [facility] height 2021-07-16 09:30:00 60 [in_i] [facility] weight 2021-07-16 09:30:00 164 [lb_av] [facility] bmi 2021-07-16 09:30:00 32.03 kg/m2 [facility] blood pressure 2021-07-16 09:30:00 132 mm[Hg] [facility] - systolic [facility] blood pressure 2021-07-16 09:30:00 84 mm[Hg] [facility] - diastolic [facility] height 2021-05-21 10:00:00 60 [in_i] [facility] weight 2021-05-21 10:00:00 164.5 [lb_av] [facility] temperature 2021-05-21 10:00:00 97.5 [degF] [facility] bmi 2021-05-21 10:00:00 32.12 kg/m2 [facility] oximetry 2021-05-21 10:00:00 99 % [facility] respiratory rate 2021-05-21 10:00:00 18 /min Comm on [facility] blood pressure 2021-05-21 10:00:00 138 mm[Hg] [facility] - systolic [facility] blood pressure 2021-05-21 10:00:00 81 mm[Hg] [facility] - diastolic [facility] height 2021-03-28 15:30:00 60 [in_i] [facility] weight 2021-03-28 15:30:00 168.6 [lb_av] [facility] temperature 2021-03-28 15:30:00 97.3 [degF] [facility] bmi 2021-03-28 15:30:00 32.92 kg/m2 [facility] oximetry 2021-03-28 15:30:00 98 % [facility] respiratory rate 2021-03-28 15:30:00 18 /min Comm on [facility] blood pressure 2021-03-28 15:30:00 126 mm[Hg] [facility] - systolic [facility] blood pressure 2021-03-28 15:30:00 66 mm[Hg] [facility] - diastolic [facility] height 2020-12-18 11:50:00 60 [in_i] [facility] weight 2020-12-18 11:50:00 165 [lb_av] [facility] temperature 2020-12-18 11:50:00 98.5 [degF] [facility] bmi 2020-12-18 11:50:00 32.22 kg/m2 [facility] Procedures Procedure Date / Time Performed Performing Clinician Sourc e US GALL BLADDER 2021-08-12 20:37:13 Jade Godoy [facility] LIPASE 2021-08-12 19:34:00 Jade Godoy [facility] COMP. METABOLIC PANEL 2021-08-12 19:34:00 Jade Godoy [facility] ([id number]) Medical Branch CBC WITH DIFF 2021-08-12 19:34:00 Jade Godoy [facility] URINALYSIS 2021-08-12 19:31:00 Jade Godoy [facility] CONSENT/REFUSAL FOR 2021-08-12 18:12:47 [facility] TREATMENT CONSENT/REFUSAL FOR 2021-07-29 19:56:45 [facility] TREATMENT NOTICE OF PRIVACY 2021-07-29 19:46:13 Doctor Unassigned, No [facility] PRACTICES Name Medical Branch Encounters Start End Encounter Admission Attending Care Care Encounter Source Date/Time Date/Time Type Type Clinicians Facility Department ID 2022-08-21 Outpatient Thomas, [facility] [id number] Common 07:26:00 [facility] [address] [facility] 2022-04-25 Outpatient Thomas, STLMLC STLMLC [id number] Common 15:00:00 Damir [id number] [facility] 2022-04-22 Outpatient Thomas, STLMLC STLMLC [id number] Common 09:03:00 Damir 10369 [facility] 2022-01-07 Outpatient Thomas, STLMLC STLMLC [id number] Common 13:15:00 Damir [facility] 2021-12-31 Outpatient Thomas, STLMLC STLMLC [id number] Common 10:38:00 Damir [facility] 2021-11-19 Outpatient Thomas, STLMLC STLMLC [id number] Common 09:31:00 Damir [facility] 2021-11-18 Outpatient Thomas, STLMLC STLMLC [id number] Common 12:02:00 Damir [facility] 2021-11-05 Outpatient Thomas, STLMLC STLMLC [id number] Common 11:30:00 Damir [facility] 2021-11-04 Outpatient Thomas, STLMLC STLMLC [id number] Common 13:45:00 Damir [facility] 2021-08-30 Outpatient Thomas, STLMLC STLMLC [id number] Common 10:11:01 Damir [facility] 2021-07-16 Outpatient Thomas, STLMLC STLMLC [id number] Common 08:41:00 Damir [facility] 2021-06-28 Outpatient Thomas, STLMLC STLMLC [id number] Common 16:16:00 Damir [facility] 2021-04-24 Outpatient Thomas, STLMLC STLMLC [id number] Common 14:25:00 Damir [facility] 2021-04-03 Outpatient Thomas, STLMLC STLMLC [id number] Common 14:34:11 Damir [facility] 2021-04-03 Outpatient Thomas, STLMLC STLMLC [id number] Common 14:33:49 Damir [facility] 2021-04-03 Outpatient Thomas, STLMLC STLMLC Common 14:15:48 Damir [facility] 2021-04-03 Outpatient Thomas, STLMLC STLMLC [id number] Common 14:15:27 Damir [facility] 2021-04-03 Outpatient Thomas, STLMLC STLMLC Common 13:46:26 Damir [facility] 2021-04-03 Outpatient Thomas, STLMLC STLMLC Common 13:11:50 Damir 95377 [facility] 2021-04-03 Outpatient Thomas, STLMLC STLMLC Common 13:11:25 Damir 84749 [facility] 2021-04-03 Outpatient Thomas, STLMLC STLMLC Common 12:41:52 Damir 40551 [facility] 2021-04-03 Outpatient Thomas, STLMLC STLMLC Common 12:41:06 Damir 90667 [facility] 2021-04-03 Outpatient Thomas, STLMLC STLMLC Common 12:36:13 Damir 99399 [facility] 2021-04-03 Outpatient Thomas, STLMLC STLMLC Common 12:33:53 Damir 71063 [facility] 2021-04-03 Outpatient Thomas, STLMLC STLMLC Common 12:07:26 Damir 41617 [facility] 2021-04-03 Outpatient Thomas, STLMLC STLMLC Common 11:36:44 Damir 13225 [facility] 2021-04-03 Outpatient Thomas, STLMLC STLMLC Common 11:24:37 [facility] [address] [facility] 2022-02-19 2022-02-19 (TEL) STLMLC STLMLC [id number] Co mmon 00:00:00 00:00:00 [facility] 2022-02-06 2022-02-06 Outpatient Ogbechie_L DMG DMG [id number] 00:00:00 00:00:00 [id number] 2022-02-06 2022-02-06 Outpatient Ogbechie_L DMG DMG [id number] [facility] 00:00:00 00:00:00 [id number] [facility] 2022-01-23 2022-01-23 (TEL) STLMLC STLMLC [id number] Co mmon 00:00:00 00:00:00 [facility] 2022-01-02 2022-01-02 OFFICE STLMLC STLMLC [id number] Co mmon 00:00:00 00:00:00 VISIT [facility] PT - CHI LEVEL 4 [facility] 2021-12-18 2021-12-18 (TEL) STLMLC STLMLC [id number] Co mmon 00:00:00 00:00:00 [facility] 2021-12-13 2021-12-13 (TEL) STLMLC STLMLC [id number] Co mmon 00:00:00 00:00:00 [facility] 2021-11-29 2021-11-29 (TEL) STLMLC STLMLC [id number] Co mmon 00:00:00 00:00:00 [facility] 2021-11-22 2021-11-22 (TEL) STLMLC STLMLC [id number] Co mmon 00:00:00 00:00:00 [facility] 2021-11-20 2021-11-20 OFFICE STLMLC STLMLC [id number] Co mmon 00:00:00 00:00:00 VISIT [facility] PT - CHI LEVEL 4 [facility] 2021-11-19 2021-11-19 OFFICE STLMLC STLMLC [id number] Co mmon 00:00:00 00:00:00 VISIT [facility] PT - CHI LEVEL 4 [facility] 2021-11-18 2021-11-18 (TEL) STLMLC STLMLC [id number] Co mmon 00:00:00 00:00:00 [facility] 2021-10-15 2021-10-15 (TEL) STLMLC STLMLC [id number] Co mmon 00:00:00 00:00:00 [facility] 2021-09-30 2021-09-30 OFFICE STLMLC STLMLC [id number] Co mmon 00:00:00 00:00:00 VISIT [facility] PT - CHI LEVEL 4 [facility] 2021-09-23 2021-09-23 (TEL) STLMLC STLMLC [id number] Co mmon 00:00:00 00:00:00 [facility] 2021-09-20 2021-09-20 Outpatient DMG [facility] [id number] [facility] 03:13:00 03:13:00 [id number] [facility] 2021-09-10 2021-09-10 (TEL) STLMLC STLMLC [id number] Co mmon 00:00:00 00:00:00 [facility] 2021-08-30 2021-08-30 OFFICE STLMLC STLMLC [id number] Co mmon 00:00:00 00:00:00 VISIT [facility] PT - CHI LEVEL 4 [facility] 2021-08-28 2021-08-28 (TEL) STLMLC STLMLC [id number] Co mmon 00:00:00 00:00:00 [facility] 2021-08-13 2021-08-13 (TEL) STLMLC STLMLC [id number] Co mmon 00:00:00 00:00:00 [facility] 2021-08-13 2021-08-13 (TEL) STLMLC STLMLC [id number] Co mmon 00:00:00 00:00:00 [facility] 2021-08-12 2021-08-12 Emergency SCOOTER BRAVO ERT [id number] Univers 13:40:00 17:23:00 JADE ity [facility] 2021-08-12 2021-08-12 Emergency Godoy, [facility] [id number] Univers 13:40:00 17:23:00 Jade RO [id number] i ty [facility] [id number] [facility] [id number] [place] [address] Branch 2021-08-01 2021-08-01 (TEL) STLMLC STLMLC [id number] Co mmon 00:00:00 00:00:00 [facility] 2021-07-29 2021-07-29 Emergency X RIDDLE, [facility] ERT [id number] Univers 14:53:00 15:46:00 [facility] 2021-07-29 2021-07-29 Emergency Tilden, [facility] [id number] Univers 14:53:00 15:46:00 Jim RO [id number] ity [facility] [id number] [facility] [id number] [address] 2021-07-16 2021-07-16 ([employer]) New STLMLC STLMLC [id number] C ommon 00:00:00 00:00:00 Patient [facility] 2021-06-28 2021-06-28 (TEL) STLMLC STLMLC [id number] Co mmon 00:00:00 00:00:00 [facility] 2021-05-21 2021-05-21 (TEL) STLMLC STLMLC [id number] Co mmon 00:00:00 00:00:00 [facility] 2021-05-21 2021-05-21 OFFICE STLMLC STLMLC [id number] Co mmon 00:00:00 00:00:00 VISIT [facility] LEVEL 2 [facility] 2021-05-20 2021-05-20 (TEL) STLMLC STLMLC [id number] Co mmon 00:00:00 00:00:00 [facility] 2021-05-17 2021-05-17 Outpatient DMG DMG [id number] [facility] 09:00:00 09:00:00 [id number] [facility] 2021-03-28 2021-03-28 (WELLNESS) STLMLC STLMLC [id number] Common 00:00:00 00:00:00 Wellness Spiri t [facility] 2021-03-25 2021-03-25 (TEL) STLMLC STLMLC [id number] Co mmon 00:00:00 00:00:00 [facility] 2021-03-24 2021-03-24 (TEL) STLMLC STLMLC [id number] Co mmon 00:00:00 00:00:00 [facility] 2021-01-25 2021-01-25 (COVID STLMLC STLMLC [id number] Co mmon 00:00:00 00:00:00 Inj) COVID Spi rit Injection [facility] 2021-01-21 2021-01-21 (TEL) STLMLC STLMLC [id number] Co mmon 00:00:00 00:00:00 [facility] 2020-12-18 2020-12-18 OFFICE STLMLC STLMLC [id number] Co mmon 00:00:00 00:00:00 VISIT EST Spir it PT LEVEL 3 [facility] 2020-12-18 2020-12-18 (TEL) STLMLC STLMLC [id number] Co mmon 00:00:00 00:00:00 [facility] 2020-12-12 2020-12-12 ([place]) Nurse STLMLC STLMLC [id number] Common 00:00:00 00:00:00 Visit [facility] 2020-11-21 2020-11-21 Outpatient STLMLC STLMLC [id number] Common 00:00:00 00:00:00 [facility] 2020-11-21 2020-11-21 Outpatient STLMLC STLMLC [id number] Common 00:00:00 00:00:00 [facility] 2020-08-14 2020-08-14 Outpatient STLMLC STLMLC [id number] Common 00:00:00 00:00:00 [facility] 2020-05-23 2020-05-23 Outpatient STLMLC STLMLC [id number] Common 00:00:00 00:00:00 [facility] 2020-05-22 2020-05-22 Outpatient STLMLC STLMLC [id number] Common 00:00:00 00:00:00 [facility] 2020-05-17 2020-05-17 Outpatient R MARY, [facility] [id number] Univers 13:40:00 13:40:00 MARY garcia [facility] 2020-05-14 2020-05-14 Outpatient STLMLC STLMLC [id number] Common 00:00:00 00:00:00 [facility] 2020-05-09 2020-05-09 Outpatient STLMLC STLMLC [id number] Common 00:00:00 00:00:00 [facility] 2020-05-07 2020-05-07 Outpatient STLMLC STLMLC [id number] Common 00:00:00 00:00:00 [facility] 2020-05-04 2020-05-04 Outpatient STLMLC STLMLC [id number] Common 00:00:00 00:00:00 [facility] 2020-02-13 2020-02-13 Outpatient STLMLC STLMLC [id number] Common 00:00:00 00:00:00 [facility] 2020-01-11 2020-01-11 Outpatient STLMLC STLMLC [id number] Common 00:00:00 00:00:00 [facility] 2020-01-11 2020-01-11 Outpatient STLMLC STLMLC [id number] Common 00:00:00 00:00:00 [facility] 2020-01-05 2020-01-05 Outpatient STLMLC STLMLC [id number] Common 00:00:00 00:00:00 [facility] 2019-12-27 2019-12-27 Outpatient STLMLC STLMLC [id number] Common 00:00:00 00:00:00 [facility] 2019-12-22 2019-12-22 Outpatient STLMLC STLC [id number] Common 00:00:00 00:00:00 [facility] 2019-10-14 2019-10-14 [facility] [id number] Common 14:50:00 14:50:[address] [facility] 2019-10-13 2019-10-13 [facility] [id number] Common 10:45:00 10:45:[address] [facility] 2019-09-22 2019-09-22 [facility] [id number] Common 10:13:00 10:13:[address] [facility] 2019-08-12 2019-08-12 [facility] [id number] Common 09:30:00 09:30:[address] [facility] 2019-08-08 2019-08-08 [facility] [id number] Common 10:00:00 10:00:[address] [facility] 2019-07-12 2019-07-12 [facility] [id number] Common 09:30:00 09:30:[address] [facility] 2019-04-14 2019-04-14 [facility] [id number] Common 08:33:00 08:33:[address] [facility] 2019-04-12 2019-04-12 [facility] [id number] Common 09:15:00 09:15:[address] [facility] 2019-04-05 2019-04-05 [facility] [id number] Common 08:18:00 08:18:[address] [facility] 2019-03-15 2019-03-15 [facility] [id number] Common 10:45:00 10:45:[address] [facility] 2019-02-02 2019-02-02 [facility] [id number] Common 09:00:00 09:00:[address] [facility] 2019-01-12 2019-01-12 [facility] [id number] Common 10:15:00 10:15:[address] [facility] 2019-01-05 2019-01-05 [facility] [id number] Common 14:58:00 14:58:[address] [facility] 2018-11-09 2018-11-09 [facility] [id number] Common 09:47:00 09:47:[address] [facility] 2018-10-28 2018-10-28 [facility] [id number] Common 08:34:00 08:34:[address] [facility] 2018-10-15 2018-10-15 [facility] [id number] Common 09:00:00 09:00:[address] [facility] 2018-07-05 2018-07-05 [facility] [id number] Common 08:30:00 08:30:[address] [facility] 2018-06-07 2018-06-07 [facility] [id number] Common 10:15:00 10:15:[address] [facility] 2018-06-03 2018-06-03 [facility] [id number] Common 10:30:00 10:30:[address] [facility] 2018-04-28 2018-04-28 [facility] [id number] Common 13:30:00 13:30:[address] [facility] 2018-04-06 2018-04-06 [facility] [id number] Common 08:15:00 08:15:[address] [facility] 2018-02-17 2018-02-17 [facility] [id number] Common 10:24:00 10:24:00 [facility] 2018-02-15 2018-02-15 [facility] [id number] Common 08:30:00 08:30:00 [facility] 2017-10-22 2017-10-22 [facility] [id number] Common 15:00:00 15:00:00 t Specialty/U Sp vidya Specialty rology - [facility] /[facility] Clinic [facility] 2017-10-08 2017-10-08 [facility] [id number] Common 09:00:00 09:00:[address] [facility] 2017-09-08 2017-09-08 [facility] [id number] Common 09:00:00 09:00:[address] [facility] 2017-07-17 2017-07-17 [facility] [id number] Common 09:30:00 09:30:[address] [facility] Results Test Description Test Time Test Comments Results Result Comments Source COMP. METABOLIC PANEL (17099) 2021-08-12 20:09:39 Test Item Value Reference Range Interpretation Comme nts NA (test code = 0806364875) 136 mmol/L 135-145 K (test code = 8562235719) 4.4 mmol/L 3.5-5.0 CL (test code = 7511548214) 101 mmol/L 98-108 CO2 TOTAL (test code = 25 mmol/L 23-31 4760198444) AGAP (test code = 5593980017) 2-16 BUN (test code = 9683887546) 19 mg/dL 7-23 GLUCOSE (test code = 4139546662) 98 mg/dL 70-110 CREATININE (test code = 0.76 mg/dL 0.50-1.04 5344453075) TOTAL BILI (test code = 0.3 mg/dL 0.1-1.6 9875659853) CALCIUM (test code = 2307731432) 9.2 mg/dL 8.6-10.6 T PROTEIN (test code = 6.5 g/dL 6.3-8.2 5860394830) ALBUMIN (test code = 8757486713) 4.1 g/dL 3.5-5.0 ALK PHOS (test code = 3597656612) 87 U/L 34-122 ALTv (test code = 1742-6) 16 U/L 5-35 AST(SGOT) (test code = 27 U/L 13-40 3740446031) eGFR (test code = 7984314739) mL/min/1.73m2 KARLEE (test code = KARLEE) Association [...] or urine or abnormalities in imaging tests). [facility] Test Item Value Reference Range Interpretation Comments LIPASE (test code = 2309999877) 152 U/L 0-220 Lab Interpretation (test code = Normal 98281-4) [id number] 19:46:11 Test Item Value Reference Range Interpretation Comments WBC (test code = See_Comment [Automated message] 2990-2) The system [employer] generated this result transmitted ref erence range: 4.30 - 1 1.10 10*3/?L. The re ference range was not u sed to interpret this result as normal/abnor mal. RBC (test code = See_Comment [Automated message] 029-8) The system [employer] generated this result transmitted ref erence range: [...] RDW-SD (test code 43.2 fL 39.0-49.9 = 44589-6) RDW-CV (test code 13.1 % 12.0-15.5 = 788-0) PLT (test code = See_Comment [Automated message] 117-3) The system [employer] generated this result transmitted ref erence range: 166 - 35 8 10*3/?L. The re ference range was not u sed to interpret this result as normal/abnor mal. MPV (test code = 10.2 fL 9.5-12.9 37035-4) NRBC/100 WBC (test See_Comment [Automat ed message] code = 4372340812) The syste m which generated this result transmitted ref erence range: 0.0 - 10 .0 /100 WBCs. The refer ence range was not u sed to interpret this result as normal/abnor mal. NRBC x10^3 (test <0.01 See_Comment [Automated message] code = 6758600475) The syste m which generated this result transmitted ref erence range: 10*3/?L. The reference range was not used to interpr et this result as normal/abnormal . GRAN MAT (NEUT) % 48.6 % (test code = 770-8) IMM GRAN % (test 0.30 % code = 7824282371) LYMPH % (test code 39.7 % = 736-9) MONO % (test code 9.2 % = 5905-5) EOS % (test code = 1.9 % 713-8) BASO % (test code 0.3 % = 706-2) GRAN MAT 3.62 10*3/uL 1.88-7.09 x10^3(ANC) (test code = 8697287894) IMM GRAN x10^3 <0.03 0.00-0.06 (test code = 7373810891) LYMPH x10^3 (test 2.95 10*3/uL 1.32-3.29 code = 731-0) MONO x10^3 (test 0.68 10*3/uL 0.33-0.92 code = 742-7) EOS x10^3 (test 0.14 10*3/uL 0.03-0.39 code = 711-2) BASO x10^3 (test <0.03 0.01-0.07 code = 704-7) [facility] Pa And Lat (2 Views)Chest Pa And Lat (2 Views)"
[2022-09-06] MEDS ORDERED: DIPHENHYDRAMINE 50 MG/ML VIAL ONE (13:59)
[2022-09-06] MEDS ORDERED: METOCLOPRAMIDE 10 MG/2mL INJ ONE (13:59)
[2022-09-06] MEDS ORDERED: NA CHLORIDE 0.9% 500 ML ONE (13:59)
[2022-09-06 14:21] LABS: Absolute Lymphocytes (CBC) 2.5 K/uL (0.7-4.9); Hematocrit 34.4 % (36.0-45.0); Lymphocytes % 27.2 % (15.3-44.8); MCV 91.4 fL (80-100); MPV 7.8 fL (7.6-11.3); RBC Red Blood Cell Count 3.77 M/uL (3.86-4.86)
[2022-09-06 14:40] LABS: Albumin 3.3 g/dL (3.4-5.0); Bilirubin Total 0.3 mg/dL (0.2-1.0); Potassium 4.1 mEq/L (3.5-5.1); Protein, Total 6.8 g/dL (6.4-8.2)
[2022-09-06] MEDS ORDERED: LORazepam 2 MG/ML VIAL ONE (15:19)
--- NOTE | 2022-09-06 15:26 | RAD REPORT ---
EXAM DESCRIPTION: RAD - Knee Right 3 View - 09/06/2022 2:20 pm CLINICAL HISTORY: knee pain COMPARISON: Knee Right 3 View dated 09/10/2021 TECHNIQUE: Right knee, 3 views. FINDINGS: No fracture, dislocation or periosteal reaction.No joint effusion seen. Mild tricompartmen vannesa osteoarthritic changes mild medial weight-bearing joint space narrowing. No soft tissue abnormali ty. Clinical concerns for internal derangement or occult bony injury could be further assessed with MR im aging. IMPRESSION: No acute osseous abnormality. Stable mild degenerative changes.
--- NOTE | 2022-09-06 15:54 | RAD REPORT ---
EXAM DESCRIPTION: CT - Head Brain Wo Cont - 09/06/2022 3:26 pm CLINICAL HISTORY: HEADACHE COMPARISON: No comparisons TECHNIQUE: Noncontrast head CT images were obtained without IV contrast. Multiplanar reformats were generated and reviewed. All CT scans are performed using dose optimization technique as appropriate and may include automated exposure control or mA/KV adjustment according to patient size. FINDINGS: No intracranial hemorrhage, mass, or edema. Midline structures are unremarkable. Normal ventricular caliber for age. Bledsoe-white matter differentiation is preserved, without evidence of acute infarct. No abnormal extra- axial fluid collections. White matter mild hypodensities, nonspecific, most suggestive of chronic small vessel changes. Mastoid air cells and visualized portions of the paranasal sinuses are clear. No acute bony findings. IMPRESSION: No evidence of an acute intracranial process.
--- NOTE | 2022-09-06 16:03 | RAD REPORT ---
EXAM DESCRIPTION: CT - Abdomen Pelvis W Contrast - 09/06/2022 3:30 pm CLINICAL HISTORY: abdominal pain COMPARISON: Abdomen Pelvis W Contrast dated 11/09/2021; Abdomen Pelvis W Contrast dated 08/25/2021; Abdomen Pelvis W Contrast dated 08/02/2019 TECHNIQUE: Thin cut axial CT imaging of the abdomen and pelvis was performed following intravenous a dministration of 95 mL Isovue 300. Multiplanar reformats were generated and reviewed. All CT scans are performed using dose optimization technique as appropriate and may include automated exposure control or mA/KV adjustment according to patient size. FINDINGS: No suspicious findings in the lung bases. The liver, spleen, adrenal glands, and pancreas show no suspicious findings. Status post cholecystect ainsley. No intra or extrahepatic biliary ductal dilation. Symmetric renal function is seen with no hydronephrosis or suspicious renal mass. No dilated bowel loops. Re- demonstration of small duodenal diverticulum. Colonic diverticulosis. Inf lammatory changes with focal wall thickening, adjacent fat stranding, and trace fluid tracking along the left paracolic gutter, involving the distal descending colon. No evidence of paracolic fluid sandrine ection or extraluminal gas. No free air, other free fluid or inflammatory stranding. No hernia, mass or bulky lymphadenopathy. The urinary bladder is without significant finding. No suspicious bony findings. IMPRESSION: Findings of acute distal descending colon diverticulitis. No evidence of complication. The findings were communicated to Johnathon Soto on 09/06/2022 at 15:57 hours.
[2022-09-06] MEDS ORDERED: Levofloxacin 750mg IV 750 MG/150 ML BAG IV ONE (16:25)
[2022-09-06] MEDS ORDERED: METRONIDAZOLE 500mg IVPB 500 MG/100 ML BAG IV ONE (16:25)
--- NOTE | 2022-09-06 19:20 | ER ---
Nurse's Notes [facility] Name: Capri Correia Age: 72 yrs Sex: Female : 1950 Arrival Date: 09/06/2022 Time: 13:23 Bed 13 Private MD: Diagnosis: Acute Diverticulitis;Chronic Knee Pain Presentation: 09/06 13:37 Chief complaint: Patient states: Pain to R hip/ buttock area that radiates down R leg. ss Began 3-4 days ago. Coronavirus screen: Client denies travel out of the [place] in the last 14 days. Ebola Screen: Patient denies exposure to infectious person. Patient denies travel to an Ebola-affected area in the 21 days before illness onset. Initial Sepsis Screen: Does the patient meet any 2 criteria? No. Patient's initial sepsis screen is negative. Does the patient have a suspected source of infection? No. Patient's initial sepsis screen is negative. Risk Assessment: Do you want to hurt yourself or someone else? Patient reports no desire to harm self or others. Onset of symptoms was September 02, 2022. 13:37 Method Of Arrival: Ambulatory ss 13:37 Acuity: NITA 4 ss Historical: - Allergies: 13:39 No Known Allergies; ss - PMHx: 13:39 diabetes mellitus; Hyperlipidemia; Hypertension; Hypothyroidism; ss - PSHx: 13:39 Cholecystectomy; Thyroidectomy; ss Screenin:14 [facility] ED Fall Risk Assessment (Adult) History of falling in the last 3 months, kc6 including since admission No falls in past 3 months (0 pts) Confusion or Disorientation No (0 pts) Intoxicated or Sedated No (0 pts) Impaired Gait No (0 pts) Mobility Assist Device Used No (0 pt) Altered Elimination No (0 pt) Score/Fall Risk Level 0 - 2 = Low Risk Oriented to surroundings, Maintained a safe environment, Educated pt \T\ family on fall prevention, incl call for assistance when getting out of bed, Assessed \T\ reinforced patient's understanding of fall precautions, Hourly rounding (assess needs \T\ fall precautionary measures) done. Abuse screen: Denies threats or abuse. Denies injuries from another. Nutritional screening: No deficits noted. Tuberculosis screening: No symptoms or risk factors identified. Assessment: 14:17 General: Appears in no apparent distress. comfortable, Behavior is calm, cooperative, kc6 appropriate for age. Pain: Complains of pain in right upper quadrant, left upper quadrant and right leg, headache. Neuro: Level of Consciousness is awake, alert, obeys commands, Oriented to person, place, time, situation, Appropriate for age. Cardiovascular: Capillary refill < 3 seconds. Respiratory: Airway is patent Trachea midline Respiratory effort is even, unlabored, Respiratory pattern is regular, symmetrical. GI: Abdomen is round non-distended, Bowel sounds present X 4 quads. Abd is soft X 4 quads Abdomen is tender to palpation in right upper quadrant and left upper quadrant Reports upper abdominal pain, Patient currently denies diarrhea, nausea, vomiting. : No signs and/or symptoms were reported regarding the genitourinary system. EENT: No signs and/or symptoms were reported regarding the EENT system. Derm: No signs and/or symptoms reported regarding the dermatologic system. Skin is intact, Skin is pink, warm \T\ dry. Musculoskeletal: No signs and/or symptoms reported regarding the musculoskeletal system. Circulation, motion, and sensation intact. Capillary refill < 3 seconds, Range of motion: intact in all extremities. 15:16 Reassessment: Patient appears in no apparent distress at this time. No changes from kc6 previously documented assessment. Patient and/or family updated on plan of care and expected duration. Pain level reassessed. Patient is alert, oriented x 3, equal unlabored respirations, skin warm/dry/pink. 16:18 Reassessment: Patient appears in no apparent distress at this time. No changes from kc6 previously documented assessment. Patient and/or family updated on plan of care and expected duration. Pain level reassessed. Patient is alert, oriented x 3, equal unlabored respirations, skin warm/dry/pink. 17:44 Reassessment: Patient appears in no apparent distress at this time. No changes from kc6 previously documented assessment. Patient and/or family updated on plan of care and expected duration. Pain level reassessed. Patient is alert, oriented x 3, equal unlabored respirations, skin warm/dry/pink. 18:53 Reassessment: Patient appears in no apparent distress at this time. No changes from kc6 previously documented assessment. Patient and/or family updated on plan of care and expected duration. Pain level reassessed. Patient is alert, oriented x 3, equal unlabored respirations, skin warm/dry/pink. Vital Signs: 13:37 BP 157 / 74; Pulse 86; Resp 16; Temp 98(TE); Pulse Ox 98% on R/A; Weight 72.57 kg; ss Height 5 ft. 1 in. ; Pain 10/10; 15:16 BP 151 / 70; Pulse 84; Resp 17 S; Pulse Ox 100% on R/A; kc6 16:18 BP 126 / 65; Pulse 77; Resp 16 S; Pulse Ox 99% on R/A; kc6 17:44 BP 104 / 60; Pulse 92; Resp 18 S; Pulse Ox 99% on R/A; kc6 18:53 BP 135 / 92; Pulse 75; Resp 17 S; Pulse Ox 100% on R/A; kc6 13:37 Body Mass Index 30.23 (72.57 kg, 154.94 cm) ss 13:37 Pain Scale: Adult ss ED Course: 13:24 Patient arrived in ED. rg4 13:27 Johnathon Soto PA is PHCP. jmm 13:27 Adalid Whitten MD is Attending Physician. jmm 13:29 Radha Valdez, CHAI is Primary Nurse. kc6 13:32 Patient has correct armband on for positive identification. Bed in low position. Call mm9 light in reach. Side rails up X 1. Adult w/ patient. Pulse ox on. NIBP on. 13:39 Triage completed. ss 13:39 Arm band placed on right wrist. ss 13:48 Warm blanket given. mm9 14:14 Inserted saline lock: 20 gauge in left forearm, using aseptic technique. Blood kc6 collected. 14:22 Knee Right 3 View XRAY In Process Unspecified. EDMS 15:28 CT Head Brain wo Cont In Process Unspecified. EDMS 15:32 CT Abd/Pelvis - IV Contrast Only In Process Unspecified. EDMS 19:19 Dony Vazquez MD is Referral Physician. jmm 19:19 Gurwinder Read MD is Referral Physician. jmm 19:19 Rebekah Anders MD is Referral Physician. jmm 19:34 No provider procedures requiring assistance completed. IV discontinued, intact, ll3 bleeding controlled, No redness/swelling at site. Pressure dressing applied. Administered Medications: 14:13 Drug: NS 0.9% IV 500 ml Route: IV; Rate: bolus; Site: left forearm; kc6 14:59 Follow up: Response: No adverse reaction; IV Status: Completed infusion; IV Intake: kc6 500ml 14:14 Drug: metoCLOPramide IVP 10 mg Route: IVP; Site: left forearm; kc6 15:10 Follow up: Response: No adverse reaction 6 14:14 Drug: diphenhydrAMINE IVP 12.5 mg Route: IVP; Site: left forearm; kc6 15:10 Follow up: Response: No adverse reaction 6 15:16 Drug: Ativan IVP 1 mg Route: IVP; Site: left forearm; kc6 16:16 Follow up: Response: No adverse reaction; Anxiety decreased; RASS: Alert and Calm (0) kc6 16:31 Drug: levofloxacin IVPB 750 mg Volume: 150 ml; Route: IVPB; Infused Over: 90 mins; kc6 Site: left forearm; 17:44 Follow up: Response: No adverse reaction; IV Status: Completed infusion; IV Intake: kc6 150ml 16:31 Drug: metroNIDAZOLE IVPB 500 mg Volume: 100 ml; Route: IVPB; Rate: 200 ml/hr; Infused kc6 Over: 30 mins; Site: left forearm; 17:44 Follow up: Response: No adverse reaction; IV Status: Completed infusion; IV Intake: kc6 100ml Medication: 19:35 VIS not applicable for this client. ll3 Intake: 14:59 IV: 500ml; Total: 500ml. kc6 17:44 IV: 150ml; Total: 650ml. kc6 17:44 IV: 100ml; Total: 750ml. kc6 Outcome: 19:19 Discharge ordered by . chantal 19:34 Discharged to home ambulatory, with family. ll3 19:34 Condition: stable 19:34 Discharge instructions given to patient, family, Instructed on discharge instructions, follow up and referral plans. medication usage, Demonstrated understanding of instructions, follow-up care, medications, Prescriptions given X 4. 19:35 Patient left the ED. ll3 Signatures: Dispatcher [employer] EDMS Johnathon Soto PA PA jmm Blanchard, Shelby, RN RN ss Garcia, Rubi rg4 Galen Vigil RN RN 3 Radha Valdez RN RN kc6 Aleks, Capri mm9
--- NOTE | 2022-09-06 19:20 | EDPHYS ---
Physician Documentation [facility] Name: Capri Correia Age: 72 yrs Sex: Female : 1950 Arrival Date: 09/06/2022 Time: 13:23 Bed 13 Private MD: ED Physician Adalid Whitten HPI: 09/06 13:30 This 72 yrs old Female presents to ER via Ambulatory with complaints of Knee jmm Pain. 13:30 The patient presents with abdominal pain. This is a 72-year-old female with history of jmm diabetes mellitus, hyperlipidemia, hypertension, hypothyroidism the presents emerged department with complaints of left-sided abdominal pain which has been ongoing for approximately 6 months but is worsened throughout the past 2 to 3 days. Patient also complains of right knee pain which is chronic as well. Patient also complains of headache which is similar to previous headaches in the past.. Historical: - Allergies: 13:39 No Known Allergies; ss - PMHx: 13:39 diabetes mellitus; Hyperlipidemia; Hypertension; Hypothyroidism; ss - PSHx: 13:39 Cholecystectomy; Thyroidectomy; ss ROS: 13:30 Constitutional: Positive for body aches. jmm 13:30 Abdomen/GI: Positive for abdominal pain. 13:30 MS/extremity: Positive for pain. 13:30 Neuro: Positive for headache. 13:30 All other systems are negative. Exam: 13:30 Constitutional: This is a well developed, well nourished patient who is awake, alert, jmm and in no acute distress. Head/Face: atraumatic. Eyes: EOMI, no conjunctival erythema appreciated ENT: Moist Mucus Membranes Neck: Trachea midline, Supple Chest/axilla: Normal chest wall appearance and motion. Cardiovascular: Regular rate and rhythm. No edema appreciated Respiratory: Normal respirations, no respiratory distress appreciated Abdomen/GI: Non distended Back: Normal ROM Skin: General appearance color normal 13:30 Neuro: Awake and alert Psych: Behavior is normal, Mood is normal, Patient is cooperative and pleasant 13:30 Abdomen/GI: Inspection: abdomen appears normal, Palpation: soft, moderate abdominal tenderness, in the left upper quadrant and left lower quadrant. 13:30 Musculoskeletal/extremity: ROM: intact in all extremities, Full range of motion appreciated the right knee, compartments are soft, full dorsalis pedis pulse, neurovascular. Vital Signs: 13:37 BP 157 / 74; Pulse 86; Resp 16; Temp 98(TE); Pulse Ox 98% on R/A; Weight 72.57 kg; ss Height 5 ft. 1 in. ; Pain 10/10; 15:16 BP 151 / 70; Pulse 84; Resp 17 S; Pulse Ox 100% on R/A; kc6 16:18 BP 126 / 65; Pulse 77; Resp 16 S; Pulse Ox 99% on R/A; kc6 17:44 BP 104 / 60; Pulse 92; Resp 18 S; Pulse Ox 99% on R/A; kc6 18:53 BP 135 / 92; Pulse 75; Resp 17 S; Pulse Ox 100% on R/A; kc6 13:37 Body Mass Index 30.23 (72.57 kg, 154.94 cm) ss 13:37 Pain Scale: Adult ss MDM: 13:30 Patient medically screened. [facility] 18:56 Differential diagnosis: diverticulitis, gastroesophageal reflux disease. Data reviewed: [facility] vital signs, nurses notes, lab test result(s), radiologic studies, CT scan. Consideration of Admission/Observation Escalation of care including admission/observation considered. 19:18 I considered the following discharge prescriptions or medication management in the [facility] emergency department Medications were administered in the Emergency Department. See MAR. Counseling: I had a detailed discussion with the patient and/or guardian regarding: the historical points, exam findings, and any diagnostic results supporting the discharge/admit diagnosis, lab results, radiology results, the need for outpatient follow up, to return to the emergency department if symptoms worsen or persist or if there are any questions or concerns that arise at home. 09/06 13:46 Order name: CBC with Diff; Complete Time: 14:26 [facility] 09/06 13:46 Order name: CMP; Complete Time: 14:42 [facility] 09/06 13:46 Order name: Lipase; Complete Time: 14:42 [facility] 09/06 13:46 Order name: CT Abd/Pelvis - IV Contrast Only; Complete Time: 16:12 [facility] 09/06 13:47 Order name: CT Head Brain wo Cont; Complete Time: 16:01 [facility] 09/06 13:51 Order name: Knee Right 3 View XRAY; Complete Time: 15:44 [facility] 09/06 13:46 Order name: IV Saline Lock; Complete Time: 14:13 [facility] 09/06 13:46 Order name: Labs collected and sent; Complete Time: 14:13 [facility] Administered Medications: 14:13 Drug: NS 0.9% IV 500 ml Route: IV; Rate: bolus; Site: left forearm; kc6 14:59 Follow up: Response: No adverse reaction; IV Status: Completed infusion; IV Intake: kc6 500ml 14:14 Drug: metoCLOPramide IVP 10 mg Route: IVP; Site: left forearm; kc6 15:10 Follow up: Response: No adverse reaction 6 14:14 Drug: diphenhydrAMINE IVP 12.5 mg Route: IVP; Site: left forearm; kc6 15:10 Follow up: Response: No adverse reaction kc6 15:16 Drug: Ativan IVP 1 mg Route: IVP; Site: left forearm; kc6 16:16 Follow up: Response: No adverse reaction; Anxiety decreased; RASS: Alert and Calm (0) kc6 16:31 Drug: levofloxacin IVPB 750 mg Volume: 150 ml; Route: IVPB; Infused Over: 90 mins; kc6 Site: left forearm; 17:44 Follow up: Response: No adverse reaction; IV Status: Completed infusion; IV Intake: kc6 150ml 16:31 Drug: metroNIDAZOLE IVPB 500 mg Volume: 100 ml; Route: IVPB; Rate: 200 ml/hr; Infused kc6 Over: 30 mins; Site: left forearm; 17:44 Follow up: Response: No adverse reaction; IV Status: Completed infusion; IV Intake: kc6 100ml Disposition Summary: 09/06/22 19:19 Discharge Ordered Location: Home [facility] Condition: Stable [facility] Diagnosis - Acute Diverticulitis [facility] - Chronic Knee Pain [facility] Followup: [facility] - With: Dony Vazquez MD - When: 2 - 3 days - Reason: Recheck today's complaints, Continuance of care, Re-evaluation by your physician Followup: [facility] - With: Gurwinder Read MD - When: 2 - 3 days - Reason: Recheck today's complaints, Continuance of care, Re-evaluation by your physician Followup: [facility] - With: Rebekah Anders MD - When: 2 - 3 days - Reason: Recheck today's complaints, Continuance of care, Re-evaluation by your physician Discharge Instructions: - Discharge Summary Sheet [facility] - Diverticulitis jmm - Acute Knee Pain, Adult [facility] Forms: - Medication Reconciliation Form [facility] - Thank You Letter [facility] - Antibiotic Education [facility] - Prescription Opioid Use [facility] - [email or web address] Prescriptions: - diclofenac sodium 3 % Topical gel - apply 0.5 gram by TOPICAL route 4 times per day As needed Apply to the right [facility] knee as needed for pain; 1 unit; Refills: 0, Product Selection Permitted - Flagyl 500 mg Oral Tablet - take 1 tablet by ORAL route every 6 hours for 10 days; 40 tablet; Refills: 0, [facility] Product Selection Permitted - dicyclomine 20 mg Oral Tablet - take 1 tablet by ORAL route 4 times per day As needed; 40 tablet; Refills: 0, [facility] Product Selection Permitted - levofloxacin 750 mg Oral Tablet - take 1 tablet by ORAL route once daily for 10 days; 10 tablet; Refills: 0, [facility] Product Selection Permitted Addendum: 09/10/2022 08:58 Co-signature as Attending Physician, Adalid Whitten MD I reviewed the patient's care r n provided by the Advanced Practice Provider and agree with the diagnosis and treatment plan. Signatures: Dispatcher [employer] Johnathon Tate PA PA jmm Nieto, Roman, MD MD rn Blanchard, Shelby, RN RN ss Campbell, Kaitlyn, RN RN kc6
[2022-09-06 19:40] VITALS: TEMP 98
[2022-09-06 19:47] VITALS: BP 135/92; O2SAT 100
== END 2022-09-06 19:35 | disposition home or self-care (01) ==
LOC: ER 13:23
DX: K57.32 Diverticulitis of large intestine without perforation or abscess without bleeding (principal); M25.561 Pain in right knee; E11.9 Type 2 diabetes mellitus without complications; I10 Essential (primary) hypertension
CPT/HCPCS: 96365; 96361; 96368; 85025; 36415; 83690; 80053; 70450; 74177; 73562; 96375; 99284; Q9967; J2765; J1200; J7040

== ENCOUNTER 2023-02-08 14:13 | Observation (INO) | payer MEDICARE ==
--- OUTSIDE RECORDS SUMMARY | 2023-02-08 14:22 | XMS REPORT | Continuity of Care Document ---
:1950 Author Organization [facility] t Address [address] [place] [address] [address] [place] [address] Care Team Providers Name Role Phone HERNESTO [...] Number Effective Date Expiration Date Renard mina [facility] [id number] 2021 (MEDICARE 00:00:00 REPLACEMENT HMO) DEVOTED [facility] [id number] 2021 MEDICARE 00:00:00 ADVANTAGE PLAN MEDICARE MARIEITAS JERO [id number] Common [facility] AETNA MEDICARE C1 [id number] 2020 Common 00:00:00 Spirit - [facility] MEDICARE NOVITAS JERO [id number] Common [facility] - [facility] MEDICARE NOVITAS MB [id number] Common Spirit [facility] MEDICARE NOVITAS MB [id number] Common Spirit [facility] MEDICARE NOVITAS MB [id number] Common [facility] Problems Condition Condition Condition Status Onset Resolution Last Treating Co mments Source Name Details Category Date Date Treatment Clinician Date Hypothyroi Hypothyroi Problem C ommon dism dism [facility] Essential Benign Problem Common hypertensi essential Spi rit on HTN - [facility] [id number] Colon, Problem Common diverticul Spirit osis - [facility] [id number] Primary Problem Commo n osteoarthr Spirit itis - [facility]I involving [facility] [id number] Varicose Problem Com mon [id number] veins of Spirit both lower - [facility] extremitie [facility] [id number] Peripheral Problem Co mmon edema Spirit [facility] [id number] Claustroph Problem Com mon obia [facility] [id number] Tear of Problem Commo n right Spirit rotator - [facility] cuff, [facility] d [facility] extent Center Gastro-eso GERD Problem Commo n phageal without Spirit reflux esophagiti - CHI disease s [facility] esophagiti Medica l s Center [id number] Allergic Problem Commo n rhinitis, Spirit unspecifie - [facility]I d [facility] y, Medical unspecifie Center d trigger [id number] 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 [id number] Primary Problem Comm on osteoarthr Spirit itis of - CHI right knee [facility] [id number] Primary Problem Comm on osteoarthr [facility] itis of - [facility] left knee [facility] [id number] Arthritis Problem Co mmon [id number] of knee, [facility] left [facility] Gallstone Gallstone Problem Com mon [facility] Leukocytos Elevated Problem Com mon is WBC count [facility] Atelectasi Atelectasi Problem C ommon s s [facility] [id number] Other Problem Common obesity [facility] due to - [facility] excess [facility] [id number] Body mass Problem Com mon index [facility] [BMI] [facility] 30.0-30.9, [facility] [id number] Diverticul Problem Co mmon itis of [facility] sigmoid - [facility] colon [facility] Abdominal Abdominal Problem Com mon bloating bloating [facility] Vitamin D Vitamin D Problem Com mon deficiency deficiency Sp vidya [facility] Type II Diabetes Problem Common diabetes type 2, [facility] mellitus controlled - CH I well [facility] Atopic Atopic Problem Common dermatitis dermatitis Sp vidya in adult [facility] No known No known Disease Unive rs active active ity of problems problems [facility] Allergies, Adverse Reactions, Alerts Allergy Allergy Status Severity Reaction(s) Onset Inactive Treating Comm ents Source Name Type Date Date Clinician ciproflo ciproflo Active abdominal Com mon xacin xacin pain [facility] NO KNOWN Drug Active Univers ALLERGIE Class ity of [facility] Social History Social Habit Start Date Stop Date Quantity Comments Source History of Tobacco Common [facility] - [facility] Use [facility] Sex Assigned At Common Sp vidya - [facility] Exposure to 2021-08-02 2021-08-12 Not sure [facility] SARS-CoV-2 (event) 00:00:00 13:38:00 [facility] Smoking Status Start Date Stop Date Source Unknown if ever smoked [facility] Never Smoker Common [facility] Medications Ordered Filled Start Stop Current Ordering Indication Dosage Frequency Signature Comments Components Source Medication Medication Date Date Medication? Clinician (SIG) Name Name Cyanocobalindra [place] No 1000ug Common min min 9-19 Spirit 00:00: - CHI 00 [facility] Cyanocobala Cyanocobala 3-0 No 1000ug Common min min 9-19 Spirit 00:00: - CHI 00 [facility] Cyanocobala Cyanocobala 3-0 No 1000ug Common min min 9-19 Spirit 00:00: - CHI 00 [facility] Cyanocobala Cyanocobala 3-0 No 1000ug Common min min 9-19 Spirit 00:00: - [facility]I [facility] Cyanocobala Cyanocobala 3-0 No 1000ug Common min min 9-19 Spirit 00:00: - CHI 00 [facility] Cyanocobala Cyanocobala 3-0 No 1000ug Common min min 9-19 Spirit 00:00: - CHI 00 [facility] Cyanocobala Cyanocobala 3-0 No 1000ug Common min min 9- Spirit 00:00: - CHI 00 [facility] Cyanocobala Cyanocobala 3-0 No 1000ug Common min min 9-19 Spirit 00:00: - CHI 00 [facility] Ondansetron Ondansetron 3-0 No 1{table Ondansetro HCl 4 MG HCl 4 MG 7-07 t} n HCl 4 MG 00:00: 00 Cyanocobala Cyanocobala 3-0 No 1000ug Common min min 6-16 Spirit 00:00: - CHI 00 [facility] Cyanocobala Cyanocobala 3-0 No 1000ug Common min min 6-16 Spirit 00:00: - [facility]I [facility] Cyanocobala Cyanocobala 3-0 No 1000ug Common min min 6-16 Spirit 00:00: - CHI 00 [facility] Cyanocobala Cyanocobala 3-0 No 1000ug Common min min 6-16 Spirit 00:00: - [facility]I [facility] Cyanocobala Cyanocobala 3-0 No 1000ug Common min min 6-16 Spirit 00:00: - CHI 00 [facility] Cyanocobala Cyanocobala 3-0 No 1000ug Common min min 6-16 Spirit 00:00: - CHI [facility] Cyanocobala Cyanocobala 3-0 No 1000ug Common min min 6-16 Spirit 00:00: - CHI [facility] Cyanocobala Cyanocobala 2022-0 No 1000ug Common min min 6-16 Spirit 00:00: - CHI [facility] Cyanocobala Cyanocobala 2022-0 No 1000ug Common min min 6-16 Spirit 00:00: - CHI 00 [facility] OneTouch OneTouch 2022-0 No OneTouch Ultra - Ultra - 2-17 Ultra - 00:00: 00 Accu-Chek Accu-Chek 2022-0 No Accu-Chek Soft Touch Soft Touch 2-17 Soft Touch Lancets Lancets 00:00: Lancets 00 Albuterol Albuterol No 2{puff_ 6xD Albuterol Sulfate [...] 00 (90 Base) MCG/ACT MCG/ACT MCG/ACT ondansetron No 4mg 4 mg, Univ ers (ZOFRAN-ODT 08-12- Oral, ity of ) 21:15: 20:44 ONCE, 1 [place] disintegrat 00 :00 dose, On Medi tracey ing tablet 08/12/21 Bra nch 4 mg at 1615, Routine dicyclomine No 20mg 20 mg, Uni vers (BENTYL) 08-12 Oral, ity of tablet 20 21:15: 20:44 ONCE, 1 [place] mg 00 :00 dose, On Medical 08/12/21 Branch at 1615, Routine ondansetron Yes [id number] 4mg Take 1 Univers 4 mg 6-06 tablet by ity of disintegrat 00:00: mouth [place] ing tablet 00 every 8 Medica l (eight) Branch hours as needed for Nausea and Vomiting (N/V). dicyclomine Yes [id number] 20mg Take 1 Univers 20 mg 6-06 [...] 07/29/21 at 1630, Routine naproxen 2021- No [id number] 375mg Take 1 Univers (EC-NAPROXE 07-29 [id number] tablet by ity of N) 375 mg 00:00: 04:59 [place] 2 [place] EC tablet 00 :00 (two) Medical times Branch daily as needed for Pain (scale 4-6) for up to 8 days. Bupivicaine Bupivicaine No 2.5mg Common [place] 5-10 Spirit 00:00: - CHI 00 [facility] Kenalog Kenalog 2-0 No 40mg Common (Triamcinol (Triamcinol 5-10 S pirit one) one) 00:00: - CHI 00 [facility] Bupivicaine Bupivicaine 2-0 No 2.5mg Common [place] 5-10 Spirit 00:00: - CHI 00 [facility] Kenalog Kenalog 2021-0 No 40mg Common (Triamcinol (Triamcinol 5-10 S pirit one) one) 00:00: - CHI 00 [facility] Bupivicaine Bupivicaine 2021-0 No 2.5mg Common [place] 5-10 Spirit 00:00: - CHI 00 [facility] Kenalog Kenalog 2021-0 No 40mg Common (Triamcinol (Triamcinol 5-10 S pirit one) one) 00:00: - CHI 00 [facility] Bupivicaine Bupivicaine 2-0 No 2.5mg Common [place] 5-10 Spirit 00:00: - CHI 00 [facility] Kenalog Kenalog 2021-0 No 40mg Common (Triamcinol (Triamcinol 5-10 S pirit one) one) 00:00: - CHI 00 [facility] Bupivicaine Bupivicaine 2-0 No 2.5mg Common [place] 5-10 Spirit 00:00: - CHI 00 [facility] Kenalog Kenalog 2-0 No 40mg Common (Triamcinol (Triamcinol 5-10 S pirit one) one) 00:00: - CHI 00 [facility] Bupivicaine Bupivicaine 2-0 No 2.5mg Common [place] 5-10 Spirit 00:00: - CHI 00 [facility] Kenalog Kenalog 2-0 No 40mg Common (Triamcinol (Triamcinol 5-10 S pirit one) one) 00:00: - CHI 00 [facility] Bupivicaine Bupivicaine 2-0 No 2.5mg Common [place] 5-10 Spirit 00:00: - CHI 00 [facility] Kenalog Kenalog 2021-0 No 40mg Common (Triamcinol (Triamcinol 5-10 S pirit one) one) 00:00: - CHI 00 [facility] Bupivicaine Bupivicaine 2-0 No 2.5mg Common [place] 5-10 Spirit 00:00: - CHI 00 [facility] Kenalog Kenalog 2021-0 No 40mg Common (Triamcinol (Triamcinol 5-10 S pirit one) one) 00:00: - CHI 00 [facility] Bupivicaine Bupivicaine 2021-0 No 2.5mg Common [place] 5-10 Spirit 00:00: - CHI 00 [facility] Bupivicaine Bupivicaine 2021-0 No 2.5mg Common [place] 5-10 Spirit 00:00: - CHI 00 [facility] Kenalog Kenalog 2021-0 No 40mg Common (Triamcinol (Triamcinol 5-10 S pirit one) one) 00:00: - CHI 00 [facility] Kenalog Kenalog 2021-0 No 40mg Common (Triamcinol (Triamcinol 5-10 S pirit one) one) 00:00: - CHI 00 [facility] Bupivicaine Bupivicaine 2021-0 No 2.5mg Common [place] 5-10 Spirit 00:00: - CHI 00 [facility] Kenalog Kenalog 2021-0 No 40mg Common (Triamcinol (Triamcinol 5-10 S pirit one) one) 00:00: - CHI 00 [facility] Bupivicaine Bupivicaine 2021-0 No 2.5mg Common [place] 5-10 Spirit 00:00: - CHI 00 [facility] Kenalog Kenalog 2021-0 No 40mg Common (Triamcinol (Triamcinol 5-10 S pirit one) one) 00:00: - CHI 00 [facility] Bupivicaine Bupivicaine 2-0 No 2.5mg Common [place] 5-10 Spirit 00:00: - CHI 00 [facility] Kenalog Kenalog 2-0 No 40mg Common (Triamcinol (Triamcinol 5-10 S pirit one) one) 00:00: - CHI 00 [facility] Bupivicaine Bupivicaine 2-0 No 2.5mg Common [place] 5-10 Spirit 00:00: - CHI 00 [facility] Kenalog Kenalog 2021-0 No 40mg Common (Triamcinol (Triamcinol 5-10 S pirit one) one) 00:00: - CHI 00 [facility] Bupivicaine Bupivicaine 2021-0 No 2.5mg Common [place] 5-10 Spirit 00:00: - CHI 00 [facility] Kenalog Kenalog 2021-0 No 40mg Common (Triamcinol (Triamcinol 5-10 S pirit one) one) 00:00: - CHI 00 [facility] Bupivicaine Bupivicaine 2021-0 No 2.5mg Common [place] 5-10 Spirit 00:00: - CHI 00 [facility] Kenalog Kenalog 2021-0 No 40mg Common (Triamcinol (Triamcinol 5-10 S pirit one) one) 00:00: - CHI 00 [facility] Bupivicaine Bupivicaine 2021-0 No 2.5mg Common [place] 5-10 Spirit 00:00: - CHI 00 [facility] Kenalog Kenalog 2021-0 No 40mg Common (Triamcinol (Triamcinol 5-10 S pirit one) one) 00:00: - CHI 00 [facility] Bupivicaine Bupivicaine 2021-0 No 2.5mg Common [place] 5-10 Spirit 00:00: - CHI 00 [facility] Kenalog Kenalog 2-0 No 40mg Common (Triamcinol (Triamcinol 5-10 S pirit one) one) 00:00: - CHI 00 [facility] Bupivicaine Bupivicaine 2-0 No 2.5mg Common [place] 5-10 Spirit 00:00: - CHI 00 [facility] Kenalog Kenalog 2-0 No 40mg Common (Triamcinol (Triamcinol 5-10 S pirit one) one) 00:00: - CHI 00 [facility] Bupivicaine Bupivicaine 2-0 No 2.5mg Common [place] 5-10 Spirit 00:00: - CHI 00 [facility] Kenalog Kenalog 2-0 No 40mg Common (Triamcinol (Triamcinol 5-10 S pirit one) one) 00:00: - CHI 00 [facility] Bupivicaine Bupivicaine 2-0 No 2.5mg Common [place] 5-10 Spirit 00:00: - CHI 00 [facility] Kenalog Kenalog 2021-0 No 40mg Common (Triamcinol (Triamcinol 5-10 S pirit one) one) 00:00: - CHI 00 [facility] Bupivicaine Bupivicaine 2-0 No 2.5mg Common [place] 5-10 Spirit 00:00: - CHI 00 [facility] Kenalog Kenalog 2021-0 No 40mg Common (Triamcinol (Triamcinol 5-10 S pirit one) one) 00:00: - CHI 00 [facility] Bupivicaine Bupivicaine 2021-0 No 2.5mg Common [place] 5-10 Spirit 00:00: - CHI 00 [facility] Kenalog Kenalog 2021-0 No 40mg Common (Triamcinol (Triamcinol 5-10 S pirit one) one) 00:00: - CHI 00 [facility] Bupivicaine Bupivicaine 2-0 No 2.5mg Common [place] 5-10 Spirit 00:00: - CHI 00 [facility] Kenalog Kenalog 2-0 No 40mg Common (Triamcinol (Triamcinol 5-10 S pirit one) one) 00:00: - CHI 00 [facility] Bupivicaine Bupivicaine 2-0 No 2.5mg Common [place] 5-10 Spirit 00:00: - CHI 00 [facility] Kenalog Kenalog 2-0 No 40mg Common (Triamcinol (Triamcinol 5-10 S pirit one) one) 00:00: - CHI 00 [facility] Bupivicaine Bupivicaine 2-0 No 2.5mg Common [place] 5-10 Spirit 00:00: - CHI 00 [facility] Kenalog Kenalog 2-0 No 40mg Common (Triamcinol (Triamcinol 5-10 S pirit one) one) 00:00: - CHI 00 [facility] Bupivicaine Bupivicaine 2-0 No 2.5mg Common [place] 5-10 Spirit 00:00: - CHI 00 [facility] Kenalog Kenalog 2-0 No 40mg Common (Triamcinol (Triamcinol 5-10 S pirit one) one) 00:00: - CHI 00 [facility] Bupivicaine Bupivicaine 2-0 No 2.5mg Common [place] 5-10 Spirit 00:00: - CHI 00 [facility] Kenalog Kenalog 2-0 No 40mg Common (Triamcinol (Triamcinol 5-10 S pirit one) one) 00:00: - CHI 00 [facility] Bupivicaine Bupivicaine 2-0 No 2.5mg Common [place] 5-10 Spirit 00:00: - CHI 00 [facility] Kenalog Kenalog 2-0 No 40mg Common (Triamcinol (Triamcinol 5-10 S pirit one) one) 00:00: - CHI 00 [facility] Bupivicaine Bupivicaine 2-0 No 2.5mg Common [place] 5-10 Spirit 00:00: - CHI 00 [facility] Kenalog Kenalog 2-0 No 40mg Common (Triamcinol (Triamcinol 5-10 S pirit one) one) 00:00: - CHI 00 [facility] Macrobid Macrobid 2021-0 2021- No BID Macrobid 100 MG 100 MG 3-15 -20 100 MG 00:00: 00:00 00 :00 Macrobid Macrobid 2021-0 2- No BID Macrobid 100 MG 100 MG 3-15 -20 100 MG 00:00: 00:00 00 :00 Pyridium Pyridium 2-0 2022- No 1{table TID Pyridium 100 MG 100 MG 3-21 05-17 t_after 100 MG 00:00: 00:00 _meals} 00 :00 Pyridium Pyridium 2021-0 2021- No 1{table TID Pyridium 100 MG 100 MG 3-15 -17 t_after 100 MG 00:00: 00:00 _meals} 00 :00 Macrobid Macrobid 2021-0 2021- No BID Macrobid 100 MG 100 MG 1-20 -25 100 MG 00:00: 00:00 00 :00 Macrobid Macrobid 2021-0 2021- No BID Macrobid 100 MG 100 MG 1-20 -25 100 MG 00:00: 00:00 00 :00 Azithromyci Azithromyci 2020-2020- No QD Azithromyc n 250 MG n 250 MG 0-12 -17 in 250 MG 00:00: 00:00 00 :00 Azithromyci Azithromyci 2020-03- No QD Azithromyc n 250 MG n 250 MG 0-12 -17 in 250 MG 00:00: 00:00 00 :00 Vitamin B12 Vitamin B12 2020-1 No 1000ug Common (Cyanocobal (Cyanocobal 1-04 S pirit neal) neal) 00:00: - CHI 00 [facility] Vitamin B12 Vitamin B12 2020-1 No 1000ug Common (Cyanocobal (Cyanocobal 1-04 S pirit neal) neal) 00:00: - CHI 00 [facility] Vitamin B12 Vitamin B12 2020-1 No 1000ug Common (Cyanocobal (Cyanocobal 1-04 S pirit neal) neal) 00:00: - CHI 00 [facility] Vitamin B12 Vitamin B12 2020-1 No 1000ug Common (Cyanocobal (Cyanocobal 1-04 S pirit neal) neal) 00:00: - CHI 00 [facility] Vitamin B12 Vitamin B12 2020-1 No 1000ug Common (Cyanocobal (Cyanocobal 1-04 S pirit neal) neal) 00:00: - CHI 00 [facility] Vitamin B12 Vitamin B12 2020-1 No 1000ug Common (Cyanocobal (Cyanocobal 1-04 S pirit neal) neal) 00:00: - CHI 00 [facility] Vitamin B12 Vitamin B12 2020-1 No 1000ug Common (Cyanocobal (Cyanocobal 1-04 S pirit neal) neal) 00:00: - CHI 00 [facility] Vitamin B12 Vitamin B12 2020-1 No 1000ug Common (Cyanocobal (Cyanocobal 1-04 S pirit neal) neal) 00:00: - CHI 00 [facility] Vitamin B12 Vitamin B12 2020-1 No 1000ug Common (Cyanocobal (Cyanocobal 1-04 S pirit neal) neal) 00:00: - CHI 00 [facility] Vitamin B12 Vitamin B12 2020-1 No 1000ug Common (Cyanocobal (Cyanocobal 1-04 S pirit neal) neal) 00:00: - CHI 00 [facility] Vitamin B12 Vitamin B12 2020-1 No 1000ug Common (Cyanocobal (Cyanocobal 1-04 S pirit neal) neal) 00:00: - CHI 00 [facility] Vitamin B12 Vitamin B12 2020-1 No 1000ug Common (Cyanocobal (Cyanocobal 1-04 S pirit neal) neal) 00:00: - CHI 00 [facility] Vitamin B12 Vitamin B12 2020-1 No 1000ug Common (Cyanocobal (Cyanocobal 1-04 S pirit neal) neal) 00:00: - CHI 00 [facility] Vitamin B12 Vitamin B12 2020-1 No 1000ug Common (Cyanocobal (Cyanocobal 1-04 S pirit neal) neal) 00:00: - CHI 00 [facility] Vitamin B12 Vitamin B12 2020-1 No 1000ug Common (Cyanocobal (Cyanocobal 1-04 S pirit neal) neal) 00:00: - CHI 00 [facility] Vitamin B12 Vitamin B12 2020-1 No 1000ug Common (Cyanocobal (Cyanocobal 1-04 S pirit neal) neal) 00:00: - CHI 00 [facility] Vitamin B12 Vitamin B12 2020-1 No 1000ug Common (Cyanocobal (Cyanocobal 1-04 S pirit neal) neal) 00:00: - CHI 00 [facility] Vitamin B12 Vitamin B12 2020-1 No 1000ug Common (Cyanocobal (Cyanocobal 1-04 S pirit neal) neal) 00:00: - CHI 00 [facility] Vitamin B12 Vitamin B12 2020-1 No 1000ug Common (Cyanocobal (Cyanocobal 1-04 S pirit neal) neal) 00:00: - CHI 00 [facility] Vitamin B12 Vitamin B12 2020-1 No 1000ug Common (Cyanocobal (Cyanocobal 1-04 S pirit neal) neal) 00:00: - CHI 00 [facility] Vitamin B12 Vitamin B12 2020-1 No 1000ug Common (Cyanocobal (Cyanocobal 1-04 S pirit neal) neal) 00:00: - CHI 00 [facility] Vitamin B12 Vitamin B12 2020-1 No 1000ug Common (Cyanocobal (Cyanocobal 1-04 S pirit neal) neal) 00:00: - CHI 00 [facility] Vitamin B12 Vitamin B12 2020-1 No 1000ug Common (Cyanocobal (Cyanocobal 1-04 S pirit neal) neal) 00:00: - CHI 00 [facility] Vitamin B12 Vitamin B12 2020-1 No 1000ug Common (Cyanocobal (Cyanocobal 1-04 S pirit neal) neal) 00:00: - CHI 00 [facility] Vitamin B12 Vitamin B12 2020-1 No 1000ug Common (Cyanocobal (Cyanocobal 1-04 S pirit neal) neal) 00:00: - CHI 00 [facility] Vitamin B12 Vitamin B12 2020-1 No 1000ug Common (Cyanocobal (Cyanocobal 1-04 S pirit neal) neal) 00:00: - CHI 00 [facility] Vitamin B12 Vitamin B12 2020-1 No 1000ug Common (Cyanocobal (Cyanocobal 1-04 S pirit neal) neal) 00:00: - CHI 00 [facility] Vitamin B12 Vitamin B12 2020-1 No 1000ug Common (Cyanocobal (Cyanocobal 1-04 S pirit neal) neal) 00:00: - CHI 00 [facility] Vitamin B12 Vitamin B12 2020-1 No 1000ug Common (Cyanocobal (Cyanocobal 1-04 S pirit neal) neal) 00:00: - CHI 00 [facility] Vitamin B12 Vitamin B12 2020-1 No 1000ug Common (Cyanocobal (Cyanocobal 1-04 S pirit neal) neal) 00:00: - CHI 00 [facility] Vitamin B12 Vitamin B12 2020-1 No 1000ug Common (Cyanocobal (Cyanocobal 1-04 S pirit neal) neal) 00:00: - CHI 00 [facility] Vitamin B12 Vitamin B12 2020-1 No 1000ug Common (Cyanocobal (Cyanocobal 1-04 S pirit neal) neal) 00:00: - CHI 00 [facility] Vitamin B12 Vitamin B12 2020- No 1000ug Common (Cyanocobal (Cyanocobal 1-04 S pirit neal) neal) 00:00: - CHI 00 [facility] Vitamin B12 Vitamin B12 2020- No 1000ug Common (Cyanocobal (Cyanocobal 1-04 S pirit neal) neal) 00:00: - CHI 00 [facility] Trazodone Trazodone 2018- Yes Damir 1 tablet Common HCl HCl 03-14 Thomas at bedtime Spirit 00:00: - CHI [facility] xRocephin 1 xRocephin 1 2019-0 No 1g Common gm gm 3-28 Spirit 00:00: - CHI [facility] xRocephin 1 xRocephin 1 2019-0 No 1g Common gm gm 3-28 Spirit 00:00: - CHI [facility] xRocephin 1 xRocephin 1 2019-0 No 1g Common gm gm 3-28 Spirit 00:00: - CHI [facility] xRocephin 1 xRocephin 1 2019-0 No 1g Common gm gm 3-28 Spirit 00:00: - CHI [facility] xRocephin 1 xRocephin 1 2019-0 No 1g Common gm gm 3-28 Spirit 00:00: - CHI [facility] xRocephin 1 xRocephin 1 2019-0 No 1g Common gm gm 3-28 Spirit 00:00: - CHI [facility] xRocephin 1 xRocephin 1 2019-0 No 1g [facility]28 [facility] 00:[facility]: - [facility] xRocephin 1 xRocephin 1 2019-0 No 1g [facility] g[facility] gm 3-28 [facility] 00:00: - [facility] xRocephin 1 xRocephin 1 2019-0 No 1g [facility] gm gm 3-28 [facility] 00:00: - [facility] xRocephin 1 xRocephin 1 2019-0 No 1g [facility] gm gm 3-28 [facility] 00:00: - [facility] xRocephin 1 xRocephin 1 2019-0 No 1g [facility] gm gm 06-03 [facility] 00:00: - [facility] xRocephin 1 xRocephin 1 2019-0 No 1g [facility] gm gm 06-03 [facility] 00:00: - [facility] xRocephin 1 xRocephin 1 2019-0 No 1g [facility] gm gm 06-03 [facility] 00:00: - [facility] xRocephin 1 xRocephin 1 2019-0 No 1g [facility] gm gm 06-03 [facility] 00:00: - [facility] xRocephin 1 xRocephin 1 2019-0 No 1g [facility]m gm 06-03 [facility] 00:00: - [facility] xRocephin 1 xRocephin 1 2019-0 No 1g [facility] gm gm 06-03 [facility] 00:00: - [facility] xRocephin 1 xRocephin 1 2019-0 No 1g [facility] gm gm 06-03 [facility] 00:00: - [facility] xRocephin 1 xRocephin 1 2019-0 No 1g [facility] gm gm 06-03 [facility] 00:00: - [facility] xRocephin 1 xRocephin 1 2019-0 No 1g [facility] gm gm 06-03 [facility] 00:00: - [facility] xRocephin 1 xRocephin 1 2019-0 No 1g [facility] gm gm 06-03 [facility] 00:00: - [facility] xRocephin 1 xRocephin 1 2019-0 No 1g [facility]m gm 06-03 [facility] 00:00: - [facility] xRocephin 1 xRocephin 1 2019-0 No 1g [facility]m gm 06-03 [facility] 00:00: - [facility] xRocephin 1 xRocephin 1 2019-0 No 1g [facility]m gm 06-03 [facility] 00:00: - [facility] xRocephin 1 xRocephin 1 2019-0 No 1g [facility] gm 3-28 [facility] 00:00: - [facility] xRocephin 1 xRocephin 1 2019-0 No 1g [facility] gm 3-28 [facility] 00:00: - [facility] xRocephin 1 xRocephin 1 2019-0 No 1g [facility] gm 3-28 [facility] 00:00: - [facility] xRocephin 1 xRocephin 1 2019-0 No 1g [facility] gm 3-28 [facility] 00:00: - [facility] xRocephin 1 xRocephin 1 2019-0 No 1g [facility] gm 3-28 [facility] 00:00: - [facility] xRocephin 1 xRocephin 1 2019-0 No 1g [facility] gm 3- [facility] 00:00: - [facility] xRocephin 1 xRocephin 1 2019-0 No 1g [facility]m gm 3-28 [facility] 00:00: - [facility] xRocephin 1 xRocephin 1 2019-0 No 1g [facility] gm 3-28 [facility] 00:00: - [facility] xRocephin 1 xRocephin 1 2019-0 No 1g [facility] gm 3-28 [facility] 00:00: - [facility] xRocephin 1 xRocephin 1 2019-0 No 1g [facility] gm 3-28 [facility] 00:00: - [facility] xRocephin 1 xRocephin 1 2019-0 No 1g [facility] gm 3-28 [facility] 00:00: - [facility] Montelukast Montekast 2019-0 Yes Damir 1 tablet Common Sodium Sodium 2-20 [facility] 00:00: - [facility] Kenalog Kenalog 2019-0 No 40mg Common (Triamcinol (Triamcinol 2-20 S pirit one) one) 00:00: - [facility] Kenalog Kenalog 2019-0 No 40mg Common (Triamcinol (Triamcinol 2-20 S pirit one) one) 00:00: - [facility] Kenalog Kenalog 2019-0 No 40mg Common (Triamcinol (Triamcinol 2-20 S pirit one) one) 00:00: - [facility] 00 [facility] Kenalog Kenalog 2019-0 No 40mg Common (Triamcinol (Triamcinol 2-20 S pirit one) one) 00:00: - [facility] 00 [facility] Kenalog Kenalog 2019-0 No 40mg Common (Triamcinol (Triamcinol 2-20 S pirit one) one) 00:00: - [facility] 00 [facility] Kenalog Kenalog 2019-0 No 40mg Common (Triamcinol (Triamcinol 2-20 S pirit one) one) 00:00: - [facility] 00 [facility] Kenwilliams Kenalog 2019-0 No 40mg Common (Triamcinol (Triamcinol 2-20 S pirit one) one) 00:00: - [facility] 00 [facility] Ken[place]illiams Kenalog 2019-0 No 40mg Common (Triamcinol (Triamcinol 2-20 S pirit one) one) 00:00: - [facility] 00 [facility] [place] Kenalog 2019-0 No 40mg Common (Triamcinol (Triamcinol 2-20 S pirit one) one) 00:00: - [facility] 00 [facility] [place] Kenalog 2019-0 No 40mg Common (Triamcinol (Triamcinol 2-20 S pirit one) one) 00:00: - [facility] 00 [facility] [place] Kenalog 2019-0 No 40mg Common (Triamcinol (Triamcinol 2-20 S pirit one) one) 00:00: - [facility] 00 [facility] Kenalog Kenalog 2019-0 No 40mg Common (Triamcinol (Triamcinol 2-20 S pirit one) one) 00:00: - [facility] 00 [facility] [place] Kenalog 2019-0 No 40mg Common (Triamcinol (Triamcinol 2-20 S pirit one) one) 00:00: - [facility] 00 [facility] Kenalog Kenalog 2019-0 No 40mg Common (Triamcinol (Triamcinol 2-20 S pirit one) one) 00:00: - [facility] 00 [facility] Montelukast Montelukast 2019-0 No 1{table QD Montelukas [...] pirit one) one) 00:00: - [facility] 00 [facility] Montelukast Montelukast 2019-0 No 1{table QD Montelukas Sodium 10 Sodium 10 2-20 t} t Sodium MG MG 00:00: 10 MG 00 Kenalog Kenalog 2019-0 No 40mg Common (Triamcinol (Triamcinol 2-20 S pirit one) one) 00:00: - [facility] 00 [facility] Montelukast Montelukast 2019-0 No 1{table QD Montelukas Sodium 10 Sodium 10 2-20 t} t Sodium MG MG 00:00: 10 MG 00 Kenalog Kenalog 2019-0 No 40mg Common (Triamcinol (Triamcinol 2-20 S pirit one) one) 00:[facility] QD Montelukas Sodium 10 Sodium 10 2-20 t} t Sodium MG MG 00:00: 10 MG 00 Kenalog Kenalog 2019-0 No 40mg Common (Triamcinol (Triamcinol 2-20 S pirit one) one) 00:00: [facility]{table QD Montelukas Sodium 10 Sodium 10 2-20 t} t Sodium MG MG 00:00: 10 MG 00 Kenalog Kenalog 2019-0 No 40mg Common (Triamcinol (Triamcinol 2-20 S pirit one) one) 00:00: [facility]{table QD Montelukas Sodium 10 Sodium 10 2-20 t} t Sodium MG MG 00:00: 10 MG 00 Kenalog Kenalog 2019-0 No 40mg Common (Triamcinol (Triamcinol 2-20 S pirit one) one) 00:00: [facility] No 1{table QD Montelukas Sodium 10 Sodium 10 2-20 t} t Sodium MG MG 00:00: 10 MG 00 Kenalog Kenalog 2019-0 No 40mg Common (Triamcinol (Triamcinol 2-20 S pirit one) one) 00:00: [facility] No 1{table QD Montelukas Sodium 10 Sodium 10 2-20 t} t Sodium MG MG 00:00: 10 MG 00 Kenalog Kenalog 2019-0 No 40mg Common (Triamcinol (Triamcinol 2-20 S pirit one) one) 00:00: [facility] No 1{table QD Montelukas Sodium 10 Sodium 10 2-20 t} t Sodium MG MG 00:00: 10 MG 00 Kenalog Kenalog 2019-0 No 40mg Common (Triamcinol (Triamcinol 2-20 S pirit one) one) 00:00: [facility] No 1{table QD Montelukas Sodium 10 Sodium 10 2-20 t} t Sodium MG MG 00:00: 10 MG 00 Kenalog Kenalog 2019-0 No 40mg Common (Triamcinol (Triamcinol 2-20 S pirit one) one) 00:00: [facility] No 1{table QD Montelukas Sodium 10 Sodium 10 2-20 t} t Sodium MG MG 00:00: 10 MG 00 Kenalog Kenalog 2019-0 No 40mg Common (Triamcinol (Triamcinol 2-20 S pirit one) one) 00:00: [facility] No 1{table QD Montelukas Sodium 10 Sodium 10 2-20 t} t Sodium MG MG 00:00: 10 MG 00 Kenalog Kenalog 2019-0 No 40mg Common (Triamcinol (Triamcinol 2-20 S pirit one) one) 00:00: [facility] No 1{table QD Montelukas Sodium 10 Sodium 10 2-20 t} t Sodium MG MG 00:00: 10 MG 00 Kenalog Kenalog 2019-0 No 40mg Common (Triamcinol (Triamcinol 2-20 S pirit one) one) 00:00[facility]D Montelukas Sodium 10 Sodium 10 2-20 t} t Sodium MG MG 00:00: 10 MG 00 Kenalog Kenalog 2019-0 No 40mg Common (Triamcinol (Triamcinol 2-20 S pirit one) one) 00:00: [facility] No 1{table QD Montelukas Sodium 10 Sodium 10 2-20 t} t Sodium MG MG 00:00: 10 MG 00 Kenalog Kenalog 2019-0 No 40mg Common (Triamcinol (Triamcinol 2-20 S pirit one) one) 00:00: - [facility] 00 [facility] Cuate Hodgsonalog 2019-0 No 40mg Common (Triamcinol (Triamcinol 2-20 S pirit one) one) 00:00: - [facility] 00 [facility] Cuate Cuello 2019-0 No 40mg Common (Triamcinol (Triamcinol 2-20 S pirit one) one) 00:00: - [facility] 00 [facility] Cuate Kenwilliams 2019-0 No 40mg Common (Triamcinol (Triamcinol 2-20 S pirit one) one) 00:00: - [facility] 00 [facility] Cuate Cuello 2019-0 No 40mg Common (Triamcinol (Triamcinol 2-20 S pirit one) one) 00:00: - [facility] 00 [facility] Cuate Cuello 2019-0 No 40mg Common (Triamcinol (Triamcinol 2-20 S pirit one) one) 00:00: - [facility] 00 [facility] Tramadol Tramadol 2017-1 Yes Damir 1 tablet [facility] HCl HCl 2-10 [facility] as needed [facility] 00:00: - [facility] 00 [facility] traMADol traMADol 2017- No 1{table QID traMADol [...] 50 MG 00:00: eded} 00 traMADol traMADol 2018-1 No 1{table QID traMADol HCl 50 MG HCl 50 MG 2-10 t_as_ne HCl 50 MG 00:00: eded} 00 Meloxicam Meloxicam No Meloxicam 7.5 MG 7.5 [...] t_at_be HCl 150 MG dtime} Lisinopril Lisinopril Yes Damir 1 tablet Common [facility] Simvastatin Simvastatin Yes Damir 1 tablet Common [facility] in the [facility] evening [facility] Vitamin B12 Vitamin B12 Yes Damir not Common [facility] defined [facility] Lorazepam Lorazepam Yes Damir 1 tablet Common [facility] as needed [facility] Metformin Metformin Yes Damir 1 tablet Common HCl HCl [facility] with a [facility] Omeprazole Omeprazole Yes Damir 1 capsule Common [facility] Synthroid Synthroid Yes Damir 1 tablet Common [facility] on an [facility] empty - [facility] stomach in [facility] Omeprazole Omeprazole No 1{capsu QD Omeprazole 40 [...] 100 MCG 100 MCG B12 100 MCG metFORMIN metFORMIN No metFORMIN HCl 500 MG HCl 500 MG HCl 500 MG Simvastatin Simvastatin No 1{table QD Simvastati 40 MG 40 MG t_in_th n 40 MG e_eveni ng} Simvastatin Simvastatin No Simvastati 40 MG 40 MG n 40 MG Meloxicam Meloxicam No Meloxicam 7.5 MG 7.5 MG 7.5 MG Vitamin B12 Vitamin B12 No Vitamin 100 MCG 100 MCG B12 100 MCG Omeprazole Omeprazole No 1{capsu QD Omeprazole 40 MG 40 MG le} 40 MG Dicyclomine Dicyclomine No 1{table TID Dicyclomin HCl 20 MG HCl 20 MG t} e HCl 20 MG levoFLOXaci levoFLOXaci No 1{table QD levoFLOXac n 750 MG n 750 MG t} in 750 MG traZODone traZODone No 1{table QD traZODone HCl 150 MG HCl 150 MG t_at_be HCl 150 MG dtime} metFORMIN metFORMIN No 1{table BID metFORMIN HCl 500 MG HCl 500 MG t_with_ HCl 500 MG a_meal} metroNIDAZO metroNIDAZO No 1{table TID metroNIDAZ LE 500 MG LE 500 MG t} OLE 500 MG Synthroid Synthroid No QD Synthroid 50 MCG 50 MCG 50 MCG Diclofenac Diclofenac No Diclofenac Sodium 1 % Sodium 1 % Sodium 1 % Lisinopril Lisinopril No 1{table QD Lisinopril 30 MG 30 MG t} 30 MG Triamcinolo Triamcinolo No 1{appli BID Triamcinol ne ne cation} one Acetonide Acetonide Acetonide 0.1 % 0.1 % 0.1 % Levothyroxi Levothyroxi No Levothyrox ne Sodium ne Sodium ine Sodium 50 MCG 50 MCG 50 MCG diazePAM 5 diazePAM 5 No 1{table diazePAM 5 MG MG t} MG Vitamin B12 Vitamin B12 No Vitamin 100 MCG 100 MCG B12 100 MCG Simvastatin Simvastatin No 1{table QD Simvastati 40 MG 40 MG t_in_th n 40 MG e_eveni ng} traZODone traZODone No 1{table QD traZODone HCl [...] MG t_in_th n 40 MG e_eveni ng} traZODone traZODone No 1{table QD traZODone HCl [...] 40 MG 40 MG n 40 MG Vitamin B12 Vitamin B12 No Vitamin 100 MCG 100 MCG B12 100 MCG Simvastatin Simvastatin No 1{table QD Simvastati 40 MG 40 MG t_in_th n 40 MG e_eveni ng} Levothyroxi Levothyroxi No Levothyrox ne Sodium ne Sodium ine Sodium 50 MCG 50 MCG 50 MCG traZODone [...] MG t_in_th n 40 MG e_eveni ng} traZODone traZODone No 1{table QD traZODone HCl [...] 100 MCG 100 MCG B12 100 MCG metFORMIN metFORMIN No 1{table BID metFORMIN HCl 500 MG HCl 500 MG t_with_ HCl 500 MG a_meal} Simvastatin Simvastatin No 1{table QD Simvastati 40 MG 40 MG t_in_th n 40 MG e_eveni ng} traZODone traZODone No traZODone HCl 150 MG HCl 150 MG HCl 150 MG Triamcinolo Triamcinolo No 1{appli BID Triamcinol ne ne cation} one Acetonide Acetonide Acetonide 0.1 % 0.1 % 0.1 % Synthroid Synthroid No QD Synthroid 50 MCG 50 MCG 50 MCG Levothyroxi Levothyroxi No Levothyrox ne Sodium [...] 100 MCG 100 MCG B12 100 MCG metFORMIN metFORMIN No 1{table BID metFORMIN HCl 500 MG HCl 500 MG t_with_ HCl 500 MG a_meal} Simvastatin Simvastatin No 1{table QD Simvastati 40 MG 40 MG t_in_th n 40 MG e_eveni ng} traZODone traZODone No traZODone HCl 150 MG HCl 150 MG HCl 150 MG Triamcinolo Triamcinolo No 1{appli BID Triamcinol ne ne cation} one Acetonide Acetonide Acetonide 0.1 % 0.1 % 0.1 % Synthroid Synthroid No QD Synthroid 50 MCG 50 MCG 50 MCG Levothyroxi Levothyroxi No Levothyrox ne Sodium [...] 100 MCG 100 MCG B12 100 MCG metFORMIN metFORMIN No 1{table BID metFORMIN HCl 500 MG HCl 500 MG t_with_ HCl 500 MG a_meal} Simvastatin Simvastatin No 1{table QD Simvastati 40 MG 40 MG t_in_th n 40 MG e_eveni ng} traZODone traZODone No traZODone HCl 150 MG HCl 150 MG HCl 150 MG Triamcinolo Triamcinolo No 1{appli BID Triamcinol ne ne cation} one Acetonide Acetonide Acetonide 0.1 % 0.1 % 0.1 % Synthroid Synthroid No QD Synthroid 50 MCG 50 MCG 50 MCG Levothyroxi Levothyroxi No Levothyrox ne Sodium [...] MG HCl 500 MG HCl 500 MG Vitamin B12 Vitamin B12 No Vitamin 100 MCG 100 MCG B12 100 MCG metFORMIN metFORMIN No 1{table BID metFORMIN HCl 500 MG HCl 500 MG t_with_ HCl 500 MG a_meal} Simvastatin Simvastatin No 1{table QD Simvastati 40 MG 40 MG t_in_th n 40 MG e_eveni ng} traZODone traZODone No traZODone HCl 150 MG HCl 150 MG HCl 150 MG Triamcinolo Triamcinolo No 1{appli BID Triamcinol ne ne cation} one Acetonide Acetonide Acetonide 0.1 % 0.1 % 0.1 % Triamcinolo Triamcinolo No 1{appli BID Triamcinol ne ne cation} one Acetonide Acetonide Acetonide 0.1 % 0.1 % 0.1 % Synthroid Synthroid No QD Synthroid 50 MCG 50 MCG 50 MCG Levothyroxi Levothyroxi No Levothyrox ne Sodium ne Sodium ine Sodium 50 MCG 50 MCG 50 MCG Meloxicam Meloxicam No Meloxicam 7.5 MG 7.5 MG 7.5 MG Omeprazole Omeprazole No 1{capsu QD Omeprazole 40 MG 40 MG le} 40 MG Lisinopril Lisinopril No 1{table QD Lisinopril 30 MG 30 MG t} 30 MG Lisinopril Lisinopril No 1{table QD [...] MG 0.5 MG t_as_ne 0.5 MG eded} Immunizations Ordered Filled Immunization Date Status Comments [facility] e Immunization Name Name FLUZONE HIGH DOSE FLUZONE HIGH DOSE 2022-01-02 Completed [facility] OVER 65 OVER 65 09:40:00 [facility] FLUZONE HIGH DOSE FLUZONE HIGH DOSE 2022-01-02 Completed [facility] OVER 65 OVER 65 09:40:00 [facility] FLUZONE HIGH DOSE FLUZONE HIGH DOSE 2022-01-02 Completed [facility] OVER 65 OVER 65 09:40:00 [facility] FLUZONE HIGH DOSE FLUZONE HIGH DOSE 2022-01-02 Completed [facility] OVER 65 OVER 65 09:40:00 [facility] Pneumovax (PPSV23) Pneumovax (PPSV23) 2021-03-28 Completed [facility] 15:43:00 [facility] Pneumovax (PPSV23) Pneumovax (PPSV23) 2021-03-28 Completed [facility] 15:43:00 [facility] Pneumovax (PPSV23) Pneumovax (PPSV23) 2021-03-28 Completed [facility] 15:43:00 [facility] Pneumovax (PPSV23) Pneumovax (PPSV23) 2021-03-28 Completed [facility] 15:43:00 [facility] Pneumovax (PPSV23) Pneumovax (PPSV23) 2021-03-28 Completed [facility] 15:43:00 [facility] Pneumovax (PPSV23) Pneumovax (PPSV23) 2021-03-28 Completed [facility] 15:43:00 [facility] Pneumovax (PPSV23) Pneumovax (PPSV23) 2021-03-28 Completed [facility] 15:43:00 [facility] Pneumovax (PPSV23) Pneumovax (PPSV23) 2021-03-28 Completed [facility] 15:43:00 [facility] Pneumovax (PPSV23) Pneumovax (PPSV23) 2021-03-28 Completed [facility] 15:43:00 [facility] Pneumovax (PPSV23) Pneumovax (PPSV23) 2021-03-28 Completed [facility] 15:43:00 [facility] Pneumovax (PPSV23) Pneumovax (PPSV23) 2021-03-28 Completed [facility] 15:43:00 [facility] Pneumovax (PPSV23) Pneumovax (PPSV23) 2021-03-28 Completed [facility] 15:43:00 [facility] Pneumovax (PPSV23) Pneumovax (PPSV23) 2021-03-28 Completed [facility] 15:43:00 [facility] Pneumovax (PPSV23) Pneumovax (PPSV23) 2021-03-28 Completed [facility] 15:43:00 [facility] Pneumovax (PPSV23) Pneumovax (PPSV23) 2021-03-28 Completed [facility] 15:43:00 [facility] Pneumovax (PPSV23) Pneumovax (PPSV23) 2021-03-28 Completed [facility] 15:43:00 [facility] Pneumovax (PPSV23) Pneumovax (PPSV23) 2021-03-28 Completed [facility] 15:43:00 [facility] Pneumovax (PPSV23) Pneumovax (PPSV23) 2021-03-28 Completed [facility] 15:43:00 [facility] Pneumovax (PPSV23) Pneumovax (PPSV23) 2021-03-28 Completed [facility] 15:43:00 [facility] Pneumovax (PPSV23) Pneumovax (PPSV23) 2021-03-28 Completed [facility] 15:43:00 [facility] Pneumovax (PPSV23) Pneumovax (PPSV23) 2021-03-28 Completed [facility] 15:43:00 [facility] Pneumovax (PPSV23) Pneumovax (PPSV23) 2021-03-28 Completed [facility] 15:43:00 [facility] Pneumovax (PPSV23) Pneumovax (PPSV23) 2021-03-28 Completed [facility] 15:43:00 [facility] Pneumovax (PPSV23) Pneumovax (PPSV23) 2021-03-28 Completed [facility] 15:43:00 [facility] Pneumovax (PPSV23) Pneumovax (PPSV23) 2021-03-28 Completed [facility] 15:43:00 [facility] Pneumovax (PPSV23) Pneumovax (PPSV23) 2021-03-28 Completed [facility] 15:43:00 [facility] Pneumovax (PPSV23) Pneumovax (PPSV23) 2021-03-28 Completed [facility] 15:43:00 [facility] Pneumovax (PPSV23) Pneumovax (PPSV23) 2021-03-28 Completed [facility] 15:43:[address] [facility] Vacc[facility] (Low Dose Vaccine (Low Dose 11:38:00 - [facility] Booster) [facility] [address] COVID19 2021-01-25 Completed [facility]ine (Low Dose Vaccine (Low Dose 11:38:00 - [facility] Booster[facility] Booster) [facility] [address] COVID19 2021-01-25 Completed [facility] Vaccine (Low Dose Vaccine (Low Dose 11:38:00 - [facility] Booster[facility] Booster) [facility] [address] COVID19 2021-01-25 Completed [facility] Vaccine (Low Dose Vaccine (Low Dose 11:38:00 - [facility] Booster[facility] Booster) [facility] [address] COVID19 2021-01-25 Completed [facility] Vaccine (Low Dose Vaccine (Low Dose 11:38:00 - [facility] Booster[facility] Booster) [facility] [address] COVID19 2021-01-25 Completed [facility] Vaccine (Low Dose Vaccine (Low Dose 11:38:00 - [facility] Booster[facility] Booster) [facility] [address] [facility] Com[facility]ine (Low Dose Vaccine (Low Dose 11:38:00 - [facility] Booster[facility] Booster) [facility] [address] COVID19 2021-01-25 Completed [facility] Vaccine (Low Dose Vaccine (Low Dose 11:38:00 - [facility] Booster[facility] Booster) [facility] [address] COVID19 2021-01-25 Completed [facility] Vaccine (Low Dose Vaccine (Low Dose 11:38:00 - [facility] Booster[facility] Booster) [facility] [address] [facility] Com[facility] Vaccine (Low Dose Vaccine (Low Dose 11:38:00 - [facility] Booster) Booster) [facility] [address] COVID19 2021-01-25 Completed [facility] Vaccine (Low Dose Vaccine (Low Dose 11:38:00 - [facility] Booster) Booster) [facility] [address] [facility]-25 Com[facility] Vaccine (Low Dose Vaccine (Low Dose 11:38:00 - [facility] Booster) Booster) [facility] [address] [facility]-25 Com[facility]ine (Low Dose Vaccine (Low Dose 11:38:00 - [facility] Booster[facility] Booster) [facility] [address] COVID19 2021-01-25 Completed [facility] Vaccine (Low Dose Vaccine (Low Dose 11:38:00 - [facility] Booster) Booster) [facility] [address] COVID19 2021-01-25 Completed [facility]ine (Low Dose Vaccine (Low Dose 11:38:00 - [facility] Booster) Booster) [facility] [address] COVID19 2021-01-25 Completed [facility]ine (Low Dose Vaccine (Low Dose 11:38:00 - [facility] Booster) Booster) [facility] [address] COVID19 2021-01-25 Completed [facility] (Low Dose Vaccine (Low Dose 11:38:00 - [facility] Booster) Booster) [facility] COVID19 [facility] COVID19 2021-01-25 Completed [facility]ine (Low Dose Vaccine (Low Dose 11:38:00 - [facility] Booster) Booster) [facility] COVID19 [facility] COVID19 2021-01-25 Completed [facility] (Low Dose Vaccine (Low Dose 11:38:00 - [facility] Booster) Booster) [facility] [address] COVID19 2021-01-25 Completed [facility]ine (Low Dose Vaccine (Low Dose 11:38:00 - [facility] Booster) Booster) [facility] [address] COVID19 2021-01-25 Completed [facility]ine (Low Dose Vaccine (Low Dose 11:38:00 - [facility] Booster) Booster) [facility] [address] COVID19 2021-01-25 Completed [facility] (Low Dose Vaccine (Low Dose 11:38:00 - [facility] Booster) Booster) [facility] [address] COVID19 2021-01-25 Completed [facility] (Low Dose Vaccine (Low Dose 11:38:00 - [facility] Booster) Booster) [facility] [address] COVID19 2021-01-25 Completed [facility]ine (Low Dose Vaccine (Low Dose 11:38:00 - [facility] Booster) Booster) [facility] [address] COVID19 2021-01-25 Completed [facility] (Low Dose Vaccine (Low Dose 11:38:00 - [facility] Booster) Booster) [facility] [address] COVID19 2021-01-25 Completed [facility]ine (Low Dose Vaccine (Low Dose 11:38:00 - [facility] Booster) Booster) [facility] [address] COVID19 2021-01-25 Completed [facility] (Low Dose Vaccine (Low Dose 11:38:00 [facility]oster[facility] [facility] [address] COVID19 2021-01-25 [facility] (Low Dose Vaccine (Low Dose 11:38:00 - [facility] Booster) Booster) [facility] [place]19 [facility] [place] 2021-01-25 Com[facility] (Low Dose Vaccine (Low Dose 11[facility]38:00 - [facility] Booster) Booster) [facility] [place] [facility] [place] 2021[facility]01-25 Com[facility] (Low Dose Vaccine (Low Dose 11:38:00 - [facility] Booster) Booster) [facility] FluAD FluAD 2020-12-12 [facility] 09:54:00 [facility] FluAD FluAD 2020-12-12 Completed [facility] 09:54:00 [facility] FluAD FluAD 2020-12-12 Completed [facility] 09[facility]54:00 [facility] FluAD FluAD 2020-12-12 Completed [facility] 09:54:00 [facility] FluAD FluAD 2020-12-12 Completed [facility] 09:54:00 [facility] FluAD FluAD 2020-12-12 Completed [facility] 09:54:00 [facility] FluAD FluAD 2020-12-12 Completed [facility] 09:54:00 [facility] FluAD FluAD 2020-12-12 Completed [facility] 09:54:00 [facility] FluAD FluAD 2020-12-12 Completed [facility] 09:54:00 [facility] FluAD FluAD 2020-12-12 Completed [facility] 09:54:00 [facility] FluAD FluAD 2020-12-12 Completed [facility] 09:54:00 [facility] FluAD FluAD 2020-12-12 Completed [facility] 09:54:00 [facility] FluAD FluAD 2020-12-12 Completed [facility] 09:54:00 [facility] FluAD FluAD 2020-12-12 Completed [facility] 09:54:00 [facility] FluAD FluAD 2020-12-12 Completed [facility] 09:54:00 [facility] FluAD FluAD 2020-12-12 Completed [facility] 09:54:00 - [facility] FluAD FluAD 2020-12-12 Completed [facility] 09:54:00 - [facility] FluAD FluAD 2020-12-12 Completed [facility] 09:54:00 - [facility] FluAD FluAD 2020-12-12 Completed [facility] 09:54:00 - [facility] FluAD FluAD 2020-12-12 Completed [facility] 09:54:00 - [facility] FluAD FluAD 2020-12-12 Completed [facility] 09:54:00 - [facility] FluAD FluAD 2020-12-12 Completed [facility] 09:54:00 - [facility] FluAD FluAD 2020-12-12 Completed [facility] 09:54:00 - [facility] FluAD FluAD 2020-12-12 Completed [facility] 09:54:00 - [facility] FluAD FluAD 2020-12-12 Completed [facility] 09:54:00 - [facility] FluAD FluAD 2020-12-12 Completed [facility] 09:54:00 - [facility] FluAD FluAD 2020-12-12 Completed [facility] 09:54:00 - [facility] FluAD FluAD 2020-12-12 Completed [facility] 09:54:00 - [facility] FluAD FluAD 2020-12-12 Completed [facility] 09:54:00 - [facility] FluAD FluAD 2020-12-12 Completed [facility] 09:54:00 - [facility] FluAD FluAD 2020-12-12 Completed [facility] 09:54:00 - [facility] FluAD FluAD 2020-12-12 Completed [facility] 09:54:00 - [facility] FluAD FluAD 2020-12-12 Completed [facility] 09[facility]54:00 - [facility] FluAD FluAD 2020-12-12 Completed [facility] 09:54:00 - [facility] COVID-19 Vaccine COVID-19 Vaccine 2020-05-23 Completed [facility] (Justine) (Justine) 10:03:00 - [facility] COVID-19 Vaccine COVID-19 Vaccine 2020-05-23 Completed [facility] (Justine) (Justine) 10:03:00 - [facility] COVID-19 Vaccine COVID-19 Vaccine 2020-05-23 Completed [facility] (Justine) (Justine) 10:03:00 - [facility] COVID-19 Vaccine COVID-19 Vaccine 2020-05-23 Completed [facility] (Justine) (Justine) 10:03:00 - [facility] COVID-19 Vaccine COVID-19 Vaccine 2020-05-23 Completed [facility] (Justine) (Justine) 10:03: - [facility] COVID-19 Vaccine COVID-19 Vaccine 2020-05-23 Completed [facility] (Justine) (Justine) 10:03: - [facility] COVID-19 Vaccine COVID-19 Vaccine 2020-05-23 Completed [facility] (Justine) (Justine) 10:03:00 - [facility] COVID-19 Vaccine COVID-19 Vaccine 2020-05-23 Completed [facility] (Justine) (Justine) 10:03:00 - [facility] COVID-19 Vaccine COVID-19 Vaccine 2020-05-23 Completed [facility] (Justine) (Justine) 10:03:00 - [facility] COVID-19 Vaccine COVID-19 Vaccine 2020-05-23 Completed [facility] (Justine) (Justine) 10:03:00 - [facility] COVID-19 Vaccine COVID-19 Vaccine 2020-05-23 Completed [facility] (Justine) (Justine) 10:03:00 - [facility] COVID-19 Vaccine COVID-19 Vaccine 2020-05-23 Completed [facility] (Justine) (Justine) 10:03: - [facility] COVID-19 Vaccine COVID-19 Vaccine 2020-05-23 Completed [facility] (Justine) (Justine) 10:03: - [facility] COVID-19 Vaccine COVID-19 Vaccine 2020-05-23 Completed [facility] (Justine) (Justine) 10:03:00 - [facility] COVID-19 Vaccine COVID-19 Vaccine 2020-05-23 Completed [facility] (Justine) (Justine) 10:03:00 - [facility] COVID-19 Vaccine COVID-19 Vaccine 2020-05-23 Completed [facility] (Justine) (Justine) 10:03:00 - [facility] COVID-19 Vaccine COVID-19 Vaccine 2020-05-23 Completed [facility] (Justine) (Justine) 10:03:00 - [facility] COVID-19 Vaccine COVID-19 Vaccine 2020-05-23 Completed [facility] (Justine) (Justine) 10:03: - [facility] COVID-19 Vaccine COVID-19 Vaccine 2020-05-23 Completed [facility] (Justine) (Justine) 10:03:00 - [facility] COVID-19 Vaccine COVID-19 Vaccine 2020-05-23 Completed [facility] (Justine) (Justine) 10:03:00 - [facility] COVID-19 Vaccine COVID-19 Vaccine 2020-05-23 Completed [facility] (Justine) (Justine) 10:03:00 - [facility] COVID-19 Vaccine COVID-19 Vaccine 2020-05-23 Completed [facility] (Justine) (Justine) 10:03:00 - [facility] COVID-19 Vaccine COVID-19 Vaccine 2020-05-23 Completed [facility] (Justine) (Justine) 10:03:00 - [facility] COVID-19 Vaccine COVID-19 Vaccine 2020-05-23 Completed [facility] (Jsutine) (Justine) 10:03:00 - [facility] COVID-19 Vaccine COVID-19 Vaccine 2020-05-23 Completed [facility] (Justine) (Justine) 10:03: [facility] COVID-19 Vaccine COVID-19 Vaccine 2020-05-23 Completed [facility] (Justine) (Justine) 10:03: - [facility] COVID-19 Vaccine COVID-19 Vaccine 2020-05-23 Completed [facility] (Justine) (Justine) 10:03:00 - [facility] COVID-19 Vaccine COVID-19 Vaccine 2020-05-23 Completed [facility] (Justine) (Justine) 10:03:00 - [facility] COVID-19 Vaccine COVID-19 Vaccine 2020-05-23 Completed [facility] (Justine) (Justine) 10:03:00 - [facility] COVID-19 Vaccine COVID-19 Vaccine 2020-05-23 Completed [facility] (Justine) (Justine) 10:03:00 - [facility] COVID-19 Vaccine COVID-19 Vaccine 2020-05-23 Completed [facility] (Justine) (Justine) 10:03:00 - [facility] COVID-19 Vaccine COVID-19 Vaccine 2020-05-23 Completed [facility] (Justine) (Justine) 10:03:00 - [facility] COVID-19 Vaccine COVID-19 Vaccine 2020-05-23 Completed [facility] (Justine) (Justine) 10:03:00 - [facility] COVID-19 Vaccine COVID-19 Vaccine 2020-05-23 Completed [facility] (Justine) (Justine) 10:03:00 [facility] Vitamin B12 Vitamin B12 2020-01-11 [facility] (Cyanocobalamin) (Cyanocobalamin) 10:20:00 [facility] Vitamin B12 Vitamin B12 2020-01-11 [facility] (Cyanocobalamin) (Cyanocobalamin) 10:20:00 [facility] Vitamin B12 Vitamin B12 2020-01-11 [facility] (Cyanocobalamin) (Cyanocobalamin) 10:20:00 [facility] FluAD FluAD 2019-12-27 Completed [facility] 08:44:00 [facility] FluAD FluAD 2019-12-27 Completed [facility] 08:44:00 [facility] FluAD FluAD 2019-12-27 Completed [facility] 08:44:00 [facility] FluAD FluAD 2019-12-27 Completed [facility] 08:44:00 - [facility] FluAD FluAD 2019-12-27 Completed [facility] 08:44:00 - [facility] FluAD FluAD 2019-12-27 Completed [facility] 08:44:00 - [facility] FluAD FluAD 2019-12-27 Completed [facility] 08:44:00 - [facility] FluAD FluAD 2019-12-27 Completed [facility] 08:44:00 - [facility] FluAD FluAD 2019-12-27 Completed [facility] 08:44:00 - [facility] FluAD FluAD 2019-12-27 Completed [facility] 08:44:00 - [facility] FluAD FluAD 2019-12-27 Completed [facility] 08:44:00 - [facility] FluAD FluAD 2019-12-27 Completed [facility] 08:44:00 - [facility] FluAD FluAD 2019-12-27 Completed [facility] 08:44:00 - [facility] FluAD FluAD 2019-12-27 Completed [facility] 08:44:00 - [facility] FluAD FluAD 2019-12-27 Completed [facility] 08:44:00 - [facility] FluAD FluAD 2019-12-27 Completed [facility] 08:44:00 - [facility] FluAD FluAD 2019-12-27 Completed [facility] 08:44:00 - [facility] FluAD FluAD 2019-12-27 Completed [facility] 08:44:00 - [facility] FluAD FluAD 2019-12-27 Completed [facility] 08:44:00 - [facility] FluAD FluAD 2019-12-27 Completed [facility] 08:44:00 - [facility] FluAD FluAD 2019-12-27 Completed [facility] 08:44:00 - [facility] FluAD FluAD 2019-12-27 Completed [facility] 08:44:00 - [facility] FluAD FluAD 2019-12-27 Completed [facility] 08:44:00 - [facility] FluAD FluAD 2019-12-27 Completed [facility] 08:44:00 - [facility] FluAD FluAD 2019-12-27 Completed [facility] 08:44:00 - [facility] FluAD FluAD 2019-12-27 Completed [facility] 08:44:00 - [facility] FluAD FluAD 2019-12-27 Completed [facility] 08:44:00 - [facility] FluAD FluAD 2019-12-27 Completed [facility] 08:44:00 - [facility] FluAD FluAD 2019-12-27 Completed [facility] 08:44:00 - [facility] FluAD FluAD 2019-12-27 Completed [facility] 08:44:00 - [facility] FluAD FluAD 2019-12-27 Completed [facility] 08:44:00 - [facility] FluAD FluAD 2019-12-27 Completed [facility] 08:44:00 - [facility] FluAD FluAD 2019-12-27 Completed [facility] 08:44:00 - [facility] FluAD FluAD 2019-12-27 Completed [facility] 08:44:00 - [facility] FluAD FluAD 2019-01-12 Completed [facility] 10:56:00 - [facility] FluAD FluAD 2019-01-12 Completed [facility] 10:56:00 - [facility] FluAD FluAD 2019-01-12 Completed [facility] 10:56:00 - [facility] FluAD FluAD 2019-01-12 Completed [facility] 10:56:00 - [facility] FluAD FluAD 2019-01-12 Completed [facility] 10:56:00 - [facility] FluAD FluAD 2019-01-12 Completed [facility] 10:56:00 - [facility] FluAD FluAD 2019-01-12 Completed [facility] 10:56:00 - [facility] FluAD FluAD 2019-01-12 Completed [facility] 10:56:00 - [facility] FluAD FluAD 2019-01-12 Completed [facility] 10:56:00 - [facility] FluAD FluAD 2019-01-12 Completed [facility] 10:56:00 - [facility] FluAD FluAD 2019-01-12 Completed [facility] 10:56:00 - [facility] FluAD FluAD 2019-01-12 Completed [facility] 10:56:00 - [facility] FluAD FluAD 2019-01-12 Completed [facility] 10:56:00 - [facility] FluAD FluAD 2019-01-12 Completed [facility] 10:56:00 - [facility] FluAD FluAD 2019-01-12 Completed [facility] 10:56:00 - [facility] FluAD FluAD 2019-01-12 Completed [facility] 10:56:00 - [facility] FluAD FluAD 2019-01-12 Completed [facility] 10:56:00 - [facility] FluAD FluAD 2019-01-12 Completed [facility] 10:56:00 - [facility] FluAD FluAD 2019-01-12 Completed [facility] 10:56:00 - [facility] FluAD FluAD 2019-01-12 Completed [facility] 10:56:00 - [facility] FluAD FluAD 2019-01-12 Completed [facility] 10:56:00 - [facility] FluAD FluAD 2019-01-12 Completed [facility] 10:56:00 - [facility] FluAD FluAD 2019-01-12 Completed [facility] 10:56:00 - [facility] FluAD FluAD 2019-01-12 Completed [facility] 10:56:00 - [facility] FluAD FluAD 2019-01-12 Completed [facility] 10:56:00 - [facility] FluAD FluAD 2019-01-12 Completed [facility] 10:56:00 - [facility] FluAD FluAD 2019-01-12 Completed [facility] 10:56:00 - [facility] FluAD FluAD 2019-01-12 Completed [facility] 10:56:00 - [facility] FluAD FluAD 2019-01-12 Completed [facility] 10:56:00 - [facility] FluAD FluAD 2019-01-12 Completed [facility] 10:56:00 - [facility] FluAD FluAD 2019-01-12 Completed [facility] 10:56:00 - [facility] FluAD FluAD 2019-01-12 Completed [facility] 10:56:00 - [facility] FluAD FluAD 2019-01-12 Completed [facility] 10:56:00 - [facility] FluAD FluAD 2019-01-12 Completed [facility] 10:56:00 - [facility] FluAD FluAD 2019-01-12 Completed [facility] 00:00:00 - [facility] xRocephin 1 gm xRocephin 1 2018-06-03 Completed [facility] 10:48:00 - [facility] xRocephin 1 gm xRocephin 1 2018-06-03 Completed [facility] 10:48:00 - [facility] xRocephin 1 gm xRocephin 1 gm 2018-06-03 Completed [facility] 10:48:00 - [facility] Cuate Cuello 2018-04-28 Completed [facility] (Triamcinolone) (Triamcinolone) 13:58:00 - [facility] Cuate Cuello 2018-04-28 Completed [facility] (Triamcinolone) (Triamcinolone) 13:58:00 - [facility] [place] Cuello 2018-04-28 Completed [facility] (Triamcinolone) (Triamcinolone) 13:58:00 - [facility] FluAD FluAD 2018-01-04 Completed [facility] 09:11:00 - [facility] FluAD FluAD 2018-01-04 Completed [facility] 09:11:00 - [facility] FluAD FluAD 2018-01-04 Completed [facility] 09:11:00 - [facility] FluAD FluAD 2018-01-04 Completed [facility] 09:11:00 - [facility] FluAD FluAD 2018-01-04 Completed [facility] 09:11:00 - [facility] FluAD FluAD 2018-01-04 Completed [facility] 09:11:00 - [facility] FluAD FluAD 2018-01-04 Completed [facility] 09:11:00 - [facility] FluAD FluAD 2018-01-04 Completed [facility] 09:11:00 - [facility] FluAD FluAD 2018-01-04 Completed [facility] 09:11:00 - [facility] FluAD FluAD 2018-01-04 Completed [facility] 09:11:00 - [facility] FluAD FluAD 2018-01-04 Completed [facility] 09:11:00 - [facility] FluAD FluAD 2018-01-04 Completed [facility] 09:11:00 - [facility] FluAD FluAD 2018-01-04 Completed [facility] 09:11:00 - [facility] FluAD FluAD 2018-01-04 Completed [facility] 09:11:00 - [facility] FluAD FluAD 2018-01-04 Completed [facility] 09:11:00 - [facility] FluAD FluAD 2018-01-04 Completed [facility] 09:11:00 - [facility] FluAD FluAD 2018-01-04 Completed [facility] 09:11:00 - [facility] FluAD FluAD 2018-01-04 Completed [facility] 09:11:00 - [facility] FluAD FluAD 2018-01-04 Completed [facility] 09:11:00 - [facility] FluAD FluAD 2018-01-04 Completed [facility] 09:11:00 - [facility] FluAD FluAD 2018-01-04 Completed [facility] 09:11:00 - [facility] FluAD FluAD 2018-01-04 Completed [facility] 09:11:00 - [facility] FluAD FluAD 2018-01-04 Completed [facility] 09:11:00 - [facility] FluAD FluAD 2018-01-04 Completed [facility] 09:11:00 - [facility] FluAD FluAD 2018-01-04 Completed [facility] 09:11:00 - [facility] FluAD FluAD 2018-01-04 Completed [facility] 09:11:00 - [facility] FluAD FluAD 2018-01-04 Completed [facility] 09:11:00 - [facility] FluAD FluAD 2018-01-04 Completed [facility] 09:11:00 - [facility] FluAD FluAD 2018-01-04 Completed [facility] 09:11:00 - [facility] FluAD FluAD 2018-01-04 Completed [facility] 09:11:00 - [facility] FluAD FluAD 2018-01-04 Completed [facility] 09:11:00 - [facility] FluAD FluAD 2018-01-04 Completed [facility] 09:11:00 - [facility] FluAD FluAD 2018-01-04 Completed [facility] 09:11:00 - [facility] FluAD FluAD 2018-01-04 Completed [facility] 09:11:00 - [facility] Prevnar 13 Prevnar 13 2017-10-08 Completed [facility] -Pneumonia Vaccine -Pneumonia Vaccine 08:44:00 - [facility] Prevnar 13 Prevnar 13 2017-10-08 Completed [facility] -Pneumonia Vaccine -Pneumonia Vaccine 08:44:00 - [facility] Prevnar 13 Prevnar 13 2017-10-08 Completed [facility] -Pneumonia Vaccine -Pneumonia Vaccine 08:44:00 - [facility] Prevnar 13 Prevnar 13 2017-10-08 Completed [facility] -Pneumonia Vaccine -Pneumonia Vaccine 08:44:00 - [facility] Prevnar 13 Prevnar 13 2017-10-08 Completed [facility] -Pneumonia Vaccine -Pneumonia Vaccine 08:44:00 - [facility] Prevnar 13 Prevnar 13 2017-10-08 Completed [facility] -Pneumonia Vaccine -Pneumonia Vaccine 08:44:00 - [facility] Prevnar 13 Prevnar 13 2017-10-08 Completed [facility] -Pneumonia Vaccine -Pneumonia Vaccine 08:44:00 - [facility] Prevnar 13 Prevnar 13 2017-10-08 Completed [facility] -Pneumonia Vaccine -Pneumonia Vaccine 08:44:00 - [facility] Prevnar 13 Prevnar 13 2017-10-08 Completed [facility] -Pneumonia Vaccine -Pneumonia Vaccine 08:44:00 - [facility] Prevnar 13 Prevnar 13 2017-10-08 Completed [facility] -Pneumonia Vaccine -Pneumonia Vaccine 08:44:00 - [facility] Prevnar 13 Prevnar 13 2017-10-08 Completed [facility] -Pneumonia Vaccine -Pneumonia Vaccine 08:44:00 - [facility] Prevnar 13 Prevnar 13 2017-10-08 Completed [facility] -Pneumonia Vaccine -Pneumonia Vaccine 08:44:00 - [facility] Prevnar 13 Prevnar 13 2017-10-08 Completed [facility] -Pneumonia Vaccine -Pneumonia Vaccine 08:44:00 - [facility] Prevnar 13 Prevnar 13 2017-10-08 Completed [facility] -Pneumonia Vaccine -Pneumonia Vaccine 08:44:00 - [facility] Prevnar 13 Prevnar 13 2017-10-08 Completed [facility] -Pneumonia Vaccine -Pneumonia Vaccine 08:44:00 - [facility] Prevnar 13 Prevnar 13 2017-10-08 Completed [facility] -Pneumonia Vaccine -Pneumonia Vaccine 08:44:00 - [facility] Prevnar 13 Prevnar 13 2017-10-08 Completed [facility] -Pneumonia Vaccine -Pneumonia Vaccine 08:44:00 - [facility] Prevnar 13 Prevnar 13 2017-10-08 Completed [facility] -Pneumonia Vaccine -Pneumonia Vaccine 08:44:00 - [facility] Prevnar 13 Prevnar 13 2017-10-08 Completed [facility] -Pneumonia Vaccine -Pneumonia Vaccine 08:44:00 - [facility] Prevnar 13 Prevnar 13 2017-10-08 Completed [facility] -Pneumonia Vaccine -Pneumonia Vaccine 08:44:00 - [facility] Prevnar 13 Prevnar 13 2017-10-08 Completed [facility] -Pneumonia Vaccine -Pneumonia Vaccine 08:44:00 - [facility] Prevnar 13 Prevnar 13 2017-10-08 Completed [facility] -Pneumonia Vaccine -Pneumonia Vaccine 08:44:00 - [facility] Prevnar 13 Prevnar 13 2017-10-08 Completed [facility] -Pneumonia Vaccine -Pneumonia Vaccine 08:44:00 - [facility] Prevnar 13 Prevnar 13 2017-10-08 Completed [facility] -Pneumonia Vaccine -Pneumonia Vaccine 08:44:00 - [facility] Prevnar 13 Prevnar 13 2017-10-08 Completed [facility] -Pneumonia Vaccine -Pneumonia Vaccine 08:44:00 - [facility] Prevnar 13 Prevnar 13 2017-10-08 Completed [facility] -Pneumonia Vaccine -Pneumonia Vaccine 08:44:00 - [facility] Prevnar 13 Prevnar 13 2017-10-08 Completed [facility] -Pneumonia Vaccine -Pneumonia Vaccine 08:44:00 - [facility] Prevnar 13 Prevnar 13 2017-10-08 Completed [facility] -Pneumonia Vaccine -Pneumonia Vaccine 08:44:00 - [facility] Prevnar 13 Prevnar 13 2017-10-08 Completed [facility] -Pneumonia Vaccine -Pneumonia Vaccine 08:44:00 [facility] Prevnar 13 Prevnar 13 2017-10-08 Completed [facility] -Pneumonia Vaccine -Pneumonia Vaccine 08:44:00 [facility] Prevnar 13 Prevnar 2017-10-08 Completed [facility] -Pneumonia Vaccine -Pneumonia Vaccine 08:44:00 [facility] Prevnar 13 Prevnar 2017-10-08 Completed [facility] -Pneumonia Vaccine -Pneumonia Vaccine 08:44:00 [facility] Prevnar 13 Prevnar 2017-10-08 Completed [facility] -Pneumonia Vaccine -Pneumonia Vaccine 08:44:00 [facility] Prevnar 13 Prevnar 2017-10-08 Completed [facility] -Pneumonia Vaccine -Pneumonia Vaccine 08:44:00 [facility] Prevnar 13 Prevnar 2017-10-08 Completed [facility] -Pneumonia Vaccine -Pneumonia Vaccine 00:00:00 [facility] Moderna COVID-19 Moderna COVID-19 Unknown Completed [facility] (Low Dose Vaccine (Low Dose - [facility] Booster) Booster) [facility] COVID-19 Vaccine COVID-19 Vaccine Unknown Completed [facility] (Justine) (Fippex) [facility] FluAD FluAD Unknown Completed [facility] FluAD FluAD Unknown Completed [facility] FluAD FluAD Unknown Completed [facility] FluAD FluAD Unknown Completed [facility] FluAD [place] FluAD [place] Unknown Completed [facility] Pneumovax (PPSV23) Pneumovax (PPSV23) Unknown Completed [facility] Prevnar 13 Prevnar 13 Unknown Completed [facility] -Pneumonia Vaccine -Pneumonia Vaccine [facility] FLUZONE HIGH DOSE FLUZONE HIGH DOSE Unknown Completed [facility] OVER 65 OVER 65 [facility] Moderna COVID-19 Moderna COVID-19 Unknown Completed [facility] (Low Dose Vaccine (Low Dose - [facility] Booster) Booster) [facility] COVID-19 Vaccine COVID-19 Vaccine Unknown Completed [facility] (Justine) (Justine) [facility] FluAD FluAD Unknown Completed [facility] FluAD FluAD Unknown Completed [facility] FluAD FluAD Unknown Completed [facility] FluAD FluAD Unknown Completed [facility] FluAD [place] FluAD [place] Unknown Completed [facility] Pneumovax (PPSV23) Pneumovax (PPSV23) Unknown Completed [facility] Prevnar 13 Prevnar 13 Unknown Completed [facility] -Pneumonia Vaccine -Pneumonia Vaccine - [facility] FLUZONE HIGH DOSE FLUZONE HIGH DOSE Unknown Completed [facility] OVER 65 OVER 65 [facility] Moderna COVID-19 Moderna COVID-19 Unknown Completed [facility] (Low Dose Vaccine (Low Dose [facility] Booster) Booster) [facility] COVID-19 Vaccine COVID-19 Vaccine Unknown Completed [facility] (Justine) (Justine) [facility] FluAD FluAD Unknown Completed [facility] FluAD FluAD Unknown Completed [facility] FluAD FluAD Unknown Completed [facility] FluAD FluAD Unknown Completed [facility] FluAD [place] FluAD [place] Unknown Completed [facility] Pneumovax (PPSV23) Pneumovax (PPSV23) Unknown Completed [facility] Prevnar 13 Prevnar 13 Unknown Completed [facility] -Pneumonia Vaccine -Pneumonia Vaccine - [facility] [facility] FLUZONE HIGH DOSE FLUZONE HIGH DOSE Unknown Completed [facility] OVER 65 OVER 65 [facility] Moderna COVID-19 Moderna COVID-19 Unknown Completed [facility] (Low Dose Vaccine (Low Dose [facility] Booster) Booster) [facility] COVID-19 Vaccine COVID-19 Vaccine Unknown Completed [facility] (Justine) (Justine) [facility] FluAD FluAD Unknown Completed [facility] FluAD FluAD Unknown Completed [facility] FluAD FluAD Unknown Completed [facility] FluAD FluAD Unknown Completed [facility] FluAD Quad [place] FluAD Quad [place] Unknown Completed [facility] Pneumovax (PPSV23) Pneumovax (PPSV23) Unknown Completed [facility] Prevnar 13 Prevnar 13 Unknown Completed [facility] -Pneumonia Vaccine -Pneumonia Vaccine - [facility] FLUZONE HIGH DOSE FLUZONE HIGH DOSE Unknown Completed [facility] OVER 65 OVER 65 [facility] COVID[facility] Moderna COVID-19 Unknown Com[facility] Vaccine (Low Dose Vaccine (Low Dose [facility] Booster) Booster) [facility] COVID-19 Vaccine COVID-19 Vaccine Unknown Completed [facility] (Justine) (Justine) [facility] FluAD FluAD Unknown Completed [facility] FluAD FluAD Unknown Completed [facility] FluAD FluAD Unknown Completed [facility] FluAD FluAD Unknown Completed [facility] FluAD [place] FluAD [place] Unknown Completed [facility] Pneumovax (PPSV23) Pneumovax (PPSV23) Unknown Completed [facility] Prevnar 13 Prevnar 13 Unknown Completed [facility] -Pneumonia Vaccine -Pneumonia Vaccine - [facility] FLUZONE HIGH DOSE FLUZONE HIGH DOSE Unknown Completed [facility] OVER 65 OVER 65 [facility] Moderna COVID-19 Moderna COVID-19 Unknown Completed [facility]ine (Low Dose Vaccine (Low Dose [facility] Booster) Booster) [facility] COVID-19 Vaccine COVID-19 Vaccine Unknown Completed [facility] (Justine) (Justine) [facility] FluAD FluAD Unknown Completed [facility] FluAD FluAD Unknown Completed [facility] FluAD FluAD Unknown Completed [facility] FluAD FluAD Unknown Completed [facility] FluAD [place] FluAD [place] Unknown Completed [facility] Pneumovax (PPSV23) Pneumovax (PPSV23) Unknown Completed [facility] Prevnar 13 Prevnar 13 Unknown Completed [facility] -Pneumonia Vaccine -Pneumonia Vaccine [facility] FLUZONE HIGH DOSE FLUZONE HIGH DOSE Unknown Completed [facility] OVER 65 OVER 65 [facility] COVID-19 Moderna COVID-19 Unknown Completed [facility] Vaccine (Low Dose Vaccine (Low Dose - [facility] Booster) Booster) [facility] COVID-19 Vaccine COVID-19 Vaccine Unknown Completed [facility] (Justine) (Justine) [facility] FluAD FluAD Unknown Completed [facility] FluAD FluAD Unknown Completed [facility] FluAD FluAD Unknown Completed [facility] FluAD FluAD Unknown Completed [facility] FluAD [place] FluAD [place] Unknown Completed [facility] Pneumovax (PPSV23) Pneumovax (PPSV23) Unknown Completed [facility] Prevnar 13 Prevnar 13 Unknown Completed [facility] -Pneumonia Vaccine -Pneumonia Vaccine [facility] FLUZONE HIGH DOSE FLUZONE HIGH DOSE Unknown Completed [facility] OVER 65 OVER 65 [facility] COVID-[facility] Moderna COVID-19 Unknown Completed [facility] Vaccine (Low Dose Vaccine (Low Dose [facility] Booster) Booster) [facility] COVID-19 Vaccine COVID-19 Vaccine Unknown Completed [facility] (Justine) ([facility]) [facility] FluAD FluAD Unknown Completed [facility] FluAD FluAD Unknown Completed [facility] FluAD FluAD Unknown Completed [facility] FluAD FluAD Unknown Completed [facility] FluAD [place] FluAD [place] Unknown Completed [facility] Pneumovax (PPSV23) Pneumovax (PPSV23) Unknown Completed [facility] Prevnar 13 Prevnar 13 Unknown Completed [facility] -Pneumonia Vaccine -Pneumonia Vaccine [facility] FLUZONE HIGH DOSE FLUZONE HIGH DOSE Unknown Completed [facility] OVER 65 OVER 65 [facility] Vital Signs Vital Name Observation Time Observation Value Comments Source height 2022-08-22 10:00:00 60 [in_i] [facility] weight 2022-08-22 10:00:00 172.0 [lb_av] [facility] temperature 2022-08-22 10:00:00 97.6 [degF] [facility] bmi 2022-08-22 10:00:00 33.59 kg/m2 Common [facility] oximetry 2022-08-22 10:00:00 99 % [facility] respiratory rate 2022-08-22 10:00:00 18 /min Comm on [facility] blood pressure 2022-08-22 10:00:00 121 mm[Hg] [facility] - systolic [facility] blood pressure 2022-08-22 10:00:00 72 mm[Hg] [facility] - diastolic [facility] height 2022-04-24 08:40:00 60 [in_i] [facility] weight 2022-04-24 08:40:00 162.6 [lb_av] [facility] temperature 2022-04-24 08:40:00 97.6 [degF] [facility] bmi 2022-04-24 08:40:00 31.75 kg/m2 [facility] oximetry 2022-04-24 08:40:00 98 % [facility] respiratory rate 2022-04-24 08:40:00 16 /min Comm on [facility] blood pressure 2022-04-24 08:40:00 138 mm[Hg] [facility] - systolic [facility] blood pressure 2022-04-24 08:40:00 62 mm[Hg] [facility] - diastolic [facility] height 2022-04-24 08:50:00 60 [in_i] [facility] weight 2022-04-24 08:50:00 162.2 [lb_av] [facility] temperature 2022-04-24 08:50:00 97.6 [degF] [facility] S [facility]irit [facility] bmi 2022-04-24 08:50:00 31.67 kg/m2 [facility] oximetry 2022-04-24 08:50:00 98 % [facility] 2022-04-24 08:50:00 16 /min Comm on [facility] blood pressure 2022-04-24 08:50:00 138 mm[Hg] [facility] - systolic [facility] blood pressure 2022-04-24 08:50:00 62 mm[Hg] [facility] - diastolic [facility] height 2022-01-02 09:20:00 60 [in_i] [facility] weight 2022-01-02 09:20:00 150.2 [lb_av] [facility] temperature 2022-01-02 09:20:00 97.4 [degF] [facility] bmi 2022-01-02 09:20:00 29.33 kg/m2 [facility] oximetry 2022-01-02 09:20:00 97 % [facility] respiratory rate 2022-01-02 09:20:00 17 /min Comm on [facility] blood pressure 2022-01-02 09:20:00 136 mm[Hg] [facility] - systolic [facility] blood pressure 2022-01-02 09:20:00 73 mm[Hg] [facility] - [facility] height 2021-11-20 14:00:00 60 [in_i] [facility] weight 2021-11-20 14:00:00 157.8 [lb_av] [facility] temperature 2021-11-20 14:00:00 97.3 [degF] [facility] S [facility]irit [facility] bmi 2021-11-20 14:00:00 30.81 kg/m2 [facility] oximetry 2021-11-20 14:00:00 99 % [facility] respiratory rate 2021-11-20 14:00:00 16 /min Comm on [facility] blood pressure 2021-11-20 14:00:00 132 mm[Hg] [facility] - systolic [facility] blood pressure 2021-11-20 14:00:00 71 mm[Hg] [facility] - diastolic [facility] height 2021-11-19 09:15:00 60 [in_i] [facility] weight 2021-11-19 09:15:00 155 [lb_av] [facility] temperature 2021-11-19 09:15:00 97.2 [degF] [facility] bmi 2021-11-19 09:15:00 30.27 kg/m2 [facility] blood pressure 2021-11-19 09:15:00 114 mm[Hg] [facility] - systolic [facility] blood pressure 2021-11-19 09:15:00 72 mm[Hg] [facility] - diastolic [facility] height 2021-09-30 08:50:00 60 [in_i] [facility] weight 2021-09-30 08:50:00 155 [lb_av] [facility] temperature 2021-09-30 08:50:00 97.6 [degF] [facility] S [facility]irit [facility] bmi 2021-09-30 08:50:00 30.27 kg/m2 [facility] oximetry 2021-09-30 08:50:00 99 % [facility] S [facility] respiratory rate 2021-09-30 08:50:00 16 /min Comm on [facility] blood pressure 2021-09-30 08:50:00 135 mm[Hg] [facility] - systolic [facility] blood pressure 2021-09-30 08:50:00 72 mm[Hg] [facility] - diastolic [facility] height 2021-08-30 10:00:00 60 [in_i] [facility] weight 2021-08-30 10:00:00 164 [lb_av] [facility] bmi 2021-08-30 10:00:00 32.03 kg/m2 [facility] Systolic blood 2021-08-12 22:18:04 158 mm[Hg] Univer sity of pressure [facility] Diastolic blood 2021-08-12 22:18:04 82 mm[Hg] Unive rsity of [facility] Heart rate 2021-08-12 22:18:04 68 /min [facility] Respiratory rate 2021-08-12 22:18:04 18 /min Univ ersity of [facility] Oxygen saturation in 2021-08-12 22:18:04 99 /min [facility] Arterial blood by [facility] Pulse oximetry Branch Body temperature 2021-08-12 18:38:00 37.06 Jacklyn Univ ersity of [facility] Body height 2021-08-12 18:38:00 152.4 cm [facility] Body weight 2021-08-12 18:38:00 73.483 kg [facility] BMI 2021-08-12 18:38:00 31.64 kg/m2 [facility] Systolic blood 2021-07-29 19:51:00 138 mm[Hg] Univer sity of [facility] Diastolic blood 2021-07-29 19:51:00 61 mm[Hg] Unive rsity of pressure [facility] Heart rate 2021-07-29 19:51:00 64 /min [facility] Body temperature 2021-07-29 19:51:00 37.39 Jacklyn Univ ers[facility] Respiratory rate 2021-07-29 19:51:00 18 /min Univ ersity of [facility] Body height 2021-07-29 19:51:00 152.4 cm [facility] Body weight 2021-07-29 19:51:00 73.483 kg [facility] BMI 2021-07-29 19:51:00 31.64 kg/m2 [facility] Oxygen saturation in 2021-07-29 19:51:00 100 /min [facility] blood by [facility] Pulse oximetry Branch height 2021-07-16 09:30:00 60 [in_i] [facility] weight 2021-07-16 09:30:00 164 [lb_av] [facility] bmi 2021-07-16 09:30:00 32.03 kg/m2 [facility] blood pressure 2021-07-16 09:30:00 132 mm[Hg] [facility] - systolic [facility] blood pressure 2021-07-16 09:30:00 84 mm[Hg] [facility] - diastolic [facility] height 2021-07-01 16:20:00 60 [in_i] [facility] weight 2021-07-01 16:20:00 166.5 [lb_av] [facility] temperature 2021-07-01 16:20:00 97.4 [degF] [facility] bmi 2021-07-01 16:20:00 32.51 kg/m2 [facility] oximetry 2021-07-01 16:20:00 98 % [facility] respiratory rate 2021-07-01 16:20:00 18 /min Comm on [facility] blood pressure 2021-07-01 16:20:00 129 mm[Hg] [facility] - systolic [facility] blood pressure 2021-07-01 16:20:00 67 mm[Hg] [facility] - diastolic [facility] height 2021-05-21 10:00:00 60 [in_i] [facility] weight 2021-05-21 10:00:00 164.5 [lb_av] [facility] temperature 2021-05-21 10:00:00 97.5 [degF] [facility] bmi 2021-05-21 10:00:00 32.12 kg/m2 [facility] oximetry 2021-05-21 10:00:00 99 % [facility] respiratory rate 2021-05-21 10:00:00 18 /min Comm on [facility] blood pressure 2021-05-21 10:00:00 138 mm[Hg] [facility] - systolic [facility] blood pressure 2021-05-21 10:00:00 81 mm[Hg] [facility] - diastolic [facility] height 2021-03-28 15:30:00 60 [in_i] [facility] weight 2021-03-28 15:30:00 168.6 [lb_av] [facility] temperature 2021-03-28 15:30:00 97.3 [degF] [facility] bmi 2021-03-28 15:30:00 32.92 kg/m2 [facility] oximetry 2021-03-28 15:30:00 98 % [facility] respiratory rate 2021-03-28 15:30:00 18 /min Comm on [facility] blood pressure 2021-03-28 15:30:00 126 mm[Hg] [facility] - systolic [facility] blood pressure 2021-03-28 15:30:00 66 mm[Hg] [facility] - diastolic [facility] height 2020-12-18 11:50:00 60 [in_i] [facility] weight 2020-12-18 11:50:00 165 [lb_av] [facility] temperature 2020-12-18 11:50:00 98.5 [degF] [facility] bmi 2020-12-18 11:50:00 32.22 kg/m2 [facility] Procedures Procedure Date / Time Performed Performing Clinician Jeromy e US GALL BLADDER 2021-08-12 20:37:[address] [facility] LIPASE 2021-08-12 19:34:[address] [facility] COMP. METABOLIC PANEL 2021-08-12 19:34:00 Jade Godoy [facility] ([id number]) Medical Branch CBC WITH DIFF 2021-08-12 19:34:[address] [facility] URINALYSIS 2021-08-12 19:31:[address] [facility] CONSENT/REFUSAL FOR 2021-08-12 18:12:47 [facility], [facility] TREATMENT CONSENT/REFUSAL FOR 2021-07-29 19:56:45 [facility] TREATMENT NOTICE OF PRIVACY 2021-07-29 19:46:13 Doctor Unassigned, No [facility] PRACTICES Name Medical Branch Encounters Start End Encounter Admission Attending Care Care Encounter Source Date/Time Date/Time Type Type Clinicians Facility Department ID 2022-09-10 [facility] [id number] Common 08:19:00 Damir [id number] [facility] 2022-08-21 [facility] [id number] Common 07:26:00 Damir 53224 [facility] 2022-04-25 Out[facility] [id number] Common 15:00:00 Damir 98637 [facility] 2022-04-22 Out[facility] [id number] Common 09:03:00 Damir 23901 [facility] 2022-01-07 Outpatient Thomas, STLMLC STLC [id number] Common 13:15:00 Damir [id number] [facility] 2021-12-31 Out[facility] [id number] Common 10:38:00 Damir 35356 [facility] 2021-11-19 Outpatient Thomas, STLMLC STLMLC [id number] Common 09:31:00 Damir [facility] 2021-11-18 Outpatient Thomas, STLMLC STLMLC [id number] Common 12:02:00 Damir [facility] 2021-11-05 Outpatient Thomas, STLMLC STLMLC [id number] Common 11:30:00 Damir [facility] 2021-11-04 Outpatient Thomas, STLMLC STLMLC Common 13:45:00 Damir [facility] 2021-08-30 Outpatient Thomas, STLMLC STLMLC Common 10:11:01 Damir [facility] 2021-07-16 Outpatient Thomas, STLMLC STLMLC Common 08:41:00 Damir [facility] 2021-06-28 Outpatient Thomas, STLMLC STLMLC Common 16:16:00 Damir [facility] 2021-04-24 Outpatient Thomas, STLMLC STLMLC Common 14:25:00 Damir [facility] 2021-04-03 Outpatient Thomas, STLMLC STLMLC Common 14:34:11 Damir [facility] 2021-04-03 Outpatient Thomas, STLMLC STLMLC Common 14:33:49 Damir [facility] 2021-04-03 Outpatient Thomas, STLMLC STLMLC Common 14:15:48 Damir [facility] 2021-04-03 Outpatient Thomas, STLMLC STLMLC Common 14:15:27 Damir [facility] 2021-04-03 Outpatient Thomas, STLMLC STLMLC [id number] Common 13:46:26 Damir [facility] 2021-04-03 Outpatient Thomas, STLMLC STLMLC [id number] Common 13:11:50 Damir [id number] [facility] 2021-04-03 Outpatient Thomas, STLMLC STLMLC [id number] Common 13:11:25 Damir [id number] [facility] 2021-04-03 Outpatient Thomas, STLMLC STLMLC [id number] Common 12:41:52 Damir 35462 [facility] 2021-04-03 Outpatient Thomas, STLMLC STLMLC [id number] Common 12:41:06 Damir 70454 [facility] 2021-04-03 Outpatient Thomas, STLMLC STLMLC [id number] Common 12:36:13 Damir 92750 [facility] 2021-04-03 Outpatient Thomas, STLMLC STLMLC [id number] Common 12:33:53 Damir 42925 [facility] 2021-04-03 Outpatient Thomas, STLMLC STLMLC [id number] Common 12:07:26 Damir 39977 [facility] 2021-04-03 Outpatient Thomas, STLMLC STLMLC [id number] Common 11:36:44 Damir 97745 [facility] 2021-04-03 Outpatient Thomas, STLMLC STLMLC [id number] Common 11:24:37 Damir 37588 [facility] 2022-08-27 2022-08-27 (TEL) STLMLC STLMLC [id number] Co mmon 00:00:00 00:00:00 [facility] 2022-08-22 2022-08-22 OFFICE STLMLC STLMLC [id number] Co mmon 00:00:00 00:00:00 VISIT [facility] 4 [facility] 2022-08-20 2022-08-20 (TEL) STLMLC STLMLC [id number] Co mmon 00:00:00 00:00:00 [facility] 2022-07-15 2022-07-15 (TEL) STLMLC STLMLC [id number] Co mmon 00:00:00 00:00:00 [facility] 2022-04-25 2022-04-25 (TEL) STLMLC STLMLC [id number] Co mmon 00:00:00 00:00:00 [facility] 2022-04-24 2022-04-24 OFFICE STLMLC STLMLC [id number] Co mmon 00:00:00 00:00:00 VISIT [facility] PT - CHI LEVEL 4 [facility] 2022-04-24 2022-04-24 SUB ANNUAL STLMLC STLMLC [id number] Common 00:00:00 00:00:00 MCR [facility] VISIT [facility] 2022-04-24 2022-04-24 (TEL) STLMLC STLMLC [id number] Co mmon 00:00:00 00:00:00 [facility] 2022-02-19 2022-02-19 (TEL) STLMLC STLMLC [id number] Co mmon 00:00:00 00:00:00 [facility] 2022-02-06 2022-02-06 Outpatient Ogbechie_L DMG DMG [id number] 00:00:00 00:00:00 [id number] [facility] 2022-02-06 2022-02-06 Outpatient Ogbechie_L DMG DMG [id number] 00:00:00 00:00:00 [id number] [facility] 2022-01-23 2022-01-23 (TEL) STLMLC STLMLC [id number] Co mmon 00:00:00 00:00:00 [facility] 2022-01-02 2022-01-02 OFFICE STLMLC STLMLC [id number] Co mmon 00:00:00 00:00:00 VISIT [facility] PT - CHI LEVEL 4 [facility] 2021-12-18 2021-12-18 (TEL) STLMLC STLMLC [id number] Co mmon 00:00:00 00:00:00 [facility] 2021-12-13 2021-12-13 (TEL) STLMLC STLMLC [id number] Co mmon 00:00:00 00:00:00 [facility] 2021-11-29 2021-11-29 (TEL) STLMLC STLMLC [id number] Co mmon 00:00:00 00:00:00 [facility] 2021-11-22 2021-11-22 (TEL) STLMLC STLMLC [id number] Co mmon 00:00:00 00:00:00 [facility] 2021-11-20 2021-11-20 OFFICE STLMLC STLMLC [id number] Co mmon 00:00:00 00:00:00 VISIT [facility] PT - CHI LEVEL [address] [place] [address] 2021-11-19 2021-11-19 OFFICE STLMLC STLMLC [id number] Co mmon 00:00:00 00:00:00 VISIT [facility] PT - CHI LEVEL [address] [place] [address] 2021-11-18 2021-11-18 (TEL) STLMLC STLMLC [id number] Co mmon 00:00:00 00:00:00 [facility] 2021-10-15 2021-10-15 (TEL) STLMLC STLMLC [id number] Co mmon 00:00:00 00:00:00 [facility] 2021-09-30 2021-09-30 OFFICE STLMLC STLMLC [id number] Co mmon 00:00:00 00:00:00 VISIT [facility] PT - CHI LEVEL 4 [facility] 2021-09-23 2021-09-23 (TEL) STLMLC STLMLC [id number] Co mmon 00:00:00 00:00:00 [facility] 2021-09-20 2021-09-20 Outpatient DMG DMG [id number] [facility] 03:13:00 03:13:00 [id number] [facility] 2021-09-10 2021-09-10 (TEL) STLMLC STLMLC [id number] Co mmon 00:00:00 00:00:00 [facility] 2021-08-30 2021-08-30 OFFICE STLMLC STLMLC [id number] Co mmon 00:00:00 00:00:00 VISIT [facility] LEVEL 4 [facility] 2021-08-28 2021-08-28 (TEL) STLMLC STLMLC [id number] Co mmon 00:00:00 00:00:00 [facility] 2021-08-13 2021-08-13 (TEL) STLMLC STLMLC [id number] Co mmon 00:00:00 00:00:00 [facility] 2021-08-13 2021-08-13 (TEL) STLMLC STLMLC [id number] Co mmon 00:00:00 00:00:00 [facility] 2021-08-12 2021-08-12 Emergency X GODOY, [facility] ERT [id number] Univers 13:40:00 17:23:00 JADE ity [facility] 2021-08-12 2021-08-12 [facility] [id number] Univers 13:40:00 17:23:00 Jade S [place] [id number] i ty [facility] [id number] [facility] [id number] [address] 2021-08-01 2021-08-01 (TEL) STLMLC STLMLC [id number] Co mmon 00:00:00 00:00:00 [facility] 2021-07-29 2021-07-29 Emergency X [facility] ERT [id number] Univers 14:53:00 15:46:00 CHRISTOPHER it y [facility] 2021-07-29 2021-07-29 [facility] [id number] Univers 14:53:00 15:46:00 Christminaer [place] [id number] ity [facility] [id number] [facility] [id number] [address] 2021-07-16 2021-07-16 ([employer]) New STLC STLC [id number] C ommon 00:00:00 00:00:00 [facility] 2021-07-01 2021-07-01 OFFICE STLMLC STLMLC [id number] Co mmon 00:00:00 00:00:00 VISIT [facility] PT - CHI LEVEL 4 [facility] 2021-06-28 2021-06-28 (TEL) STLMLC STLMLC [id number] Co mmon 00:00:00 00:00:00 [facility] 2021-05-21 2021-05-21 (TEL) STLMLC STLMLC [id number] Co mmon 00:00:00 00:00:00 [facility] 2021-05-21 2021-05-21 OFFICE STLMLC STLMLC [id number] Co mmon 00:00:00 00:00:00 VISIT [facility] PT - CHI LEVEL 2 [facility] 2021-05-20 2021-05-20 (TEL) STLMLC STLMLC [id number] Co mmon 00:00:00 00:00:00 [facility] 2021-05-17 2021-05-17 Outpatient DMG DMG [id number] [facility] 09:00:00 09:00:00 [id number] [facility] 2021-03-28 2021-03-28 (WELLNESS) STLMLC STLMLC [id number] Common 00:00:00 00:00:[address] [facility] 2021-03-25 2021-03-25 (TEL) STLMLC STLMLC [id number] Co mmon 00:00:00 00:00:00 [facility] 2021-03-24 2021-03-24 (TEL) STLMLC STLMLC [id number] Co mmon 00:00:00 00:00:00 [facility] 2021-01-25 2021-01-25 (COVID STLMLC STLMLC [id number] Co mmon 00:00:00 00:00:00 Inj) COVID Spi rit Injection [facility] 2021-01-21 2021-01-21 (TEL) STLMLC STLMLC [id number] Co mmon 00:00:00 00:00:00 [facility] 2020-12-18 2020-12-18 OFFICE STLMLC STLMLC [id number] Co mmon 00:00:00 00:00:00 VISIT EST Spir it PT LEVEL 3 [facility] 2020-12-18 2020-12-18 (TEL) STLMLC STLMLC [id number] Co mmon 00:00:00 00:00:00 [facility] 2020-12-12 2020-12-12 ([place]) Nurse STLMLC STLMLC [id number] Common 00:00:00 00:00:00 Visit [facility] 2020-11-21 2020-11-21 Outpatient STLMLC STLMLC [id number] Common 00:00:00 00:00:00 [facility] 2020-11-21 2020-11-21 Outpatient STLMLC STLMLC [id number] Common 00:00:00 00:00:00 [facility] 2020-08-14 2020-08-14 Outpatient STLMLC STLMLC [id number] Common 00:00:00 00:00:00 [facility] 2020-05-23 2020-05-23 Outpatient STLMLC STLMLC [id number] Common 00:00:00 00:00:00 [facility] 2020-05-22 2020-05-22 Outpatient STLMLC STLMLC [id number] Common 00:00:00 00:00:00 [facility] 2020-05-17 2020-05-17 Outpatient R MARY, [facility] [id number] [facility] 13:40:00 13:40:00 MARY garcia [facility] 2020-05-14 2020-05-14 Outpatient STLMLC STLMLC [id number] Common 00:00:00 00:00:00 [facility] 2020-05-09 2020-05-09 Outpatient STLMLC STLMLC [id number] Common 00:00:00 00:00:00 [facility] 2020-05-07 2020-05-07 Outpatient STLMLC STLMLC [id number] Common 00:00:00 00:00:00 [facility] 2020-05-04 2020-05-04 Outpatient STLMLC STLMLC [id number] Common 00:00:00 00:00:00 [facility] 2020-02-13 2020-02-13 Outpatient STLMLC STLMLC [id number] Common 00:00:00 00:00:00 [facility] 2020-01-11 2020-01-11 Outpatient STLMLC STLMLC [id number] Common 00:00:00 00:00:00 [facility] 2020-01-11 2020-01-11 Outpatient STLMLC STLMLC [id number] Common 00:00:00 00:00:00 [facility] 2020-01-05 2020-01-05 Outpatient STLMLC STLMLC [id number] Common 00:00:00 00:00:00 [facility] 2019-12-27 2019-12-27 Outpatient STLMLC STLMLC [id number] Common 00:00:00 00:00:00 [facility] 2019-12-22 2019-12-22 Outpatient STLMLC STLMLC [id number] Common 00:00:00 00:00:00 [facility] 2019-10-14 2019-10-14 [facility] [id number] Common 14:50:00 14:50:[address] [facility] [address] [facility] 2019-10-13 2019-10-13 [facility] [id number] Common 10:45:00 10:45:[address] [facility] 2019-09-22 2019-09-22 [facility] [id number] Common 10:13:00 10:13:[address] [facility] 2019-08-12 2019-08-12 [facility] [id number] Common 09:30:00 09:30:[address] [facility] 2019-08-08 2019-08-08 [facility] [id number] Common 10:00:00 10:00:[address] [facility] 2019-07-12 2019-07-12 [facility] [id number] Common 09:30:00 09:30:[address] [facility] 2019-04-14 2019-04-14 [facility] [id number] Common 08:33:00 08:33:[address] [facility] 2019-04-12 2019-04-12 [facility] [id number] Common 09:15:00 09:15:[address] [facility] 2019-04-05 2019-04-05 [facility] [id number] Common 08:18:00 08:18:[address] [facility] 2019-03-15 2019-03-15 [facility] [id number] Common 10:45:00 10:45:[address] [facility] 2019-02-02 2019-02-02 [facility] [id number] Common 09:00:00 09:00:[address] [facility] 2019-01-12 2019-01-12 [facility] [id number] Common 10:15:00 10:15:[address] [facility] 2019-01-05 2019-01-05 [facility] [id number] Common 14:58:00 14:58:[address] [facility] 2018-11-09 2018-11-09 [facility] [id number] Common 09:47:00 09:47:[address] [facility] 2018-10-28 2018-10-28 [facility] [id number] Common 08:34:00 08:34:[address] [facility] 2018-10-15 2018-10-15 [facility] [id number] Common 09:00:00 09:00:[address] [facility] 2018-07-05 2018-07-05 [facility] [id number] Common 08:30:00 08:30:[address] [facility] 2018-06-07 2018-06-07 [facility] [id number] Common 10:15:00 10:15:[address] [facility] 2018-06-03 2018-06-03 [facility] [id number] Common 10:30:00 10:30:[address] [facility] 2018-04-28 2018-04-28 [facility] [id number] Common 13:30:00 13:30:[address] [facility] 2018-04-06 2018-04-06 [facility] [id number] Common 08:15:00 08:15:[address] [facility] 2018-02-17 2018-02-17 [facility] [id number] Common 10:24:00 10:24:00 [facility] 2018-02-15 2018-02-15 [facility] [id number] Common 08:30:00 08:30:00 [facility] 2017-10-22 2017-10-22 [facility] [id number] Common 15:00:00 15:00:00 t Specialty/U Sp vidya Specialty rology - [facility] 2017-10-08 2017-10-08 [facility] [id number] Common 09:00:00 09:00:[address] [facility] 2017-09-08 2017-09-08 Outpatient Harpal Daniel [id number] Common 09:00:00 09:00:00 t [employer] [address] [facility] 2017-07-17 2017-07-17 Outpatient Harpal Daniel [id number] Common 09:30:00 09:30:00 [employer] [address] [facility] Results Test Description Test Time Test Comments Results Result Comments Source CBC W/AUTO DIFF 2022-11-18 00:00:00 Test Item Value Reference Range Interpretation Comme nts NUCLEATED RBCS (test code 0.0 /100 WBC'S See_Comment [Automated message] The = 35061-9) system which ge nerated this result transmit kristopher reference range: 0.0 /100 WBC'S. The reference range was not used to interpret th is result as normal/abnormal . ABSOLUTE EOSINOPHILS (test 0.03 K/UL See_Comment [Automated message] The code = 06209-6) system which generated this result transmit kristopher reference range: 0.00-0.5 0 K/UL. The reference range was not used to interpret th is result as normal/abnormal . ABSOLUTE LYMPHOCYTES (test 2.70 K/UL See_Comment [Automated message] The code = 04131-7) system which generated this result transmit kristopher reference range: 1.00-4.0 0 K/UL. The reference range was not used to interpret th is result as normal/abnormal . ABSOLUTE MONOCYTES (test 0.61 K/UL See_Comment [A utomated message] The code = 69182-9) system which generated this result transmit kristopher reference range: 0.20-1.0 0 K/UL. The reference range was not used to interpret th is result as normal/abnormal . ABSOLUTE NEUTROPHILS (test 4.23 K/UL See_Comment [Automated message] The code = 45976-7) system which generated this result transmit kristopher reference range: 1.50-7.5 0 K/UL. The reference range was not used to interpret th is result as normal/abnormal . BASOPHILS (test code = 0.4 % 91533-6) EOSINOPHILS (test code = 0.4 % 48574-1) HEMATOCRIT (test code = 35.7 % See_Comment [Au tomated message] The 47375-7) system which [employer] nerated this result transmit kristopher reference range: 34.0-45. 0 %. The reference range was not used to interpret th is result as normal/abnormal . HEMOGLOBIN (test code = 11.9 G/DL See_Comment [Au tomated message] The 718-7) system which [employer] nerated this result transmit kristopher reference range: 11.5-15. 5 G/DL. The reference range was not used to interpret th is result as normal/abnormal . LYMPHOCYTES (test code = 34.5 % 32205-5) MCH (test code = 41940-6) 30.4 PG See_Comment [ Automated message] The system which [employer] nerated this result transmit kristopher reference range: 25.0-33. 0 PG. The reference range was not used to interpret th is result as normal/abnormal . MCHC (test code = 79699-8) 33.3 G/DL See_Comment [Automated message] The system which [employer] nerated this result transmit kristopher reference range: 31.0-36. 0 G/DL. The reference range was not used to interpret th is result as normal/abnormal . MCV (test code = 75314-0) 91.3 fL See_Comment [ Automated message] The system which [employer] nerated this result transmit kristopher reference range: 80.0-99. 0 fL. The reference range was not used to interpret th is result as normal/abnormal . MONOCYTES (test code = 7.8 % 02486-7) NEUTROPHILS (test code = 54.1 % 20367-4) PLATELET COUNT (test code 289 K/UL See_Comment [ Automated message] The = 18883-3) system which [employer] nerated this result transmit kristopher reference range: 130-400 K/UL. The reference range was not used to interpret th is result as normal/abnormal . RBC (test code = 90020-2) 3.91 M/UL See_Comment [ Automated message] The system which [employer] nerated this result transmit kristopher reference range: 3.80-5.4 0 M/UL. The reference range was not used to interpret th is result as normal/abnormal . RDW (test code = 58891-7) 12.3 % See_Comment [ Automated message] The system which ge nerated this result transmit kristopher reference range: 11.5-15. 0 %. The reference range was not used to interpret th is result as normal/abnormal . WBC (test code = 10237-9) 7.8 K/UL See_Comment [ Automated message] The system which ge nerated this result transmit kristopher reference range: 3.5-11.0 K/UL. The reference range was not used to interpret th is result as normal/abnormal . HEMOGLOBIN [id number] 00:00:00 Test Item Value Reference Range Interpretation Comments HEMOGLOBIN A1c (test 6.0 % See_Comment H [Autom ated message] The code = 4548-4) system which generated this result tra nsmitted reference range : 4.2-5.6 %. The referenc e range was not used to interpret this result as normal/abnormal . VITAMIN D, 25 [id number] 00:00:00 Test Item Value Reference Range Interpretation Comments VITAMIN D, 25 OH (test code = 30 NG/ML SEE BELOW NG/ML 1988-05) THYROID II PROFILE (TU, T4, T7, TSH)2022-11-18 00:00:00 Test Item Value Reference Range Interpretation Comments CORRECTED T4 (FTI) 8.8 UG/DL See_Comment [Automat ed message] (test code = The system CASTT 39475-3) generated this result transmitted ref erence range: 4.2-11.6 UG/DL. The refe rence range was not u sed to interpret this result as normal/abnor mal. T-UPTAKE (test code 33.1 % See_Comment [Automa kristopher message] = 56737-5) The system CASTT generated this result transmitted ref erence range: 24.3-39. 0 %. The reference r richard was not used to interpret this result as normal/abnor mal. T4 (THYROXINE) (test 8.8 UG/DL See_Comment [Autom ated message] code = 3026-2) The system [facility] generated this result transmitted ref erence range: 4.5-10.5 UG/DL. The refe rence range was not u sed to interpret this result as normal/abnor mal. THYROX. BIND. CAPAC. 1.0 0.8-1.3 (test code = 44050-6) TSH, THIRD 0.887 UIU/ML See_Comment [Automated mes christiano] GENERATION (test The system which code = 53013-8) generated th is result transmitted ref erence range: 0.400-4. 100 UIU/ML. The ref erence range was not u sed to interpret this result as normal/abnor mal. LIPID PANEL WITH REFLEX DIRECT [id number] 00:00:00 Test Item Value Reference Range Interpretation Comments CALC LDL CHOL (test 106 MG/DL See_Comment H [Automa kristopher message] code = 97925-8) The system [facility] generated this result transmit kristopher reference range : <100 MG/DL. The reference range was not used to interpret this result as normal/abnormal . CHOLESTEROL (test code 178 MG/DL See_Comment [Aut omated message] = 2093-3) The system [facility] generated this result transmit kristopher reference range : <200 MG/DL. The reference range was not used to interpret this result as normal/abnormal . HDL CHOLESTEROL (test 46 MG/DL See_Comment [Auto mated message] code = 2085-9) The system [facility] generated this result transmit kristopher reference range : >39 MG/DL. The refe rence range was not u sed to interpret th is result as normal/abnormal . RISK RATIO LDL/HDL 2.30 RATIO See_Comment [Automat ed message] (test code = 02238-0) The sy stem which generated this result transmit kristopher reference range : <3.22 RATIO. Th e reference range was not used to interpret this result as normal/abnormal . TRIGLYCERIDES (test 147 MG/DL See_Comment [Automa kristopher message] code = 2571-8) The system [employer] generated this result transmit kristopher reference range : <150 MG/DL. The reference range was not used to interpret this result as normal/abnormal . VITAMIN B 12 AND FOLIC [id number] 00:00:00 Test Item Value Reference Range Interpretation Comments FOLIC ACID (test >20.0 UG/L SEE BELOW UG/L code = 2284-8) VITAMIN B-12 (test >2000 PG/ML See_Comment H [Automat ed message] code = 2132-9) The system [facility] generated this result transmitted ref erence range: 200-950 PG/ML. The reference r richard was not used to int erpret this result as normal/abnormal . ALBUMIN/CREATININE RATIO, RANDOM [id number] 00:00:00 Test Item Value Reference Range Interpretation Comments ALBUMIN, URINE, 0.6 MG/DL NOT ESTAB MG/DL RANDOM (test code = 45402-4) CALC ALBUMIN/CREAT, 7 MG/G See_Comment [Automa kristopher message] The RND (test code = system [employer] generated 36875-8) this result tra nsmitted reference range : <30 MG/G. The refer ence range was not u sed to interpret this result as normal/abnormal . CREATININE, URINE, 85.9 MG/DL NOT ESTAB MG/DL CONC. (test code = 2161-8) COMPREHENSIVE METABOLIC [id number] 00:00:00 Test Item Value Reference Range Interpretation Comments ALBUMIN (test code = 4.2 G/DL See_Comment [Autom ated message] 1751-7) The system [employer] generated this result transmit kristopher reference range : 3.5-5.2 G/DL. T he reference range was not used to interpret this result as normal/abnormal . ALKALINE PHOSPHATASE 99 U/L See_Comment [Autom ated message] (test code = 6768-6) The sys tem which generated this result transmit kristopher reference range : 40-142 U/L. The reference range was not used to interpret this result as normal/abnormal . BILIRUBIN, TOTAL 0.4 MG/DL See_Comment [Automated message] (test code = 1975-2) The sys tem which generated this result transmit kristopher reference range : <=1.2 MG/DL. Th e reference range was not used to interpret this result as normal/abnormal . BUN (test code = 8 MG/DL See_Comment [Automated message] 3094-0) The system [employer] generated this result transmit kristopher reference range : 8-23 MG/DL. The reference range was not used to interpret this result as normal/abnormal . CALCIUM (test code = 9.7 MG/DL See_Comment [Autom ated message] 18990-1) The system [employer] generated this result transmit kristopher reference range : 8.5-10.5 MG/DL. The reference range was not used to interpret this result as normal/abnormal . CALC A/G RATIO (test 1.8 RATIO See_Comment [Autom ated message] code = 1759-0) The system [facility] generated this result transmit kristopher reference range : 1.0-2.6 RATIO. The reference range was not used to interpret this result as normal/abnormal . CALC BUN/CREAT (test 10 RATIO See_Comment [Autom ated message] code = 3097-3) The system [facility] generated this result transmit kristopher reference range : 6-28 RATIO. The reference range was not used to interpret this result as normal/abnormal . CALC GLOBULIN (test 2.3 G/DL See_Comment [Automa kristopher message] code = 59052-8) The system [facility] generated this result transmit kristopher reference range : 1.9-3.7 G/DL. T he reference range was not used to interpret this result as normal/abnormal . CARBON DIOXIDE (test 24 MEQ/L See_Comment [Autom ated message] code = 1963-8) The system [facility] generated this result transmit kristopher reference range : 19-31 MEQ/L. Th e reference range was not used to interpret this result as normal/abnormal . CHLORIDE (test code 107 MEQ/L See_Comment [Automa kristopher message] = 5-0) The system [facility] generated this result transmit kristopher reference range : 95-107 MEQ/L. T he reference range was not used to interpret this result as normal/abnormal . CREATININE (test 0.79 MG/DL See_Comment [Automated message] code = 2160-0) The system [facility] generated this result transmit kristopher reference range : 0.60-1.30 MG/DL . The reference range was not used to interpret this result as normal/abnormal . eGFR (2020 CKD-EPI) 80 ML/MIN/1.73 See_Comment [Auto mated message] (test code = The system [facility] 54502-3) generated this result transmit kristopher reference range : >60 ML/MIN/1.73. Th e reference range was not used to interpret this result as normal/abnormal . GLUCOSE (test code = 105 MG/DL See_Comment H [Autom ated message] 1558-6) The system [facility] generated this result transmit kristopher reference range : 70-99 MG/DL. Th e reference range was not used to interpret this result as normal/abnormal . POTASSIUM (test code 4.2 MEQ/L See_Comment [Autom ated message] = 2823-3) The system [facility] generated this result transmit kristopher reference range : 3.5-5.4 MEQ/L. The reference range was not used to interpret this result as normal/abnormal . PROTEIN, TOTAL (test 6.5 G/DL See_Comment [Autom ated message] code = 2885-2) The system [facility] generated this result transmit kristopher reference range : 6.1-8.3 G/DL. T he reference range was not used to interpret this result as normal/abnormal . AST (test code = 18 U/L See_Comment [Automated message] 1920-8) The system [facility] generated this result transmit kristopher reference range : 9-40 U/L. The reference range was not used to interpret this result as normal/abnormal . ALT (test code = 13 U/L See_Comment [Automated message] 1742-6) The system [facility] generated this result transmit kristopher reference range : 5-40 U/L. The reference range was not used to interpret this result as normal/abnormal . SODIUM (test code = 142 MEQ/L See_Comment [Automa kristopher message] 2951-2) The system [facility] generated this result transmit kristopher reference range : 133-146 MEQ/L. The reference range was not used to interpret this result as normal/abnormal . CBC W/AUTO [id number] 00:00:00 Test Item Value Reference Range Interpretation Comments NUCLEATED RBCS (test 0.0 /100 WBC'S See_Comment [Aut omated message] code = 23878-9) The system [facility] generated this result transmit kristopher reference range : 0.0 /100 WBC'S. The reference range was not used to interpret this result as normal/abnormal . ABSOLUTE EOSINOPHILS 0.02 K/UL See_Comment [Autom ated message] (test code = The system [facility] 14971-0) generated this result transmit kristopher reference range : 0.00-0.50 K/UL. The reference range was not used to interpret this result as normal/abnormal . ABSOLUTE LYMPHOCYTES 2.36 K/UL See_Comment [Autom ated message] (test code = The system [facility] 60483-3) generated this result transmit kristopher reference range : 1.00-4.00 K/UL. The reference range was not used to interpret this result as normal/abnormal . ABSOLUTE MONOCYTES 0.46 K/UL See_Comment [Automat ed message] (test code = The system [facility] 62557-6) generated this result transmit kristopher reference range : 0.20-1.00 K/UL. The reference range was not used to interpret this result as normal/abnormal . ABSOLUTE NEUTROPHILS 6.85 K/UL See_Comment [Autom ated message] (test code = The system [facility] 69495-4) generated this result transmit kristopher reference range : 1.50-7.50 K/UL. The reference range was not used to interpret this result as normal/abnormal . BASOPHILS (test code 0.2 % = 45566-7) EOSINOPHILS (test 0.2 % code = 79234-6) HEMATOCRIT (test 35.9 % See_Comment [Automated message] code = 13910-7) The system [facility] generated this result transmit kristopher reference range : 34.0-45.0 %. Th e reference range was not used to interpret this result as normal/abnormal . HEMOGLOBIN (test 11.7 G/DL See_Comment [Automated message] code = 718-7) The system [facility] generated this result transmit kristopher reference range : 11.5-15.5 G/DL. The reference range was not used to interpret this result as normal/abnormal . LYMPHOCYTES (test 24.2 % code = 43783-2) MCH (test code = 30.2 PG See_Comment [Automated message] 65533-3) The system [facility] generated this result transmit kristopher reference range : 25.0-33.0 PG. T he reference range was not used to interpret this result as normal/abnormal . MCHC (test code = 32.6 G/DL See_Comment [Automate d message] 62482-6) The system [facility] generated this result transmit kristopher reference range : 31.0-36.0 G/DL. The reference range was not used to interpret this result as normal/abnormal . MCV (test code = 92.8 fL See_Comment [Automated message] 42590-7) The system [facility] generated this result transmit kristopher reference range : 80.0-99.0 fL. T he reference range was not used to interpret this result as normal/abnormal . MONOCYTES (test code 4.7 % = 67287-2) NEUTROPHILS (test 70.2 % code = 97025-7) PLATELET COUNT (test 340 K/UL See_Comment [Autom ated message] code = 09656-2) The system [facility] generated this result transmit kristopher reference range : 130-400 K/UL. T he reference range was not used to interpret this result as normal/abnormal . RBC (test code = 3.87 M/UL See_Comment [Automated message] 94987-3) The system [employer] generated this result transmit kristopher reference range : 3.80-5.40 M/UL. The reference range was not used to interpret this result as normal/abnormal . RDW (test code = 13.0 % See_Comment [Automated message] 00326-8) The system [employer] generated this result transmit kristopher reference range : 11.5-15.0 %. Th e reference range was not used to interpret this result as normal/abnormal . WBC (test code = 9.8 K/UL See_Comment [Automated message] 93690-0) The system [employer] generated this result transmit kristopher reference range : 3.5-11.0 K/UL. The reference range was not used to interpret this result as normal/abnormal . HEMOGLOBIN [id number] 00:00:00 Test Item Value Reference Range Interpretation Comments HEMOGLOBIN A1c (test 6.4 % See_Comment H [Autom ated message] The code = 4548-4) system which generated this result tra nsmitted reference range : 4.2-5.6 %. The referenc e range was not used to interpret this result as normal/abnormal . THYROID II PROFILE (TU, T4, T7, TSH)2022-08-15 00:00:00 Test Item Value Reference Range Interpretation Comments CORRECTED T4 (FTI) 6.2 UG/DL See_Comment [Automat ed message] (test code = The system [employer] 01044-3) generated this result transmitted ref erence range: 4.2-11.6 UG/DL. The refe rence range was not u sed to interpret this result as normal/abnor mal. T-UPTAKE (test code 30.2 % See_Comment [Automa kristopher message] = 80071-8) The system [employer] generated this result transmitted ref erence range: 24.3-39. 0 %. The reference r richard was not used to interpret this result as normal/abnor mal. T4 (THYROXINE) (test 6.8 UG/DL See_Comment [Autom ated message] code = 3026-2) The system [facility] generated this result transmitted ref erence range: 4.5-10.5 UG/DL. The refe rence range was not u sed to interpret this result as normal/abnor mal. THYROX. BIND. CAPAC. 1.1 0.8-1.3 (test code = 91171-2) TSH, THIRD 0.937 UIU/ML See_Comment [Automated mes christiano] GENERATION (test The system which code = 92419-0) generated th is result transmitted ref erence range: 0.400-4. 100 UIU/ML. The ref erence range was not u sed to interpret this result as normal/abnor mal. LIPID PANEL WITH REFLEX DIRECT [id number] 00:00:00 Test Item Value Reference Range Interpretation Comments CALC LDL CHOL (test 100 MG/DL See_Comment H [Automa kristopher message] code = 43399-6) The system [facility] generated this result transmit kristopher reference range : <100 MG/DL. The reference range was not used to interpret this result as normal/abnormal . CHOLESTEROL (test code 181 MG/DL See_Comment [Aut omated message] = 2093-3) The system [facility] generated this result transmit kristopher reference range : <200 MG/DL. The reference range was not used to interpret this result as normal/abnormal . HDL CHOLESTEROL (test 60 MG/DL See_Comment [Auto mated message] code = 2085-9) The system [facility] generated this result transmit kristopher reference range : >39 MG/DL. The refe rence range was not u sed to interpret th is result as normal/abnormal . RISK RATIO LDL/HDL 1.67 RATIO See_Comment [Automat ed message] (test code = 50372-0) The sy stem which generated this result transmit kristopher reference range : <3.22 RATIO. Th e reference range was not used to interpret this result as normal/abnormal . TRIGLYCERIDES (test 110 MG/DL See_Comment [Automa kristopher message] code = 2571-8) The system [facility] generated this result transmit kristopher reference range : <150 MG/DL. The reference range was not used to interpret this result as normal/abnormal . ALBUMIN/CREATININE RATIO, RANDOM [id number] 00:00:00 Test Item Value Reference Range Interpretation Comments ALBUMIN, URINE, 1.6 MG/DL NOT ESTAB MG/DL RANDOM (test code = 47707-0) CALC ALBUMIN/CREAT, 13 MG/G See_Comment [Automa kristopher message] RND (test code = The system which 14248-1) generated this result transmitted ref erence range: <30 MG/G . The reference range was not used to interpr et this result as normal/abnormal . CREATININE, URINE, 124.8 MG/DL NOT ESTAB MG/DL CONC. (test code = 2161-8) COMPREHENSIVE METABOLIC [id number] 00:00:00 Test Item Value Reference Range Interpretation Comments ALBUMIN (test code = 4.2 G/DL See_Comment [Autom ated message] 1751-7) The system [employer] generated this result transmit kristopher reference range : 3.5-5.2 G/DL. T he reference range was not used to interpret this result as normal/abnormal . ALKALINE PHOSPHATASE 89 U/L See_Comment [Autom ated message] (test code = 6768-6) The sys tem which generated this result transmit kristopher reference range : 40-142 U/L. The reference range was not used to interpret this result as normal/abnormal . BILIRUBIN, TOTAL 0.3 MG/DL See_Comment [Automated message] (test code = 1975-2) The sys tem which generated this result transmit kristopher reference range : <=1.2 MG/DL. Th e reference range was not used to interpret this result as normal/abnormal . BUN (test code = 17 MG/DL See_Comment [Automated message] 3094-0) The system [employer] generated this result transmit krisotpher reference range : 8-23 MG/DL. The reference range was not used to interpret this result as normal/abnormal . CALCIUM (test code = 9.4 MG/DL See_Comment [Autom ated message] 43463-9) The system [employer] generated this result transmit kristopher reference range : 8.5-10.5 MG/DL. The reference range was not used to interpret this result as normal/abnormal . CALC A/G RATIO (test 1.6 RATIO See_Comment [Autom ated message] code = 1759-0) The system [facility] generated this result transmit kristopher reference range : 1.0-2.6 RATIO. The reference range was not used to interpret this result as normal/abnormal . CALC BUN/CREAT (test 22 RATIO See_Comment [Autom ated message] code = 3097-3) The system [facility] generated this result transmit kristopher reference range : 6-28 RATIO. The reference range was not used to interpret this result as normal/abnormal . CALC GLOBULIN (test 2.6 G/DL See_Comment [Automa kristopher message] code = 68163-5) The system [facility] generated this result transmit kristopher reference range : 1.9-3.7 G/DL. T he reference range was not used to interpret this result as normal/abnormal . CARBON DIOXIDE (test 25 MEQ/L See_Comment [Autom ated message] code = 1963-8) The system [facility] generated this result transmit kristopher reference range : 19-31 MEQ/L. Th e reference range was not used to interpret this result as normal/abnormal . CHLORIDE (test code 101 MEQ/L See_Comment [Automa kristopher message] = 5-0) The system [facility] generated this result transmit kristopher reference range : 95-107 MEQ/L. T he reference range was not used to interpret this result as normal/abnormal . CREATININE (test 0.79 MG/DL See_Comment [Automated message] code = 2160-0) The system [facility] generated this result transmit kristopher reference range : 0.60-1.30 MG/DL . The reference range was not used to interpret this result as normal/abnormal . eGFR (2020 CKD-EPI) 80 ML/MIN/1.73 See_Comment [Auto mated message] (test code = The system [facility] 87130-3) generated this result transmit kristopher reference range : >60 ML/MIN/1.73. Th e reference range was not used to interpret this result as normal/abnormal . GLUCOSE (test code = 119 MG/DL See_Comment H [Autom ated message] 1558-6) The system [facility] generated this result transmit kristopher reference range : 70-99 MG/DL. Th e reference range was not used to interpret this result as normal/abnormal . POTASSIUM (test code 5.1 MEQ/L See_Comment [Autom ated message] = 3263-3) The system [facility] [employer] generated this result transmit kristopher reference range : 3.5-5.4 MEQ/L. The reference range was not used to interpret this result as normal/abnormal . PROTEIN, TOTAL (test 6.8 G/DL See_Comment [Autom ated message] code = 2885-2) The system [facility] generated this result transmit kristopher reference range : 6.1-8.3 G/DL. T he reference range was not used to interpret this result as normal/abnormal . AST (test code = 22 U/L See_Comment [Automated message] 1920-8) The system [facility] generated this result transmit kristopher reference range : 9-40 U/L. The reference range was not used to interpret this result as normal/abnormal . ALT (test code = 28 U/L See_Comment [Automated message] 6002-6) The system [facility] generated this result transmit kristopher reference range : 5-40 U/L. The reference range was not used to interpret this result as normal/abnormal . SODIUM (test code = 136 MEQ/L See_Comment [Automa kristopher message] 6901-2) The system [facility] generated this result transmit kristopher reference range : 133-146 MEQ/L. The reference range was not used to interpret this result as normal/abnormal . COMP. METABOLIC PANEL (81396)2021-08-12 20:09:39 Test Item Value Reference Range Interpretation Comments NA (test code = 136 mmol/L 135-145 2903613144) K (test code = 4.4 mmol/L 3.5-5.0 3889928133) CL (test code = 101 mmol/L 98-108 3305983033) CO2 TOTAL (test code 25 mmol/L 23-31 = 0267248278) AGAP (test code = 2-16 8620016895) BUN (test code = 19 mg/dL 7-23 3778418007) GLUCOSE (test code = 98 mg/dL 70-110 3896878871) CREATININE (test code 0.76 mg/dL 0.50-1.04 = 7512936842) TOTAL BILI (test code 0.3 mg/dL 0.1-1.1 = 0700054710) CALCIUM (test code = 9.2 mg/dL 8.6-10.6 2694048889) T PROTEIN (test code 6.5 g/dL 6.3-8.2 = 6351781412) ALBUMIN (test code = 4.1 g/dL 3.5-5.0 5558778172) ALK PHOS (test code = 87 U/L 34-122 4523674059) ALTv (test code = 16 U/L 5-35 1742-6) AST(SGOT) (test code 27 U/L 13-40 = 9024520868) eGFR (test code = mL/min/1.73m2 5784311495) KARLEE (test code = KARLEE) Association of Glomerular Filtration Rate (GFR) and Staging of Kidney Disease* + + +- +| GFR (mL/min/1.73 m2) ?| With Kidney Damage ?| ?Without Kidney Damage+ ------+ ----+ ------+| ?>90 ?| ?Stage one ?| ? Normal ?+ -+ + -+| ?60-89 ?| ?Stage two ?| ? Decreased GFR ? + + +- +| ?30-59 ?| ?Stage three ?| ? Stage three ? + + +- +| ?15-29 ?| ?Stage four ? | ? Stage four ?+ -+ + -+| ?<15 (or dialysis) ? ?| ?Stage five ? | ? Stage five ?+ -+ + -+ *Each stage assumes the associated GFR level [...] or urine or abnormalities in imaging tests). [facility] Test Item Value Reference Range Interpretation Comments LIPASE (test code = 5854844340) 152 U/L 0-220 Lab Interpretation (test code = Normal 02352-1) [facility] [id number] 19:46:11 Test Item Value Reference Range Interpretation Comments WBC (test code = See_Comment [Automated message] 6690-2) The system [employer] generated this result transmitted ref erence range: 4.30 - 1 1.10 10*3/?L. The re ference range was not u sed to interpret this result as normal/abnor mal. RBC (test code = See_Comment [Automated message] 789-8) The system [employer] generated this result transmitted ref erence range: [...] RDW-SD (test code 43.2 fL 39.0-49.9 = 89582-7) RDW-CV (test code 13.1 % 12.0-15.5 = 788-0) PLT (test code = See_Comment [Automated message] 777-3) The system [employer] generated this result transmitted ref erence range: 166 - 35 8 10*3/?L. The re ference range was not u sed to interpret this result as normal/abnor mal. MPV (test code = 10.2 fL 9.5-12.9 93872-5) NRBC/100 WBC (test See_Comment [Automat ed message] code = 1533788966) The syste m which generated this result transmitted ref erence range: 0.0 - 10 .0 /100 WBCs. The refer ence range was not u sed to interpret this result as normal/abnor mal. NRBC x10^3 (test <0.01 See_Comment [Automated message] code = 2386545713) The syste m which generated this result transmitted ref erence range: 10*3/?L. The reference range was not used to interpr et this result as normal/abnormal . GRAN MAT (NEUT) % 48.6 % (test code = 770-8) IMM GRAN % (test 0.30 % code = 1132763149) LYMPH % (test code 39.7 % = 736-9) MONO % (test code 9.2 % = 5905-5) EOS % (test code = 1.9 % 713-8) BASO % (test code 0.3 % = 706-2) GRAN MAT 3.62 10*3/uL 1.88-7.09 x10^3(ANC) (test code = 0371989460) IMM GRAN x10^3 <0.03 0.00-0.06 (test code = 6211152839) LYMPH x10^3 (test 2.95 10*3/uL 1.32-3.29 code = 731-0) MONO x10^3 (test 0.68 10*3/uL 0.33-0.92 code = 742-7) EOS x10^3 (test 0.14 10*3/uL 0.03-0.39 code = 711-2) BASO x10^3 (test <0.03 0.01-0.07 code = 704-7) [facility] Pa And Lat (2 Views)Chest Pa And Lat (2 Views)"
[2023-02-08 14:59] LABS: Hematocrit 37.5 % (36.0-45.0); MCV 88.1 fL (80-100); MPV 8.6 fL (7.6-11.3); Platelets 286 thou/uL (152-406); RBC Red Blood Cell Count 4.26 M/uL (3.86-4.86)
[2023-02-08 15:13] LABS: SARS-CoV-2 Antigen Rapid Res Negative (Negative)
[2023-02-08 15:19] LABS: Albumin 3.4 g/dL (3.4-5.0); Bilirubin Direct 0.1 mg/dL (0-0.2); Bilirubin Indirect, Calculated 0.4 mg/dL (0.2-0.8); Bilirubin Total 0.5 mg/dL (0.2-1.0); Magnesium 2.3 mg/dL (1.6-2.4); Protein, Total 7.4 g/dL (6.4-8.2); Troponin High Sensitivity 3.9 pg/mL (<58.9)
[2023-02-08] MEDS ORDERED: NA CHLORIDE 0.9% 2,000 ML ONE (15:29)
[2023-02-08] MEDS ORDERED: CEFTRIAXONE 1000 MG/VIAL ONE (15:29)
[2023-02-08] MEDS ORDERED: ACETAMINOPHEN 500 MG TAB ONE (15:29)
[2023-02-08 15:33] LABS: Specific Gravity 1.017 (1.005-1.030); Urine Bacteria <20 /HPF (<20); Urine Bilirubin NEGATIVE (Negative); Urine Blood 1+ (Negative); Urine Clarity Extremely Turbid (Clear); Urine Color Yellow (Yellow); Urine Glucose NEGATIVE (Negative); Urine Protein 1+ (Negative); Urine Urobilinogen Normal (Normal); Urine WBC Clump Rare /HPF (None Seen)
--- NOTE | 2023-02-08 16:09 | RAD REPORT ---
EXAM DESCRIPTION: CT - Chest Abdomen Pelvis W Cont - 02/08/2023 3:51 pm CLINICAL HISTORY: Chest and abdominal pain. Fever COMPARISON: 2021 and September 2022 TECHNIQUE: Computed axial tomography of the chest, abdomen and pelvis was obtained. 100 cc Isovue-30 0 was administered intravenously. Oral contrast was not requested. This limits evaluation of bowel. All CT scans are performed using dose optimization technique as appropriate and may include automated exposure control or mA/KV adjustment according to patient size. FINDINGS: A few areas of subsegmental atelectasis within the lungs. No mediastinal or hilar lymphadenopathy. No pleural effusion. No pericardial effusion. Liver, spleen, pancreas, adrenals unremarkable Enhancement of the wall of the renal pelves bilaterally. Enhancement of the wall of the left ureter. Air bubble within the bladder No adnexal mass Cholecystectomy. Duodenal diverticulum No evidence of diverticulitis IMPRESSION: Enhancement of the wall of the renal pelves bilaterally. Enhancement of the wall of the left ureter. Air bubble within the bladder. These findings probably indicate infection
[2023-02-08 16:30] LABS: Protime INR 1.08
--- NOTE | 2023-02-08 16:45 | EDPHYS ---
Physician Documentation [facility] Name: Capri Correia Age: 72 yrs Sex: Female : 1950 Arrival Date: 02/08/2023 Time: 14:13 Bed 13 Private MD: ED Physician Jb Solomon HPI: 02/08 14:56 This 72 yrs old Female presents to ER via Ambulatory with complaints of Fever. zeb 14:56 The patient reports fever, that was measured at 100 degrees Fahrenheit. Onset: The zeb symptoms/episode began/occurred 2 day(s) ago. Modifying factors: there are no obvious modifying factors. Associated signs and symptoms: Pertinent positives: abdominal pain, chills, cough, nausea. Severity of symptoms: At their worst the symptoms were moderate in the emergency department the symptoms are unchanged. The patient has experienced similar episodes in the past, a few times. Historical: - Allergies: 14:25 No Known Allergies; hb - PMHx: 14:25 diabetes mellitus; Hyperlipidemia; Hypertension; Hypothyroidism; hb - PSHx: 14:25 Cholecystectomy; Thyroidectomy; hb - Immunization history:: Adult Immunizations up to date. - Social history:: Smoking status: Patient denies any tobacco usage or history of. ROS: 14:57 Eyes: Negative for injury, pain, redness, and discharge, Neck: Negative for injury, zeb pain, and swelling, Cardiovascular: Negative for chest pain, palpitations, and edema, Respiratory: Negative for shortness of breath, cough, wheezing, and pleuritic chest pain, Back: Negative for injury and pain, : Negative for injury, bleeding, discharge, and swelling, MS/Extremity: Negative for injury and deformity, Skin: Negative for injury, rash, and discoloration, Neuro: Negative for headache, weakness, numbness, tingling, and seizure, Psych: Negative for depression, anxiety, suicide ideation, homicidal ideation, and hallucinations, Allergy/Immunology: Negative for hives, rash, and allergies, Endocrine: Negative for neck swelling, polydipsia, polyuria, polyphagia, and marked weight changes, Hematologic/Lymphatic: Negative for swollen nodes, abnormal bleeding, and unusual bruising, 14:57 Constitutional: Positive for body aches, chills, fatigue, fever, malaise, 14:57 Cardiovascular: Positive for palpitations, 14:57 Abdomen/GI: Positive for abdominal pain, abdominal cramps, of the left lower quadrant, Exam: 14:57 Head/Face: Normocephalic, atraumatic. Eyes: Pupils equal round and reactive to light, zeb extra-ocular motions intact. Lids and lashes normal. Conjunctiva and sclera are non-icteric and not injected. Cornea within normal limits. Periorbital areas with no swelling, redness, or edema. Neck: Trachea midline, no thyromegaly or masses palpated, and no cervical lymphadenopathy. Supple, full range of motion without nuchal rigidity, or vertebral point tenderness. No Meningismus. Chest/axilla: Normal chest wall appearance and motion. Nontender with no deformity. No lesions are appreciated. Cardiovascular: Regular rate and rhythm with a normal S1 and S2. No gallops, murmurs, or rubs. Normal PMI, no JVD. No pulse deficits. Respiratory: Lungs have equal breath sounds bilaterally, clear to auscultation and percussion. No rales, rhonchi or wheezes noted. No increased work of breathing, no retractions or nasal flaring. Back: No spinal tenderness. No costovertebral tenderness. Full range of motion. Female : Normal external genitalia. Skin: Warm, dry with normal turgor. Normal color with no rashes, no lesions, and no evidence of cellulitis. MS/ Extremity: Pulses equal, no cyanosis. Neurovascular intact. Full, normal range of motion. Neuro: Awake and alert, GCS 15, oriented to person, place, time, and situation. Cranial nerves II-XII grossly intact. Motor strength 5/5 in all extremities. Sensory grossly intact. Cerebellar exam normal. Normal gait. Psych: Awake, alert, with orientation to person, place and time. Behavior, mood, and affect are within normal limits. 14:57 Constitutional: The patient appears febrile, 14:57 ENT: Posterior pharynx: is normal, no acute changes, Airway: normal, no evidence of obstruction, Tonsils: are normal in appearance, Uvula: normal, erythema, that is mild, 14:57 Abdomen/GI: Inspection: abdomen appears normal, Bowel sounds: active, all quadrants, Palpation: moderate abdominal tenderness, in the left upper quadrant and left lower quadrant, Liver: no appreciated palpable abnormalities, Hernia: not appreciated, 16:45 ECG was reviewed by the Attending Physician. [facility] Vital Signs: 14:23 BP 143 / 86; Pulse 93; Resp 18; Temp 100(O); Pulse Ox 98% on R/A; Weight 70.76 kg; hb Height 5 ft. 2 in. ; Pain 8/10; 16:29 BP 141 / 78; Pulse 73; Resp 16 S; Pulse Ox 99% on R/A; kc6 18:43 BP 184 / 84; Pulse 77; Resp 16 S; Temp 97.7(O); Pulse Ox 100% on R/A; kc6 20:46 BP 162 / 85; Pulse 87; Resp 16; Temp 98.5(O); Pulse Ox 100% on R/A; nw1 14:23 Body Mass Index 28.53 (70.76 kg, 157.48 cm) hb 14:23 Pain Scale: Adult hb [place] Coma Score: 20:46 Eye Response: spontaneous(4). Motor Response: obeys commands(6). Verbal Response: nw1 oriented(5). Total: 15. MDM: 14:17 Patient medically screened. [facility] 15:02 Differential diagnosis: viral Infection, bacterial infection, URI, pneumonia UTI, zeb cocksackie virus, echovirus infection, group A strep tonsillitis. Data reviewed: vital signs, nurses notes, lab test result(s), EKG, radiologic studies, CT scan, plain films. Consideration of Admission/Observation Patient was admitted/placed on observation. Escalation of care including admission/observation considered. I considered the following discharge prescriptions or medication management in the emergency department Medications were administered in the Emergency Department. See MAR. Independent interpretation of the following test(s) in the Emergency Department EKG: See my EKG interpretation above. Test considered but Not performed: Ultrasound NO ABD USG. Historians other than the Patient: Daughter/Son: SON , WELL INFORMED. Care significantly affected by the following chronic conditions: Diabetes, Hypertension, Obesity, HYPOTHYROID, HYPERLIPISEMIA. 02/08 14:20 Order name: Basic Metabolic Panel; Complete Time: 16:28 [facility] 02/08 14:20 Order name: CBC with Diff; Complete Time: 16:28 [facility] 02/08 14:20 Order name: LFT's; Complete Time: 16:28 [facility] 02/08 14:20 Order name: Magnesium; Complete Time: 16:28 [facility] 02/08 14:20 Order name: NT PRO-BNP; Complete Time: 16:28 [facility] 02/08 14:20 Order name: PT-INR; Complete Time: 16:41 [facility] 02/08 14:20 Order name: Troponin HS; Complete Time: 16:28 [facility] 02/08 14:20 Order name: Blood Culture Adult (2) [facility] 02/08 14:20 Order name: Lactate w/ 2H reflex if indic.; Complete Time: 16:28 [facility] 02/08 14:20 Order name: Urinalysis w/ reflexes; Complete Time: 16:28 [facility] 02/08 14:20 Order name: Lipase; Complete Time: 16:28 [facility] 02/08 14:20 Order name: Strep; Complete Time: 16:28 [facility] 02/08 14:20 Order name: Flu; Complete Time: 16:28 [facility] 02/08 14:20 Order name: SARS RAPID; Complete Time: 16:28 [facility] 02/08 15:16 Order name: Throat Culture [facility] 02/08 15:36 Order name: Urine Culture [facility] 02/08 18:46 Order name: CBC with Automated Diff [facility] 02/08 18:46 Order name: CBC with Automated Diff [facility] 02/08 18:46 Order name: Comprehensive Metabolic Panel [facility] 02/08 18:46 Order name: Comprehensive Metabolic Panel [facility] 02/08 18:46 Order name: Procalcitonin [facility] 02/08 18:46 Order name: Procalcitonin [facility] 02/08 18:47 Order name: T4 Free [facility] 02/08 18:47 Order name: Thyroid Stimulating Hormone [facility] 02/08 18:47 Order name: Vitamin B12 Level [facility] 02/08 14:20 Order name: XRAY Chest (1 view); Complete Time: 17:03 [facility] 02/08 14:53 Order name: CT Chest, Abdomen, Pelvis - W/Contrast; Complete Time: 16:28 [facility] 02/08 14:20 Order name: EKG; Complete Time: 14:21 [facility] 02/08 14:20 Order name: Cardiac monitoring; Complete Time: 14:52 [facility] 02/08 14:20 Order name: EKG - Nurse/Tech; Complete Time: 14:52 [facility] 02/08 14:20 Order name: IV Saline Lock; Complete Time: 14:52 [facility] 02/08 14:20 Order name: Labs collected and sent; Complete Time: 14:52 zeb 02/08 14:20 Order name: O2 Per Protocol; Complete Time: 14:21 zeb 02/08 14:20 Order name: O2 Sat Monitoring; Complete Time: 14:21 zeb 02/08 15:00 Order name: Labs - recollect needed: recollect blue top and green top; Complete Time: eb 16:15 EC:45 Rate is 86 beats/min. Rhythm is regular. QRS Gordon is Normal. GA interval is normal. QRS zeb interval is normal. QT interval is normal. No Q waves. T waves are Normal. No ST changes noted. Clinical impression: NSR w/ Non-specific ST/T Changes and No evidence of ischemia. Interpreted by me. Reviewed by me. Administered Medications: 15:27 Drug: Acetaminophen PO 1000 mg PO once Route: PO; kc6 18:44 Follow up: Response: No adverse reaction; Temperature is decreased kc6 16:13 Drug: Rocephin IV 1 grams IV at per protocol once; Given slow IV push per pharmacy iw instructions Route: IV; Rate: per protocol; Site: right hand; 18:44 Follow up: Response: No adverse reaction; IV Status: Completed infusion; IV Intake: 45totf4 16:14 Drug: NS 0.9% IV 1000 ml IV at 1 bolus Per protocol; 1000 mL bolus Route: IV; Rate: 1 iw bolus; Site: right hand; 16:15 Drug: NS 0.9% IV 1000 ml IV at 1 bolus Per protocol; 1000 mL bolus Route: IV; Rate: 1 iw bolus; Site: left antecubital; 16:29 CANCELLED (Duplicate Order): ns0.45 % 1000 ml IV at 125 ml/hr continuous [facility] 16:57 Drug: Meropenem IV 1 grams IV at per protocol once; (mix in NS 100 mL) Route: IV; Rate: kc6 per protocol; Site: right hand; 18:44 Follow up: Response: No adverse reaction; IV Status: Completed infusion; IV Intake: kc6 100ml 18:41 Drug: NS 0.9% IV 1000 ml IV at 125 ml/hr continuous Route: IV; Rate: 125 ml/hr; Site: kc6 right hand; Disposition Summary: 02/08/23 16:45 Hospitalization Ordered Notes: Hospitalization Status: Inpatient Admission zeb Provider: Bryan Brunson cha Location: Telemetry/MedSurg (Inpatient) zeb Condition: Fair zeb Problem: new zeb Symptoms: have improved zeb Bed/Room Type: Standard [facility] Room Assignment: 230(02/08/23 19:23) as6 Diagnosis - Fever, unspecified zeb - Weakness zeb - UTI/ Urinary tract infection, site not specified zeb - Pyelonephritis acute zeb Forms: - Medication Reconciliation Form zeb - SBAR form zeb - Leadership Thank You Letter zeb Signatures: Dispatcher [employer] EDJb Lang MD MD cha Williams, Irene, RN RN iw Baxter, Heather RN RN Polly Michael Ashby, RN RN as6 Ksenia Weber FNP FNP 7 Radha Valdez RN RN kc6 Corrections: (The following items were deleted from the chart) 16:29 16:29 NS IV 0.45 % 1000 ml IV at 125 ml/hr continuous ordered. zeb zeb 19:23 16:45 zeb as6
--- NOTE | 2023-02-08 16:45 | ER ---
Nurse's Notes [facility] Name: Capri Correia Age: 72 yrs Sex: Female : 1950 Arrival Date: 02/08/2023 Time: 14:13 Bed 13 Private MD: Diagnosis: Fever, unspecified;Weakness;UTI/ Urinary tract infection, site not specified;Pyelonephritis acute Presentation: 02/08 14:22 Chief complaint: Headache, body aches, sore throat, subjective fever, and N/V/D x 4 hb days. 14:23 Coronavirus screen: Client presents with at least one sign or symptom that may indicate hb coronavirus-19. Provider contacted for isolation considerations. Ebola Screen: No symptoms or risks identified at this time. Initial Sepsis Screen: Does the patient meet any 2 criteria? No. Patient's initial sepsis screen is negative. Does the patient have a suspected source of infection? No. Patient's initial sepsis screen is negative. Risk Assessment: Do you want to hurt yourself or someone else? Patient reports no desire to harm self or others. Onset of symptoms was February 05, 2023. 14:23 Method Of Arrival: Ambulatory hb 14:23 Acuity: NITA 3 hb Historical: - Allergies: 14:25 No Known Allergies; hb - PMHx: 14:25 diabetes mellitus; Hyperlipidemia; Hypertension; Hypothyroidism; hb - PSHx: 14:25 Cholecystectomy; Thyroidectomy; hb - Immunization history:: Adult Immunizations up to date. - Social history:: Smoking status: Patient denies any tobacco usage or history of. Screenin:19 [facility] ED Fall Risk Assessment (Adult) History of falling in the last 3 months, kc6 including since admission No falls in past 3 months (0 pts) Confusion or Disorientation No (0 pts) Intoxicated or Sedated No (0 pts) Impaired Gait No (0 pts) Mobility Assist Device Used No (0 pt) Altered Elimination No (0 pt) Score/Fall Risk Level 0 - 2 = Low Risk. Abuse screen: Denies threats or abuse. Denies injuries from another. Nutritional screening: No deficits noted. Tuberculosis screening: No symptoms or risk factors identified. Assessment: 14:30 General: Appears in no apparent distress. comfortable, Behavior is calm, cooperative, kc6 appropriate for age, Reports chills for fever for feeling ill for. Neuro: Level of Consciousness is awake, alert, obeys commands, Oriented to person, place, time, situation, Appropriate for age. Cardiovascular: Capillary refill < 3 seconds. Respiratory: Airway is patent Trachea midline Respiratory effort is even, unlabored, Respiratory pattern is regular, symmetrical. GI: Reports lower abdominal pain, diarrhea, nausea, vomiting. : Urine is clear. EENT: Reports difficulty swallowing. Derm: No signs and/or symptoms reported regarding the dermatologic system. Skin is intact, is healthy with good turgor, Skin is pink, warm \T\ dry. Musculoskeletal: No signs and/or symptoms reported regarding the musculoskeletal system. Circulation, motion, and sensation intact. Capillary refill < 3 seconds, Range of motion: intact in all extremities. 15:30 Reassessment: Patient appears in no apparent distress at this time. No changes from kc6 previously documented assessment. Patient and/or family updated on plan of care and expected duration. Pain level reassessed. Patient is alert, oriented x 3, equal unlabored respirations, skin warm/dry/pink. 16:29 Reassessment: Patient appears in no apparent distress at this time. No changes from kc6 previously documented assessment. Patient and/or family updated on plan of care and expected duration. Pain level reassessed. Patient is alert, oriented x 3, equal unlabored respirations, skin warm/dry/pink. 17:29 Reassessment: Patient appears in no apparent distress at this time. No changes from kc6 previously documented assessment. Patient and/or family updated on plan of care and expected duration. Pain level reassessed. Patient is alert, oriented x 3, equal unlabored respirations, skin warm/dry/pink. 18:29 Reassessment: Patient appears in no apparent distress at this time. No changes from kc6 previously documented assessment. Patient and/or family updated on plan of care and expected duration. Pain level reassessed. Patient is alert, oriented x 3, equal unlabored respirations, skin warm/dry/pink. Vital Signs: 14:23 BP 143 / 86; Pulse 93; Resp 18; Temp 100(O); Pulse Ox 98% on R/A; Weight 70.76 kg; hb Height 5 ft. 2 in. ; Pain 8/10; 16:29 BP 141 / 78; Pulse 73; Resp 16 S; Pulse Ox 99% on R/A; kc6 18:43 BP 184 / 84; Pulse 77; Resp 16 S; Temp 97.7(O); Pulse Ox 100% on R/A; kc6 20:46 BP 162 / 85; Pulse 87; Resp 16; Temp 98.5(O); Pulse Ox 100% on R/A; nw1 14:23 Body Mass Index 28.53 (70.76 kg, 157.48 cm) hb 14:23 Pain Scale: Adult hb Ramirez Coma Score: 20:46 Eye Response: spontaneous(4). Motor Response: obeys commands(6). Verbal Response: nw1 oriented(5). Total: 15. ED Course: 14:15 Patient arrived in ED. rg4 14:17 Jb Solomon MD is Attending Physician. zeb 14:18 Radha Valdez, CHAI is Primary Nurse. kc6 14:19 Patient maintains SpO2 saturation greater than 95% on room air. kc6 14:19 Patient has correct armband on for positive identification. Placed in gown. Bed in low kc6 position. Call light in reach. Side rails up X2. Adult w/ patient. Client placed on continuous cardiac and pulse oximetry monitoring. NIBP monitoring applied. nursing unit manager on. 14:25 Triage completed. hb 14:30 Arm band placed on. kc6 14:52 SARS RAPID Sent. kc6 14:52 Flu Sent. kc6 14:52 Strep Sent. kc6 14:52 Missed attempt(s): 20 gauge in right antecubital area. Inserted saline lock: 20 gauge kc6 in left forearm, using aseptic technique. Blood collected. 15:53 CT Chest, Abdomen, Pelvis - W/Contrast In Process Unspecified. EDMS 16:38 XRAY Chest (1 view) In Process Unspecified. EDMS 16:44 Bryan Brunson MD is Hospitalizing Provider. [facility] 19:00 Report given to CHAI Barnard. kc6 20:46 No provider procedures requiring assistance completed. Inserted saline lock: 22 gauge nw1 in right hand, using aseptic technique. 20:46 Provided Education on: POC. Door closed. Noise minimized. Lights dimmed. nw1 21:13 Patient admitted, IV remains in place. nw1 Administered Medications: 15:27 Drug: Acetaminophen PO 1000 mg PO once Route: PO; kc6 18:44 Follow up: Response: No adverse reaction; Temperature is decreased kc6 16:13 Drug: Rocephin IV 1 grams IV at per protocol once; Given slow IV push per pharmacy iw instructions Route: IV; Rate: per protocol; Site: right hand; 18:44 Follow up: Response: No adverse reaction; IV Status: Completed infusion; IV Intake: [id number] 16:14 Drug: NS 0.9% IV 1000 ml IV at 1 bolus Per protocol; 1000 mL bolus Route: IV; Rate: 1 iw bolus; Site: right hand; 16:15 Drug: NS 0.9% IV 1000 ml IV at 1 bolus Per protocol; 1000 mL bolus Route: IV; Rate: 1 iw bolus; Site: left antecubital; 16:29 CANCELLED (Duplicate Order): ns0.45 % 1000 ml IV at 125 ml/hr continuous zeb 16:57 Drug: Meropenem IV 1 grams IV at per protocol once; (mix in NS 100 mL) Route: IV; Rate: kc6 per protocol; Site: right hand; 18:44 Follow up: Response: No adverse reaction; IV Status: Completed infusion; IV Intake: kc6 100ml 18:41 Drug: NS 0.9% IV 1000 ml IV at 125 ml/hr continuous Route: IV; Rate: 125 ml/hr; Site: kc6 right hand; Medication: 20:46 VIS not applicable for this client. nw1 Intake: 18:44 IV: 50ml; Total: 50ml. kc6 18:44 IV: 100ml; Total: 150ml. kc6 Outcome: 16:45 Decision to Hospitalize by Provider. zeb 21:12 Admitted to Med/surg room 230, Report called to CHAI Macdonald. All questions asked, nw1 answered. 21:12 Condition: stable 21:13 Instructed on the need for admit, nw1 21:50 Patient left the ED. me1 Signatures: Dispatcher [employer] Jb Plasencia MD MD cha Williams, Irene, CHAI PAULA Sylvia Hicks RN RN hb Garcia, Rubi rg4 Radha Valdez RN RN 6 Dorita Aguilar RN RN mo1 Evon Hall RN RN nw1
--- NOTE | 2023-02-08 16:53 | RAD REPORT ---
EXAM DESCRIPTION: [place] Single View02/08/2023 4:36 pm CLINICAL HISTORY: Cough COMPARISON: 2021 FINDINGS: The lungs appear clear of acute infiltrate. The heart is normal size IMPRESSION: No acute abnormalities displayed
[2023-02-08] MEDS ORDERED: NA CHLORIDE 0.9% 100 ML ONE (16:57)
[2023-02-08] MEDS ORDERED: NA CHLORIDE 0.9% 1,000 ML ONE (16:57)
[2023-02-08] MEDS ORDERED: Meropenem 1000 MG/VIAL IV ONE (16:57)
--- NOTE | 2023-02-08 18:40 | P.HP ---
Certification for Inpatient Patient admitted to: Observation With expected LOS: <2 Midnights Patient will require the following post-hospital care: None Practitioner: I am a practitioner with admitting privileges, knowledge of patient current condition, hospital course, and medical plan of care. Services: Services provided to patient in accordance with Admission requirements found in Title 42 Section 412.3 of the Code of Federal Regulations Patient History Date of Service: 02/08/23 Reason for admission: UTI/TED History of Present Illness: Patient is a 72-year-old female came to the hospital with flank tenderness and fever. Patient has been running fevers with shakes and chills. Patient was also complaining of dysuria. She was feeling like she was not emptying her bladder. She came into the emergency room for further evaluation. In the emergency room patient urinalysis which reflected that she had a urinary tract infection. CT imaging suggested that patient may have stranding around the kidneys. Patient was diagnosed with pyelonephritis. Patient denies any nausea or vomiting at this time. Will go ahead and see if she can keep her meals down. And as long as clinically she is doing well in the morning she should be able to go home with antibiotics and pain control. Patient will be admitted for observation. Allergies No Known Allergies Allergy (Verified 08/21/21 14:15) Home Medications: Levothyroxine [Synthroid] 50 mcg PO [id number] 08/21/21 Lisinopril [Zestril] 30 mg PO DAILY 08/21/21 Meloxicam [Mobic] 7.5 mg PO BEDTIME 08/21/21 Metformin ER [Glucophage ER] 500 mg PO DAILY 08/21/21 Simvastatin 40 mg PO BEDTIME 08/21/21 - Past Medical/Surgical History Past Medical History: Patient denies medical history Past Surgical History: Patient denies surgical history - Family History Father Family History: Reviewed- Non-Contributory - Social History Smoking Status: Never smoker Alcohol use: No CD- Drugs: No Caffeine use: No Review of Systems 10-point ROS is otherwise unremarkable Physical Examination - Vital Signs Temperature: 98 F Blood Pressure: 120/70 Pulse: 90 Respirations: 18 Pulse Ox (%): 100 - Physical Exam General: Alert, In no apparent distress, Oriented x3 HEENT: Atraumatic, PERRLA, Mucous membr. moist/pink, EOMI, Sclerae nonicteric Neck: Supple, 2+ carotid pulse no bruit, No LAD, Without JVD or thyroid abnormality Respiratory: Clear to auscultation bilaterally, Normal air movement Cardiovascular: Regular rate/rhythm, Normal S1 S2, No murmurs Gastrointestinal: Normal bowel sounds, Soft and benign, Non-distended, No rebound, No guarding, Tenderness (Suprapubic tenderness; no flank tenderness) Musculoskeletal: No clubbing, No swelling, No tenderness Integumentary: No rashes Neurological: Normal gait, Normal speech, Normal strength at 5/5 x4 extr, Normal tone, Sensation intact, Cranial nerves 3-12 intact, Normal affect Lymphatics: No axilla or inguinal lymphadenopathy - Studies Laboratory Data (last 24 hrs) 02/08/23 02/08/23 02/08/23 16:00 14:47 14:47 WBC 11.60 H Hgb 12.5 Hct 37.5 Plt Count 286 PT 11.9 INR 1.08 Sodium 137 Potassium 4.0 BUN 18 Creatinine 0.96 Glucose 107 H Magnesium 2.3 Total Bilirubin 0.5 AST 22 ALT 26 Alkaline Phosphatase 116 Lipase 36 Microbiology Data (last 24 hrs): 02/08/23 14:47 Nasopharnyx Influenza Type A Antigen Screen - Final 02/08/23 14:47 Nasopharnyx Influenza Type B Antigen Screen - Final 02/08/23 14:47 Throat Group A Streptococcus Rapid Screen - Final Assessment & Plan - Problems (Diagnosis) (1) Pyelonephritis Current Visit: Yes Status: Acute - Plan Plan: 1. Pyelonephritis; continue with IV fluids and IV antibiotics. Patient was to be started on IV antibiotic therapy at this time. Will monitor patient's clinical status. As long as patient is tolerating diet we should be able to discharge in the morning with oral antibiotic therapy. Continue with IV hydration overnight. Continue with pain control. Patient will be admitted for observation. Discharge Plan: Home Plan to discharge in: 24 Hours - Advance Directives Does patient have a Living Will: No Does patient have a Durable POA for Healthcare: No - Code Status/Comfort Care Code Status Assessed: Yes Code Status: Full Code Critical Care: No Time Spent Managing PTS Care (In Minutes): 45
[2023-02-08] MEDS ORDERED: CEFTRIAXONE 1,000 MG in NA CHLORIDE 0.9% 50 ML IVPB ONE (18:41)
[2023-02-08] MEDS ORDERED: ONDANSETRON 4 MG/2 ML VIAL IV PRN (18:41)
[2023-02-08] MEDS: NA CHLORIDE 0.9% 1,000 ML IV SCH (21:59)
[2023-02-08] MEDS: MORPHINE 2 MG/ML SYR IV PRN (22:04)
[2023-02-08 22:59] VITALS: BMI 28.7
[2023-02-09 03:19] LABS: Absolute Lymphocytes (CBC) 2.7 K/uL (0.7-4.9); Hematocrit 33.8 % (36.0-45.0); Lymphocytes % 29.5 % (15.3-44.8); MPV 8.7 fL (7.6-11.3); Platelets 233 thou/uL (152-406); RBC Red Blood Cell Count 3.84 M/uL (3.86-4.86)
[2023-02-09 03:36] LABS: Albumin 2.8 g/dL (3.4-5.0); Bilirubin Total 0.3 mg/dL (0.2-1.0); Potassium 3.8 mEq/L (3.5-5.1); Protein, Total 6.3 g/dL (6.4-8.2)
[2023-02-09 04:00] LABS: Thyroid Stimulating Hormone 1.12 uIU/mL (0.358-3.740)
--- NOTE | 2023-02-09 04:56 | P.DS ---
Discharge Date: 02/09/23 Disposition: ROUTINE DISCHARGE Discharge Condition: GOOD Reason for Admission: UTI/TED - Problems (1) Pyelonephritis Current Visit: Yes Status: Acute Brief History of Present Illness: Patient is a 72-year-old female came to the hospital with flank tenderness and fever. Patient has been running fevers with shakes and chills. Patient was also complaining of dysuria. She was feeling like she was not emptying her bladder. She came into the emergency room for further evaluation. In the emergency room patient urinalysis which reflected that she had a urinary tract infection. CT imaging suggested that patient may have stranding around the kidneys. Patient was diagnosed with pyelonephritis. Patient denies any nausea or vomiting at this time. Will go ahead and see if she can keep her meals down. And as long as clinically she is doing well in the morning she should be able to go home with antibiotics and pain control. Patient will be admitted for observation. Vital Signs/Physical Exam: Temp Pulse Resp BP Pulse Ox 98 F 90 18 120/70 100 02/09/23 04:56 02/09/23 04:56 02/09/23 04:56 02/09/23 04:56 02/09/23 04:56 Laboratory Data at Discharge: WBC 9.00 thou/uL (4.3-10.9) 02/09/23 02:47 Hgb 11.3 g/dL (12.0-15.0) L D 02/09/23 02:47 Hct 33.8 % (36.0-45.0) L 02/09/23 02:47 Plt Count 233 thou/uL (152-406) 02/09/23 02:47 PT 11.9 SECONDS (9.5-12.5) 02/08/23 16:00 INR 1.08 02/08/23 16:00 Sodium 142 mEq/L (136-145) D 02/09/23 02:47 Potassium 3.8 mEq/L (3.5-5.1) 02/09/23 02:47 BUN 10 mg/dL (7-18) 02/09/23 02:47 Creatinine 0.77 mg/dL (0.55-1.02) 02/09/23 02:47 Glucose 124 mg/dL (74-106) H 02/09/23 02:47 Magnesium 2.3 mg/dL (1.6-2.4) 02/08/23 14:47 Total Bilirubin 0.3 mg/dL (0.2-1.0) 02/09/23 02:47 AST 27 U/L (15-37) 02/09/23 02:47 ALT 25 U/L (13-56) 02/09/23 02:47 Alkaline Phosphatase 97 U/L (45-117) 02/09/23 02:47 Lipase 36 U/L (13-75) 02/08/23 14:47 Home Medications: Levothyroxine [Synthroid] 50 mcg PO [id number] 08/21/21 Lisinopril [Zestril] 30 mg PO DAILY 08/21/21 Meloxicam [Mobic] 7.5 mg PO BEDTIME 08/21/21 Metformin ER [Glucophage ER] 500 mg PO DAILY 08/21/21 Simvastatin 40 mg PO BEDTIME 08/21/21
[2023-02-09] MEDS: NA CHLORIDE 0.9% 1,000 ML IV SCH (05:00)
[2023-02-09] MEDS: MORPHINE 2 MG/ML SYR IV PRN (05:13)
[2023-02-09] MEDS ORDERED: METHYLPREDNISOLONE 125 MG INJ IV ONE (06:00)
[2023-02-09] MEDS ORDERED: LEVOTHYROXINE SOD 0.05 MG TABLET PO SCH (06:00)
[2023-02-09 11:54] VITALS: BP 154/89; TEMP 97.6; O2SAT 96
[2023-02-09] MEDS ORDERED: CEFTRIAXONE 1,000 MG in NA CHLORIDE 0.9% 50 ML IVPB SCH (18:00)
--- NOTE | 2023-02-10 13:35 | EKG ---
Test Date: 2023-02-08 Test Time: 14:28:18 [employer]: TONIO MEASUREMENT RESULTS: Intervals: Rate: 86 [place]: 134 QRSD: 78 QT: 348 QTc: 416 [place]: P: 76 [place]: 134 QRS: 74 T: 30 INTERPRETIVE STATEMENTS: Normal sinus rhythm Nonspecific T wave abnormality Abnormal ECG Compared to ECG 04/08/2020 12:40:35 No significant changes Electronically Signed On 02-10-23 13:28:28 UPHOLSTERER APPRENTICE by David Draper
== END 2023-02-09 10:40 | disposition home or self-care (01) ==
LOC: ER 14:13 → ERHOLD 18:41 → 2ND 21:14
PROVIDERS: ADMIT Hospitalist; ATTEND Hospitalist
DX: N10 Acute pyelonephritis (principal); E11.9 Type 2 diabetes mellitus without complications; E78.5 Hyperlipidemia, unspecified; I10 Essential (primary) hypertension; E03.9 Hypothyroidism, unspecified; Z11.52 Encounter for screening for COVID-19
CPT/HCPCS: 96365; 93005; 87040 ×2; 87070; 87088; 85025 ×2; 81001; 87086; 80048; 36415; 83735; 85610; 82947; 80076; 87081; 83605; 84443; 87077; 87186; 84484; 84439; 82607; 83690; 80053; 84145; 83880; 87804 ×2; 71260; 74177; 71045; 99285; 96366; 87811; Q9967; J2270 ×2; J2185; J2930; J7030 ×3; J0696 ×2